=== PATIENT | female | born 1955 | race Caucasian/White ===

== ENCOUNTER → 2016-04-07 | Day surgery (SDC) | payer MEDICARE, BC ==
[2016-04-07 12:10] VITALS: BP 129/84; PULSE 66; RESP 18; TEMP 97.9
--- NOTE | 2016-04-07 12:37 | P.PN ---
Progress Note - Text PROCEDURE: Intrathecal pain pump analysis, programming and reprogramming, and intrathecal pain pump refill. PREOPERATIVE DIAGNOSES: 1. near empty intrathecal pain pump time for refill. 2. opioid tolerance 3. failed back surgery syndrome POSTOPERATIVE DIAGNOSES: 1. near empty intrathecal pain pump time for refill. 2. opioid tolerance 3. failed back surgery syndrome ANESTHESIA: None. CONDITION: Stable. INDICATION: This is a 60-year-old patient with a long history of chronic pain secondary to postlaminectomy syndrome. Patient previously had an intrathecal pump placed, which is now close to empty, and patient presents for refill today. Patient denies any side effects of the intrathecal medication, including new weakness, new numbness, excessive drowsiness or sleepiness, nausea/vomiting , weight gain, or night sweats. Patient also denies suicidal ideation, and reports that the current pain medication is helping control the chronic pain and improve the patient's activities of daily living. DESCRIPTION: The intrathecal pain pump was analyzed and showed that the patient currently has reservoir volume of [9.6] mL. The patient is receiving intrathecal hydromorphone PF at concentration [10] mg/ ml, and bupivacaine PF at concentration [7] mg/ml. Patient receiving daily dose of Morphine Sulfate [5] mg/day and bupivacaine [ 3.5] mg/day. The location of the pump (right buttock) was prepped with chlorhexidine x3. Then, the 22-gauge needle from the Twenty[employer] kit was advanced through the pump port. Total of [11] ml was removed from the pump, and it was refilled with the new medication total volume of [40] ml of a solution containing hydromorphone at concentration [10] mg /ml and bupivacaine at concentration [7] mg/ml. The patient will continue with the same daily dose hydromorphone [5] mg/day and bupivacaine [3.5] mg/day. The patient is using some oral medications as well, specifically morphine IR 30 mg every 8 hours prn pain orally for breakthrough pain. The patient was given two months' worth of these medications and patient will follow up with the pain clinic in 2 months for refill and further evaluation. UDS from last visit was normal. On physical exam, patient has L >> R SIJ tenderness and positive Sánchez's bilaterally. We will additionally schedule her for a left SIJ injection prior to next pump refill.
== END ==
LOC: PNWHC3 11:21
PROVIDERS: ATTEND Anesthesiology
DX: Z45.1 Encounter for adjustment and management of infusion pump (principal); G89.4 Chronic pain syndrome; M54.5 Low back pain; M96.1 Postlaminectomy syndrome, not elsewhere classified
CPT/HCPCS: 62370

== ENCOUNTER 2016-04-10 06:47 | Day surgery (SDC) | payer MEDICARE, BC ==
[2016-04-09 08:14] VITALS: BMI 35.9
[~2016-04-10 06:47] MED LIST: LACTATED RINGERS 1,000 ML IV SCH
[2016-04-10] MEDS ORDERED: LIDOCAINE 1% 20 ML VIAL (10MG/ML) FOR IV START INTRADERMA ONE (07:05)
[2016-04-10 07:23] LABS: Glucose,Whole Blood 152 mg/dL (75-99)
[2016-04-10 07:29] VITALS: RESP 16; TEMP 97.6
[2016-04-10 07:39] LABS: INR 1.2 (<1.1); Prothrombin Time 11.5 sec (9.0-12.0)
[2016-04-10] MEDS ORDERED: fentaNYL (PF) 50 MCG/ML 2 ML AMP ONE (08:10)
[2016-04-10] MEDS ORDERED: TRIAMCINOLONE ACETONIDE 40 MG/ML 1 ML VIAL ONE (08:10)
[2016-04-10] MEDS ORDERED: MIDAZOLAM 2 MG/2 ML VIAL ONE (08:10)
[2016-04-10] MEDS ORDERED: BUPIVACAINE (PF) 0.5% 30 ML VIAL ONE (08:10)
[2016-04-10] MEDS ORDERED: IV FLUID CONTINUATION 1,000 ML IV ONE (08:49)
[2016-04-10 09:00] VITALS: BP 119/83; PULSE 62
[2016-04-10 09:05] LABS: Glucose,Whole Blood 176 mg/dL (75-99)
--- NOTE | 2016-04-10 09:30 | FL ---
EXAMINATION TYPE: FL guided pain mgmt statistic DATE OF EXAM: 04/10/2016 8:46 AM CLINICAL HISTORY: Low back and sacroiliac joint pain. TECHNIQUE: Fluoroscopy. COMPARISON: None. FINDINGS: Fluoroscopic guidance was provided during pain relief procedure performed by Dr. Clarke . A total of 10 seconds of fluoroscopic time was utilized during the procedure and two spot images a re acquired. Images acquired shows needle localization at level of bilateral sacroiliac joints. IMPRESSION: As Above.
--- NOTE | 2016-04-10 12:09 | P.PCN ---
Date of Procedure: 04/10/16 Procedure(s) Performed: Preoperative diagnoses= 1-bilateral sacroiliitis. 2-Failed back surgery syndrome lumbar area Postoperative diagnoses= same as preoperative diagnosis. Procedure= bilateral sacroiliac joint steroid injection under fluoroscopic guidance. Anesthesia= conscious sedation with Versed 2 mg and fentanyl 200 micrograms and local infiltration with lidocaine 1% 4 ml Estimated blood loss=minimal. Procedure indication= the patient had a history of severe chronic low back pain , diagnosed with sacroiliitis , unresponsive to conservative treatment. Procedure description= the patient was seen and identified in the preoperative holding area, risks and benefits and alternative of the procedure and possible complications discussed with the patient, and he agreed with the preceding, patient signed the consent, an IV was started, and vital signs were monitored and were stable throughout the procedure, patient was placed in the prone position or table and the lumbosacral area was prepped and draped with a sterile fashion, vital signs were closely monitored during the procedure, the fluoroscopy camera was placed in the contralateral oblique view on the right sacroiliac joint and the lower part of the joint was identified, local infiltration of the skin and subcutaneous tissue with lidocaine 1% 2 mL then a 22-gauge Quincke-type spinal needle advanced slowly under fluoroscopy and placed in the posterior and inferior border of the right sacroiliac joint, placement confirmed with AP and lateral view, and after appropriate needle placement confirmed and after negative aspiration for heme and CSF and there was no paresthesia during the injection, 3 ml of Marcaine 0.5% and 40 mg of Kenalog injected after negative aspiration, the needle removed, and the entire same procedure was repeated for the left sacroiliac joint Patient tolerated the procedure well without any complication, The patient returned to supine position after the back was cleaned and a Band- Aid applied, the patient transported to recovery room in stable condition and he was monitored for 30 minutes before he was discharged home and then patient was reexamined before going home and patient was discharged in stable condition and patient will follow up with the pain clinic in a few weeks
== END 2016-04-10 09:39 | disposition home or self-care (01) ==
LOC: ORPAIN 06:47
PROVIDERS: ATTEND Specialist
DX: G89.29 Other chronic pain (principal); M96.1 Postlaminectomy syndrome, not elsewhere classified; M46.1 Sacroiliitis, not elsewhere classified; M54.5 Low back pain; Z88.0 Allergy status to penicillin; Z88.8 Allergy status to other drugs, medicaments and biological substances; Z91.09 Other allergy status, other than to drugs and biological substances
CPT/HCPCS: 85610; 99152; J2250; J3301; J3010; G0260

== ENCOUNTER 2016-05-13 09:46 | Day surgery (SDC) | payer MEDICARE, BC ==
[2016-05-08 10:50] VITALS: BMI 32.7
[2016-05-13 10:05] VITALS: RESP 16; TEMP 97.1
[2016-05-13] MEDS ORDERED: LIDOCAINE 1% 20 ML VIAL (10MG/ML) FOR IV START INTRADERMA ONE (10:13)
[2016-05-13 10:24] LABS: Glucose,Whole Blood 114 mg/dL (75-99)
[2016-05-13] MEDS ORDERED: TRIAMCINOLONE ACETONIDE 40 MG/ML 1 ML VIAL ONE (10:46)
[2016-05-13] MEDS ORDERED: BUPIVACAINE (PF) 0.75% 30 ML VIAL ONE (10:46)
[2016-05-13] MEDS ORDERED: MIDAZOLAM 2 MG/2 ML VIAL ONE (10:46)
[2016-05-13] MEDS ORDERED: fentaNYL (PF) 50 MCG/ML 2 ML AMP ONE (10:46)
--- NOTE | 2016-05-13 11:11 | P.PCN ---
Date of Procedure: 05/13/16 Procedure(s) Performed: Preoperative diagnoses= 1-bilateral sacroiliitis. 2-failed back surgery syndrome lumbar area Postoperative diagnoses= same as preoperative diagnosis. Procedure= bilateral sacroiliac joint steroid injection under fluoroscopic guidance. Anesthesia= conscious sedation with Versed 2 mg and fentanyl 300 micrograms and local infiltration with lidocaine 1% 4 ml Estimated blood loss=minimal. Procedure indication= the patient had a history of severe chronic low back pain , diagnosed with sacroiliitis and lumbar sacral facet arthropathy unresponsive to conservative treatment. Procedure description= the patient was seen and identified in the preoperative holding area, risks and benefits and alternative of the procedure and possible complications discussed with the patient, and he agreed with the preceding, patient signed the consent, an IV was started, and vital signs were monitored and were stable throughout the procedure, patient was placed in the prone position or table and the lumbosacral area was prepped and draped with a sterile fashion, vital signs were closely monitored during the procedure, the fluoroscopy camera was placed in the contralateral oblique view on the right sacroiliac joint and the lower part of the joint was identified, local infiltration of the skin and subcutaneous tissue with lidocaine 1% 2 mL then a 22-gauge Quincke-type spinal needle advanced slowly under fluoroscopy and placed in the posterior and inferior border of the right sacroiliac joint, placement confirmed with AP and lateral view, and after appropriate needle placement confirmed and after negative aspiration for heme and CSF and there was no paresthesia during the injection, 3 ml of Marcaine 0.5% and 40 mg of Kenalog injected after negative aspiration, the needle removed, and the entire same procedure was repeated for the left sacroiliac joint Patient tolerated the procedure well without any complication, The patient returned to supine position after the back was cleaned and a Band- Aid applied, the patient transported to recovery room in stable condition and he was monitored for 30 minutes before he was discharged home and then patient was reexamined before going home and patient was discharged in stable condition and patient will follow up with the pain clinic in a few weeks
[2016-05-13] MEDS ORDERED: IV FLUID CONTINUATION 600 ML IV ONE (11:36)
[2016-05-13 11:39] VITALS: BP 123/57; PULSE 62
--- NOTE | 2016-05-13 11:46 | FL ---
EXAMINATION TYPE: FL guided pain mgmt statistic DATE OF EXAM: 05/13/2016 11:19 AM CLINICAL HISTORY: Low back pain. TECHNIQUE: Fluoroscopy. COMPARISON: None. FINDINGS: Fluoroscopic guidance was provided during pain relief procedure performed by Dr. Clarke . A total of 14 seconds of fluoroscopic time was utilized during the procedure and two spot images a re acquired. Images acquired shows needle localization at level of sacroiliac joints. IMPRESSION: As Above.
== END 2016-05-13 12:12 | disposition home or self-care (01) ==
LOC: ORPAIN 09:46
PROVIDERS: ATTEND Specialist
DX: G89.29 Other chronic pain (principal); M46.1 Sacroiliitis, not elsewhere classified; M46.97 Unspecified inflammatory spondylopathy, lumbosacral region; M96.1 Postlaminectomy syndrome, not elsewhere classified; J44.9 Chronic obstructive pulmonary disease, unspecified; Z88.0 Allergy status to penicillin; Z91.048 Other nonmedicinal substance allergy status; Z88.8 Allergy status to other drugs, medicaments and biological substances
CPT/HCPCS: 99152; G0260; J2250; J3301; J3010

== ENCOUNTER → 2016-06-11 | Day surgery (SDC) | payer MEDICARE, BC ==
[2016-06-11 12:36] VITALS: BP 145/87; PULSE 70; RESP 16; TEMP 97.9
--- NOTE | 2016-06-11 13:52 | P.PCN ---
Date of Procedure: 06/11/16 Procedure(s) Performed: OPERATION: Intrathecal pain pump analysis, programming and reprogramming, and intrathecal pain pump refill. PREOPERATIVE DIAGNOSES: 1. near empty intrathecal pain pump time for refill. 2. 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 near empty intrathecal pain pump time for refill. 2. 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 CONDITION: Stable. Description of the procedure; Intrathecal pain pump analysed ,it showed patient currently had reservoir volume 7.6 mL. The patient is receiving medication Dilaudid 10 mg/ ml, and bupivacaine concentration 7 mg/ml. Patient receiving daily dose of Dilaudid 4.9 mg/day and bupivacaine 3.5 mg/day. Pain is well controlled , patient using medication for breakthrough pain MS IR 30 mg every 6 hours when necessary orally . The location of the pump ( Right Buttuck ) Prepped with chlorhexidine x3 , then using 22-gauge needle Bit Cauldron kit advanced through the pump port, Total of 10 ml removed from the pump, the pump refills with the new medication total volume [ 40 ] ml . The concentration of Dilaudid 10 mg /ml , and the bupivacaine concentration 7 mg/ml. The patient will continue to see the daily dose Dilaudid 4.9mg/day and bupivacaine 3.5 mg/day and patient will follow up with the pain clinic in 3 months. Patient given prescription refill today for MS IR 15 mg every 6 hours dispense 120 with 2 refills and Zanaflex 4 mg every 6 hours when necessary Not= discussed with the patient today the option of doing radiofrequency ablation of the sacroiliac joint patient had sacroiliac joint steroid injections in 2 different occasions and she gets excellent pain relief, and for this reason she will need good candidate for radiofrequency ablation of the dorsal ramus of L5-S1 and the radiofrequency ablation of the lateral branches of S1/S2/S3 , we will start with the left side first and witherite suddenly thrown procedure risk and benefits and alternatives discussed with patient and she agreed with proceeding.
== END ==
LOC: PNWHC3 12:01
PROVIDERS: ATTEND Specialist
DX: Z45.49 Encounter for adjustment and management of other implanted nervous system device (principal); M96.1 Postlaminectomy syndrome, not elsewhere classified; Z79.891 Long term (current) use of opiate analgesic
CPT/HCPCS: 62370; 71020; 81003; 85610; 85730

== ENCOUNTER → 2016-06-11 | Outpatient (CLI) | payer MEDICARE, BC ==
[2016-06-11 14:47] LABS: Appearance,Urine Clear (Clear); Bilirubin,Urine Negative (Negative); Glucose,Urine (UA) Negative (Negative); Ketones,Urine Negative (Negative); Leukocyte Esterase,Urine Negative (Negative); Nitrite,Urine Negative (Negative); Protein,Urine Negative (Negative); Specific Gravity,Urine 1.009 (1.001-1.035); UA Billing (MACRO vs. MICRO) CHEM; Urobilinogen,Urine <2.0 mg/dL (<2.0)
--- NOTE | 2016-06-11 15:21 | XR ---
EXAMINATION TYPE: XR chest 2V DATE OF EXAM: 06/11/2016 2:44 PM COMPARISON: 09/24/2014 HISTORY: 60-year-old female presurgical evaluation for spinal stimulator removal TECHNIQUE: Frontal and lateral views FINDINGS: The heart is normal size. Aorta and pulmonary vasculature within normal limits. Median sternotomy wir es are present with post-CABG clips in the mediastinum. No consolidation or pleural effusion. Spinal stimulator array centered along the mid thoracic spinal canal. There also appears to be some k ind of catheter ventrally along the spinal canal. IMPRESSION: No acute cardiopulmonary process.
[2016-06-11 15:25] LABS: INR 2.4 (<1.1); Partial Thromboplastin Time 29.4 sec (22.0-30.0); Prothrombin Time 22.7 sec (9.0-12.0)
== END | disposition home or self-care (01) ==
LOC: LABPAT 14:03
PROVIDERS: ATTEND Orthopaedic Surgery Orthopaedic Surgery of the Spine
DX: Z01.818 Encounter for other preprocedural examination (principal); Z01.812 Encounter for preprocedural laboratory examination
CPT/HCPCS: 71020; 81003; 85610; 85730

== ENCOUNTER 2016-06-18 10:24 | Inpatient (IN) | payer MEDICARE, BC ==
[2016-06-16 11:45] VITALS: BMI 33.8
[~2016-06-18 10:24] MED LIST changes: +BACITRACIN 50,000 UNIT, POLYMYXIN B 500,000 UNIT in SODIUM CHLORIDE 0.9% IRRIGATIO 1,00... IRRIGATION ONE; +DEXAMETHASONE SOD PHOSPHATE 10 MG/ML 1 ML VIAL IV ONE; -LACTATED RINGERS 1,000 ML IV SCH; +LIDOCAINE 1% 20 ML VIAL (10MG/ML) FOR IV START INTRADERMA PRN; +MIDAZOLAM 2 MG/2 ML VIAL IV PRN; +ONDANSETRON 4 MG/2 ML VIAL IVP ONE; +SCOPOLAMINE 1.5MG/72HR PATCH TRANSDERM ONE; +ceFAZolin 2 GM in SODIUM CHLORIDE 0.9% 100 ML IVPB ONE
[2016-06-18] MEDS: LACTATED RINGERS 1,000 ML IV SCH (11:02)
[2016-06-18 11:08] LABS: Glucose,Whole Blood 87 mg/dL (75-99)
[2016-06-18 11:23] LABS: Prothrombin Time 10.2 sec (9.0-12.0)
[2016-06-18] MEDS: fentaNYL (PF) 50 MCG/ML 2 ML AMP IV ONE ×2 (11:28→11:47)
[2016-06-18] MEDS ORDERED: LIDOCAINE 1% INJ 10MG/ML (20 ML MDV) ONE (12:53)
[2016-06-18] MEDS ORDERED: THROMBIN (BOVINE) 5,000 UNIT VIAL TOPICAL ONE (12:53)
[2016-06-18] MEDS ORDERED: SUCCINYLCHOLINE CHLORIDE 100 MG/5 ML SYR IV ONE (12:53)
[2016-06-18] MEDS ORDERED: GELATIN SPONGE,ABSORB (LARGE) 1 EACH SPONGE TOPICAL ONE (12:53)
[2016-06-18] MEDS ORDERED: BUPIVACAINE (PF) 0.25% 30 ML VIAL SQ ONE (12:53)
[2016-06-18] MEDS ORDERED: PROPOFOL 10 MG/ML 20 ML VIAL IV ONE ×2 (12:53)
[2016-06-18] MEDS ORDERED: HYDROmorphone (PF) 1 MG/ML ONE (12:53)
[2016-06-18] MEDS ORDERED: MIDAZOLAM 2 MG/2 ML VIAL ONE (12:53)
[2016-06-18] MEDS ORDERED: LIDOCAINE 0.5%-EPI 1:200,000 50 ML VIAL SQ ONE (12:53)
[2016-06-18] MEDS ORDERED: SODIUM CHLORIDE 0.9% 100 ML with CLINDAMYCIN 600 MG IV ONE ×2 (13:15)
[2016-06-18] MEDS ORDERED: LACTATED RINGERS 1,000 ML IV ONE (13:20)
[2016-06-18] MEDS ORDERED: IBUPROFEN 600 MG TAB PO PRN (14:30)
[2016-06-18] MEDS ORDERED: BENZOCAINE/MENTHOL LOZENG 1 EACH LOZENGE MUCOUS MEM PRN (14:30)
[2016-06-18] MEDS ORDERED: ONDANSETRON 4 MG/2 ML VIAL IVP PRN (14:30)
[2016-06-18] MEDS ORDERED: HYDROmorphone 1 MG/ML 1 ML SYRINGE IVP PRN ×2 (14:30)
[2016-06-18] MEDS ORDERED: DIAZEPAM 5 MG TAB PO PRN (14:30)
[2016-06-18] MEDS ORDERED: tiZANidine 4 MG TAB PO PRN ×2 (14:33→19:41)
[2016-06-18] MEDS ORDERED: ALBUTEROL NEBULIZED 2.5 MG/3 ML INHALATION PRN ×2 (14:33)
[2016-06-18] MEDS ORDERED: TEMAZEPAM 30 MG CAP PO PRN (14:33)
[2016-06-18] MEDS ORDERED: ALPRAZolam 0.5 MG TAB PO PRN (14:33)
--- NOTE | 2016-06-18 14:40 | XR ---
EXAMINATION TYPE: XR thoracic spine 1V, FL guidance operating room DATE OF EXAM: 06/18/2016 2:32 PM COMPARISON: NONE HISTORY: Thoracic laminectomy Fluoroscopy:Thoracic laminectomy NST placement. Dr. Ennis. 9 sec fluoro, 2 images scanned. Paper images: Four paper images are submitted which are quite limited.
[2016-06-18] MEDS: HYDROmorphone 1 MG/ML 1 ML SYRINGE IVP PRN ×4 (14:42→15:10)
--- NOTE | 2016-06-18 14:45 | P.OP ---
Date of Procedure: 06/18/16 Preoperative Diagnosis: Bothersome neurostimulator, chronic pain syndrome, failed low back surgery syndrome. History of neurostimulator placement Postoperative Diagnosis: Same Anesthesia: GETA Pathology: none sent Condition: stable Disposition: PACU Description of Procedure: BRIEF OPERATIVE NOTE Preoperative Diagnosis: Bothersome neurostimulator, history of neuro stimulator placement with laminectomy T10 11, history battery pack placement, chronic pain syndrome, failed back surgery syndrome, Postoperative Diagnosis: Same Procedure: Revision Laminectomy at T10 11 with removal of deep neuro estimated device at the epidural space Removal of battery pack through a separate incision at the left gluteal area, subcutaneous Use of C-arm guidance Surgeon: Dr. Ennis Embroidery Worker: Liam Garcia is present throughout the entire the case persistence during positioning, dissection, exposure, visualization, and all crucial elements of the case as well as closure. Anesthesia: General anesthesia Estimated blood loss:Approximately 50 mL Complications: None apparent Components implanted:No components were implanted, however we removed the neurostimulator paddle with leads as well as a battery pack Disposition: To recovery room in good stable condition. OPERATIVE INDICATIONS The patient has been having issues in their lower back and lower extremities Chronically over multiple years. the patient has been through extensive treatment in the past with her spine including spinal surgery spinal fusion, conservative management aggressive conservative care with placement of a pain pump as well as placement of a neurostimulator device in the past. Several years ago when she had her neurostimulator placed she initially had good improvement and results with it however those improvements faded and she was having continued problems and pain and no longer uses her nurse to better device. She feels it is bothersome for her at the level of her battery pack and the device itself. She wanted to get further workup including MRIs but she was limited due to the nurse to better placement. The patient has been through conservative treatment. we discussed removal of the neurostimulator device of the battery pack. We discussed various treatment options including surgery, and the patient wishes to proceed with surgery We discussed the risk, patient's alternatives and benefits of surgery including but not limited to, risk of bleeding risk of infection, risk of need for further surgery, risk of decreased , loss of motion, loss of function, nerve damage, paralysis, heart attack, blindness and . OPERATIVE SUMMARY After discussing risks, patient alternatives and benefits at length, the patient elected to proceed with surgical intervention, signed informed consent, and presented for their procedure. The patient was seen and examined in the preoperative holding area and the surgical site was marked. The patient was given antibiotics and brought to the operating room. The patient was sedated and intubated by anesthesia in standard fashion. The patient was positioned on to the operating room table in a prone position on the appropriate frame which was well-padded and well molded. We were careful to pad any bony prominences and pressure points. We were careful to maintain the patient's cervical spine and good neutral alignment and position throughout. The patient was prepped and draped in a normal standard fashion. An appropriate timeout and keystone protocol performed. We were able to proceed with the surgery. Fluoroscopy was utilized to establish the appropriate level. The local wound area was infiltrated with local anesthetic Both at her left gluteal area with a battery pack was placed as well as the midline lower thoracic. At the left gluteal area over the prior incision I was able to make an incision and dissect down to the battery pack at subcutaneous space. I removed the battery pack was examined examined and found to be in total. I cut the wires attaching it and it was removed. There was a large void in the capsule around the pouch site. I removed the cystic lining at that space appropriately and good hemostasis was maintained at the void. The wound was copiously irrigated and suctioned dry. He was closed with 2-0 Vicryl at the deep tissues, closing off any space and 2-0 Vicryl subcutaneous space and 4-0 Vicryl at the subcuticular tissue. I was able to turn my attention to the thoracic area. An incision was made at the midline longitudinally over the appropriate levels At T10 11 utilizing the prior incision site. Dissection was taken down subcutaneously to the level of the fascia which was split midline After exposing the coiled wires leading to the paddle lead. Dissection was taken over the lamina. Intraoperative fluoroscopy was taken which showed a marker at the appropriate level As able to expose the wires and their anchor sites at the interlaminar space. The anchors were cut appropriately in the wires were freed. With the appropriate level positively confirmed, we were able to proceed with laminectomy. there is significant scar tissue formation around the wires and leading to the paddle and I had to extend the laminectomy at T10 11 to get to the base of the paddle lead itself or the wires were joining the paddle lead. I removed the scar tissue from this area carefully. The wound was copiously irrigated and suctioned dry as had been done periodically throughout the case. I performed a laminectomy with a combination of curettes and a high-speed bur and Kerrison rongeurs. A small medial facetectomy was performed again further access. A partial foraminotomy was also performed. With the baseplate exposed I was able to and I was able to remove it from the epidural space. It was examined and found to be in total. There is no evidence of any retained fragments. There is no evidence of dural tear or leak. Good hemostasis maintained. The wound was copiously irrigated and suctioned dry. See him ring images were taken showing the removal of the paddle lead in total as well as the very pack and the wires. We were able to proceed with closure. The fascia was closed for a watertight closure. The subcuticular tissue was closed with absorbable suture. The wound was cleaned and dried and dressed with the appropriate dressing. The drapes were broken down. The patient was gently rolled back onto their hospital bed being careful to maintain their cervical spine and good neutral alignment and position. They were woken up by anesthesia, extubated, and brought to the recovery room in good stable condition. The patient will be admitted to the hospital for observation and for appropriate postoperative care, medical management and monitoring. We will continue to follow them closely about the postoperative course.
[2016-06-18] MEDS ORDERED: MEPERIDINE 50 MG/ML SYRINGE IVP ONE ×2 (15:15→15:30)
[2016-06-18 16:31] LABS: Glucose,Whole Blood 78 mg/dL (75-99)
[2016-06-18 17:11] LABS: Glucose,Whole Blood 66 mg/dL (75-99)
[2016-06-18 17:26] LABS: Glucose,Whole Blood 58 mg/dL (75-99)
[2016-06-18 17:41] LABS: Glucose,Whole Blood 70 mg/dL (75-99)
[2016-06-18] MEDS: SODIUM CHLORIDE 0.9% 1,000 ML IV SCH (18:16)
[2016-06-18] MEDS: CLINDAMYCIN 900 MG in DEXTROSE 5% IN WATER 50 ML IVPB SCH ×4 (18:17→23:07)
[2016-06-18] MEDS: GLIMEPIRIDE 2 MG TAB PO SCH (18:17)
[2016-06-18] MEDS: BUDESONIDE 0.5 MG/2 ML NEBU INHALATION SCH (19:08)
[2016-06-18] MEDS ORDERED: DILAUDID PAIN PUMP INTRATHECA SCH (19:45)
[2016-06-18 19:54] LABS: Glucose,Whole Blood 103 mg/dL (75-99)
[2016-06-18] MEDS ORDERED: BUDESONIDE 0.5 MG/2 ML NEBU INHALATION SCH (20:00)
[2016-06-18] MEDS ORDERED: FAMOTIDINE 20 MG TAB PO SCH (21:00)
[2016-06-18] MEDS ORDERED: METOPROLOL TARTRATE 25 MG TAB PO SCH (21:00)
[2016-06-18] MEDS: MORPHINE SULFATE IR 15 MG TABLET PO PRN (21:07)
[2016-06-18] MEDS: METOPROLOL TARTRATE 25 MG TAB PO SCH (21:08)
[2016-06-18 23:14] LABS: Glucose,Whole Blood 139 mg/dL (75-99)
[2016-06-19] MEDS: LACTATED RINGERS 1,000 ML IV SCH (01:22)
[2016-06-19] MEDS: MORPHINE SULFATE IR 15 MG TABLET PO PRN ×2 (02:23→11:25)
[2016-06-19] MEDS: SODIUM CHLORIDE 0.9% 1,000 ML IV SCH (05:01)
[2016-06-19 07:05] LABS: Glucose,Whole Blood 120 mg/dL (75-99)
[2016-06-19] MEDS: BUDESONIDE 0.5 MG/2 ML NEBU INHALATION SCH (07:15)
[2016-06-19] MEDS ORDERED: PANTOPRAZOLE 40 MG TABLET PO SCH (07:30)
[2016-06-19 08:10] VITALS: PULSE 67; RESP 17; TEMP 98.3
[2016-06-19] MEDS ORDERED: SODIUM CHLORIDE 0.9% 500 ML IV ONE ×2 (08:31)
[2016-06-19] MEDS: GLIMEPIRIDE 2 MG TAB PO SCH (08:35)
[2016-06-19] MEDS ORDERED: SERTRALINE 50 MG TAB PO SCH (09:00)
[2016-06-19] MEDS ORDERED: ENOXAPARIN 80 MG/0.8 ML SYRINGE SQ SCH (09:00)
[2016-06-19] MEDS ORDERED: ATORVASTATIN 10 MG TAB PO SCH (09:00)
[2016-06-19] MEDS ORDERED: VITAMIN B PO SCH (09:00)
[2016-06-19] MEDS ORDERED: ASPIRIN 81 MG CHEW PO SCH (09:00)
[2016-06-19] MEDS ORDERED: OXYBUTYNIN XL 5 MG TAB.ER.24 PO SCH (09:00)
[2016-06-19 11:25] VITALS: BP 134/75
[2016-06-19 11:25] LABS: Glucose,Whole Blood 114 mg/dL (75-99)
[2016-06-19] MEDS: METOPROLOL TARTRATE 25 MG TAB PO SCH (11:30)
[2016-06-19] MEDS ORDERED: CHOLECALCIFEROL 1,000 UNIT TAB PO SCH (12:00)
--- NOTE | 2016-06-19 12:26 | P.DS ---
Providers Date of admission: 06/18/16 10:24 Attending physician: René Ennis Consults: 06/18/16 17:45 Consult Physician Routine Consulting Provider: Cabrera Pinzon Reason/Comments: medical management Do you want consulting provider notified?: Yes Primary care physician: Cabrera Pinzon [facility] Course: The patient presented on the day of admission as per his operative note. Her pain is adequately controlled with oral medications. She has been able to get up and move around today. She is tolerating her diet. She denies any headaches or positional headaches. Physical Exam The incision site is clean dry and intact. There is no erythema no drainage. There is no purulence no evidence of infection. Abdomen soft and nontender. Chest has good excursion with deep inspiration and expiration. The patient has active and passive range of motion intact at the upper and lower extremities. There is no acute change in neurologic status. Hospital Course Postoperative day #1 status post revision laminectomy at T10 11 with removal of neurostimulator device and battery pack The patient has been making good progress postoperatively. She has significant history of chronic pain at her back with multiple procedures including history of placement of a neurostimulator device. The device was giving her no relief and was causing her some issues and she thus underwent removal of the neurostimulator device and battery pack yesterday. She is making progress appropriately. They have completed the prophylactic antibiotics without any signs or symptoms of infection. The patient has been able to advance their diet , and is tolerating diet adequately. The pain was initially controlled with IV medications and is now controlled appropriately with oral medications. The patient has been able to increase their mobilization. The patient has progressed appropriately. I think they are in good stable condition for discharge today. They will be sent home with appropriate prescriptions. I answered their questions to the best of my ability in a language that they can understand and they are agreeable with the plan. They will follow up as directed in approximately 2 weeks or sooner if she is having any problems. Patient Condition at Discharge: Good Plan - Discharge Summary New Discharge Prescriptions: Enoxaparin [Lovenox] 80 mg SQ Q12HR #6 syringe Discharge Medication List Famotidine [Pepcid] 20 mg PO HS 10/06/13 [History] Omeprazole [PriLOSEC] 20 mg PO DAILY 10/06/13 [History] Sertraline [Zoloft] 50 mg PO QAM 10/06/13 [History] Temazepam [Restoril] 30 mg PO HS PRN 07/13/14 [History] ALPRAZolam [Xanax] 0.5 mg PO TID PRN 09/25/14 [History] Warfarin [Coumadin] 3 mg PO SUTUWETHSA 07/11/15 [History] Albuterol Nebulized [Ventolin Nebulized] 2.5 mg INHALATION RT-QID PRN 02/06/16 [ History] Atorvastatin [Lipitor] 10 mg PO DAILY 02/06/16 [History] Albuterol Inhaler [Ventolin Hfa Inhaler] 1 - 2 puff INHALATION RT-Q6H PRN [History] Aspirin 81 mg PO DAILY 04/08/16 [History] Budesonide [Pulmicort] 0.5 mg INHALATION RT-BID 04/08/16 [History] Mirabegron [Myrbetriq] 25 tab PO DAILY 06/11/16 [History] Morphine Sulfate Ir [MSIR] 30 mg PO Q4H PRN #120 tablet 06/11/16 [Rx] Cholecalciferol [Vitamin D3] 1,000 unit PO DAILY 06/16/16 [History] Dilaudid Pain Pump 1 dose INTRATHECA CONTINUOUS 06/16/16 [History] Enoxaparin [Lovenox] 80 mg SQ Q12H 06/16/16 [History] Fluticasone Propionate [Flovent Hfa 110mcg] 2 puff INHALATION RT-BID 06/16/16 [ History] Glimepiride [Amaryl] 2 mg PO BID 06/16/16 [History] Vitamin B (Unknown Dose) 1 tab PO DAILY 06/16/16 [History] Warfarin [Coumadin] 4.5 mg PO MOFR 06/16/16 [History] Metoprolol Tartrate [Metoprolol Tartrate] 25 mg PO BID 06/18/16 [History] tiZANidine [Zanaflex] 4 mg PO Q6H PRN 06/18/16 [History] Enoxaparin [Lovenox] 80 mg SQ Q12HR #6 syringe 06/19/16 [Rx] Follow up Appointment(s)/Referral(s): Cabrera Pinzon MD [Primary Care Provider] - 1 Week [facility] Nurse, [NON-STAFF] - 1 Week René Ennis DO [Doctor of Osteopathic Medicine] - 2 Weeks (With Liam Dale at Dr. Ennis's office) Activity/Diet/Wound Care/Special Instructions: Keep site clean. May shower with waterproof Tegaderm intact. Do not soak in a tub. May ambulate to tolerance. Avoid heavy or rigorous activity. No lifting greater than 15 pounds. Continue pain management with pain management and medicine physicians.
--- NOTE | 2016-06-19 12:52 | P.CONS ---
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 Ulrich with recurrent back pain and her mobility decided to do a revision laminectomy of T10-11 along with removal of her nerve stimulator. Procedure was done today and patient was admitted to the hospital afterward. Patient has been on anticoagulation with Lovenox watch is off warfarin for the last 7 days has been doing 80 mg of Lovenox twice a day which was held yesterday patient will be continue on Lovenox and started on warfarin and prepare for home when she is ready. Also she is diabetic blood sugar has been well controlled we'll resume her meds. Patient had previous history of V. tach and arrhythmia has been better control with no complication lately. Review of Systems Constitutional: Reports anorexia, Reports chronic headaches, Reports chronic pain, Reports daytime sleepiness, Reports fatigue, Reports lethargy, Reports poor appetite, Reports weight gain, Denies as per HPI, Denies chills, Denies fever, Denies malaise, Denies night sweats, Denies sweats, Denies weakness, Denies weight loss Eyes: bilateral as per HPI Ears: bilateral: decreased hearing Ears, nose, mouth and throat: Reports ant. neck pain, Reports nasal congestion, Reports nasal discharge, Reports sinus pressure, Denies as per HPI, Denies bleeding gums, Denies dental pain, Denies dysphagia, Denies epistaxis, Denies headache, Denies hoarseness, Denies mouth pain, Denies neck fullness/pressure, Denies neck lump, Denies nose pain, Denies odynophagia, Denies post-nasal drip, Denies sinus pain, Denies swelling in mouth, Denies swelling in throat, Denies sore throat, Denies vertigo, Denies voice changes Cardiovascular: Reports chest pain, Reports decreased exercise tolerance, Reports dyspnea on exertion, Reports edema, Reports high blood pressure, Reports leg edema, Reports orthopnea, Reports palpitations, Reports paroxysmal nocturnal dyspnea Respiratory: Reports congestion, Reports dyspnea, Reports sleep apnea, Reports wheezing, Denies as per HPI, Denies cough, Denies cough with sputum, Denies excessive sputum, Denies hemoptysis, Denies home oxygen, Denies pain, Denies pain on inspiration, Denies pleurisy, Denies respiratory infections, Denies snoring Gastrointestinal: Reports abdominal pain, Reports bloating, Reports dyspepsia, Reports indigestion, Reports nausea, Denies as per HPI, Denies belching, Denies BRBPR, Denies change in bowel habits, Denies coffee ground emesis, Denies constipation, Denies diarrhea, Denies early satiety, Denies excessive gas, Denies heartburn, Denies hematemesis, Denies hematochezia, Denies jaundice, Denies lactose intolerance, Denies loss of appetite, Denies melena, Denies vomiting Genitourinary: Reports urge incontinence, Reports urgency, Reports urinary frequency, Denies as per HPI, Denies abnormal vaginal bleeding, Denies decreased libido, Denies difficulty conceiving, Denies difficulty voiding, Denies dysmenorrhea, Denies dyspareunia, Denies dysuria, Denies flank pain, Denies genital sores, Denies hematuria, Denies hot flashes, Denies incomplete emptying, Denies kidney stones, Denies menorrhagia, Denies mixed incontinence, Denies nocturia, Denies pelvic pain, Denies post void dribbling, Denies , Denies prolapse symptoms, Denies stress incontinence, Denies vaginal discharge , Denies vaginal dryness, Denies vaginal itching, Denies vaginal odor Musculoskeletal: Reports arm numbness/tingling, Reports frequent falls, Reports gait dysfunction, Reports leg numbness/tingling, Reports limitation of motion, Reports loss of height, Reports low back pain, Reports morning stiffness, Reports muscle cramps, Reports muscle weakness, Reports myalgias, Reports neck pain, Reports neck stiffness, Denies as per HPI, Denies atrophy, Denies fractures, Denies hot joints, Denies prior amputations, Denies redness of joints , Denies shooting arm pain, Denies shooting leg pain Integumentary: Reports pruritus, Reports rash, Reports sores, Reports striae, Denies as per HPI, Denies acne, Denies boils, Denies brittle nails, Denies change in hair/nails, Denies color changes, Denies darkening of skin, Denies depigmentation, Denies dryness, Denies foot/leg ulcers, Denies growths, Denies hirsutism, Denies lesions, Denies onychomycosis, Denies unusual bruising, Denies wounds Neurological: Reports ataxia, Reports gait dysfunction, Reports lack of coordination, Reports motor disturbance, Reports numbness, Reports paresthesias , Reports spasticity, Reports tingling, Reports weakness, Denies as per HPI, Denies aphasia, Denies balance difficulties, Denies burning pain, Denies change in mentation, Denies change in smell/taste, Denies change in speech, Denies confusion, Denies convulsions, Denies double vision, Denies head injury, Denies headaches, Denies hearing difficulties, Denies loss of vision, Denies memory loss, Denies migraines, Denies paralysis, Denies seizures, Denies sensory deficit, Denies syncope, Denies tic, Denies transient paralysis, Denies tremors , Denies vertigo, Denies visual changes Psychiatric: Reports anhedonia, Reports anxiety, Reports anxiety attacks, Reports depression, Reports hypersomnia, Reports irritability, Reports memory loss, Reports mood swings, Reports sadness/tearfulness, Denies as per HPI, Denies change in appetite, Denies change in libido, Denies change in sleep habits, Denies confusion, Denies difficulty concentrating, Denies disorientation , Denies hallucinations, Denies hopelessness, Denies insomnia, Denies paranoia, Denies sleep disturbances, Denies suicidal ideation Endocrine: Reports cold intolerance, Reports excessive thirst, Reports fatigue, Denies as per HPI, Denies deepening of the voice, Denies excessive sweating, Denies flushing, Denies heat intolerance, Denies high blood sugars, Denies increase in ring/shoe/hat size, Denies low blood sugars, Denies nocturia, Denies palpitations, Denies polydipsia, Denies polyphagia, Denies polyuria, Denies proptosis, Denies recent glucocorticoid use, Denies thyroid mass, Denies weight change Hematologic/Lymphatic: Reports easy bruising, Denies as per HPI, Denies easy bleeding, Denies lymphadenopathy, Denies lymphedema, Denies thrombophilia Allergic/Immunologic: Denies as per HPI, Denies allergic rhinitis, Denies anaphylaxis, Denies angioedema, Denies gluten intolerance, Denies persistent infections, Denies seasonal allergies, Denies urticaria, Denies wheezing Past Medical History Past Medical History: Atrial Fibrillation, Asthma, COPD, Diabetes Mellitus, Deep Vein Thrombosis (DVT), GERD/Reflux, Pulmonary Embolus (PE) Additional Past Medical History / Comment(s): HIATAL HERNIA. ULCERATIVE COLITIS. RAYNAUDS, STATES HX OF A-FIB DURING CARDIAC PROCEDURE., CHRONIC BACK PAIN, STRESS INCONTINENCE., O2 2-3 L PRN, hx mult blood clots-(HEART, DVT and nica PE), numbness left leg-uses cane or walker. pt has clotting disorder-not sure of name. History of Any Multi-Drug Resistant Organisms: None Reported Past Surgical History: Adenoidectomy, Bowel Resection, Breast Surgery, Cholecystectomy, Heart Catheterization, Hysterectomy, Orthopedic Surgery, Tonsillectomy Additional Past Surgical History / Comment(s): 01/24/10 OPEN HEART PROCEDURE-- RT. VENTRICULOTOMY TO REMOVE BLOOD CLOT. HX. BACK SURGERY- FUSION X 3. INTRATHECAL PAIN PUMP - replaced on August 02, 2014. TESHA FILTER. surgery left forearm(for fx) . bilateral carpal tunnel, nica breast reduction Past Anesthesia/Blood Transfusion Reactions: No Reported Reaction Additional Past Anesthesia/Blood Transfusion Reaction / Comm: HX OF BLOOD TRANSFUSION AND FRESH FROZEN PLASMA. Past Psychological History: Anxiety, Depression Smoking Status: Former smoker Past Alcohol Use History: None Reported Additional Past Alcohol Use History / Comment(s): quit smoking 1992, STARTED SMOKING AT AGE 17 SMOKED 1/2-1PPD Past Drug Use History: None Reported - Past Family History Daughter(s) Family Medical History: Pulmonary Embolus Father Family Medical History: Myocardial Infarction ([place]) Additional Family Medical History / Comment(s): at age 70 Mother Family Medical History: No Reported History Additional Family Medical History / Comment(s): blodd clot in heart Medications and Allergies Home Medications Medication Instructions Recorded Confirmed Type Famotidine [Pepcid] 20 mg PO HS 10/06/13 06/18/16 History Omeprazole [PriLOSEC] 20 mg PO DAILY 10/06/13 06/18/16 History Sertraline [Zoloft] 50 mg PO QAM 10/06/13 06/18/16 History Temazepam [Restoril] 30 mg PO HS PRN 07/13/14 06/18/16 History ALPRAZolam [Xanax] 0.5 mg PO TID PRN 09/25/14 06/18/16 History Warfarin [Coumadin] 3 mg PO SUTUWETHSA 07/11/15 06/18/16 History Albuterol Nebulized [Ventolin 2.5 mg INHALATION RT-QID PRN 02/06/16 06/18/16 History Nebulized] Atorvastatin [Lipitor] 10 mg PO DAILY 02/06/16 06/18/16 History Albuterol Inhaler [Ventolin Hfa 1 - 2 puff INHALATION RT-Q6H PRN 04/08/16 History Inhaler] Aspirin 81 mg PO DAILY 04/08/16 06/18/16 History Budesonide [Pulmicort] 0.5 mg INHALATION RT-BID 04/08/16 06/18/16 History Mirabegron [Myrbetriq] 25 tab PO DAILY 06/11/16 06/18/16 History Cholecalciferol [Vitamin D3] 1,000 unit PO DAILY 06/16/16 06/18/16 History Enoxaparin [Lovenox] 80 mg SQ Q12H 06/16/16 06/18/16 History Fluticasone Propionate [Flovent 2 puff INHALATION RT-BID 06/16/16 06/18/16 History Hfa 110mcg] Glimepiride [Amaryl] 2 mg PO BID 06/16/16 06/18/16 History Vitamin B (Unknown Dose) 1 tab PO DAILY 06/16/16 06/18/16 History Warfarin [Coumadin] 4.5 mg PO MOFR 06/16/16 06/18/16 History Metoprolol Tartrate 25 mg PO BID 06/18/16 06/18/16 History tiZANidine [Zanaflex] 4 mg PO Q6H PRN 06/18/16 06/18/16 History Allergies Allergy/AdvReac Type Severity Reaction Status Date / Time adhesive Allergy BANDAIDES Verified 06/16/16 11:06 INCLUDED.SKIN BLISTERS. PAPER TAPE IS OK. metformin Allergy Diarrhea,VO Verified 06/16/16 11:06 MITING Penicillins Allergy HIVES Verified 06/16/16 11:06 ziprasidone HCl [From Geodon] Allergy ARRYTHMIA,H Verified 06/16/16 11:06 YPOTENSION ziprasidone mesylate Allergy ARRYTHMIA,H Verified 06/16/16 11:06 [From Geodon] YPOTENSION derma-shelton Allergy Rash/Hives Uncoded 06/16/16 11:06 Physical Exam Vitals: Vital Signs Temp Pulse Pulse Pulse Resp BP Pulse Ox 06/18/16 19:31 76 06/18/16 19:12 76 100 06/18/16 16:20 77 16 140/62 97 06/18/16 16:05 74 16 143/57 96 06/18/16 15:50 88 16 143/57 99 06/18/16 15:35 81 16 141/67 100 06/18/16 15:20 71 16 146/58 100 06/18/16 15:05 67 16 145/66 100 06/18/16 14:50 68 16 144/56 100 06/18/16 14:35 75 16 156/69 98 06/18/16 10:54 97.2 F L 61 16 146/80 98 Intake and Output 06/18/16 06/18/16 06/18/16 06:59 14:59 22:59 Intake Total 1205 500 Output Total 300 175 Balance 905 325 Intake: IV 1205 500 Output: Urine 250 175 Estimated Blood Loss 50 Other: Weight 83.915 kg Patient Weight 06/19/16 06:59 Weight 83.915 kg - Constitutional General appearance: no average body habitus, cooperative, no disheveled, no mild distress, no morbidly obese, no acute distress, no obese, no severe distress, no thin - EENT Eyes: no abnormal pupil, no anicteric sclerae, no disc margins sharp, no edentulous, no EOMI, no PERRLA, fundus normal, no photophobia, no dentition normal, no poor dentition, no ptosis, no scleral icterus, normal appearance ENT: no hard of hearing, no hearing grossly normal, no NA/AT, normal oropharynx , no other, no pharyngeal erythema, no thrush, no tonsillar exudates, no tonsillar swelling Ears: bilateral: normal - Neck Neck: no lymphadenopathy, normal ROM, no other, no rigidity, no stridor, no thyromegaly Carotids: bilateral: upstroke normal Thyroid: bilateral: normal size - Respiratory Respiratory: bilateral: diminished, dullness, rales, rhonchi, wheezing - Cardiovascular Rhythm: regular Heart sounds: normal: S1, S2 Abnormal Heart Sounds: systolic murmur, S3 Gallop - Gastrointestinal General gastrointestinal: no absent bowel sounds, decreased bowel sounds, distended, hepatomegaly, no hyperactive bowel sounds, normal bowel sounds, organomegaly, no rigid, no scaphoid, soft, no splenomegaly, no tenderness, no umbilical hernia, no ventral hernia - Integumentary back surgery site looks fine incision is small still have mild irritation and discomfort in the area, the area with the stimulator was removed from With no induration or hematoma. Integumentary: no calor, no cellulitis, no cyanotic, no decreased turgor, no flushed, no jaundiced, no normal, no normal turgor, pale, rash, no ulcer - Neurologic Neurologic: CNII-XII intact - Musculoskeletal Musculoskeletal: no gait normal, generalized weakness, strength equal bilaterally, no right sided weakness, no left sided weakness - Psychiatric Psychiatric: A&O x's 3, appropriate affect, no intact judgment & insight Results Labs: Abnormal Lab Results - Last 24 Hours (Table) 06/18/16 06/18/16 06/18/16 Range/Units 17:08 17:24 17:39 POC Glucose (mg/dL) 66 L 58 L 70 L (75-99) mg/dL Assessment and Plan Plan: 1 post repair in the next time he of the T 10-11 and removal of neuro stimulator : Patient is doing well postsurgery continue postsurgical care continue to watch patient hemodynamic status resume home meds and use protocol post surgery. 2 recurrent DVT and PE: Patient is on long-term anticoagulation for warfarin tonight. Patient will be back on Lovenox 80 mg subcutaneous twice a day as a bridge still the INR is therapeutic. 3 diabetes: Patient has been on oral hypoglycemic agent continue Accu-Chek with sliding scales coverage. 4 chronic pain management: Patient has been on morphine pump along with lower term morphine sulfate orally. Along with Zanaflex 6 mg 3 times a day. 5 chronic depression: Has been on Zoloft 50 mg daily. 6 hyperlipidemia: Has been on Lipitor 10 mg a day. 7 asthma: Patient has been doing well on albuterol inhaler continue medication. 8 arrhythmia: Patient is doing well on metoprolol 25 g daily. 9 GERD/GI prophylaxis: Patient has been on omeprazole and Pepcid resume both medication. 10 overactive bladder: Remain on might better 25 mg a day. 11 DVT prophylaxis: Patient will be on Lovenox. CODE STATUS: Full code. Dr. Ennis thank you very much for the consult if I can be any further help to please let me know.
[2016-06-19] MEDS ORDERED: WARFARIN 3 MG TAB PO SCH ×2 (18:00)
[2016-06-20] MEDS ORDERED: WARFARIN 1.5 MG TAB PO SCH (18:00)
== END 2016-06-19 15:23 | disposition home health service (06) | DRG 29 ==
LOC: 2ORMAIN 10:24 → MERGE 12:45 → 3SUR 14:35
PROVIDERS: ADMIT Orthopaedic Surgery Orthopaedic Surgery of the Spine; ATTEND Orthopaedic Surgery Orthopaedic Surgery of the Spine
PROC: 01N80ZZ Release Thoracic Nerve, Open Approach (ICD-10-PCS; 2016-06-18)
PROC: 0JPT0MZ Removal of Stimulator Generator from Trunk Subcutaneous Tissue and Fascia, Open Approach (ICD-10-PCS; 2016-06-18)
PROC: 00PU0MZ Removal of Neurostimulator Lead from Spinal Canal, Open Approach (ICD-10-PCS; principal; 2016-06-18 12:45)
DX: T85.193A Other mechanical complication of implanted electronic neurostimulator, generator, initial encounter (principal); I47.2 Ventricular tachycardia; D68.9 Coagulation defect, unspecified; Z99.81 Dependence on supplemental oxygen; K51.90 Ulcerative colitis, unspecified, without complications; M96.1 Postlaminectomy syndrome, not elsewhere classified; I48.2 Chronic atrial fibrillation; J44.9 Chronic obstructive pulmonary disease, unspecified; L90.5 Scar conditions and fibrosis of skin; M54.10 Radiculopathy, site unspecified; E11.9 Type 2 diabetes mellitus without complications; I25.10 Atherosclerotic heart disease of native coronary artery without angina pectoris; J45.909 Unspecified asthma, uncomplicated; N39.3 Stress incontinence (female) (male); G89.4 Chronic pain syndrome; N32.81 Overactive bladder; R51 Headache; I73.00 Raynaud's syndrome without gangrene; M54.5 Low back pain; M54.6 Pain in thoracic spine; F32.9 Major depressive disorder, single episode, unspecified; K44.9 Diaphragmatic hernia without obstruction or gangrene; M19.90 Unspecified osteoarthritis, unspecified site; F41.1 Generalized anxiety disorder; I10 Essential (primary) hypertension; G47.30 Sleep apnea, unspecified; E78.00 Pure hypercholesterolemia, unspecified; M81.0 Age-related osteoporosis without current pathological fracture; E78.5 Hyperlipidemia, unspecified; K21.9 Gastro-esophageal reflux disease without esophagitis; Z86.711 Personal history of pulmonary embolism; Z86.718 Personal history of other venous thrombosis and embolism; Z79.899 Other long term (current) drug therapy; Z82.49 Family history of ischemic heart disease and other diseases of the circulatory system; Z87.891 Personal history of nicotine dependence; Z79.01 Long term (current) use of anticoagulants; Z79.84 Long term (current) use of oral hypoglycemic drugs; Z79.82 Long term (current) use of aspirin; Z98.1 Arthrodesis status; Z90.49 Acquired absence of other specified parts of digestive tract; Z90.710 Acquired absence of both cervix and uterus; Z87.81 Personal history of (healed) traumatic fracture; Z88.0 Allergy status to penicillin; Z88.8 Allergy status to other drugs, medicaments and biological substances; Z91.048 Other nonmedicinal substance allergy status; Z79.891 Long term (current) use of opiate analgesic; Z79.51 Long term (current) use of inhaled steroids; Z79.52 Long term (current) use of systemic steroids; Z95.828 Presence of other vascular implants and grafts; Z78.0 Asymptomatic menopausal state; Z86.79 Personal history of other diseases of the circulatory system; Z87.19 Personal history of other diseases of the digestive system
CPT/HCPCS: 72020; 85610; 86850; 86900; 86901; 94640

== ENCOUNTER 2016-07-23 09:29 | Day surgery (SDC) | payer MEDICARE, BC ==
[2016-07-21 09:03] VITALS: BMI 35.9
[~2016-07-23 09:29] MED LIST changes: -BACITRACIN 50,000 UNIT, POLYMYXIN B 500,000 UNIT in SODIUM CHLORIDE 0.9% IRRIGATIO 1,00... IRRIGATION ONE; -DEXAMETHASONE SOD PHOSPHATE 10 MG/ML 1 ML VIAL IV ONE; +LACTATED RINGERS 1,000 ML IV SCH; -LIDOCAINE 1% 20 ML VIAL (10MG/ML) FOR IV START INTRADERMA PRN; -MIDAZOLAM 2 MG/2 ML VIAL IV PRN; -ONDANSETRON 4 MG/2 ML VIAL IVP ONE; -SCOPOLAMINE 1.5MG/72HR PATCH TRANSDERM ONE; -ceFAZolin 2 GM in SODIUM CHLORIDE 0.9% 100 ML IVPB ONE
[2016-07-23 09:44] VITALS: TEMP 98.5
[2016-07-23] MEDS ORDERED: LIDOCAINE 1% 20 ML VIAL (10MG/ML) FOR IV START INTRADERMA ONE (09:44)
[2016-07-23] MEDS ORDERED: fentaNYL (PF) 50 MCG/ML 2 ML AMP IV ONE (11:23)
[2016-07-23] MEDS ORDERED: MIDAZOLAM 2 MG/2 ML VIAL ONE (11:27)
[2016-07-23] MEDS ORDERED: BUPIVACAINE (PF) 0.5% 30 ML VIAL ONE (11:27)
[2016-07-23] MEDS ORDERED: fentaNYL (PF) 50 MCG/ML 2 ML AMP ONE (11:27)
[2016-07-23] MEDS ORDERED: IV FLUID CONTINUATION 1,000 ML IV ONE (12:18)
--- NOTE | 2016-07-23 12:19 | FL ---
EXAMINATION TYPE: FL guided pain mgmt statistic DATE OF EXAM: 07/23/2016 12:09 PM HISTORY: Flouroscopy time 14 seconds of fluoroscopy provided. IMPRESSION: 1. Fluoroscopy time.
[2016-07-23 12:39] VITALS: RESP 16
[2016-07-23 13:01] VITALS: BP 140/63; PULSE 68
--- NOTE | 2016-07-25 08:03 | P.PCN ---
Date of Procedure: 07/23/16 Preoperative Diagnosis: Postoperative Diagnosis: Procedure(s) Performed: PREOPERATIVE DIAGNOSIS: 1-Lumbosacral spondylosis with facet arthropathy without myelopathy. 2- Bilateral sacroiliit. post operative Diagnosis: . 1-Lumbosacral spondylosis with facet arthropathy without myelopathy. 2-Bilateral sacroiliit. PROCEDURES: 1- Left radiofrequency thermocoagulation/ablation of the L5 dorsal ramus. 2- Left multi-site radiofrequency thermocoagulation/ablation of the S1, S2, lateral branchs. The procedure was performed using fluoroscopic guidance during needle placement to assure proper position and maximize safety . ANESTHESIA: LOCAL ANESTHESIA and IV sedation with versed 6 mg and Fentanyle 200 mcg EBL: NONE INDICATION/MEDICAL NECESSITY: History of low back pain secondary to left right bilateral sacroiliitis and lumbosacral arthropathy unresponsive to more conservative treatments. The patient reported more than 50% relief of pain symptoms following 2 previous diagnostic blocks with Bupivacaine. PROCEDURE DESCRIPTION: The patient was seen and identified in the preoperative area. Risks, benefits, complications, and alternatives were discussed with the patient. The patient agreed to proceed with the procedure and signed the consent. Vital signs were checked before and after the procedure and they remained stable. Patient ambulated to the procedure room and time out was completed. The patient was placed in the prone position on the procedure table and a pillow was placed under the abdomen to reduce lumbar lordosis. The lumbosacral area was prepped and draped in the usual sterile fashion. Critical pause was taken. L5 Dorsal Ramus RF: Using right oblique fluoroscopy, the junction of the transverse process and the superior articular process of the left S1 vertebra, which correspond to the fluoroscopic image of the "eye of the Justyn dog" was identified. Subsequently, a 10-cm 20 -gauge radiofrequency cannula with a 10-mm active tip was advanced under fluoroscopic guidance until contact was made with periosteum. At this level, the Sensory testing of the L5 dorsal ramus was performed at 50 Hz and 0 to 1 volt with production of concordant pain starting at 0.5 volt. Motor stimulation was done at 2.5 Hz with stimulation of mulitifidus muscle contration . No radicular symptoms or paresthesias were produced during the testing. Subsequently, the L5 dorsal ramus was subjected to a radiofrequency ablation at 80 degree celsius for 90 seconds . after 0.5% Bupivacaine 1 ml injected at each level after negative aspirations . The needle was withdrawn intact . S1, S3, Lateral Branch RF: The lateral margins of the left S1, S2, foramina were identified using AP fluoroscopy. Under fluoroscopic guidance, three 10-cm 20 -gauge radiofrequency cannula with a 10-mm active tip were inserted at 8-10 mm peripheral to the posterior S1 foramen, at various locations using clock-face coordinates. The center of the clock was registered at the lateral margin of the foramen. The 9: 30, 8:00, and 6:30 oclock positions were used. At this level, the sensory testing of the S1 lateral branch was performed at 50 Hz and 0 to 1 volt at the three levels with production of concordant pain starting at 0.5 volt. Motor stimulation was done at 2.5 Hz. No radicular symptoms or paresthesias were produced during the testing. Subsequently, the S1 lateral branch was subjected to a radiofrequency ablation at a mode of 90 seconds at 80 degrees Celsius at the 3 levels after negative motor and sensory testing and after injecting 0.5 ml of preservative free Bupivacaine 0.5 %. The same procedure was performed at the level of the S2 foramen. the plan was to do the RFA for lateral branches for S3 also ,but I could not identefy the S3 foramen, for this reason ,I did not do the RFA Lateral branches for S3 . The needle was withdrawn intact after each injection. COMPLICATIONS: The patient tolerated the procedure well without any acute complications. DISPOSTION/PLAN: The patient ambulated to the recovery area after the procedure in a stable condition for observation. Patient was reexamined prior to discharge. Patient was observed for 30 minutes in the recovery area and was discharged home, accompanied by an adult, after meeting discharged criteria. Discharge instructions were give to the patient by the staff. Patient was specifically instructed not to drive today and to rest for the rest of the day. The patient will schedule a follow up visit in the clinic in weeks or earlier if needed. Implants: Indications for Procedure: Operative Findings: Description of Procedure:
[2016-08-04 08:31] LABS: Glucose,Whole Blood 108 mg/dL (75-99)
== END 2016-07-23 13:25 | disposition home or self-care (01) ==
LOC: ORPAIN 09:29
PROVIDERS: ATTEND Specialist
DX: M47.817 Spondylosis without myelopathy or radiculopathy, lumbosacral region (principal); M46.97 Unspecified inflammatory spondylopathy, lumbosacral region; M46.1 Sacroiliitis, not elsewhere classified; Z88.0 Allergy status to penicillin; Z88.8 Allergy status to other drugs, medicaments and biological substances; Z91.09 Other allergy status, other than to drugs and biological substances
CPT/HCPCS: 64640 ×2; 64635; 99152; 99153; J2250; J3010

== ENCOUNTER → 2016-08-13 | Day surgery (SDC) | payer MEDICARE, BC ==
[2016-08-13 12:31] VITALS: BP 117/73; PULSE 63; RESP 16; TEMP 98.3
--- NOTE | 2016-08-14 22:33 | P.PCN ---
Date of Procedure: 08/13/16 Preoperative Diagnosis: Postoperative Diagnosis: Procedure(s) Performed: OPERATION: Intrathecal pain pump analysis, programming and reprogramming, and intrathecal pain pump refill. PREOPERATIVE DIAGNOSES: 1. near empty intrathecal pain pump time for refill. 2. 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 near empty intrathecal pain pump time for refill. 2. 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 CONDITION: Stable. Description of the procedure; Intrathecal pain pump analysed ,it showed patient currently had reservoir volume[8,6 ] mL. The patient is receiving medication Dilaudid 10 mg/ ml, and bupivacaine concentration [7 ] mg/ml. Patient receiving daily dose of Dilaudid 4.99 mg/day and bupivacaine [ 3.5] mg/ day. Pain is well controlled , patient using medication for breakthrough pain MS IR 50 mg every 4 hours , when necessary and Zanaflex 4 mg every 6 hours orally . The location of the pump ( Right Buttuck ) Prepped with chlorhexidine x3 , then using 22-gauge needle [employer] kit advanced through the pump port, Total of [ 11 ] ml removed from the pump, the pump refills with the new medication total volume [40 ] ml . The concentration Dilaudid 10 mg /ml , and the bupivacaine concentration [ 7 ] mg/ml. The patient will continue to see the daily dose of Dilaudid 4.99 mg/day and bupivacaine [ 3.5] mg/day and patient will follow up with the pain clinic in 3 months. Prescription refill for Zanaflex 4 mg every 6 hours dispense 120 with 2 refills and MSIR 30 mg every 4 hours dispense 120 with 2 refiles Implants: Indications for Procedure: Operative Findings: Description of Procedure:
== END | disposition home or self-care (01) ==
LOC: PNWHC3 12:09
PROVIDERS: ATTEND Specialist
DX: Z45.1 Encounter for adjustment and management of infusion pump (principal); G89.4 Chronic pain syndrome; M96.1 Postlaminectomy syndrome, not elsewhere classified
CPT/HCPCS: 62370

== ENCOUNTER → 2016-09-03 | Outpatient (CLI) | payer MEDICARE, BC ==
--- NOTE | 2016-09-03 13:15 | CT ---
EXAMINATION TYPE: CT chest wo con DATE OF EXAM: 09/03/2016 COMPARISON: 02/20/2010 HISTORY: SOB CT DLP: 371.[address] of the chest was performed with lung and mediastinal window settings submitted. The la ck of contrast limits evaluation of the vascular, mediastinal and parenchymal structures including th e upper abdomen. LUNGS: The lungs are clear and free of infiltrate. No atelectasis. No pulmonary nodule or mass is de tected. No pleural effusion. No CT evidence of interstitial lung disease. MEDIASTINUM/PAYTON: Thoracic aorta is of normal caliber with limited evaluation given lack of contrast . The heart is not enlarged. No evidence for mediastinal mass. No lymph nodes greater than 1cm. UPPER ABDOMEN: No significant abnormality is seen. OTHER: No significant other abnormality. IMPRESSION: 1. No significant abnormality at this time.
== END ==
LOC: RADCTMAIN 12:13
PROVIDERS: ATTEND Internal Medicine Pulmonary Disease
DX: R05 Cough (principal); R06.02 Shortness of breath
CPT/HCPCS: 71250

== ENCOUNTER 2016-10-02 08:13 | Day surgery (SDC) | payer MEDICARE, BC ==
[2016-09-26 12:36] VITALS: BMI 33.6
[2016-10-02] MEDS ORDERED: LACTATED RINGERS 1,000 ML IV SCH (08:30)
[2016-10-02] MEDS ORDERED: LIDOCAINE 1% 20 ML VIAL (10MG/ML) FOR IV START INTRADERMA ONE (08:57)
[2016-10-02 09:04] VITALS: TEMP 95.3
[2016-10-02 09:36] LABS: Glucose,Whole Blood 91 mg/dL (75-99)
[2016-10-02] MEDS ORDERED: IV FLUID CONTINUATION 550 ML IV ONE (10:00)
[2016-10-02 10:23] VITALS: RESP 18
[2016-10-02 10:32] VITALS: BP 129/72; PULSE 60
--- NOTE | 2016-10-02 10:34 | FL ---
Fluoroscopy HISTORY: Pain 9 seconds fluoroscopy time supplied to the referring clinician. 3 intraoperative C-arm images docume nt the procedure. See dictated report from anesthesia.
--- NOTE | 2016-10-02 13:02 | P.PCN ---
Date of Procedure: 10/02/16 Preoperative Diagnosis: Postoperative Diagnosis: Procedure(s) Performed: Implants: Surgeon: Dalton Duenas Pathology: none sent Condition: stable Disposition: PACU Indications for Procedure: Operative Findings: Description of Procedure: PREOPERATIVE DIAGNOSIS: Sacroiliitis; lumbar spondylosis without myelopathy POSTOPERATIVE DIAGNOSIS: Sacroiliitis; lumbar spondylosis without myelopathy PROCEDURE: Radiofrequency thermocoagulation/ablation of the Medial branch of L5 and S1 and S3 only (no S2) lateral branch levels under fluoroscopic guidance, right ANESTHESIA: Local with 1% lidocaine; IV sedation with Versed/fentanyl EBL: Minimal PROCEDURE INDICATION: The patient with low back pain secondary to sacroilitis with marked decrease in pain with prior sacroiliac joint injections. No use of blood thinners. Patient has an intrathecal pump in her right buttock. PROCEDURE DESCRIPTION: The patient was seen and identified in the preoperative area. Risks, benefits, complications, and alternatives were discussed with the patient, with risks including but not limited to bleeding, infection, nerve damage, incomplete pain relief, and allergic reactions to medications. The patient agreed to proceed with the procedure and signed the informed consent after all questions were answered. IV was started. Vital signs were stable throughout the procedure. Patient was taken to the OR and time out was completed to verify proper patient , laterality of procedure, and allergies. The patient was placed in the prone position on procedure table and a pillow was placed under the abdomen to reduce lumbar lordosis. The lumbosacral area was prepped and draped in the usual sterile fashion. Critical pause was taken. Vital signs were closely monitored during the procedure. L5 Medial Branch: Using right oblique fluoroscopy, the junction of the transverse process and the superior articular process of the top of the sacrum on the right side, which correspond to the fluoroscopic image of the "eye of the Justyn dog" was identified. Skin and deeper tissues were localized with 1% lidocaine at the identified level. Then using fluoroscopy, a 10-cm 20-gauge radiofrequency cannula with a 10-mm active tip was was advanced under fluoroscopic guidance until contact was made with periosteum. At this level, the Sensory testing of L5 Medial branch was performed at 50 Hz and 0 to 1 volt with production of concordant pain. Motor stimulation was done at 2 Hz with stimulation of multifidus muscle contraction at (0.1-2.5) volts. No radicular symptoms or paresthesias were produced during the testing. Subsequently, the L5 medial branch was subjected to a radiofrequency ablation at a mode of 90 seconds at 80 degrees Celsius after negative motor and sensory testing as indicated and after injecting 0.5 ml of preservative free Lidocaine 1%. Then after the radiofrequency procedure was done, 1 mL of a solution containing 4 mL of 0.5% preservative-free lidocaine mixed with 40 mg of Kenalog. S1, S3 Medial branches: Using the oblique position, the right sacroiliac joint was identified. The intrathecal catheter was identified very close to the S2 neural foramen, so the S2 level was avoided. Skin and deeper tissues corresponding to the site were anesthetized with 1% lidocaine. Under fluoroscopic guidance, a total of two 10-cm 18-gauge radiofrequency cannula with 10-mm active tips were advanced to the lateral aspects of the S1 and S3 vertebral foramina. Subsequently, sensory and motor testings were performed at a total of two segments at 50 Hz and 2 Hz respectively which produced concordant pain without radiculopathy or paresthesia. Then each segment was subjected to radiofrequency ablation at a mode of 90 seconds at 80 degrees Celsius for a total of two lesions with the bipolar technique. Then after the radiofrequency procedure was done, each site was injected with 1 mL of the aforementioned solution containing 2 mL of 0.5% preservative-free lidocaine mixed with Kenalog (same as above mixture used for L5 level). The needles were withdrawn. Area was cleaned. Band-Aid was applied. COMPLICATIONS: None. COMMENTS: DISPOSITION / PLANS: The patient was placed in a supine position and transferred to the recovery area in a stable condition for observation and was discharged from the recovery room after meeting discharge criteria. Home discharge instructions given to the patient by the staff. The patient was reexamined prior to discharge. The patient will schedule a follow up in clinic in 4-6 weeks as both SI RFAs completed.
== END 2016-10-02 10:32 | disposition home or self-care (01) ==
LOC: ORPAIN 08:13
PROVIDERS: ATTEND Anesthesiology
DX: M46.1 Sacroiliitis, not elsewhere classified (principal); M47.816 Spondylosis without myelopathy or radiculopathy, lumbar region; Z88.0 Allergy status to penicillin; Z88.8 Allergy status to other drugs, medicaments and biological substances; Z79.01 Long term (current) use of anticoagulants
CPT/HCPCS: 99152; 64640 ×3; J2250; J3301; J3010; 64635

== ENCOUNTER → 2016-10-22 | Day surgery (SDC) | payer MEDICARE, BC ==
[2016-10-22 14:17] VITALS: TEMP 98.2
[2016-10-22 14:30] VITALS: BP 153/76; PULSE 69; RESP 16
--- NOTE | 2016-10-23 08:46 | P.PCN ---
Date of Procedure: 10/22/16 Preoperative Diagnosis: Postoperative Diagnosis: Procedure(s) Performed: OPERATION: Intrathecal pain pump analysis, programming and reprogramming, and intrathecal pain pump refill. PREOPERATIVE DIAGNOSES: 1. near empty intrathecal pain pump time for refill. 2. 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 near empty intrathecal pain pump time for refill. 2. 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 CONDITION: Stable. Description of the procedure; Intrathecal pain pump analysed ,it showed patient currently had reservoir volume[ 5,1 ] mL. The patient is receiving medication dilaudid 10 mg/ ml, and bupivacaine concentration [ 7 ] mg/ml. Patient receiving daily dose of dilaudid 4.99 mg/day and bupivacaine 3.5 mg/ day. Pain is well controlled , patient using medication for breakthrough pain orally . The location of the pump ( Right Buttuck ) Prepped with chlorhexidine x3 , then using 22-gauge needle [employer] kit advanced through the pump port, Total of [8 ] ml removed from the pump, the pump refills with the new medication total volume [40 ] ml . The concentration dilaudid 10 mg /ml , and the bupivacaine concentration [ 7 ] mg/ml. The patient will continue to see the daily dose dilaudid 4.5 mg/day and bupivacaine [ 3.5 ] mg/day and patient will follow up with the pain clinic in 3 months. Implants: Indications for Procedure: Operative Findings: Description of Procedure:
== END ==
LOC: PNWHC3 13:50
PROVIDERS: ATTEND Specialist
DX: Z45.1 Encounter for adjustment and management of infusion pump (principal); Z79.891 Long term (current) use of opiate analgesic; M96.1 Postlaminectomy syndrome, not elsewhere classified
CPT/HCPCS: 62370

== ENCOUNTER → 2017-03-04 | Day surgery (SDC) | payer MEDICARE, BC ==
[2017-02-27 14:19] VITALS: BMI 32.5
--- NOTE | 2017-03-04 12:46 | P.PN ---
Progress Note - Text Progress Note Date: 03/04/17 PROCEDURE: Intrathecal pain pump analysis, programming and reprogramming, and intrathecal pain pump refill. PREOPERATIVE DIAGNOSES: 1. near empty intrathecal pain pump time for refill. 2. opioid tolerance 3. failed back surgery syndrome POSTOPERATIVE DIAGNOSES: 1. near empty intrathecal pain pump time for refill. 2. opioid tolerance 3. failed back surgery syndrome ANESTHESIA: None. CONDITION: Stable. INDICATION: This is a 61-year-old patient with a long history of chronic pain secondary to postlaminectomy syndrome. Patient previously had an intrathecal pump placed, which is now close to empty, and patient presents for refill today. Patient denies any side effects of the intrathecal medication, including new weakness, new numbness, excessive drowsiness or sleepiness, nausea/vomiting , weight gain, or night sweats. Patient also denies suicidal ideation, and reports that the current pain medication is helping control the chronic pain and improve the patient's activities of daily living. DESCRIPTION: The intrathecal pain pump was analyzed and showed that the patient currently has reservoir volume of [5.1] mL. The patient is receiving intrathecal hydromorphone PF at concentration [10] mg/ ml, and bupivacaine PF at concentration [7] mg/ml. Patient receiving daily dose of hydromorphone [5] mg/day and bupivacaine [3.5 ] mg/day. The location of the pump (right buttock) was prepped with chlorhexidine x3. Then, the 22-gauge needle from the [employer] ([employer]) kit was advanced through the pump port. Total of [9] ml was removed from the pump, and it was refilled with the new medication total volume of [40] ml of a solution containing hydromorphone at concentration [10] mg /ml and bupivacaine at concentration [7] mg/ml. The patient will continue with the same daily dose hydromorphone [5] mg/day and bupivacaine [3.5] mg/day. The patient is using some oral medications as well, specifically morphine IR 30 mg every 8 hours prn pain orally for breakthrough pain, #90 pills with one refill. The patient was given two months' worth of these medications, we will obtain urine drug screen today, and patient will follow up with the pain clinic in 2 months for refill and further evaluation.
[2017-03-04 23:26] VITALS: BP 117/68; PULSE 71; RESP 16
== END ==
LOC: PNWHC3 11:38
PROVIDERS: ATTEND Anesthesiology
DX: G89.29 Other chronic pain (principal); M96.1 Postlaminectomy syndrome, not elsewhere classified; Z79.891 Long term (current) use of opiate analgesic
CPT/HCPCS: 62370; G0480; 80307; 80326; 80346; 80356; 80364

== ENCOUNTER → 2017-05-06 | Day surgery (SDC) | payer MEDICARE, BC ==
[2017-05-06 13:06] VITALS: BP 101/57; PULSE 72; RESP 18; TEMP 97.6
--- NOTE | 2017-05-06 15:01 | P.PCN ---
Date of Procedure: 05/06/17 Procedure(s) Performed: OPERATION: Intrathecal pain pump analysis, programming and reprogramming, and intrathecal pain pump refill. PREOPERATIVE DIAGNOSES: 1. near empty intrathecal pain pump time for refill. 2. 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 near empty intrathecal pain pump time for refill. 2. 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 CONDITION: Stable. Description of the procedure; Intrathecal pain pump analysed ,it showed patient currently had reservoir volume[ 8.6] mL. The patient is receiving medication Dilaudid 10 mg/ ml, and bupivacaine concentration [ 7] mg/ml. Patient receiving daily dose of Dilaudid 4.99 mg/day and bupivacaine [ 3.49] mg/day. Pain is well controlled , patient using medication for breakthrough pain [ MSIR 30 mg every 8 hours] orally . The location of the pump ( Right Buttuck ) Prepped with chlorhexidine x3 , then using 22-gauge needle [employer] kit advanced through the pump port, Total of [ 11] ml removed from the pump, the pump refills with the new medication total volume [ 40] ml . The concentration of dilaudid 10 mg /ml , and the bupivacaine concentration [7 ] mg/ml. The patient will continue to see the daily dose of Dilaudid 4.9 mg/day and bupivacaine [3.49 ] mg/day and patient will follow up with the pain clinic in 3 months. Prescription for MSIR 30 mg every 8 hours dispense 90 with 2 refills given
== END ==
LOC: PNWHC3 11:40
PROVIDERS: ATTEND Specialist
DX: Z45.49 Encounter for adjustment and management of other implanted nervous system device (principal); M96.1 Postlaminectomy syndrome, not elsewhere classified; Z79.891 Long term (current) use of opiate analgesic; M51.26 Other intervertebral disc displacement, lumbar region; M54.15 Radiculopathy, thoracolumbar region
CPT/HCPCS: 62370

== ENCOUNTER → 2017-07-15 | Day surgery (SDC) | payer MEDICARE, BC ==
[2017-07-15 12:18] VITALS: BP 149/81; PULSE 65; RESP 16; TEMP 98
--- NOTE | 2017-07-15 12:46 | P.PN ---
Progress Note - Text Progress Note Date: 07/15/17 PROCEDURE: Intrathecal pain pump analysis, programming and reprogramming, and intrathecal pain pump refill. PREOPERATIVE DIAGNOSES: 1. near empty intrathecal pain pump time for refill. 2. opioid tolerance 3. failed back surgery syndrome POSTOPERATIVE DIAGNOSES: 1. near empty intrathecal pain pump time for refill. 2. opioid tolerance 3. failed back surgery syndrome ANESTHESIA: None. CONDITION: Stable. INDICATION: This is a 61-year-old patient with a long history of chronic pain secondary to postlaminectomy syndrome. Patient previously had an intrathecal pump placed, which is now close to empty, and patient presents for refill today. Patient denies any side effects of the intrathecal medication, including new weakness, new numbness, excessive drowsiness or sleepiness, nausea/vomiting , weight gain, or night sweats. Patient also denies suicidal ideation, and reports that the current pain medication is helping control the chronic pain and improve the patient's activities of daily living. DESCRIPTION: The intrathecal pain pump was analyzed and showed that the patient currently has reservoir volume of [5.1] mL. The patient is receiving intrathecal hydromorphone PF at concentration [10] mg/ ml, and bupivacaine PF at concentration [7] mg/ml. Patient receiving daily dose of hydromorphone [5] mg/day and bupivacaine [3.5 ] mg/day. The location of the pump (right buttock) was prepped with chlorhexidine x3. Then, the 22-gauge needle from the [employer] kit was advanced through the pump port. Total of [7] ml was removed from the pump, and it was refilled with the new medication total volume of [40] ml of a solution containing hydromorphone at concentration [10] mg /ml and bupivacaine at concentration [7] mg/ml. The patient will continue with the same daily dose hydromorphone [5] mg/day and bupivacaine [3.5] mg/day. The patient is using some oral medications as well, specifically morphine IR 30 mg every 8 hours prn pain orally for breakthrough pain, #90 pills with one refill. The patient was given two months' worth of these medications, we will obtain urine drug screen today, and patient will follow up with the pain clinic in 2 months for refill and further evaluation. The patient is getting both benzos and methylphenidate from Dr. Pinzon. We will send him an opioid/benzo letter as it is likely that the patient is becoming oversedated from the combination of intrathecal opioids, oral opioids, and benzodiazepines, and it is likely best to discontinue or significantly taper the benzos if possible to prevent oversedation, tolerance, addiction, or from this combination of medications.
== END ==
LOC: PNWHC3 11:59
PROVIDERS: ATTEND Anesthesiology
DX: G89.29 Other chronic pain (principal); M96.1 Postlaminectomy syndrome, not elsewhere classified; Z45.1 Encounter for adjustment and management of infusion pump; Z79.891 Long term (current) use of opiate analgesic
CPT/HCPCS: 62370

== ENCOUNTER → 2017-09-23 | Day surgery (SDC) | payer MEDICARE, BC ==
[2017-09-23 12:14] VITALS: BP 127/65; PULSE 71; RESP 16
--- NOTE | 2017-09-23 13:59 | P.PCN ---
Date of Procedure: 09/23/17 Description of Procedure: Date of Procedure: 09/23/2017 Procedure(s) Performed: OPERATION: Intrathecal pain pump analysis, programming and reprogramming, and intrathecal pain pump refill. PREOPERATIVE DIAGNOSES: 1. near empty intrathecal pain pump time for refill. 2. 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 near empty intrathecal pain pump time for refill. 2. 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 CONDITION: Stable. Description of the procedure: Intrathecal pain pump analysed ,it showed patient currently had reservoir volume[ 8.1] mL. The patient is receiving medication Dilaudid 10 mg/ ml, and bupivacaine concentration [ 7] mg/ml. Patient receiving daily dose of Dilaudid 4.99 mg/day and bupivacaine [ 3.49] mg/day. Pain is well controlled , patient using medication for breakthrough pain [ MSIR 30 mg every 8 hours] orally . The location of the pump ( Right Buttuck ) Prepped with chlorhexidine x3 , then using 22-gauge needle [employer] kit advanced through the pump port, Total of [ 8] ml removed from the pump, the pump refills with the new medication total volume [ 40] ml . The concentration of dilaudid 10 mg /ml , and the bupivacaine concentration [7 ] mg/ml. The patient will continue to see the daily dose of Dilaudid 4.9 mg/day and bupivacaine [3.49 ] mg/day and patient will follow up with the pain clinic in 3 months. Prescription for MSIR 30 mg every 8 hours dispense 90 with 2 refills given
== END | disposition home or self-care (01) ==
LOC: PNWHC3 11:28
PROVIDERS: ATTEND Anesthesiology
DX: Z45.1 Encounter for adjustment and management of infusion pump (principal); M96.1 Postlaminectomy syndrome, not elsewhere classified
CPT/HCPCS: 62370

== ENCOUNTER → 2017-12-02 | Day surgery (SDC) | payer MEDICARE, BC ==
[2017-12-02 14:09] VITALS: BP 114/72; PULSE 78; RESP 16
--- NOTE | 2017-12-02 18:40 | P.PCN ---
Description of Procedure: Procedure: Intrathecal pump refill with analysis and reprogramming Preoperative diagnosis: Post laminectomy syndrome Postoperative diagnosis: Same Surgeon: Sung Barroso M.D. Anesthesia: none Indication for procedure: this is a pleasant 62-year-old woman with a history of intractable pain and in intrathecal pump who presents they for intrathecal pump refill. Procedure in detail: After potential risks and benefits reviewed the patient, the patient signed informed consent. The area over the intrathecal pump was then prepped and draped in the usual sterile fashion. The pump was accessed using the [employer] refill kit. [employer] refill protocol was followed. Contents of the pump were aspirated. The new solution was then verified in then injected through a bacteriostatic filter into the pump with aspiration occurring every 3-5 mL to confirm intrathecal placement. The needle was then withdrawn once the entire volume was injected and a Band-Aid was applied. Amount of fluid removed:4.5 cc. Current medications solution:dilaudid 10 mg/mL, bupivicaine 7 mg/mL Current medication dosage:dilaudid 5 mg/day, bupivicaine 3.5 mg/day Refill solution injected:40 cc
== END | disposition home or self-care (01) ==
LOC: PNWHC3 12:14
PROVIDERS: ATTEND Pain Medicine Pain Medicine
DX: Z45.1 Encounter for adjustment and management of infusion pump (principal); M96.1 Postlaminectomy syndrome, not elsewhere classified
CPT/HCPCS: 62370; 99211

== ENCOUNTER → 2017-12-02 | Outpatient (CLI) | payer MEDICARE, BC ==
[2017-12-02 12:05] LABS: Basophils % (A) 1 %; Eosinophils # (A) 0.6 k/uL (0-0.7); Eosinophils % (A) 7 %; HGB 12.8 gm/dL (11.4-16.0); Hypochromasia Slight; Lymphocytes # (A) 2.8 k/uL (1.0-4.8); Lymphocytes % (A) 37 %; MCH 25.7 pg (25.0-35.0); MCHC 31.2 g/dL (31.0-37.0); MCV 82.3 fL (80.0-100.0); Mean Platelet Volume 7.3; Monocytes # (A) 0.3 k/uL (0-1.0); Monocytes % (A) 4 %; Neutrophils # (A) 3.8 k/uL (1.3-7.7); Neutrophils % (A) 50 %; Platelet Count 255 k/uL (150-450); RBC 4.98 m/uL (3.80-5.40); RDW 15.6 % (11.5-15.5); WBC 7.6 k/uL (3.8-10.6)
[2017-12-02 12:24] LABS: ALT 24 U/L (9-52); AST 27 U/L (14-36); Alkaline Phosphatase 92 U/L (38-126); Anion Gap 7 mmol/L; Blood Urea Nitrogen 16 mg/dL (7-17); Calcium 9.8 mg/dL (8.4-10.2); Carbon Dioxide 31 mmol/L (22-30); Chloride 102 mmol/L (98-107); Cholesterol 221 mg/dL (<200); Glucose 120 mg/dL (74-99); HDL Cholesterol 40 mg/dL (40-60); Potassium 4.4 mmol/L (3.5-5.1); Sodium 140 mmol/L (137-145); Total Bilirubin 0.7 mg/dL (0.2-1.3); Total Protein 7.1 g/dL (6.3-8.2); Triglycerides 503 mg/dL (<150)
[2017-12-02 12:39] LABS: T4, Free (Free Thyroxine) 1.11 ng/dL (0.78-2.19)
[2017-12-02 19:11] LABS: Hemoglobin A1C 7.2 % (4.0-6.0)
== END | disposition home or self-care (01) ==
LOC: LABWHC1 10:13
PROVIDERS: ATTEND Internal Medicine Geriatric Medicine
DX: E13.65 Other specified diabetes mellitus with hyperglycemia (principal); I48.0 Paroxysmal atrial fibrillation
CPT/HCPCS: 36415; 80053; 80061; 83036; 84439; 84443; 85025

== ENCOUNTER → 2018-02-03 | Outpatient (CLI) | payer MEDICARE, BC ==
[2018-02-03 11:54] VITALS: BP 152/86; PULSE 60; RESP 18; TEMP 98.3
--- NOTE | 2018-02-03 13:13 | P.PCN ---
Date of Procedure: 02/03/18 Surgeon: Sung Barroso Description of Procedure: Procedure: Intrathecal pump refill with analysis and reprogramming Preoperative diagnosis: Postoperative diagnosis: Same Surgeon: Sung Barroso M.D. Anesthesia: Skin local Indication for procedure:this is a pleasant 62-year-old woman with a history of intrathecal pump implantation who is nearing end of reservoir volume and presents today for refill of this device. Procedure in detail: After potential risks and benefits reviewed the patient, the patient signed informed consent. The area over the intrathecal pump was then prepped and draped in the usual sterile fashion. The pump was accessed using the [employer] refill kit. Their refill protocol was followed. Contents of the pump were aspirated. The new solution was then verified in then injected through a bacteriostatic filter into the pump with aspiration occurring every 3-5 mL to confirm intrathecal placement. The needle was then withdrawn once the entire volume was injected and a Band-Aid was applied. Amount of fluid removed:11 mL Current medications solution:Dilaudid 10 mg per mL and bupivacaine 7 mg per mL Current medication dosage:Dilaudid 5 mg per day and bupivacaine 3.5 mg per day Refill solution injected:40 mL of Dilaudid 10 mg per mL and bupivacaine 7 mg per mL Elective replacement interval:38 months Low reservoir refill date:02/14/2018
== END | disposition home or self-care (01) ==
LOC: PNWHC3 11:25
PROVIDERS: ATTEND Pain Medicine Pain Medicine
DX: M54.16 Radiculopathy, lumbar region (principal); M54.14 Radiculopathy, thoracic region; G89.4 Chronic pain syndrome
CPT/HCPCS: 62370

== ENCOUNTER → 2018-04-05 | Outpatient (CLI) | payer MEDICARE, BC ==
[2018-04-05 14:14] LABS: HGB 13.1 gm/dL (11.4-16.0); MCH 26.7 pg (25.0-35.0); MCV 83.4 fL (80.0-100.0); Platelet Count 264 k/uL (150-450); RBC 4.92 m/uL (3.80-5.40); RDW 14.3 % (11.5-15.5); WBC 9.5 k/uL (3.8-10.6)
[2018-04-05 14:25] LABS: INR 3.6 (<1.2); Partial Thromboplastin Time 37.1 sec (22.0-30.0); Prothrombin Time 34.3 sec (9.0-12.0)
[2018-04-05 14:28] LABS: Anion Gap 9 mmol/L; Appearance,Urine Clear (Clear); Bilirubin,Urine Negative (Negative); Blood Urea Nitrogen 19 mg/dL (7-17); Blood,Urine Negative (Negative); Carbon Dioxide 28 mmol/L (22-30); Chloride 103 mmol/L (98-107); Color,Urine Yellow; Glucose,Urine (UA) Negative (Negative); Ketones,Urine Negative (Negative); Leukocyte Esterase,Urine Negative (Negative); Nitrite,Urine Negative (Negative); Potassium 4.7 mmol/L (3.5-5.1); Protein,Urine Negative (Negative); Sodium 140 mmol/L (137-145); Specific Gravity,Urine 1.011 (1.001-1.035); Urobilinogen,Urine <2.0 mg/dL (<2.0)
== END ==
LOC: LABPAT 11:53
PROVIDERS: ATTEND Orthopaedic Surgery
DX: Z01.812 Encounter for preprocedural laboratory examination (principal)
CPT/HCPCS: 36415; 80051; 81003; 82565; 84520; 85027; 85610; 85730; 87070

== ENCOUNTER → 2018-04-08 | Day surgery (SDC) | payer MEDICARE, BC ==
[2018-04-08 12:59] VITALS: BP 138/81; PULSE 62; RESP 16; TEMP 98.2
--- NOTE | 2018-04-09 18:24 | P.PCN ---
Date of Procedure: 04/08/18 Procedure(s) Performed: OPERATION: Intrathecal pain pump analysis, programming and reprogramming, and intrathecal pain pump refill. PREOPERATIVE DIAGNOSES: 1. near empty intrathecal pain pump time for refill. 2. 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 near empty intrathecal pain pump time for refill. 2. 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 CONDITION: Stable. Description of the procedure; Intrathecal pain pump analysed ,it showed patient currently had reservoir volume[ 8.1] mL. The patient is receiving medication Dilaudid 10 mg/ ml, and bupivacaine concentration [ 7] mg/ml. Patient receiving daily dose of Dilaudid 4.99 mg/day and bupivacaine [ 3.49] mg/day. Pain is controlled , patient using medication for breakthrough pain [ MSIR 30 mg every 8 hours] orally . The location of the pump ( Right Buttuck ) Prepped with chlorhexidine x3 , then using 22-gauge needle [employer] kit advanced through the pump port, Total of [ 11] ml removed from the pump, the pump refills with the new medication total volume [ 40] ml . The concentration of dilaudid 10 mg /ml , and the bupivacaine concentration [7 ] mg/ml. The patient will continue to see the daily dose of Dilaudid 4.9 mg/day and bupivacaine [3.49 ] mg/day and patient will follow up with the pain clinic in 3 months. Prescription for MSIR 30 mg every 8 hours dispense 90 with 2 refills given, patient will continue to use the Neurontin and Zanaflex and refill of her medication was given MAPS unit and it was appropriate - PQRS measures = - Patient's medications are documented in the chart. -Tobacco use is negative and counseling.Given. -Patient's has received pneumococcal vaccine. -Advanced care planning discussed, patient not eligible. -Opiate contract signed. -Pain positive and follow-up visit/procedure is scheduled. -Patient's blood pressure measured [ 138/81 ] , and documented in the record ,and patient will follow up with the primary care. -Patient's weight was measured and body mass index [30.4 ] above the normal limits. and patient instructed to follow-up with the primary care physician. -Patient was not identified as an unhealthy alcohol user
== END ==
LOC: PNWHC3 12:32
PROVIDERS: ATTEND Specialist
DX: Z45.49 Encounter for adjustment and management of other implanted nervous system device (principal); Z79.891 Long term (current) use of opiate analgesic; M96.1 Postlaminectomy syndrome, not elsewhere classified
CPT/HCPCS: 62370

== ENCOUNTER 2018-04-12 08:55 | Inpatient (IN) | payer MEDICARE, BC ==
[~2018-04-12 08:55] MED LIST changes: +ACETAMINOPHEN TAB 500 MG TAB PO ONE; -LACTATED RINGERS 1,000 ML IV SCH; +LIDOCAINE 1% 20 ML VIAL (10MG/ML) FOR IV START INTRADERMA PRN; +ONDANSETRON 4 MG/2 ML VIAL IVP ONE; +TRANEXAMIC ACID 1,000 MG in SODIUM CHLORIDE 0.9% 100 ML IVPB ONE; +ceFAZolin IN SWFI 2 GM/20 ML SYRINGE IVP ONE
[2018-04-12 09:55] LABS: Glucose,Whole Blood 121 mg/dL (75-99)
[2018-04-12] MEDS ORDERED: MIDAZOLAM 2 MG/2 ML VIAL IVP ONE (09:59)
[2018-04-12] MEDS ORDERED: fentaNYL (PF) 50 MCG/ML 2 ML AMP IVP ONE ×3 (10:00→10:15)
[2018-04-12] MEDS ORDERED: ROPIVACAINE 246.25 MG, EPINEPHrine 0.5 MG, KETOROLAC 30 MG, cloNIDine HCL/PF 80 MCG, WA... MISCELLANE ONE ×5 (10:17)
[2018-04-12] MEDS: LACTATED RINGERS 1,000 ML IV SCH ×3 (10:22→23:33)
[2018-04-12] MEDS ORDERED: ROPIVACAINE 1,100 MG, SODIUM CHLORIDE 0.9% 500 ML 330 ML MISCELLANE PRN ×2 (10:28)
--- NOTE | 2018-04-12 10:28 | P.ONQ ---
Anesthesiology Proc Note - PNB - Peripheral Nerve Block Performed Left Adductor Canal Infusion Time Out Performed: Yes Procedure Start Time: 09:58 Procedure Stop Time: 10:13 Indication: Requested by physician Specifically requested for management of pain by DrJoe: Cristian Blankenship Sedation Type: Sedate with meaningful contact maintained Preparation: Sterile Dressing Catheter: Indwelling Needle Types: Other (see comment) Needle Size: 100mm (4") Needle Gauge: 20 Technique: Ultrasound Injectate: 0.5% Ropivacaine (see comment for volume) (pujunk) Blood Aspirated: No Pain Paresthesia on Injection Noted: No Resistance on Injection: Normal Events: Uneventful and Well Tolerated
[2018-04-12 10:30] LABS: Partial Thromboplastin Time 25.1 sec (22.0-30.0); Prothrombin Time 10.6 sec (9.0-12.0)
[2018-04-12] MEDS ORDERED: NEOSTIGMINE 1 MG/ML 10 ML VIAL ONE (10:41)
[2018-04-12] MEDS ORDERED: SUCCINYLCHOLINE CHLORIDE 100 MG/5 ML SYR IV ONE (10:41)
[2018-04-12] MEDS ORDERED: ePHEDrine SULFATE/0.9% NACL/PF 50 MG/5 ML SYRINGE IV ONE (10:41)
[2018-04-12] MEDS ORDERED: PROPOFOL 10 MG/ML 20 ML VIAL IV ONE (10:41)
[2018-04-12] MEDS ORDERED: ROCURONIUM BROMIDE 10 MG/ML 10 ML VIAL IV ONE (10:41)
[2018-04-12] MEDS ORDERED: GLYCOPYRROLATE 0.2 MG/ML 2 ML VIAL ONE (10:41)
[2018-04-12] MEDS ORDERED: TRANEXAMIC ACID 1,000 MG/10 ML VIAL ONE (10:41)
[2018-04-12] MEDS ORDERED: SODIUM CHLORIDE 0.9% 100 ML BAG ONE (10:41)
[2018-04-12] MEDS ORDERED: ceFAZolin 3,000 MG in SODIUM CHLORIDE 0.9% IRRIGATIO 3,000 ML IRRIGATION ONE (11:13)
[2018-04-12] MEDS ORDERED: LACTATED RINGERS 1,000 ML IV ONE (12:12)
[2018-04-12] MEDS ORDERED: NA PHOS,M-B/NA PHOS,DI-BA 133 ML ENEMA RECTAL PRN (12:55)
[2018-04-12] MEDS ORDERED: hydrOXYzine PAMOATE 25 MG CAP PO PRN (12:55)
[2018-04-12] MEDS ORDERED: BISACODYL 10 MG SUPP RECTAL PRN (12:55)
[2018-04-12] MEDS ORDERED: HYDROcodone/APAP 5-325MG 1 EACH TAB PO PRN (12:55)
[2018-04-12] MEDS ORDERED: NALOXONE 0.4 MG/ML 1 ML VIAL IV PRN (12:55)
[2018-04-12] MEDS ORDERED: HYDROmorphone 0.5 MG/0.5 ML SYRINGE IVP PRN (12:55)
[2018-04-12] MEDS ORDERED: ONDANSETRON 4 MG/2 ML VIAL IVP PRN (12:55)
[2018-04-12] MEDS ORDERED: HYDROmorphone 1 MG/ML 1 ML SYRINGE IVP PRN (12:55)
[2018-04-12] MEDS ORDERED: MAGNESIUM HYDROXIDE 2,400 MG/10 ML CUP PO PRN (12:55)
[2018-04-12] MEDS: HYDROmorphone 0.5 MG/0.5 ML SYRINGE IVP PRN ×2 (13:25→13:30)
[2018-04-12] MEDS: fentaNYL (PF) 50 MCG/ML 2 ML AMP IVP ONE ×2 (13:38→14:03)
--- NOTE | 2018-04-12 13:54 | XR ---
EXAMINATION TYPE: XR knee limited LT DATE OF EXAM: 04/12/2018 COMPARISON: None HISTORY: Postop evaluation for alignment TECHNIQUE: Three-view left knee FINDINGS: Tibial and femoral components of in place. Soft tissue postsurgical changes are evident. No acute fractures are evident. IMPRESSION: 1. No acute fractures post knee replacement
[2018-04-12 14:21] LABS: Glucose,Whole Blood 143 mg/dL (75-99)
[2018-04-12 14:46] VITALS: BMI 31.4
[2018-04-12] MEDS: ALPRAZolam 0.5 MG TAB PO SCH (15:31)
[2018-04-12] MEDS: ceFAZolin IN SWFI 2 GM/20 ML SYRINGE IVP SCH (16:43)
[2018-04-12] MEDS ORDERED: WARFARIN 5 MG TAB PO ONE (18:00)
[2018-04-12 20:14] LABS: ALT 54 U/L (9-52); AST 68 U/L (14-36); Albumin 3.1 g/dL (3.5-5.0); Alkaline Phosphatase 68 U/L (38-126); Anion Gap 5 mmol/L; Blood Urea Nitrogen 16 mg/dL (7-17); Calcium 8.5 mg/dL (8.4-10.2); Carbon Dioxide 30 mmol/L (22-30); Chloride 104 mmol/L (98-107); Glucose 163 mg/dL (74-99); Potassium 4.4 mmol/L (3.5-5.1); Sodium 139 mmol/L (137-145); Total Bilirubin 0.9 mg/dL (0.2-1.3); Total Protein 5.5 g/dL (6.3-8.2)
[2018-04-12 20:35] LABS: Glucose,Whole Blood 155 mg/dL (75-99)
[2018-04-12] MEDS: GABAPENTIN 300 MG CAP PO SCH (20:53)
[2018-04-12] MEDS: SENNOSIDES-DOCUSATE SODIUM 1 EACH TAB PO SCH (20:54)
[2018-04-12] MEDS: ENOXAPARIN 40 MG/0.4 ML SYRINGE SQ SCH (20:54)
[2018-04-12] MEDS: INSULIN ASPART (NovoLOG) 100 UNIT/ML VIAL SQ SCH (20:54)
[2018-04-12] MEDS: metFORMIN 500 MG TAB PO SCH (20:54)
[2018-04-12] MEDS: METOPROLOL TARTRATE 25 MG TAB PO SCH (20:56)
[2018-04-12] MEDS ORDERED: TEMAZEPAM 15 MG CAP PO PRN (22:00)
[2018-04-13] MEDS: ceFAZolin IN SWFI 2 GM/20 ML SYRINGE IVP SCH (00:16)
[2018-04-13] MEDS: HYDROcodone/APAP 5-325MG 1 EACH TAB PO PRN ×3 (00:22→20:37)
[2018-04-13] MEDS: TEMAZEPAM 15 MG CAP PO PRN (00:25)
[2018-04-13] MEDS: ALPRAZolam 0.5 MG TAB PO SCH ×3 (00:33→17:00)
[2018-04-13] MEDS: LACTATED RINGERS 1,000 ML IV SCH ×3 (02:15→18:47)
[2018-04-13 07:10] LABS: Glucose,Whole Blood 167 mg/dL (75-99)
[2018-04-13] MEDS: ALBUTEROL NEBULIZED 2.5 MG/3 ML INHALATION PRN (07:53)
[2018-04-13] MEDS: BUDESONIDE 0.5 MG/2 ML NEBU INHALATION PRN (07:54)
[2018-04-13 08:02] LABS: Basophils % (A) 0 %; Eosinophils # (A) 0.3 k/uL (0-0.7); Eosinophils % (A) 4 %; HCT 33.2 % (34.0-46.0); HGB 10.8 gm/dL (11.4-16.0); Lymphocytes % (A) 15 %; MCH 27.5 pg (25.0-35.0); MCHC 32.4 g/dL (31.0-37.0); MCV 84.9 fL (80.0-100.0); Monocytes # (A) 0.3 k/uL (0-1.0); Monocytes % (A) 5 %; Neutrophils % (A) 76 %; Platelet Count 170 k/uL (150-450); RBC 3.91 m/uL (3.80-5.40); RDW 14.8 % (11.5-15.5); WBC 6.5 k/uL (3.8-10.6)
[2018-04-13 08:07] LABS: INR 1.3 (<1.2); Prothrombin Time 13.5 sec (9.0-12.0)
[2018-04-13] MEDS: INSULIN ASPART (NovoLOG) 100 UNIT/ML VIAL SQ SCH ×4 (08:27→20:48)
[2018-04-13] MEDS ORDERED: ATORVASTATIN 10 MG TAB PO SCH (09:00)
[2018-04-13] MEDS ORDERED: RIVAROXABAN 10 MG TAB PO SCH (09:00)
[2018-04-13] MEDS: METOPROLOL TARTRATE 25 MG TAB PO SCH ×2 (09:30→20:37)
--- NOTE | 2018-04-13 09:47 | P.PN ---
Progress Note - Text Progress Note Date: 04/13/18 62-year-old female status post left total knee arthroplasty with abductor canal catheter postop day #1. Patient doing well at rest with mild tenderness in the lateral aspect of her knee. VAS ranges from 2-410 in severity. She does have complaints of back pain 6 out of 10 in severity. Doing well, ambulating to the bathroom with slight increase in pain in the knee area.
[2018-04-13] MEDS: ATORVASTATIN 40 MG TAB PO SCH (10:03)
[2018-04-13] MEDS: MELOXICAM 7.5 MG TAB PO SCH (10:03)
[2018-04-13] MEDS: SERTRALINE 25 MG TAB PO SCH (10:03)
[2018-04-13] MEDS: metFORMIN 500 MG TAB PO SCH ×2 (10:03→20:37)
[2018-04-13] MEDS: PANTOPRAZOLE 40 MG TABLET PO SCH (10:03)
[2018-04-13] MEDS: ENOXAPARIN 40 MG/0.4 ML SYRINGE SQ SCH (10:03)
[2018-04-13] MEDS ORDERED: SODIUM CHLORIDE 0.9% 500 ML 500 ML IV ONE (10:12)
--- NOTE | 2018-04-13 10:49 | P.PN ---
Subjective Progress Note Date: 04/13/18 Principal diagnosis: Primary osteoarthritis left knee. Status post total left knee arthroplasty. This is a pleasant 62 her vital signs and labs are stable.-year-old female who is status post total left knee arthroplasty. Her pain is fairly well controlled at this time. She is concerned about going home today since she will have difficulty getting into her house with the bad weather. Objective - Vital Signs Vital signs: Vital Signs Temp 98.6 F 04/13/18 08:15 Pulse 89 04/13/18 08:15 Resp 15 04/13/18 08:15 BP 91/56 04/13/18 08:15 Pulse Ox 92 L 04/13/18 08:15 Intake & Output 04/12/18 04/13/18 04/13/18 18:59 06:59 18:59 Intake Total 1501 2230 266 Output Total 100 Balance 1401 2230 266 Intake: IV 1501 Intake, IV Titration 1000 Amount Lactated Ringers 1,000 ml 1000 @ 100 mls/hr IV .Q10H LOLA Rx#:[id number] Oral 1230 266 Output: Estimated Blood Loss 100 Other: # Voids 1 - Exam This is a pleasant 62-year-old female in no acute distress. She is alert and oriented 3. Exam of the left lower extremity reveals that her dressing is clean, dry and intact. No erythema to the skin surrounding the silver dressing. She has full foot and ankle motion without difficulty or pain. Neurovascular status to the lower extremity is intact. - Labs CBC & Chem 7: 04/13/18 07:30 04/12/18 19:00 Labs: Abnormal Lab Results - Last 24 Hours (Table) 04/12/18 04/12/18 04/12/18 Range/Units 14:06 19:00 20:33 Hgb (11.4-16.0) gm/dL Hct (34.0-46.0) % PT (9.0-12.0) sec INR (<1.2) Glucose 163 H (74-99) mg/dL POC Glucose (mg/dL) 143 H 155 H (75-99) mg/dL AST 68 H (14-36) U/L ALT 54 H (9-52) U/L Total Protein 5.5 L (6.3-8.2) g/dL Albumin 3.1 L (3.5-5.0) g/dL 04/13/18 04/13/18 04/13/18 Range/Units 07:09 07:30 07:30 Hgb 10.8 L (11.4-16.0) gm/dL Hct 33.2 L (34.0-46.0) % PT 13.5 H (9.0-12.0) sec INR 1.3 H (<1.2) Glucose (74-99) mg/dL POC Glucose (mg/dL) 167 H (75-99) mg/dL AST (14-36) U/L ALT (9-52) U/L Total Protein (6.3-8.2) g/dL Albumin (3.5-5.0) g/dL Assessment and Plan (1) Osteoarthritis of left knee Current Visit: Yes Status: Acute Code(s): M17.12 - UNILATERAL PRIMARY OSTEOARTHRITIS, LEFT KNEE SNOMED Code(s): 695620219543816 (2) Status post total left knee replacement Current Visit: Yes Status: Acute Code(s): Z96.652 - PRESENCE OF LEFT ARTIFICIAL KNEE JOINT SNOMED Code(s): 6327369854100 (3) Diabetes Current Visit: No Status: Acute Code(s): E11.9 - TYPE 2 DIABETES MELLITUS WITHOUT COMPLICATIONS SNOMED Code(s): 74733329 Plan: The clinical findings are discussed the patient. We'll plan discharged to home tomorrow. Continue physical therapy and routine orthopedic care.
[2018-04-13 12:07] LABS: Glucose,Whole Blood 178 mg/dL (75-99)
--- NOTE | 2018-04-13 13:07 | P.CONS ---
History of Present Illness - Reason for Consult Consult date: 04/12/18 Medical management Requesting physician: Cristian Blankenship - Chief Complaint Left total knee arthroplasty - History of Present Illness This is a pleasant 62-year-old lady patient of Dr. Pinzon, and Dr. funes. She has underlying history of chronic pain syndrome, hyperlipidemia, overactive bladder, CAD, without any angina, atrial fibrillation, prior history of DVT and PE in the past currently breached with Lovenox for the planned procedure. Patient is on long-term Coumadin prior to this. Last DVT was in June 2013 lower extremity patient also has anxiety and depression, prior tobacco use, patient underwent elective left total knee arthroplasty secondary to advancing DJD, and is currently without symptoms of nausea or vomiting, no chest pain or palpitations. Reports for preop clearance were reviewed including office notes. Review of Systems Constitutional: Reports as per HPI, Denies anorexia, Denies chills, Denies chronic headaches, Denies chronic pain, Denies daytime sleepiness, Denies fatigue, Denies fever, Denies lethargy, Denies malaise, Denies night sweats, Denies poor appetite, Denies sweats, Denies weakness, Denies weight gain, Denies weight loss Ears, nose, mouth and throat: Reports as per HPI, Denies ant. neck pain, Denies bleeding gums, Denies dental pain, Denies dysphagia, Denies epistaxis, Denies headache, Denies hoarseness, Denies mouth pain, Denies nasal congestion, Denies nasal discharge, Denies neck fullness/pressure, Denies neck lump, Denies nose pain, Denies odynophagia, Denies post-nasal drip, Denies sinus pain, Denies sinus pressure, Denies swelling in mouth, Denies swelling in throat, Denies sore throat, Denies vertigo, Denies voice changes Cardiovascular: Reports as per HPI, Denies chest pain, Denies claudication, Denies decreased exercise tolerance, Denies dyspnea on exertion, Denies edema, Denies high blood pressure, Denies irregular heart beat, Denies leg edema, Denies lightheadedness, Denies orthopnea, Denies palpitations, Denies paroxysmal nocturnal dyspnea, Denies phlebitis, Denies rapid heart beat, Denies shortness of breath, Denies syncope Respiratory: Reports as per HPI, Denies congestion, Denies cough, Denies cough with sputum, Denies dyspnea, Denies excessive sputum, Denies hemoptysis, Denies home oxygen, Denies pain, Denies pain on inspiration, Denies pleurisy, Denies respiratory infections, Denies sleep apnea, Denies snoring, Denies wheezing Gastrointestinal: Reports as per HPI Genitourinary: Reports as per HPI Menstruation: Reports as per HPI, Reports post hysterectomy, Reports postmenopausal Musculoskeletal: Reports as per HPI, Reports gait dysfunction, Reports low back pain, Denies arm numbness/tingling, Denies atrophy, Denies fractures, Denies frequent falls, Denies hot joints, Denies leg numbness/tingling, Denies limitation of motion, Denies loss of height, Denies morning stiffness, Denies muscle cramps, Denies muscle weakness, Denies myalgias, Denies neck pain, Denies neck stiffness, Denies prior amputations, Denies redness of joints, Denies shooting arm pain, Denies shooting leg pain Integumentary: Reports as per HPI, Denies acne, Denies boils, Denies brittle nails, Denies change in hair/nails, Denies color changes, Denies darkening of skin, Denies depigmentation, Denies dryness, Denies foot/leg ulcers, Denies growths, Denies hirsutism, Denies lesions, Denies onychomycosis, Denies pruritus , Denies rash, Denies sores, Denies striae, Denies unusual bruising, Denies wounds Neurological: Reports as per HPI, Denies aphasia, Denies ataxia, Denies balance difficulties, Denies burning pain, Denies change in mentation, Denies change in smell/taste, Denies change in speech, Denies confusion, Denies convulsions, Denies double vision, Denies gait dysfunction, Denies head injury, Denies headaches, Denies hearing difficulties, Denies lack of coordination, Denies loss of vision, Denies memory loss, Denies migraines, Denies motor disturbance, Denies numbness, Denies paralysis, Denies paresthesias, Denies seizures, Denies sensory deficit, Denies spasticity, Denies syncope, Denies tic, Denies tingling , Denies transient paralysis, Denies tremors, Denies vertigo, Denies weakness, Denies visual changes Psychiatric: Reports as per HPI, Denies anhedonia, Denies anxiety, Denies anxiety attacks, Denies change in appetite, Denies change in libido, Denies change in sleep habits, Denies confusion, Denies depression, Denies difficulty concentrating, Denies disorientation, Denies hallucinations, Denies hopelessness , Denies hypersomnia, Denies insomnia, Denies irritability, Denies memory loss, Denies mood swings, Denies paranoia, Denies sadness/tearfulness, Denies sleep disturbances, Denies suicidal ideation Endocrine: Reports as per HPI, Denies cold intolerance, Denies deepening of the voice, Denies excessive sweating, Denies excessive thirst, Denies fatigue, Denies flushing, Denies heat intolerance, Denies high blood sugars, Denies increase in ring/shoe/hat size, Denies low blood sugars, Denies nocturia, Denies palpitations, Denies polydipsia, Denies polyphagia, Denies polyuria, Denies proptosis, Denies recent glucocorticoid use, Denies thyroid mass, Denies weight change Hematologic/Lymphatic: Reports as per HPI, Denies easy bleeding, Denies easy bruising, Denies lymphadenopathy, Denies lymphedema, Denies thrombophilia Allergic/Immunologic: Reports as per HPI, Denies allergic rhinitis, Denies anaphylaxis, Denies angioedema, Denies gluten intolerance, Denies persistent infections, Denies seasonal allergies, Denies urticaria, Denies wheezing Past Medical History Past Medical History: Atrial Fibrillation, Asthma, Blood Disorder, COPD, Diabetes Mellitus, Deep Vein Thrombosis (DVT), GERD/Reflux, Pulmonary Embolus ( PE) Additional Past Medical History / Comment(s): 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 , HIATAL HERNIA. ULCERATIVE COLITIS. CHRONIC BACK PAIN, O2 AT 2 L PRN, NUMBNESS LEFT LEG , USES CANE , WALKER & WHEELCHAIR, HX OF FALLS. History of Any Multi-Drug Resistant Organisms: None Reported Past Surgical History: Adenoidectomy, Bowel Resection, Breast Surgery, Cholecystectomy, Heart Catheterization, Hysterectomy, Orthopedic Surgery, Tonsillectomy Additional Past Surgical History / Comment(s): 01/24/14 OPEN HEART PROCEDURE-- RT. VENTRICULOTOMY TO REMOVE BLOOD CLOT. HX. BACK SURGERY- FUSION X 3. INTRATHECAL PAIN PUMP - replaced on August 02, 2014. TESHA FILTER. HEART CATH X2., surgery left forearm(for fx) . bilateral carpal tunnel, clarita breast reduction, SPINAL CORD STIMULATOR INSERTED & REMOVED 05/2016., Past Anesthesia/Blood Transfusion Reactions: No Reported Reaction Additional Past Anesthesia/Blood Transfusion Reaction / Comm: HX OF BLOOD TRANSFUSION AND FRESH FROZEN PLASMA. Past Psychological History: Depression Smoking Status: Former smoker Past Alcohol Use History: None Reported Additional Past Alcohol Use History / Comment(s): quit smoking 1992, SMOKED ON AND OFF- STARTED SMOKING AT AGE 17 < 1ppd Past Drug Use History: None Reported - Past Family History Daughter(s) Family Medical History: Pulmonary Embolus Father Family Medical History: Myocardial Infarction (SD) Additional Family Medical History / Comment(s): at age 70 Mother Family Medical History: No Reported History Additional Family Medical History / Comment(s): blood clot in heart Medications and Allergies Home Medications Medication Instructions Recorded Confirmed Type Omeprazole [PriLOSEC] 20 mg PO DAILY 10/06/13 04/09/18 History Sertraline [Zoloft] 75 mg PO QAM 10/06/13 04/09/18 History Temazepam [Restoril] 30 mg PO HS PRN 07/13/14 04/09/18 History Warfarin [Coumadin] 3 mg PO DAILY 07/11/15 04/12/18 History Albuterol Nebulized [Ventolin 2.5 mg INHALATION RT-QID PRN 02/06/16 04/09/18 History Nebulized] Atorvastatin [Lipitor] 10 mg PO DAILY 02/06/16 04/09/18 History Albuterol Inhaler [Ventolin Hfa 1 - 2 puff INHALATION RT-Q6H PRN 04/08/16 History Inhaler] Budesonide [Pulmicort] 0.5 mg INHALATION RT-BID PRN 04/08/16 04/09/18 History Fluticasone Propionate [Flovent 2 puff INHALATION RT-BID PRN 06/16/16 04/09/18 History Hfa 110mcg] Metoprolol Tartrate [Lopressor] 25 mg PO BID 02/27/17 04/09/18 History metFORMIN HCL [metFORMIN HCL ER] 500 mg PO BID 09/23/17 04/09/18 History Gabapentin [Neurontin] 600 mg PO HS 02/03/18 04/12/18 History Dilaudid (Pain Pump) 1 dose INTRATHECA CONTINUOUS 04/02/18 04/09/18 History Morphine Sulfate Ir [MSIR] 30 mg PO Q4HR PRN 04/02/18 04/09/18 History tiZANidine [Zanaflex] 4 - 6 mg PO Q6H PRN 04/02/18 04/09/18 History Rosuvastatin [Crestor] 20 mg PO DAILY 04/08/18 04/09/18 History ALPRAZolam [Xanax] 0.5 mg PO TID 04/12/18 04/12/18 History Enoxaparin [Lovenox] 80 mg SQ DAILY 04/12/18 04/12/18 History HYDROcodone/APAP 5-325MG [[place] 1 - 2 each PO Q4-6H PRN #50 tab 04/12/18 Rx 5-325] Sennosides-Docusate Sodium 1 tab PO BID #60 tablet 04/12/18 Rx [Senokot-S] Allergies Allergy/AdvReac Type Severity Reaction Status Date / Time adhesive Allergy BANDAIDES Verified 04/12/18 13:18 INCLUDED.SKIN BLISTERS. PAPER TAPE IS OK. Penicillins Allergy HIVES Verified 04/12/18 13:18 ziprasidone HCl [From Geodon] Allergy ARRYTHMIA,H Verified 04/12/18 13:18 YPOTENSION ziprasidone mesylate Allergy ARRYTHMIA,H Verified 04/12/18 13:18 [From Geodon] YPOTENSION enoxaparin [From Lovenox] AdvReac thrombocyto Verified 04/12/18 13:18 penia heparin AdvReac thrombocyto Verified 04/12/18 13:18 penia derma-shelton Allergy Rash/Hives Uncoded 04/12/18 09:26 Physical Exam Vitals: Vital Signs Temp Pulse Pulse Resp BP Pulse Ox 04/12/18 13:56 64 16 128/60 100 04/12/18 13:41 59 L 16 125/58 100 04/12/18 13:27 69 16 123/60 100 04/12/18 13:12 72 16 115/56 93 L 04/12/18 12:57 97.3 F L 90 16 129/59 94 L 04/12/18 10:24 58 L 17 97/55 98 04/12/18 09:29 98.1 F 61 17 125/67 94 L Intake and Output 04/12/18 04/12/18 04/12/18 06:59 14:59 22:59 Intake Total 1501 Output Total 100 Balance 1401 Intake: IV 1501 Output: Estimated Blood Loss 100 - Constitutional General appearance: cooperative, no acute distress - EENT Eyes: anicteric sclerae, EOMI, PERRLA, dentition normal ENT: NA/AT, normal oropharynx - Neck Neck: normal ROM - Respiratory Respiratory: bilateral: CTA, negative: diminished, dullness, rales - Cardiovascular Rhythm: regular Heart sounds: normal: S1, S2 Abnormal Heart Sounds: systolic murmur, no diastolic murmur, no rub, no S3 Gallop, no S4 Gallop, no click, no other - Gastrointestinal General gastrointestinal: no absent bowel sounds, no decreased bowel sounds, no distended, no hepatomegaly, no hyperactive bowel sounds, normal bowel sounds, no organomegaly, no rigid, no scaphoid, soft, no splenomegaly, no tenderness, no umbilical hernia, no ventral hernia - Integumentary Integumentary: normal, normal turgor - Neurologic Neurologic: CNII-XII intact - Musculoskeletal Musculoskeletal: strength equal bilaterally - Psychiatric Psychiatric: A&O x's 3, appropriate affect, intact judgment & insight Results CBC & Chem 7: 04/13/18 07:30 04/12/18 19:00 Labs: Abnormal Lab Results - Last 24 Hours (Table) 04/12/18 04/12/18 Range/Units 09:47 14:06 POC Glucose (mg/dL) 121 H 143 H (75-99) mg/dL Laboratory Results PT 10.6 sec (9.0-12.0) 04/12/18 09:52 INR 1.0 (<1.2) 04/12/18 09:52 APTT 25.1 sec (22.0-30.0) 04/12/18 09:52 POC Glucose (mg/dL) 143 mg/dL (75-99) H 04/12/18 14:06 POC Glu Graduate Nurse ANDRÉS SantanaFrancesca 04/12/18 14:06 Assessment and Plan Plan: 1. left Total knee arthroplasty secondary to advancing DJD, postop day #0 replacement placed 04/12/2018, patient has high risk issues regarding DVT, with prior multiple DVTs in the past, she is bridged with Lovenox prior to admission , and is on Coumadin maintenance at home. We'll going to give Lovenox bridging appropriately continue till inr 1.8-2.0 then lovenox bridge will stop, Coumadin 7.5 mg to be given tonight and then thereafter initial home dose of 3 mg daily. Patient's receiving incentive spirometry, postoperative pain control with narcotics, and bowel stool softener program 2. History of atrial fibrillation, follows with Dr. Santana currently asymptomatic, patient is to continue on Coumadin, metoprolol 25 mg twice a day, 3. Diabetes mellitus type 2 on metformin 500 mg twice a day, Accu-Cheks before meals and at bedtime, 3. Long-term anticoagulation with Coumadin patient's currently bridged with Lovenox known history of multiple DVT in the past, currently has an IVC filter 4. ADD or ADHD, patient is on maintenance Ritalin 10 mg twice a day 5. Neuropathy on gabapentin 300 mg twice a day with chronic pain management 6CAD, currently asymptomatic, on metoprolol and aspirin no changes made 7COPD on Pulmicort nebulized solution at home along with when necessary albuterol 8. Lumbar disc disease, with multiple back surgeries including a failed nerve stimulator removal June 2016 9. Chronic depression on Zoloft 50 DVT prophylaxis, Lovenox to bridge and visual Coumadin dose, target INR 2-[address] Blankenship in allowing us to participate in the care of your patient. We are going to follow him with you during this current Stay,
--- NOTE | 2018-04-13 15:07 | P.PN ---
Subjective Progress Note Date: 04/13/18 This is a pleasant 62-year-old lady patient of Dr. Pinzon, and Dr. funes. She has underlying history of chronic pain syndrome, hyperlipidemia, overactive bladder, CAD, without any angina, atrial fibrillation, prior history of DVT and PE in the past currently breached with Lovenox for the planned procedure. Patient is on long-term Coumadin prior to this. Last DVT was in June 2013 lower extremity patient also has anxiety and depression, prior tobacco use, patient underwent elective left total knee arthroplasty secondary to advancing DJD, and is currently without symptoms of nausea or vomiting, no chest pain or palpitations. Reports for preop clearance were reviewed including office notes. 04/13: Patient's blood pressure was low this morning at 91/56 and an IV fluid bolus of 500 ML's ordered. Lopressor will be held. She is using her incentive spirometry at 1000 1500 ML's. She states she slept on and off during the night and her back is bothering her. Patient will be resumed on her home dose of Lovenox along with Coumadin. INR is 1.3, hemoglobin 10.8, blood sugars running between 155 and 178. Review Of Systems: Constitutional: No fever, no chills, no night sweats. No weight change. No weakness, fatigue or lethargy. No daytime sleepiness. EENT: No headache. No blurred vision or double vision, no loss of vision. No loss of Hearing, no ringing in the ears, no dizziness. No nasal drainage or congestion. No epistaxis. No sore throat. Lungs: No shortness of breath, cough, no sputum production. No wheezing. Cardiovascular: No chest pain, no lower extremity edema. No palpitations. No paroxysmal nocturnal dyspnea. No orthopnea. No lightheadedness or dizziness. No syncopal episodes. Abdominal: No abdominal pain. No nausea, vomiting. No diarrhea. No constipation. No bloody or tarry stools.. No loss of appetite. Genitourinary: No dysuria, increased frequency, urgency. No urinary retention. Musculoskeletal: No myalgias. No muscle weakness, no gait dysfunction, no frequent falls. No back pain. No neck pain. Integumentary: Reports wounds, no lesions. No rash or pruritus. No unusual bruising. No change in hair or nails. Neurologic: No aphasia. No facial droop. No change in mentation. No head injury. No headache. No paralysis. No paresthesia. Psychiatric: No depression. No anxiety. No mood swings. Endocrine: No abnormal blood sugars. No weight change. No excessive sweating or thirst. No cold intolerance. No weight change. Objective - Vital Signs Vital signs: Vital Signs Temp 98.6 F 04/13/18 08:15 Pulse 89 04/13/18 08:15 Resp 15 04/13/18 08:15 BP 91/56 04/13/18 08:15 Pulse Ox 92 L 04/13/18 08:15 Intake & Output 04/12/18 04/13/18 04/13/18 18:59 06:59 18:59 Intake Total 1501 2230 266 Output Total 100 Balance 1401 2230 266 Intake: IV 1501 Intake, IV Titration 1000 Amount Lactated Ringers 1,000 ml 1000 @ 100 mls/hr IV .Q10H LOLA Rx#:[id number] Oral 1230 266 Output: Estimated Blood Loss 100 Other: # Voids 1 - Exam General appearance: cooperative, no acute distress while resting in bed - EENT Eyes: anicteric sclerae, EOMI, PERRLA, dentition normal ENT: NA/AT, normal oropharynx - Neck Neck: normal ROM - Respiratory Respiratory: bilateral: CTA, negative: diminished, dullness, rales - Cardiovascular Rhythm: regular Heart sounds: normal: S1, S2 Abnormal Heart Sounds: systolic murmur, no diastolic murmur, no rub, no S3 Gallop, no S4 Gallop, no click, no other - Gastrointestinal General gastrointestinal: no absent bowel sounds, no decreased bowel sounds, no distended, no hepatomegaly, no hyperactive bowel sounds, normal bowel sounds, no organomegaly, no rigid, no scaphoid, soft, no splenomegaly, no tenderness, no umbilical hernia, no ventral hernia - Integumentary Integumentary: normal, normal turgor - Neurologic Neurologic: CNII-XII intact - Musculoskeletal Musculoskeletal: strength equal bilaterally - Psychiatric Psychiatric: A&O x's 3, appropriate affect, intact judgment & insight - Labs CBC & Chem 7: 04/13/18 07:30 04/12/18 19:00 Labs: Abnormal Lab Results - Last 24 Hours (Table) 04/12/18 04/12/1819 Range/Units 14:06 19:00 20:33 Hgb (11.4-16.0) gm/dL Hct (34.0-46.0) % PT (9.0-12.0) sec INR (<1.2) Glucose 163 H (74-99) mg/dL POC Glucose (mg/dL) 143 H 155 H (75-99) mg/dL AST 68 H (14-36) U/L ALT 54 H (9-52) U/L Total Protein 5.5 L (6.3-8.2) g/dL Albumin 3.1 L (3.5-5.0) g/dL 04/13/18 04/13/18 04/13/18 Range/Units 07:09 07:30 07:30 Hgb 10.8 L (11.4-16.0) gm/dL Hct 33.2 L (34.0-46.0) % PT 13.5 H (9.0-12.0) sec INR 1.3 H (<1.2) Glucose (74-99) mg/dL POC Glucose (mg/dL) 167 H (75-99) mg/dL AST (14-36) U/L ALT (9-52) U/L Total Protein (6.3-8.2) g/dL Albumin (3.5-5.0) g/dL Assessment and Plan Plan: 1. Left Total knee arthroplasty secondary to advancing DJD, postop day #1 replacement placed 04/12/2018, patient has high risk issues regarding DVT, with prior multiple DVTs in the past, she is bridged with Lovenox prior to admission , and is on Coumadin maintenance at home. We'll going to give Lovenox bridging appropriately continue till inr 1.8-2.0 then lovenox bridge will stop, Coumadin 7.5 mg to be given tonight and then thereafter initial home dose of 3 mg daily. Patient's receiving incentive spirometry, postoperative pain control with narcotics, and bowel stool softener program 2. History of atrial fibrillation, follows with Dr. Santana currently asymptomatic, patient is to continue on Coumadin, metoprolol 25 mg twice a day, 3. Diabetes mellitus type 2 on metformin 500 mg twice a day, Accu-Cheks before meals and at bedtime, 4. Long-term anticoagulation with Coumadin patient's currently bridged with Lovenox known history of multiple DVT in the past, currently has an IVC filter 5. ADD or ADHD, patient is on maintenance Ritalin 10 mg twice a day 6. Neuropathy on gabapentin 300 mg twice a day with chronic pain management 7. CAD, currently asymptomatic, on metoprolol and aspirin no changes made 8. COPD on Pulmicort nebulized solution at home along with when necessary albuterol 9. Lumbar disc disease, with multiple back surgeries including a failed nerve stimulator removal June 2016 10. Chronic depression on Zoloft 50 11. Postop hypotension. IV fluid bolus 500 mL, hold metoprolol. DVT prophylaxis, Lovenox to bridge and visual Coumadin dose, target INR 2-3 GI prophylaxis Discharge plan: Home tomorrow Impression and plan of care have been directed as dictated by the signing physician. Deidre Starr nurse practitioner acting as scribe for signing physician.
[2018-04-13 15:27] LABS: Hemoglobin A1C 7.9 % (4.0-6.0)
[2018-04-13 17:06] LABS: Glucose,Whole Blood 145 mg/dL (75-99)
[2018-04-13] MEDS ORDERED: WARFARIN 5 MG TAB PO ONE (18:00)
[2018-04-13] MEDS: SENNOSIDES-DOCUSATE SODIUM 1 EACH TAB PO SCH (20:37)
[2018-04-13] MEDS: GABAPENTIN 300 MG CAP PO SCH (20:37)
[2018-04-13 20:40] LABS: Glucose,Whole Blood 222 mg/dL (75-99)
[2018-04-14] MEDS: ALPRAZolam 0.5 MG TAB PO SCH ×4 (00:24→21:21)
[2018-04-14] MEDS: HYDROcodone/APAP 5-325MG 1 EACH TAB PO PRN ×2 (02:31→07:49)
[2018-04-14] MEDS: LACTATED RINGERS 1,000 ML IV SCH ×3 (05:48→16:40)
[2018-04-14 06:55] LABS: INR 1.5 (<1.2)
[2018-04-14] MEDS: FLUTICASONE 110 MCG INHALER INHALATION PRN ×2 (07:00→20:03)
[2018-04-14 07:08] LABS: Glucose,Whole Blood 178 mg/dL (75-99)
[2018-04-14] MEDS: ENOXAPARIN 80 MG/0.8 ML SYRINGE SQ SCH (07:37)
[2018-04-14] MEDS: INSULIN ASPART (NovoLOG) 100 UNIT/ML VIAL SQ SCH ×4 (07:37→22:14)
[2018-04-14] MEDS: MELOXICAM 7.5 MG TAB PO SCH (07:38)
[2018-04-14] MEDS: metFORMIN 500 MG TAB PO SCH ×2 (07:38→21:22)
[2018-04-14] MEDS: METOPROLOL TARTRATE 25 MG TAB PO SCH ×2 (07:38→21:21)
[2018-04-14] MEDS: PANTOPRAZOLE 40 MG TABLET PO SCH (07:39)
[2018-04-14] MEDS: ATORVASTATIN 40 MG TAB PO SCH (07:39)
[2018-04-14] MEDS: SERTRALINE 25 MG TAB PO SCH (07:40)
--- NOTE | 2018-04-14 11:05 | P.PN ---
Subjective Progress Note Date: 04/14/18 Principal diagnosis: Primary osteoarthritis left knee. Status post total left knee arthroplasty. This is a pleasant 62 her vital signs and labs are stable.-year-old female who is status post total left knee arthroplasty. She is having increased pain today. Her morphine was not reordered by medicine. She is concerned about going home today since she will have difficulty getting into her house with the bad weather. Therapy states that she is not doing well from their standpoint. She is unable to get in and out of bed on her own. She is ambulating with assistance and is unable to do stairs. They're recommending inpatient rehab. Objective - Vital Signs Vital signs: Vital Signs Temp 97.9 F 04/14/18 08:08 Pulse 68 04/14/18 08:08 Resp 16 04/14/18 08:08 BP 102/64 04/14/18 08:08 Pulse Ox 91 L 04/14/18 08:08 Intake & Output 04/13/18 04/14/18 04/14/18 18:59 06:59 18:59 Intake Total 502 462 Balance 502 462 Intake: Oral 502 462 Other: Voiding Method Toilet # Voids 2 1 - Exam This is a pleasant 62-year-old female in no acute distress. She is alert and oriented 3. Exam of the left lower extremity reveals that her dressing is clean, dry and intact. No erythema to the skin surrounding the silver dressing. She has full foot and ankle motion without difficulty or pain. Neurovascular status to the lower extremity is intact. - Labs CBC & Chem 7: 04/13/18 07:30 04/12/18 19:00 Labs: Abnormal Lab Results - Last 24 Hours (Table) 04/13/18 04/13/18 04/13/18 Range/Units 07:30 12:05 17:05 PT (9.0-12.0) sec INR (<1.2) POC Glucose (mg/dL) 178 H 145 H (75-99) mg/dL Hemoglobin A1c 7.9 H (4.0-6.0) % 04/13/18 04/14/18 04/14/18 Range/Units 20:29 06:18 07:06 PT 15.0 H (9.0-12.0) sec INR 1.5 H (<1.2) POC Glucose (mg/dL) 222 H 178 H (75-99) mg/dL Hemoglobin A1c (4.0-6.0) % Assessment and Plan (1) Osteoarthritis of left knee Current Visit: Yes Status: Acute Code(s): M17.12 - UNILATERAL PRIMARY OSTEOARTHRITIS, LEFT KNEE SNOMED Code(s): 881695450792123 (2) Status post total left knee replacement Current Visit: Yes Status: Acute Code(s): Z96.652 - PRESENCE OF LEFT ARTIFICIAL KNEE JOINT SNOMED Code(s): 7281192566101 (3) Diabetes Current Visit: No Status: Acute Code(s): E11.9 - TYPE 2 DIABETES MELLITUS WITHOUT COMPLICATIONS SNOMED Code(s): 54684375 Plan: The clinical findings are discussed the patient. We discussed the fact that she is unsafe to go home at this time. We'll plan discharged to inpatient rehab tomorrow.
[2018-04-14 11:34] LABS: Glucose,Whole Blood 97 mg/dL (75-99)
[2018-04-14] MEDS: HYDROmorphone 0.5 MG/0.5 ML SYRINGE IVP PRN ×3 (12:36→23:25)
--- NOTE | 2018-04-14 13:39 | P.PN ---
Subjective Progress Note Date: 04/14/18 This is a pleasant 62-year-old lady patient of Dr. Pinzon, and Dr. Santana. She has underlying history of chronic pain syndrome, hyperlipidemia, overactive bladder, CAD, without any angina, atrial fibrillation, prior history of DVT and PE in the past currently breached with Lovenox for the planned procedure. Patient is on long-term Coumadin prior to this. Last DVT was in June 2013 lower extremity patient also has anxiety and depression, prior tobacco use, patient underwent elective left total knee arthroplasty secondary to advancing DJD, and is currently without symptoms of nausea or vomiting, no chest pain or palpitations. Reports for preop clearance were reviewed including office notes. 04/13: Patient's blood pressure was low this morning at 91/56 and an IV fluid bolus of 500 ML's ordered. Lopressor will be held. She is using her incentive spirometry at 1000 1500 ML's. She states she slept on and off during the night and her back is bothering her. Patient will be resumed on her home dose of Lovenox along with Coumadin. INR is 1.3, hemoglobin 10.8, blood sugars running between 155 and 178. 04/14: Patient is complaining of mostly back pain from the bed and recliner. Knee pain apparently is controlled at this time. She denies any shortness of breath, lightheadedness or dizziness. She has been afebrile, blood pressure 102 /64, pulse ox 91-94% on room air, heart rate in the 60s and 70s. Repeat INR is 1.5. Patient has been instructed to continue Lovenox and Coumadin until INR is 1.9 and then she can continue only Coumadin. Patient is anticipating discharge home today. Review Of Systems: Constitutional: No fever, no chills, no night sweats. No weight change. No weakness, fatigue or lethargy. No daytime sleepiness. EENT: No headache. No blurred vision or double vision, no loss of vision. No loss of Hearing, no ringing in the ears, no dizziness. No nasal drainage or congestion. No epistaxis. No sore throat. Lungs: No shortness of breath, cough, no sputum production. No wheezing. Cardiovascular: No chest pain, no lower extremity edema. No palpitations. No paroxysmal nocturnal dyspnea. No orthopnea. No lightheadedness or dizziness. No syncopal episodes. Abdominal: No abdominal pain. No nausea, vomiting. No diarrhea. No constipation. No bloody or tarry stools.. No loss of appetite. Genitourinary: No dysuria, increased frequency, urgency. No urinary retention. Musculoskeletal: No myalgias. No muscle weakness, no gait dysfunction, no frequent falls. No back pain. No neck pain. Reports chronic back pain Integumentary: Reports wounds, no lesions. No rash or pruritus. No unusual bruising. No change in hair or nails. Neurologic: No aphasia. No facial droop. No change in mentation. No head injury. No headache. No paralysis. No paresthesia. Psychiatric: No depression. No anxiety. No mood swings. Endocrine: No abnormal blood sugars. No weight change. No excessive sweating or thirst. No cold intolerance. No weight change. Objective - Vital Signs Vital signs: Vital Signs Temp 97.9 F 04/14/18 08:08 Pulse 68 04/14/18 08:08 Resp 16 04/14/18 08:08 BP 102/64 04/14/18 08:08 Pulse Ox 91 L 04/14/18 08:08 Intake & Output 04/13/18 04/14/18 04/14/18 18:59 06:59 18:59 Intake Total 502 462 Balance 502 462 Intake: Oral 502 462 Other: Voiding Method Toilet # Voids 2 1 - Exam General appearance: cooperative, no acute distress while resting in recliner - EENT Eyes: anicteric sclerae, EOMI, PERRLA, dentition normal ENT: NA/AT, normal oropharynx - Neck Neck: normal ROM - Respiratory Respiratory: bilateral: CTA, negative: diminished, dullness, rales - Cardiovascular Rhythm: regular Heart sounds: normal: S1, S2 Abnormal Heart Sounds: systolic murmur, no diastolic murmur, no rub, no S3 Gallop, no S4 Gallop, no click, no other - Gastrointestinal General gastrointestinal: no absent bowel sounds, no decreased bowel sounds, no distended, no hepatomegaly, no hyperactive bowel sounds, normal bowel sounds, no organomegaly, no rigid, no scaphoid, soft, no splenomegaly, no tenderness, no umbilical hernia, no ventral hernia - Integumentary Integumentary: normal, normal turgor - Neurologic Neurologic: CNII-XII intact - Musculoskeletal Musculoskeletal: strength equal bilaterally Small dressing in place to the left knee with no breakthrough bleeding or drainage. - Psychiatric Psychiatric: A&O x's 3, appropriate affect, intact judgment & insight - Labs CBC & Chem 7: 04/13/18 07:30 04/12/18 19:00 Labs: Abnormal Lab Results - Last 24 Hours (Table) 04/13/18 04/13/18 04/13/18 Range/Units 07:30 12:05 17:05 PT (9.0-12.0) sec INR (<1.2) POC Glucose (mg/dL) 178 H 145 H (75-99) mg/dL Hemoglobin A1c 7.9 H (4.0-6.0) % 04/13/18 04/14/18 04/14/18 Range/Units 20:29 06:18 07:06 PT 15.0 H (9.0-12.0) sec INR 1.5 H (<1.2) POC Glucose (mg/dL) 222 H 178 H (75-99) mg/dL Hemoglobin A1c (4.0-6.0) % Assessment and Plan Plan: 1. Left Total knee arthroplasty secondary to advancing DJD, postop day #2 replacement placed 04/12/2018, patient has high risk issues regarding DVT, with prior multiple DVTs in the past, she is bridged with Lovenox prior to admission , and is on Coumadin maintenance at home. Patient is to continue Coumadin and Lovenox until INR is 1.9. Patient does check her own INRs at home. 2. History of atrial fibrillation, follows with Dr. Santana currently asymptomatic, patient is to continue on Coumadin, metoprolol 25 mg twice a day, 3. Diabetes mellitus type 2 on metformin 500 mg twice a day, Accu-Cheks before meals and at bedtime, 4. Long-term anticoagulation with Coumadin patient's currently bridged with Lovenox known history of multiple DVT in the past, currently has an IVC filter 5. ADD or ADHD, patient is on maintenance Ritalin 10 mg twice a day 6. Neuropathy on gabapentin 300 mg twice a day with chronic pain management 7. CAD, currently asymptomatic, on metoprolol and aspirin no changes made 8. COPD on Pulmicort nebulized solution at home along with when necessary albuterol 9. Lumbar disc disease, with multiple back surgeries including a failed nerve stimulator removal June 2016 10. Chronic depression on Zoloft 50 11. Postop hypotension. IV fluid bolus 500 mL, hold metoprolol. DVT prophylaxis, Lovenox to bridge and visual Coumadin dose, target INR 2-3 GI prophylaxis Discharge plan: Home with [facility] Impression and plan of care have been directed as dictated by the signing physician. Deidre Starr nurse practitioner acting as scribe for signing physician.
--- NOTE | 2018-04-14 15:46 | P.PAINCN ---
History of Present Illness - Reason for Consult Consult date: 04/14/18 - History of Present Illness This is 62 years old female with a chronic history of severe low back pain, diagnosed with failed back surgery syndrome and lumbar area, and sacroiliitis, osteoarthritis of the left knee, opioid tolerance , she is very well known to our pain clinic, and she is being managed with an intrathecal pain medication, she is currently on intrathecal opioid Dilaudid infusion, a few days ago she had total left knee replacement, and currently she is complaining of severe low back pain and left knee pain, and is preventing her from doing any physical therapy, and rehab, the pain interfering with her ability to laying still or doing any activity, and pain management consultation was requested, I interrogated the intrathecal pain pump and make sure patient currently getting Dilaudid concentration 10 mg per mL and bupivacaine 7 mg per mL and she is getting continuous. 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 , HIATAL HERNIA. ULCERATIVE COLITIS. CHRONIC BACK PAIN, O2 AT 2 L PRN, NUMBNESS LEFT LEG , USES CANE , WALKER & WHEELCHAIR, HX OF FALLS. History of Any Multi-Drug Resistant Organisms: None Reported Past Surgical History: Adenoidectomy, Bowel Resection, Breast Surgery, Cholecystectomy, Heart Catheterization, Hysterectomy, Orthopedic Surgery, Tonsillectomy Additional Past Surgical History / Comment(s): 01/24/14 OPEN HEART PROCEDURE-- RT. VENTRICULOTOMY TO REMOVE BLOOD CLOT. HX. BACK SURGERY- FUSION X 3. INTRATHECAL PAIN PUMP - replaced on August 02, 2014. TESHA FILTER. HEART CATH X2., surgery left forearm(for fx) . bilateral carpal tunnel, clarita breast reduction, SPINAL CORD STIMULATOR INSERTED & REMOVED 05/2016., Past Anesthesia/Blood Transfusion Reactions: No Reported Reaction Additional Past Anesthesia/Blood Transfusion Reaction / Comm: HX OF BLOOD TRANSFUSION AND FRESH FROZEN PLASMA. Past Psychological History: Depression Smoking Status: Former smoker Past Alcohol Use History: None Reported Additional Past Alcohol Use History / Comment(s): quit smoking 1992, SMOKED ON AND OFF- STARTED SMOKING AT AGE 17 < 1ppd Past Drug Use History: None Reported - Past Family History Daughter(s) Family Medical History: Pulmonary Embolus Father Family Medical History: Myocardial Infarction ([place]) Additional Family Medical History / Comment(s): at age 70 Mother Family Medical History: No Reported History Additional Family Medical History / Comment(s): blood clot in heart Medications and Allergies Home Medications Medication Instructions Recorded Confirmed Type Omeprazole [PriLOSEC] 20 mg PO DAILY 10/06/13 04/09/18 History Sertraline [Zoloft] 75 mg PO QAM 10/06/13 04/09/18 History Temazepam [Restoril] 30 mg PO HS PRN 07/13/14 04/09/18 History Warfarin [Coumadin] 3 mg PO DAILY 07/11/15 04/12/18 History Albuterol Nebulized [Ventolin 2.5 mg INHALATION RT-QID PRN 02/06/16 04/09/18 History Nebulized] Atorvastatin [Lipitor] 10 mg PO DAILY 02/06/16 04/09/18 History Albuterol Inhaler [Ventolin Hfa 1 - 2 puff INHALATION RT-Q6H PRN 04/08/16 History Inhaler] Budesonide [Pulmicort] 0.5 mg INHALATION RT-BID PRN 04/08/16 04/09/18 History Fluticasone Propionate [Flovent 2 puff INHALATION RT-BID PRN 06/16/16 04/09/18 History Hfa 110mcg] Metoprolol Tartrate [Lopressor] 25 mg PO BID 02/27/17 04/09/18 History metFORMIN HCL [metFORMIN HCL ER] 500 mg PO BID 09/23/17 04/09/18 History Gabapentin [Neurontin] 600 mg PO HS 02/03/18 04/12/18 History Dilaudid (Pain Pump) 1 dose INTRATHECA CONTINUOUS 04/02/18 04/09/18 History Morphine Sulfate Ir [MSIR] 30 mg PO Q4HR PRN 04/02/18 04/09/18 History tiZANidine [Zanaflex] 4 - 6 mg PO Q6H PRN 04/02/18 04/09/18 History Rosuvastatin [Crestor] 20 mg PO DAILY 04/08/18 04/09/18 History ALPRAZolam [Xanax] 0.5 mg PO TID 04/12/18 04/12/18 History Enoxaparin [Lovenox] 80 mg SQ DAILY 04/12/18 04/12/18 History HYDROcodone/APAP 5-325MG [[place] 1 - 2 each PO Q4-6H PRN #50 tab 04/12/18 Rx 5-325] Sennosides-Docusate Sodium 1 tab PO BID #60 tablet 04/12/18 Rx [Senokot-S] Allergies Allergy/AdvReac Type Severity Reaction Status Date / Time adhesive Allergy BANDAIDES Verified 04/12/18 13:18 INCLUDED.SKIN BLISTERS. PAPER TAPE IS OK. Penicillins Allergy HIVES Verified 04/12/18 13:18 ziprasidone HCl [From Geodon] Allergy ARRYTHMIA,H Verified 04/12/18 13:18 YPOTENSION ziprasidone mesylate Allergy ARRYTHMIA,H Verified 04/12/18 13:18 [From Geodon] YPOTENSION enoxaparin [From Lovenox] AdvReac thrombocyto Verified 04/12/18 13:18 penia heparin AdvReac thrombocyto Verified 04/12/18 13:18 penia derma-shelton Allergy Rash/Hives Uncoded 04/12/18 09:26 Physical Exam Vitals: Vital Signs Temp Pulse Resp BP Pulse Ox 04/14/18 08:08 97.9 F 68 16 102/64 91 L 04/14/18 07:00 94 L 04/14/18 02:26 100/58 04/14/18 00:15 71 93/60 04/13/18 23:30 98.2 F 79 16 85/50 97 04/13/18 19:30 98.9 F 85 16 92/56 96 04/13/18 16:20 99.4 F 88 16 124/72 99 Intake and Output 04/14/18 04/14/18 04/14/18 06:59 14:59 22:59 Other: # Voids 1 Physical Examinations : -Constitutiona : Cooperative , not in acute distress . -HEENT : nech ; supple , no Lymphadenopathy , normal thyroid size . eyes : no ptosis , no icterus, no photophobia . - neurologic : Cranial nerve II to XII intact , no focal neurological deffecit . -psychatric : alert , oriented X 3 , appropriate affect , intact judgment and insight . -Lymphatic : no Lymphadenopathy . - musculoskeltal : Lumber spine moter stegnth lower extremities ,thigh and legs 5/5 Right side , 5/5 Left side Complaining of severe left knee pain Severe tenderness over the sacroiliac joint bilaterally Results CBC & Chem 7: 04/13/18 07:30 04/12/18 19:00 Labs: Abnormal Lab Results - Last 24 Hours (Table) 04/13/18 04/13/18 04/14/18 Range/Units 17:05 20:29 06:18 PT 15.0 H (9.0-12.0) sec INR 1.5 H (<1.2) POC Glucose (mg/dL) 145 H 222 H (75-99) mg/dL 04/14/18 Range/Units 07:06 PT (9.0-12.0) sec INR (<1.2) POC Glucose (mg/dL) 178 H (75-99) mg/dL Assessment and Plan Plan: Assessment and plan= acute on chronic pain, patient had chronic pain syndrome secondary to failed back surgery syndrome and lumbar area and sacroiliitis Osteoarthritis, currently having acute pain secondary to surgical interventions left total knee replacement I will increase the intrathecal pain pump infusion to Dilaudid 5.5 mg per day, and bupivacaine 3.84 mg per day And I gave the patient a bolus of the medication Dilaudid 0.5 mg and bupivacaine 0.35 mg and a bolus was given over 10 minutes And patient should continue to get her breakthrough medication MSIR 30 mg every 8 hours Patient will follow up with the pain clinic in 2 months Time with Patient: Less than 30 PQRS Measure Charge Sheet PQRS Narrative: Smoking Status Former smoker Do You Want the Pneumonia Vaccine Up to Date Vaccine AT THIS TIME? Narcotic Agreement Date Signed 09/23/17 Blood Pressure [Right Arm] 102/64 Pain Intensity [Left Knee] 8 Pain Intensity [Lower Back] 7 Pain Intensity 7 Pain Scale Used [Lower Back] Numeric (1 - 10) Pain Scale Used Numeric (1 - 10) Scale Used Numeric (1 - 10) Hx Alcohol Use (MH) No Home Medications: Ambulatory Orders Omeprazole [PriLOSEC] 20 mg PO DAILY 10/06/13 Sertraline [Zoloft] 75 mg PO QAM 10/06/13 Temazepam [Restoril] 30 mg PO HS PRN 07/13/14 Warfarin [Coumadin] 3 mg PO DAILY 07/11/15 Albuterol Nebulized [Ventolin Nebulized] 2.5 mg INHALATION RT-QID PRN 02/06/16 Atorvastatin [Lipitor] 10 mg PO DAILY 02/06/16 Albuterol Inhaler [Ventolin Hfa Inhaler] 1 - 2 puff INHALATION RT-Q6H PRN Budesonide [Pulmicort] 0.5 mg INHALATION RT-BID PRN 04/08/16 Fluticasone Propionate [Flovent Hfa 110mcg] 2 puff INHALATION RT-BID PRN Metoprolol Tartrate [Lopressor] 25 mg PO BID 02/27/17 metFORMIN HCL [metFORMIN HCL ER] 500 mg PO BID 09/23/17 Gabapentin [Neurontin] 600 mg PO HS 02/03/18 Dilaudid (Pain Pump) 1 dose INTRATHECA CONTINUOUS 04/02/18 Morphine Sulfate Ir [MSIR] 30 mg PO Q4HR PRN 04/02/18 tiZANidine [Zanaflex] 4 - 6 mg PO Q6H PRN 04/02/18 Rosuvastatin [Crestor] 20 mg PO DAILY 04/08/18 ALPRAZolam [Xanax] 0.5 mg PO TID 04/12/18 Enoxaparin [Lovenox] 80 mg SQ DAILY 04/12/18 HYDROcodone/APAP 5-325MG [[place] 5-325] 1 - 2 each PO Q4-6H PRN #50 tab 04/12/18 Sennosides-Docusate Sodium [Senokot-S] 1 tab PO BID #60 tablet 04/12/18
[2018-04-14] MEDS ORDERED: WARFARIN 5 MG TAB PO ONE (18:00)
[2018-04-14] MEDS: MORPHINE SULFATE IR 15 MG TABLET PO PRN (19:33)
[2018-04-14 20:18] LABS: Glucose,Whole Blood 146 mg/dL (75-99)
[2018-04-14] MEDS: GABAPENTIN 300 MG CAP PO SCH (21:22)
[2018-04-14] MEDS: SENNOSIDES-DOCUSATE SODIUM 1 EACH TAB PO SCH (21:22)
[2018-04-14] MEDS: TEMAZEPAM 15 MG CAP PO PRN (23:16)
[2018-04-15] MEDS: LACTATED RINGERS 1,000 ML IV SCH ×3 (01:11→08:32)
[2018-04-15] MEDS: MORPHINE SULFATE IR 15 MG TABLET PO PRN (06:15)
[2018-04-15 07:27] LABS: Glucose,Whole Blood 178 mg/dL (75-99)
[2018-04-15] MEDS: BUDESONIDE 0.5 MG/2 ML NEBU INHALATION PRN (07:33)
[2018-04-15] MEDS: ALBUTEROL NEBULIZED 2.5 MG/3 ML INHALATION PRN (07:33)
[2018-04-15] MEDS: FLUTICASONE 110 MCG INHALER INHALATION PRN (07:33)
[2018-04-15 07:48] LABS: Basophils % (A) 0 %; Eosinophils # (A) 0.5 k/uL (0-0.7); Eosinophils % (A) 6 %; HGB 9.8 gm/dL (11.4-16.0); Lymphocytes # (A) 1.7 k/uL (1.0-4.8); Lymphocytes % (A) 24 %; MCH 27.8 pg (25.0-35.0); MCHC 32.5 g/dL (31.0-37.0); MCV 85.6 fL (80.0-100.0); Mean Platelet Volume 6.8; Monocytes # (A) 0.4 k/uL (0-1.0); Monocytes % (A) 5 %; Neutrophils # (A) 4.5 k/uL (1.3-7.7); Neutrophils % (A) 63 %; Platelet Count 173 k/uL (150-450); RBC 3.51 m/uL (3.80-5.40); RDW 14.8 % (11.5-15.5); WBC 7.2 k/uL (3.8-10.6)
[2018-04-15 07:52] LABS: INR 2.2 (<1.2); Prothrombin Time 21.4 sec (9.0-12.0)
[2018-04-15] MEDS: INSULIN ASPART (NovoLOG) 100 UNIT/ML VIAL SQ SCH ×2 (07:52→12:38)
[2018-04-15 08:11] VITALS: BP 110/63; PULSE 71; RESP 15; TEMP 98.8
[2018-04-15] MEDS: MELOXICAM 7.5 MG TAB PO SCH (08:27)
[2018-04-15] MEDS: ATORVASTATIN 40 MG TAB PO SCH (08:28)
[2018-04-15] MEDS: ENOXAPARIN 80 MG/0.8 ML SYRINGE SQ SCH (08:28)
[2018-04-15] MEDS: ALPRAZolam 0.5 MG TAB PO SCH (08:28)
[2018-04-15] MEDS: METOPROLOL TARTRATE 25 MG TAB PO SCH (08:28)
[2018-04-15] MEDS: PANTOPRAZOLE 40 MG TABLET PO SCH (08:28)
[2018-04-15] MEDS: metFORMIN 500 MG TAB PO SCH (08:28)
[2018-04-15] MEDS: SERTRALINE 25 MG TAB PO SCH (08:28)
--- NOTE | 2018-04-15 08:49 | P.DS ---
Providers Date of admission: 04/12/18 08:55 Expected date of discharge: 04/15/18 Attending physician: Cristian Blankenship Consults: 04/12/18 12:55 Consult Physician Routine Consulting Provider: Cabrera Pinzon Consult Reason/Comments: Medical management Do you want consulting provider notified?: Yes 04/14/18 10:58 Consult Physician Urgent Consulting Provider: Vianney Clarke Consult Reason/Comments: Pain management (pt known to Dr Clarke) Do you want consulting provider notified?: Yes Primary care physician: Cabrera Pinzon - Discharge Diagnosis(es) (1) Osteoarthritis of left knee Current Visit: Yes Status: Acute (2) Status post total left knee replacement Current Visit: Yes Status: Acute (3) Back pain Current Visit: No Status: Acute (4) Diabetes Current Visit: No Status: Acute Hospital Course: This is a 62-year-old female last seen in our office with complaints of left knee pain. Patient has known history of degenerative arthritis of the left knee and presented to discuss options. After discussion and consideration, the patient elected to proceed with a left total knee arthroplasty. Patient was seen preoperatively, and medically cleared for surgery by primary care physician. Patient was admitted to [facility] underwent left total knee arthroplasty on 04/12/[address] Blankenship. The procedure was performed without complications or sequelae. The patient is seen and evaluated at bedside today. Pain is controlled today. Patient has no new complaints today and denies any fevers, chills, nausea, vomiting, or shortness of breath. Vital signs are stable. Dressing is clean dry and intact. Incision looks fine with no erythema or active drainage. Calf is soft and nontender. Patient has full foot and ankle motion without difficulty. Patient's left lower extremity is neurovascularly intact. The patient is orthopedically stable for discharge to skilled rehab today. See medication reconciliation for accurate list of discharge medications. Pertinent Studies: Laboratory Tests 04/15/18 04/15/18 06:39 06:39 WBC 7.2 RBC 3.51 L Hgb 9.8 L Hct 30.0 L PT 21.4 H INR 2.2 H Patient Condition at Discharge: Stable Plan - Discharge Summary Discharge Rx Participant: No New Discharge Prescriptions: New Sennosides-Docusate Sodium [Senokot-S] 1 tab PO BID #60 tablet HYDROcodone/APAP 5-325MG [[place] 5] 1 - 2 each PO Q4-6H PRN #50 tab PRN Reason: Pain No Action Sertraline [Zoloft] 75 mg PO QAM Omeprazole [PriLOSEC] 20 mg PO DAILY Temazepam [Restoril] 30 mg PO HS PRN PRN Reason: SLEEP Warfarin [Coumadin] 3 mg PO DAILY Atorvastatin [Lipitor] 10 mg PO DAILY Albuterol Nebulized [Ventolin Nebulized] 2.5 mg INHALATION RT-QID PRN PRN Reason: Shortness Of Breath Albuterol Inhaler [Ventolin Hfa Inhaler] 1 - 2 puff INHALATION RT-Q6H PRN PRN Reason: Shortness Of Breath Budesonide [Pulmicort] 0.5 mg INHALATION RT-BID PRN PRN Reason: Dyspnea Fluticasone Propionate [Flovent Hfa 110mcg] 2 puff INHALATION RT-BID PRN PRN Reason: Dyspnea Metoprolol Tartrate [Lopressor] 25 mg PO BID metFORMIN HCL [metFORMIN HCL ER] 500 mg PO BID Gabapentin [Neurontin] 600 mg PO HS tiZANidine [Zanaflex] 4 - 6 mg PO Q6H PRN PRN Reason: Pain Morphine Sulfate Ir [MSIR] 30 mg PO Q4HR PRN PRN Reason: Pain Dilaudid (Pain Pump) 1 dose INTRATHECA CONTINUOUS Rosuvastatin [Crestor] 20 mg PO DAILY Enoxaparin [Lovenox] 80 mg SQ DAILY ALPRAZolam [Xanax] 0.5 mg PO TID Discharge Medication List Omeprazole [PriLOSEC] 20 mg PO DAILY 10/06/13 [History] Sertraline [Zoloft] 75 mg PO QAM 10/06/13 [History] Temazepam [Restoril] 30 mg PO HS PRN 07/13/14 [History] Warfarin [Coumadin] 3 mg PO DAILY 07/11/15 [History] Albuterol Nebulized [Ventolin Nebulized] 2.5 mg INHALATION RT-QID PRN 02/06/16 [ History] Atorvastatin [Lipitor] 10 mg PO DAILY 02/06/16 [History] Albuterol Inhaler [Ventolin Hfa Inhaler] 1 - 2 puff INHALATION RT-Q6H PRN [History] Budesonide [Pulmicort] 0.5 mg INHALATION RT-BID PRN 04/08/16 [History] Fluticasone Propionate [Flovent Hfa 110mcg] 2 puff INHALATION RT-BID PRN [History] Metoprolol Tartrate [Lopressor] 25 mg PO BID 02/27/17 [History] metFORMIN HCL [metFORMIN HCL ER] 500 mg PO BID 09/23/17 [History] Gabapentin [Neurontin] 600 mg PO HS 02/03/18 [History] Dilaudid (Pain Pump) 1 dose INTRATHECA CONTINUOUS 04/02/18 [History] Morphine Sulfate Ir [MSIR] 30 mg PO Q4HR PRN 04/02/18 [History] tiZANidine [Zanaflex] 4 - 6 mg PO Q6H PRN 04/02/18 [History] Rosuvastatin [Crestor] 20 mg PO DAILY 04/08/18 [History] ALPRAZolam [Xanax] 0.5 mg PO TID 04/12/18 [History] Enoxaparin [Lovenox] 80 mg SQ DAILY 04/12/18 [History] Sennosides-Docusate Sodium [Senokot-S] 1 tab PO BID #60 tablet 04/12/18 [Rx] HYDROcodone/APAP 5-325MG [[place] 5] 1 - 2 each PO Q4-6H PRN #50 tab 04/15/18 [Rx] Follow up Appointment(s)/Referral(s): Esther Mensah PAC [PHYSICIAN BAR BACK] - 04/28/18 1:45 pm Cabrera Pinzon MD [Primary Care Provider] - 04/20/18 10:30 am [facility], [NON-STAFF] - Activity/Diet/Wound Care/Special Instructions: Continue Coumadin. May shower if no drainage from incision. May bear weight as tolerated w walker. Remove Silver dressing 1 week post op. Discharge Disposition: TRANSFER TO SNF/F
--- NOTE | 2018-04-15 08:49 | P.PN ---
Progress Note - Text Progress Note Date: 04/15/18 62-year-old female status post left total knee arthroplasty. She has a abductor canal catheter. She was seen by the chronic pain team she has intrathecal pain pump in place consisting of bupivacaine and Dilaudid. With regards to her knee VAS is a 2-4 out of 10 in severity. She is doing much better today, she is being discharged to subacute rehab today. She has no compressive motor sensory deficits.
[2018-04-15] MEDS ORDERED: methylPREDNISolone 4 MG TAB PO SCH (10:00)
[2018-04-15] MEDS ORDERED: POLYETHYLENE GLYCOL 3350 17 GM POWD.PACK PO SCH (10:00)
[2018-04-15 11:46] LABS: Glucose,Whole Blood 199 mg/dL (75-99)
[2018-04-15] MEDS ORDERED: WARFARIN 3 MG TAB PO SCH (18:00)
--- NOTE | 2018-04-26 15:44 | P.OP ---
Date of Procedure: 04/12/18 Procedure(s) Performed: PREOPERATIVE DIAGNOSIS: Left knee severe osteoarthritis with genu varum POSTOPERATIVE DIAGNOSIS: Left knee severe osteoarthritis with genu varum OPERATION: Left knee cemented total replacement arthroplasty. ANESTHESIA: Spinal ESTIMATED BLOOD LOSS: 100 ml. FEEDER SWITCHBOARD OPERATOR: Esther Mensah PA-C (assistance with: patient positioning, retraction, exposure, hemostasis, leg positioning, implantation, irrigation, closure, dressing) COMPLICATIONS: None apparent. COMPONENTS IMPLANTED: Persona system from [employer] INDICATIONS: Gretta is a 62 year old female with a history of left knee osteoarthritis. Conservative treatment has been tried and has been unsuccessful in controlling symptoms adequately. The operation of knee replacement has been discussed at length in the office, as well as potential risks and complications. These are inclusive of, but not limited to: bleeding, infection, scarring, discomfort, blood vessel and nerve damage, need for further surgery, failure to relieve symptoms, persistence, recurrence, or worsening of problems, loosening, dislocation, wear, blood clot, pulmonary embolism, , gait dysfunction, stiffness, and other risks as discussed in the office. The patient elects to proceed and the consent form has been signed. PROCEDURE: The patient was taken to the operating room and positioned on the operating room table in the supine position. Anesthesia was initiated. Care was taken to make sure that all pressure points were adequately padded. The operative lower extremity was prepped and draped in the usual aseptic fashion using ChloraPrep. Ioban drape was used for the case and the patient received intravenous antibiotics within one hour of the incision. A pneumotourniquet and leg delgado were used for the case. The limb was exsanguinated with an Esmarch bandage and the tourniquet was inflated to 350 mmHg. Time-out was called confirming the patient's identity, side, procedure and administration of antibiotics and tranexamic acid, 1 g IV. The incision was then created midline directly over the knee, carried down through skin and into the subcutaneous tissues and down to fascia. Full thickness subcutaneous medial flap was developed. Medial parapatellar arthrotomy was performed and the interior of the knee was inspected. There was end-stage osteoarthritis of the knee with a mild to moderate genu varum type deformity. The fat pad was excised and proximal medial release on the tibia was completed using meticulous dissection and a curved osteotome. The anterior cruciate ligament was taken down. Note was made of significant attrition of the anterior and significant degenerative appearance of the posterior cruciate ligaments. The exposure was excellent. The knee was flexed 90 degrees and the patella was everted. A spot was chosen on the femur approximately 1 cm anterior to the posterior cruciate ligament insertion and an intramedullary hole was created within the femur. The intramedullary guide was then set to 5 degrees of valgus. The distal cutting block was attached and pinned into position. An appropriate amount of distal femoral resection was set. The oscillating saw was then used to make the distal femoral cut. This cut was confirmed to be flat with the flat end of an osteotome. The retractors were placed around the tibia and the tibial surface was addressed. The angle and depth of resection was adjusted using an extramedullary cutting guide. The guide had a built-in 3 degree posterior slope cut. Once the cutting guide was adjusted appropriately and in line with the axis of the tibia and confirmed to be in good position in relation to the second metatarsal and transmalleolar axis, the tibial cut was then created with protection of the posterior neurovascular structures and the collateral ligaments. The tibial cut surface was removed and sized. Femoral sizing was then accomplished using anterior referencing. Care was taken to analyze the posterior condyles for signs of deficiency or severe wear, and adjustments to the guide were made, as appropriate. 3 degree external rotation pins were placed. The cutting jig for the femur was applied to these pins. The planned cuts were further analyzed prior to performing them with the oscillating saw. No femoral notching was produced. Bone fragments were removed and the cut surfaces were finished, as necessary, with a reciprocating saw. Spacer block technique was then used to confirm that the flexion and extension gaps were equal. Soft tissue releases and adjustment of the tibial and/or femoral cuts were made, as necessary, until the gaps were equal. This included release of the posterior cruciate ligament, which was tight in this patient. The femur was then further finished for a posterior cruciate ligament substituting component. Patellar resurfacing was performed using a reamer. The size of the required patellar component was estimated and the patellar surface was then reamed down to a residual thickness which would recreate the knik thickness with the component. The exact placement of the patellar component was adjusted for position based on preoperative x-rays and intraoperative findings. Prior to placing trial components, anesthetic solution consisting of ropivicaine with epinephrine, ketorolac, and clonidine was injected carefully and methodically in a grid pattern using aspiration technique into the soft tissue around the knee circumferentially, starting with the deeper tissues first and progressing to fascia, and then finally the skin/subcutaneous tissue. Particular care was taken when injecting the posterior capsule. The trial components were inserted. The tibial tray was allowed to self center and the patella was noted to track very well. The position of the tibial component was marked and the tibia was then finished for a stemmed tibial component. Cement was mixed on the back table and applied to the final components. Trial components were removed and the cut surfaces of the bone were pulse lavaged thoroughly and dried. Cement was then applied to the tibial surface and pressurized into the surface using finger pressurization technique. The tibial component was then applied and excess cement was removed after it was impacted securely and noted to be flush with the cut surface. In similar fashion, the cement was applied to the cut femoral surface, pressurized in using finger pressurization and the component was impacted into place. Excess cement was removed. The polyethylene spacer was then implanted and locked into position. The patellar component was then applied in similar technique and a patellar clamp was used to hold the patella in place as the cement hardened. Once the cement had fully hardened, the knee was reinspected. Any other cement extrusion was removed and final kinematic testing showed range of motion from 0 to 130 degrees with excellent stability, both medially and laterally and appropriate alignment of the leg. Patellar tracking was excellent. The knee was then thoroughly pulse lavaged with normal saline. The tourniquet was deflated and hemostasis was obtained with electrocautery and IV tranexamic acid, 1 g given prior to inflation of the tourniquet and another gram given at the time of closure. Closure was with #2 Ethibond in the fascia and supplemented with #2 Quill, 2-0 Vicryl suture was used for the subcutaneous tissues and 3-0 Quill for the skin. Dermabond/Steri-Strips were then applied. A lightly compressive dressing was applied using Webril and an Vaughn wrap. The patient was then transferred to stretcher and taken to the recovery room in stable condition. Sponge and needle counts were correct.
== END 2018-04-15 13:20 | DRG 470 ==
LOC: 2ORMAIN 08:55 → 4SSUR 12:44
PROVIDERS: ADMIT Orthopaedic Surgery; ATTEND Orthopaedic Surgery
PROC: 0SRD0J9 Replacement of Left Knee Joint with Synthetic Substitute, Cemented, Open Approach (ICD-10-PCS; principal; 2018-04-12 10:25)
DX: M17.12 Unilateral primary osteoarthritis, left knee (principal); K51.90 Ulcerative colitis, unspecified, without complications; M19.072 Primary osteoarthritis, left ankle and foot; E78.5 Hyperlipidemia, unspecified; I25.10 Atherosclerotic heart disease of native coronary artery without angina pectoris; J44.9 Chronic obstructive pulmonary disease, unspecified; I48.91 Unspecified atrial fibrillation; K21.9 Gastro-esophageal reflux disease without esophagitis; N32.81 Overactive bladder; F32.9 Major depressive disorder, single episode, unspecified; E11.40 Type 2 diabetes mellitus with diabetic neuropathy, unspecified; M21.162 Varus deformity, not elsewhere classified, left knee; F90.9 Attention-deficit hyperactivity disorder, unspecified type; M51.9 Unspecified thoracic, thoracolumbar and lumbosacral intervertebral disc disorder; K44.9 Diaphragmatic hernia without obstruction or gangrene; F41.9 Anxiety disorder, unspecified; G89.4 Chronic pain syndrome; Z79.01 Long term (current) use of anticoagulants; Z79.84 Long term (current) use of oral hypoglycemic drugs; Z79.891 Long term (current) use of opiate analgesic; Z79.899 Other long term (current) drug therapy; Z88.0 Allergy status to penicillin; Z88.8 Allergy status to other drugs, medicaments and biological substances; Z91.048 Other nonmedicinal substance allergy status; Z86.711 Personal history of pulmonary embolism; Z91.81 History of falling; Z90.710 Acquired absence of both cervix and uterus; Z87.891 Personal history of nicotine dependence; Z82.49 Family history of ischemic heart disease and other diseases of the circulatory system; Z79.51 Long term (current) use of inhaled steroids; Z98.1 Arthrodesis status; Z90.49 Acquired absence of other specified parts of digestive tract
CPT/HCPCS: 80053; 83036; 85025; 85610; 85730; 88300; 94640; 94760

== ENCOUNTER → 2018-06-09 | Day surgery (SDC) | payer MEDICARE, BC ==
[2018-06-09 12:37] VITALS: BP 121/70; PULSE 75; RESP 18
--- NOTE | 2018-06-09 13:13 | P.PCN ---
Date of Procedure: 06/09/18 Surgeon: Lionel Garcia Description of Procedure: Procedure(s) Performed: OPERATION: Intrathecal pain pump analysis, programming and reprogramming, and intrathecal pain pump refill. PREOPERATIVE DIAGNOSES: 1. near empty intrathecal pain pump time for refill. 2. 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 near empty intrathecal pain pump time for refill. 2. 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 CONDITION: Stable. Description of the procedure; Intrathecal pain pump analysed ,it showed patient currently had reservoir volume[ 8.1] mL. The patient is receiving medication Dilaudid 10 mg/ ml, and bupivacaine concentration [ 7] mg/ml. Patient receiving daily dose of Dilaudid 4.99 mg/day and bupivacaine [ 3.49] mg/day. Pain is controlled , patient using medication for breakthrough pain [ MSIR 30 mg every 8 hours] orally . The location of the pump ( Right Buttuck ) Prepped with chlorhexidine x3 , then using 22-gauge needle [employer] kit advanced through the pump port, Total of [ 7] ml removed from the pump, the pump was refilled with the new medication total volume [ 40] ml . The concentration of dilaudid 10 mg /ml , and the bupivacaine concentration [7 ] mg/ml. I will decrease her daily dose of Dilaudid from 5.5 mg to 5 mg a day intrathecally. The patient has significant tenderness around the sacroiliac joints bilaterally and she might benefit from getting sacroiliac joint steroid injection bilaterally under fluoroscopic guidance however she is on Coumadin and because of her high risk for coagulation the procedure can be done without holding Coumadin however we have to use 25-gauge needle for this procedure and we have to hold pressure over the injection site for at least 3 minutes after the procedure. The patient understands that she might have hematoma in the area because of that continuation of her Coumadin. Prescription for MSIR 30 mg every 8 hours dispense 90 with 2 refills given, patient will continue to use the Neurontin and Zanaflex and refill of her medication was given MAPS unit and it was appropriate - PQRS measures = - Patient's medications are documented in the chart. -Tobacco use is negative and counseling.Given. -Patient's has received pneumococcal vaccine. -Advanced care planning discussed, patient not eligible. -Opiate contract signed. -Pain positive and follow-up visit/procedure is scheduled. -Patient's blood pressure measured ,documented in the record ,and patient will follow up with the primary care. -Patient's weight was measured and body mass index above the normal limits. and patient instructed to follow-up with the primary care physician. -Patient was not identified as an unhealthy alcohol user
== END | disposition home or self-care (01) ==
LOC: PNWHC3 12:03
PROVIDERS: ATTEND Anesthesiology
DX: Z45.1 Encounter for adjustment and management of infusion pump (principal); M96.1 Postlaminectomy syndrome, not elsewhere classified; Z79.01 Long term (current) use of anticoagulants
CPT/HCPCS: 62370

== ENCOUNTER → 2018-07-27 | Outpatient (CLI) | payer MEDICARE, BC ==
[2018-07-27 13:58] VITALS: BP 148/66; PULSE 70; RESP 18
--- NOTE | 2018-07-27 14:25 | P.PN ---
Subjective Progress Note Date: 07/27/18 This is a 62-year-old lady with history of lumbar post RFA pain syndrome and chronic lower back pain. The patient fell about 3 weeks ago at home and damage to her right knee. Since then the pain in her back has been getting worse with radiation to the left inner thigh. The patient denies any new paresthesia in the left lower extremity however she has been getting weaker and this leg. She states that her left inner thigh pain has been getting worse lately until she fell and then became very severe. The patient is on high-dose of intrathecal Dilaudid through the pump. The patient is asking us to increase her pump rate because of her recent fall and increasing the pain. Today, pt denies new-onset weakness, bowel/bladder incontinence, or any other signs or symptoms of cauda equina syndrome. There are no signs of acute intoxication, and no indications of medication diversion or overuse. In addition to above, 13-point review of systems is also negative for chest pain, shortness of breath, changes in vision, changes in hearing, new onset weakness, abdominal pain, diarrhea, extreme fatigue, malaise, fever, skin changes, homicidal or suicidal ideation, or bowel or bladder incontinence. Vital Signs: Reviewed in EMR Gen: AAOx3, NAD HEENT: PERRLA,hearing grossly normal Pulm: resp unlabored,CTA Heart:S1,S2, No Mur Neck: supple, trachea midline Neuro exam of the lower extremities: Decreased left thigh flexion to 4 out of 5 and decreased knee flexion and extension and forward flexion and extension to 4 out of 5 on the left side. Tenderness in the paravertebral musculature: Positive significant tenderness in the lumbar paravertebral musculature and also around the sacroiliac joints bilaterally. Tenderness around the right knee joints. Internal and external rotation of the left hip joint did not elicit any hip pain. Neuro: CN II-XII grossly intact, Imaging: Reviewed in EMR/chart Assessment: Postlaminectomy pain syndrome Intrathecal high-dose of Dilaudid opioid pump at 5 mg a day. Increasing weakness in the left lower extremity and pain in the left thigh on the medial aspect Plan: 1. Explanation: Opioid and psychological risk scores were reviewed. Diagnoses, prognoses, and multiple treatment options including but not limited to physical therapy, interventional therapies, adjuvant medical therapies, narcotic medication therapies, and surgery were discussed with the patient and all questions were answered to the patient's satisfaction. 2. Opioid agreement: Signed with the patient and the patient is warned not to use opioids while driving or before driving and not to combine opioids with benzodiazepines or alcohol. 3. Counseling: The patient was counseled extensively on SMOKING CESSATION, BODY MASS INDEX, EXERCISE. Specifically, the patient was instructed regarding the importance of smoking cessation, obesity, and exercise in the context of both chronic pain and overall health. 4. Procedures: We will reprogram the intrathecal Dilaudid pump to increase her Dilaudid daily dose to 5.3 mg and will give her a bolus of 0.2 mg over 30 minutes. The patient may benefit from getting bilateral sacroiliac joint steroid injection in the future using 25-gauge needle without the need to hold Coumadin. 5. Consultations: None 6. Investigations: MRI of the thoracic and lumbar spines with and without contrast to rule out catheter tip granuloma 7. Medications: None 8. Disposition: Center clinic in 4 weeks for reevaluation 9. Maps were reviewed and were appropriate. PQRS measures: 1-Patient's medications are documented in the chart. 2-Tobacco use is negative, counseling given 3-Patient has had a pneumococcal vaccine. 4-Advanced care planning discussed, patient unable to give 5-Opioid contract signed with the patient. 6-Pain positive, follow-up visit or procedure scheduled 7-Patient's blood pressure measured and documented above normal limits. The patient will follow up with his primary care physician. 8-Patient's weight was measured, and body mass index ABOVE the normal limits, and counseling was done. Patient instructed to follow up with PCP. 9-Patient WAS NOT identified as an unhealthy alcohol user. Controlled Substance Measures Is patient prescribed a controlled substance at discharge?: Yes When asked, does pt state using other controlled substances?: No If prescribed controlled substance>3 days was MAPS reviewed?: Yes If Rx opioid, was Start Talking consent form obtained?: Yes If opioid is for acute pain is fill amount 7 days or less?: No Was information provided regarding opioid addiction?: Yes Objective - Vital Signs Vital signs: Vital Signs Temp Pulse 70 07/27/18 13:53 Resp 18 07/27/18 13:53 BP 148/66 07/27/18 13:53 Pulse Ox 98 07/27/18 13:53 Intake & Output 07/26/18 07/27/18 07/27/18 18:59 06:59 18:59 Weight 72.575 kg
== END | disposition home or self-care (01) ==
LOC: PNWHC3 13:44
PROVIDERS: ATTEND Anesthesiology
DX: G89.29 Other chronic pain (principal); M96.1 Postlaminectomy syndrome, not elsewhere classified; M79.652 Pain in left thigh; R53.1 Weakness; Z96.89 Presence of other specified functional implants
CPT/HCPCS: 99211

== ENCOUNTER → 2018-08-18 | Day surgery (SDC) | payer MEDICARE, BC ==
--- NOTE | 2018-08-18 12:26 | P.PCN ---
Date of Procedure: 08/18/18 Description of Procedure: PERATION: Intrathecal pain pump analysis, programming and reprogramming, and intrathecal pain pump refill. PREOPERATIVE DIAGNOSES: 1. near empty intrathecal pain pump time for refill. 2. 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 near empty intrathecal pain pump time for refill. 2. 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 CONDITION: Stable. Description of the procedure; Intrathecal pain pump analysed ,it showed patient currently had reservoir volume[ 8.1] mL. The patient is receiving medication Dilaudid 10 mg/ ml, and bupivacaine concentration [ 7] mg/ml. Patient receiving daily dose of Dilaudid 5.3 mg/day and bupivacaine [ 3.49] mg/day. Pain is controlled , patient using medication for breakthrough pain [ MSIR 30 mg every 8 hours] orally . The location of the pump ( Right Buttuck ) Prepped with chlorhexidine x3 , then using 22-gauge needle Webs kit advanced through the pump port, Total of [ 7.5] ml removed from the pump, the pump was refilled with the new medication total volume [ 40] ml . The concentration of dilaudid 10 mg /ml , and the bupivacaine concentration [7 ] mg/ml. I will decrease her daily dose of Dilaudid from 5.4 mg to 5 mg a day intrathecally. I will also give her a bolus of 0.1 mg of Dilaudid over 5 minutes. The patient has significant tenderness around the sacroiliac joints bilaterally and she might benefit from getting sacroiliac joint steroid i njection bilaterally under fluoroscopic guidance however she is on Coumadin and because of her high risk for coagulation the procedure can be done without holding Coumadin however we have to use 25-gauge needle for this procedure and we have to hold pressure over the injection site for at least 3 minutes after the procedure. The patient understands that she might have hematoma in the area because of that continuation of her Coumadin. The patient still has increasing pain in the left lower back and groin area and on the medial side of her left thigh with increasing weakness in the left leg. By physical exam there is decreased muscle strength in the lower extremity to 3 out of 5 for knee flexion and extension are 4 out of 5 for ankle flexion and extension of the left side. Absent left knee reflex and normal right knee reflex and absent ankle reflexes bilaterally. Prescription for MSIR 30 mg every 8 hours dispense 90 with 2 refills given, patient will continue to use the Neurontin and Zanaflex . The patient was not able to get an MRI on the lumbar and thoracic spine due to a remnant of her previous spinal cord stimulor, I will send her to have a computed tomography scan of the thoracic and lumbar spines with and without contrast to rule out any granuloma at the intrathecal tip of the catheter. MAPS unit and it was appropriate - PQRS measures = - Patient's medications are documented in the chart. -Tobacco use is negative and counseling.Given. -Patient's has received pneumococcal vaccine. -Advanced care planning discussed, patient not eligible. -Opiate contract signed. -Pain positive and follow-up visit/procedure is scheduled. -Patient's blood pressure measured ,documented in the record ,and kevin schofield will follow up with the primary care. -Patient's weight was measured and body mass index above the normal limits. and patient instructed to follow-up with the primary care physician. -Patient was not identified as an unhealthy alcohol user
[2018-08-18 12:35] VITALS: BP 125/72; PULSE 74; RESP 18
== END ==
LOC: PNWHC3 11:53
PROVIDERS: ATTEND Anesthesiology
DX: Z45.1 Encounter for adjustment and management of infusion pump (principal); M96.1 Postlaminectomy syndrome, not elsewhere classified; Z79.891 Long term (current) use of opiate analgesic; Z79.899 Other long term (current) drug therapy; Z79.01 Long term (current) use of anticoagulants
CPT/HCPCS: 62370; 80307; G0482

== ENCOUNTER → 2018-09-01 | Outpatient (CLI) | payer MEDICARE, BC ==
[2018-09-01 13:08] LABS: African American GFR (CKD) >90 (>60 ml/min/1.73 sqM); Blood Urea Nitrogen 21 mg/dL (7-17)
--- NOTE | 2018-09-01 14:16 | CT ---
EXAMINATION TYPE: CT thor lumbar spine wo/w con DATE OF EXAM: 09/01/2018 COMPARISON: None HISTORY: Back pain CT DLP: 923.1 mGycm CONTRAST: Unenhanced CT of the thoracic and lumbar spine is performed without and with IV Contrast, patient inj ected with 100 mL of Isovue 300. Bone and soft tissue window settings are submitted as well as coronal and sagittal reconstructions. Lasix spine: There is exaggerated kyphosis noted. There is a mild to moderate degenerative disc space narrowing seen throughout. No evidence for disc herniation or protrusion. No central stenosis identi fied. No bony lesion or paraspinal mass identified. Intrathecal catheter demonstrates its tip at the superior aspect of the T8 level. Fracture or subluxation seen. Lumbar spine: Postoperative changes of lumbar laminectomy and fusion extending from L3 through L5 S1. Intervertebral body spacer noted at L4-5. Pedicular screws noted at L3-L5. Alignment is anatomic. St reak artifact limits evaluation. No evidence for recurrent or residual disease. Mild degenerative dis c space narrowing and disc bulging at L2-3 with effacement of the ventral thecal sac and bilateral la teral recess stenosis. There is left foraminal encroachment. No fracture or subluxation. No evidence for pathologic enhancement. IMPRESSION: 1. Appropriate postoperative alignment lumbar spine. No evidence for recurrent or residual disease. 2. Disc bulging and bilateral lateral recess stenosis at L2-3. 3. Multilevel degenerative disc space narrowing mild to moderate in degree thoracic spine. No herniat ion or central stenosis. Exaggerated thoracic kyphosis.
== END | disposition home or self-care (01) ==
LOC: RADCTMAIN 12:03
PROVIDERS: ATTEND Anesthesiology
DX: Z01.818 Encounter for other preprocedural examination (principal); M99.72 Connective tissue and disc stenosis of intervertebral foramina of thoracic region; M48.061 Spinal stenosis, lumbar region without neurogenic claudication; M40.294 Other kyphosis, thoracic region; Z01.812 Encounter for preprocedural laboratory examination; Z98.1 Arthrodesis status; Z98.890 Other specified postprocedural states
CPT/HCPCS: 82565; 84520; 72130; 72133; 36415; Q9967

== ENCOUNTER → 2018-09-13 | Outpatient (CLI) | payer MEDICARE, BC ==
[2018-09-13 14:31] VITALS: RESP 16
[2018-09-13 14:41] VITALS: BP 151/67; PULSE 60; TEMP 98
--- NOTE | 2018-09-13 16:13 | P.PAINPG ---
Subjective Progress Note Date: 09/13/18 This is a 63-year-old lady with history of chronic lower back pain. She was last seen in clinic on 08/11/2018 where her intrathecal pump rate was changed from 5.4 to 5 [this had been increased due to acute pain from a fall]. She also underwent a lumbar computed tomography scan which showed a disc bulge and bilateral lateral recess narrowing at L2-3. Today, she complains of pain in her left buttock radiating to posterior thigh, not past the knee. She also complains of pain in her left anterior and medial thigh. She states that the pain in her left buttocks is the worst pain. He is asking if it's possible to increase her gabapentin today. Today, pt denies new-onset weakness, bowel/bladder incontinence, or any other signs or symptoms of cauda equina syndrome. There are no signs of acute intoxication, and no indications of medication diversion or overuse. In addition to above, 13-point review of systems is also negative for chest pain, shortness of breath, changes in vision, changes in hearing, new onset weakness, abdominal pain, diarrhea, extreme fatigue, malaise, fever, skin changes, homicidal or suicidal ideation, or bowel or bladder incontinence. Vital Signs: Reviewed in EMR GENERAL: Well appearing, in no acute distress PSYCH: Mood and affect is appropriate. Awake, alert, and oriented SKIN: Skin color, texture, turgor normal, no rashes or lesions HEENT: Normocephalic, atraumatic. EOM intact CV: No pedal edema RESP: Respirations are unlabored, no audible wheezing GI: Abdomen non-distended MUSCULOSKELETAL: Bilateral upper and lower extremity strength is normal and symmetric. No atrophy or tone abnormalities are noted. Lumbar spine: Straight leg raising in the sitting position is positive bilaterally for radicular pain. Pain to palpation over the lumbar spine and paraspinous muscles bilaterally. Positive for pain with facet loading and back extension/rotation. Extremely limited lumbar extension to less than 10 Buttocks: Pain to palpation over the left PSIS, bilateral Ac test positive. Extremities: Peripheral joint ROM is full and pain free without obvious instability or laxity in all four extremities. No edema or skin discolorations noted. Decreased left thigh flexion to 4 out of 5 and decreased left knee flexion and extension and ankle flexion and extension to 4 out of 5 on the left side. Gait: Gait is slow, ambulates with a cane NEUR: Bilateral lower extremity coordination and muscle stretch reflexes are physiologic and symmetric. Negative clonus. No loss of sensation is noted. Imaging: CT lumbar spine done on 09/01/2018 in [facility]: Disc bulging and bilateral lateral recess narrowing stenosis at L2-3. Multilevel degenerative disc space narrowing mild to moderate in the thoracic spine. Assessment: Postlaminectomy pain syndrome Intrathecal high-dose of Dilaudid opioid pump at 5 mg a day. Sacroiliitis Lumbar spondylosis Lumbar radiculopathy Plan: 1. Explanation: Opioid and psychological risk scores were reviewed. Diagnoses, prognoses, and multiple treatment options including but not limited to physical therapy, interventional therapies, adjuvant medical therapies, narcotic medication therapies, and surgery were discussed with the patient and all questions were answered to the patient's satisfaction. 2. Opioid agreement: Signed with the patient and the patient is warned not to use opioids while driving or before driving and not to combine opioids with benzodiazepines or alcohol. 3. Counseling: Importance of exercise as it pertains to chronic lumbar pain. 4. Procedures: Will schedule left sacroiliac joint steroid injection without the need to hold Coumadin. In the future, she may require a lumbar transforaminal epidural injection at L2-3 on the left. 5. Consultations: To physical therapy written today to focus on home exercise program, lumbar stretching and strengthening, core strengthening exercises. 6. Investigations: None 7. Medications: Prescription for gabapentin 300 mg twice a day written with 1 refill. Goal is to increase gabapentin from 600 mg daily to 300/300/600 over 2 weeks. 8. Disposition: For above-mentioned procedure 9. Maps were reviewed and were appropriate. Objective - Vital Signs Vital signs: Vital Signs Temp 98 F 09/13/18 14:32 Pulse 60 09/13/18 14:32 Resp 16 09/13/18 14:32 BP 151/67 09/13/18 14:32 Pulse Ox 97 09/13/18 14:32 Intake & Output 09/12/18 09/13/18 09/13/18 18:59 06:59 18:59 Weight 73.936 kg PQRS Measure Charge Sheet Measure #130: Documentation of Current Meds in Medical Chart: Patient's medications documented in chart Measure #226: Tobacco Use: Screen & Cessation Intervention: Pt not a tobacco user Measure #111: Pneumonia Vaccination: Pneumococcal vaccine administered or previously received Measure #47: Advance Care Plan: Advance care planning discussed & documented, pt chose/unable to give Measure #412: Opioid Treatment Agreement: Documented signed opioid trtmnt agreemnt min once during opioid trtmnt Measure #408: Opioid Therapy Follow-up Evaluation: Patient had f/u eval minimum every 3 months during opioid therapy Measure #317: Preventitive Care & Scrn High Bld Press & F/U: Pre-hypertensive or hypertensive BP documented, pt will f/u with PCP Measure #128: Body Mass Index (BMI) Screening & Follow-up: BMI documented ABOVE normal parameters - f/u documented Measure #131: Pain Assessment & Follow-up: Pain positive & plan documented, Follow-up scheduled Measure #431: Unhealthy Alcohol Use Preventative Care & Scrn: Patient not identified as an unhealthy alcohol user PQRS Narrative: Smoking Status Former smoker Narcotic Agreement Date Signed 09/23/17 Blood Pressure 151/67 Pain Intensity [Left Lower 6 Back] Scale Used Numeric (1 - 10) Hx Alcohol Use (MH) No Home Medications: Ambulatory Orders Omeprazole [PriLOSEC] 20 mg PO DAILY 10/06/13 Sertraline [Zoloft] 75 mg PO QAM 10/06/13 Warfarin [Coumadin] 3 mg PO DAILY 07/11/15 Albuterol Inhaler [Ventolin Hfa Inhaler] 1 - 2 puff INHALATION RT-Q6H PRN 04/08/16 Fluticasone Propionate [Flovent Hfa 110mcg] 2 puff INHALATION RT-BID PRN 06/16/16 Metoprolol Tartrate [Lopressor] 25 mg PO BID 02/27/17 metFORMIN HCL [metFORMIN HCL ER] 500 mg PO BID 09/23/17 Dilaudid (Pain Pump) 1 dose INTRATHECA CONTINUOUS 04/02/18 tiZANidine [Zanaflex] 4 - 6 mg PO Q6H PRN 04/02/18 Rosuvastatin [Crestor] 20 mg PO DAILY 04/08/18 Gabapentin [Neurontin] 600 mg PO HS #3 tablet 04/15/18 Temazepam [Restoril] 30 mg PO HS PRN #3 cap 04/15/18 Methylphenidate HCl [Ritalin] 10 mg PO BID 06/09/18 ALPRAZolam [Xanax] 0.5 mg PO TID PRN 07/06/18 Fluticasone Propionate [Flovent Hfa 44 mcg] 1 puff INHALATION BID 07/06/18 Morphine Sulfate Ir [MSIR] 30 mg PO Q8HR PRN 08/18/18 Gabapentin [Neurontin] 300 mg PO BID #60 cap 09/13/18 Controlled Substance Measures - Controlled Substance Measures Is patient prescribed a controlled substance at discharge?: Yes When asked, does pt state using other controlled substances?: No If prescribed controlled substance>3 days was MAPS reviewed?: Yes If Rx opioid, was Start Talking consent form obtained?: Yes If opioid is for acute pain is fill amount 7 days or less?: No Was information provided regarding opioid addiction?: Yes
== END ==
LOC: PNWHC3 13:46
PROVIDERS: ATTEND Anesthesiology
DX: M96.1 Postlaminectomy syndrome, not elsewhere classified (principal); M46.1 Sacroiliitis, not elsewhere classified; M47.26 Other spondylosis with radiculopathy, lumbar region; Z87.891 Personal history of nicotine dependence; Z79.891 Long term (current) use of opiate analgesic; Z79.899 Other long term (current) drug therapy; Z79.84 Long term (current) use of oral hypoglycemic drugs; Z79.01 Long term (current) use of anticoagulants
CPT/HCPCS: 99211

== ENCOUNTER 2018-10-13 06:59 | Day surgery (SDC) | payer MEDICARE, BC ==
[2018-10-13 07:26] VITALS: RESP 16; TEMP 97.4
[2018-10-13] MEDS ORDERED: LACTATED RINGERS 1,000 ML IV SCH (07:34)
[2018-10-13 07:35] LABS: Glucose,Whole Blood 161 mg/dL (75-99)
[2018-10-13] MEDS ORDERED: LIDOCAINE 1% 20 ML VIAL (10MG/ML) FOR IV START INTRADERMA ONE (07:35)
[2018-10-13] MEDS ORDERED: LACTATED RINGERS 1,000 ML IV ONE (08:36)
--- NOTE | 2018-10-13 08:36 | P.PCN ---
Date of Procedure: 10/13/18 Procedure(s) Performed: Procedure= left sacroiliac joint steroid injection under fluoroscopy guidance Preoperative diagnosis= SI joint dysfunction Postoperative diagnosis=same Physician: Fallon Hilton MD Complication = none Condition= stable Anesthesia= moderate sedation with Versed and fentanyl and local infiltration with lidocaine 1% 5 mL Indication for the procedure= patient complaining of low back pain , examination was positive for severe tenderness over the sacroiliac joints on the left and patient diagnosed with sacroiliitis, for this reason she was good candidate for sacroiliac joint steroid injection. Description of the procedure= procedure risk and benefits discussed with the patient, including but not limited, risk of infection and bleeding, and ALLERGIC reaction to the medication and not complete pain relief and patient agreed with the preceding patient taken to the operating room, placed in prone position or standard monitors applied to the patient then after induction of anesthesia back prepped with chlorhexidine Then under strict sterile technique, the left sacroiliac joint the which was identified under fluoroscopy guidance been local infiltration of the skin and subcu interstitial with lidocaine 1% then 22-gauge Quincke Needle advanced slow ly under fluoroscopy and placed in the right sacroiliac joint needle placement confirmed with AP and oblique and lateral view and after appropriate needle placement confirmed and after negative aspiration, or heme the Ropivicaine 0.5% 1 mL and 40 mg of Kenalog mixed together and injected in the right sacroiliac joint after negative aspiration patient tolerated the procedure well without any complication. The patient tolerated the procedure well that any complications and she will follow up in clinic
--- NOTE | 2018-10-13 09:01 | FL ---
EXAMINATION TYPE: FL guided pain mgmt statistic DATE OF EXAM: 10/13/2018 CLINICAL HISTORY: Low back pain/sacroiliac joint pain. TECHNIQUE: Fluoroscopy. COMPARISON: None. FINDINGS: Fluoroscopic guidance was provided during pain relief procedure performed by Dr. Odell. A t otal of 8 seconds of fluoroscopic time was utilized during the procedure and 3 spot images are acquir ed. Images acquired shows needle localization over a sacroiliac joint. IMPRESSION: As Above.
[2018-10-13 09:14] VITALS: BP 103/58; PULSE 61
== END 2018-10-13 09:29 | disposition home or self-care (01) ==
LOC: ORPAIN 06:59
PROVIDERS: ATTEND Student in an Organized Health Care Education/Training Program
DX: G89.29 Other chronic pain (principal); M46.1 Sacroiliitis, not elsewhere classified; M51.26 Other intervertebral disc displacement, lumbar region; M48.061 Spinal stenosis, lumbar region without neurogenic claudication; M96.1 Postlaminectomy syndrome, not elsewhere classified; M47.26 Other spondylosis with radiculopathy, lumbar region; Z79.891 Long term (current) use of opiate analgesic; Z87.891 Personal history of nicotine dependence; Z79.01 Long term (current) use of anticoagulants; Z79.51 Long term (current) use of inhaled steroids; Z79.899 Other long term (current) drug therapy
CPT/HCPCS: J2250; J3301; J3010; Q9966; G0260; 27096; 99152

== ENCOUNTER → 2018-10-20 | Day surgery (SDC) | payer MEDICARE, BC ==
[2018-10-20 12:06] VITALS: BP 167/77; PULSE 76; RESP 18
--- NOTE | 2018-10-22 13:28 | P.PCN ---
Date of Procedure: 10/20/18 Procedure(s) Performed: OPERATION: Intrathecal pain pump analysis, programming and reprogramming, and intrathecal pain pump refill. PREOPERATIVE DIAGNOSES: 1. near empty intrathecal pain pump time for refill. 2. 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 near empty intrathecal pain pump time for refill. 2. 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 CONDITION: Stable. Description of the procedure; Intrathecal pain pump analysed ,it showed patient currently had reservoir volume of [ 5.1] mL. The patient is receiving medication Dilaudid 10 mg/ ml, and bupivacaine concentration [ 7] mg/ml. Patient receiving daily dose of Dilaudid 5 mg/day and bupivacaine Pain is controlled , patient using medication for breakthrough pain [ MSIR 30 mg every 8 hours] orally . The location of the pump ( Right Buttock ) Prepped with chlorhexidine x2 , then using 22-gauge needle Qik kit advanced through the pump port, Total of [ 8] ml removed from the pump, the pump was refilled with the new medication total volume [ 40] ml . The concentration of dilaudid 10 mg /ml , and the bupivacaine concentration [7 ] mg/ml. The patient reports about 30% benefit from left SI joint injection, allowing her to function better. We will plan on scheduling a repeat SI joint injection in 2-3 months. Prescription for MSIR 30 mg every 8 hours dispense 90 with 2 refills given, patient will continue to use the Neurontin and Zanaflex . MAPS reviewed and it was appropriate - PQRS measures = - Patient's medications are documented in the chart. -Tobacco use is negative and counseling not Given. -Patient's has received pneumococcal vaccine. -Advanced care planning discussed, patient chose/not able to give. -Opiate contract signed. -Pain positive and follow-up visit/procedure is scheduled. -Patient's blood pressure measured ,documented in the record ,and patient will follow up with the primary care. -Patient's weight was measured and body mass index above the normal limits. and patient instructed to follow-up with the primary care physician. -Patient was not identified as an unhealthy alcohol user
== END ==
LOC: PNWHC3 11:53
PROVIDERS: ATTEND Anesthesiology
DX: Z45.1 Encounter for adjustment and management of infusion pump (principal); M96.1 Postlaminectomy syndrome, not elsewhere classified; Z79.891 Long term (current) use of opiate analgesic
CPT/HCPCS: 62370

== ENCOUNTER → 2018-12-15 | Outpatient (CLI) | payer MEDICARE, BC ==
--- NOTE | 2018-12-15 10:55 | XR ---
EXAMINATION TYPE: XR chest 2V DATE OF EXAM: 12/15/2018 COMPARISON: 06/11/2016 INDICATION: R06.02 TECHNIQUE: Frontal and lateral views of the chest are obtained. FINDINGS: The heart size is normal. The pulmonary vasculature is normal. The lungs are clear. Sternotomy wires are in the midline. Stimulator leads been removed. A catheter appears to remain present within the anterior spinal canal. IMPRESSION: 1. No acute pulmonary process.
== END | disposition home or self-care (01) ==
LOC: RADXRMAIN 10:34
PROVIDERS: ATTEND Internal Medicine Geriatric Medicine
DX: R06.02 Shortness of breath (principal)
CPT/HCPCS: 71046

== ENCOUNTER → 2018-12-21 | Day surgery (SDC) | payer MEDICARE, BC ==
[2018-12-21 11:16] VITALS: BP 157/76; PULSE 69; RESP 18; TEMP 98.8
--- NOTE | 2018-12-21 11:58 | P.PCN ---
Date of Procedure: 12/21/18 Procedure(s) Performed: OPERATION: Intrathecal pain pump analysis, programming and reprogramming, and intrathecal pain pump refill. PREOPERATIVE DIAGNOSES: 1. near empty intrathecal pain pump time for refill. 2. 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 near empty intrathecal pain pump time for refill. 2. 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 CONDITION: Stable. Description of the procedure; Intrathecal pain pump analysed ,it showed patient currently had reservoir volume of [ 6.6] mL. The patient is receiving medication Dilaudid 10 mg/ ml, and bupivacaine concentration [ 7] mg/ml. Patient receiving daily dose of Dilaudid 5.4 mg/day and bupivacaine 3.7 mg per day Pain is controlled , patient using medication for breakthrough pain [ MSIR 30 mg every 8 hours] orally . The location of the pump ( Right Buttock ) Prepped with chlorhexidine x2 , then using 22-gauge needle [employer] kit advanced through the pump port, Total of [ 8] ml removed from the pump,( expected volume 6.6 mL ) the pump was refilled with the new medication total volume [ 40] ml . The concentration of dilaudid 10 mg /ml , and the bupivacaine concentration [7 ] mg/ml. Patient would continue to get the same dose no change in her daily does. The patient reports about 30% benefit from left SI joint injection, allowing her to function better. We will plan on scheduling a repeat SI joint injection in few weeks . Prescription for MSIR 30 mg every 8 hours dispense 90 with 2 refills given, patient will continue to use the Neurontin 300 mg every a.m. and 300 mg every afternoon and 600 mg daily at bedtime. MAPS reviewed and it was appropriate - PQRS measures = - Patient's medications are documented in the chart. -Tobacco use is negative and counseling not Given. -Patient's has received pneumococcal vaccine. -Advanced care planning discussed, patient chose/not able to give. -Opiate contract signed. -Pain positive and follow-up visit/procedure is scheduled. -Patient's blood pressure measured 157/76 (elevated )documented in the record ,and patient will follow up with the primary care. -Patient's weight was measured and body mass index above the normal limits. PMI 30 and patient instructed to follow-up with the primary care physician. -Patient was not identified as an unhealthy alcohol user
== END ==
LOC: PNWHC3 11:02
PROVIDERS: ATTEND Specialist
DX: Z45.1 Encounter for adjustment and management of infusion pump (principal); M96.1 Postlaminectomy syndrome, not elsewhere classified; Z79.891 Long term (current) use of opiate analgesic; Z68.30 Body mass index [BMI] 30.0-30.9, adult
CPT/HCPCS: 62370

== ENCOUNTER → 2019-01-07 | Outpatient (CLI) | payer MEDICARE, BC ==
[2019-01-07 13:58] LABS: Basophils # (A) 0.1 k/uL (0-0.2); Basophils % (A) 1 %; Eosinophils # (A) 0.6 k/uL (0-0.7); Eosinophils % (A) 7 %; HCT 40.2 % (34.0-46.0); HGB 13.1 gm/dL (11.4-16.0); Hypochromasia Slight; Lymphocytes # (A) 3.1 k/uL (1.0-4.8); Lymphocytes % (A) 35 %; MCH 26.6 pg (25.0-35.0); MCHC 32.5 g/dL (31.0-37.0); MCV 81.7 fL (80.0-100.0); Mean Platelet Volume 5.9; Monocytes # (A) 0.4 k/uL (0-1.0); Monocytes % (A) 4 %; Neutrophils # (A) 4.7 k/uL (1.3-7.7); Neutrophils % (A) 51 %; Platelet Count 284 k/uL (150-450); RBC 4.92 m/uL (3.80-5.40); RDW 14.7 % (11.5-15.5); WBC 9.1 k/uL (3.8-10.6)
== END | disposition home or self-care (01) ==
LOC: LABWHC1 12:47
PROVIDERS: ATTEND Internal Medicine Geriatric Medicine
DX: D75.1 Secondary polycythemia (principal)
CPT/HCPCS: 36415; 85025

== ENCOUNTER → 2019-02-17 | Day surgery (SDC) | payer MEDICARE, BC ==
[2019-02-17 13:38] VITALS: BP 143/70; PULSE 71; RESP 16
--- NOTE | 2019-02-22 11:57 | P.PCN ---
Date of Procedure: 02/17/19 Procedure(s) Performed: OPERATION: Intrathecal pain pump analysis, programming and reprogramming, and intrathecal pain pump refill. PREOPERATIVE DIAGNOSES: 1. near empty intrathecal pain pump time for refill. 2. 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 near empty intrathecal pain pump time for refill. 2. 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 CONDITION: Stable. Description of the procedure; Intrathecal pain pump analysed ,it showed patient currently had reservoir volume of [ 8.6] mL. The patient is receiving medication Dilaudid 10 mg/ ml, and bupivacaine concentration [ 7] mg/ml. Patient receiving daily dose of Dilaudid 5.4 mg/day and bupivacaine 3.7 mg per day Pain is controlled , patient using medication for breakthrough pain [ MSIR 30 mg every 8 hours] orally . The location of the pump ( Right Buttock ) Prepped with chlorhexidine x2 , then using 22-gauge needle [employer] kit advanced through the pump port, Total of [ 10] ml removed from the pump,( expected volume 8.6 mL ) the pump was refilled with the new medication total volume [ 40] ml . The concentration of dilaudid 10 mg /ml , and the bupivacaine concentration [7 ] mg/ml. Patient would continue to get the same dose no change in her daily does. Prescription for MSIR 30 mg every 8 hours dispense 90 with 2 refills given, patient will continue to use the Neurontin 300 mg every a.m. and 300 mg every afternoon and 600 mg daily at bedtime. MAPS reviewed and it was appropriate - PQRS measures = - Patient's medications are documented in the chart. -Tobacco use is negative and counseling not Given. -Patient's has received pneumococcal vaccine. -Advanced care planning discussed, patient chose/not able to give. -Opiate contract signed. -Pain positive and follow-up visit/procedure is scheduled. -Patient's blood pressure measured is elevated documented in the record ,and patient will follow up with the primary care. -Patient's weight was measured and body mass index above the normal limits. BMI 30 and patient instructed to follow-up with the primary care physician. -Patient was not identified as an unhealthy alcohol user
== END ==
LOC: PNWHC3 12:54
PROVIDERS: ATTEND Anesthesiology
DX: Z45.1 Encounter for adjustment and management of infusion pump (principal); M96.1 Postlaminectomy syndrome, not elsewhere classified
CPT/HCPCS: 62370

== ENCOUNTER → 2019-03-14 | Day surgery (SDC) | payer MEDICARE, BC ==
[2019-03-10 11:45] VITALS: BMI 29.9
[~2019-03-14] MED LIST changes: -ACETAMINOPHEN TAB 500 MG TAB PO ONE; +BUPIVACAINE (PF) 0.5% 30 ML VIAL ONE; +LACTATED RINGERS 1,000 ML IV SCH; +LIDOCAINE 1% 20 ML VIAL (10MG/ML) FOR IV START INTRADERMA ONE; -LIDOCAINE 1% 20 ML VIAL (10MG/ML) FOR IV START INTRADERMA PRN; +MIDAZOLAM 2 MG/2 ML VIAL ONE; -TRANEXAMIC ACID 1,000 MG in SODIUM CHLORIDE 0.9% 100 ML IVPB ONE; -ceFAZolin IN SWFI 2 GM/20 ML SYRINGE IVP ONE; +fentaNYL (PF) 50 MCG/ML 2 ML AMP ONE; +methylPREDNISolone ACETATE 40 MG/ML 1 ML VIAL ONE
[2019-03-14 08:04] VITALS: TEMP 97.9
[2019-03-14 08:17] LABS: Glucose,Whole Blood 149 mg/dL (75-99)
--- NOTE | 2019-03-14 08:31 | P.PCN ---
Date of Procedure: 03/14/19 Procedure(s) Performed: Procedure= Left sacroiliac joints steroid injection under fluoroscopy guidance (fluoroscopy image stored on file in the radiology Department ) Preoperative diagnosis= 1-sacroiliitis 2-lumbar degenerative disc disease 3- lumbar facet arthropathy Postoperative diagnosis=1-sacroiliitis 2-lumbar degenerative disc disease 3- lumbar facet arthropathy Complication = none Condition= stable Anesthesia= moderate sedation with intravenous Versed 2 mg , and fentanyl 200 micrograms and local infiltration with lidocaine 1% 5 mL Indication for the procedure= patient complaining of low back pain , examination was positive for severe tenderness over the sacroiliac joints bilaterally and patient diagnosed with sacroiliitis, for this reason he/ she was good candidate for sacroiliac joint steroid injection. Description of the procedure= procedure risk and benefits discussed with the patient, including but not limited, risk of infection and bleeding, and ALLERGIC reaction to the medication and not complete pain relief and patient agreed with the preceding patient taken to the operating room, placed in prone position or standard monitors applied to the patient then after induction of anesthesia back prepped with chlorhexidine 3 times , Then under strict sterile technique, the Left sacroiliac joint the which was identified under fluoroscopy guidance been local infiltration of the skin and subcu interstitial with lidocaine 1% then 25-gauge Quincke Needle advanced slowly under fluoroscopy and placed in the left sacroiliac joint needle placement confirmed with AP and oblique and lateral view and after appropriate needle placement confirmed and after negative aspiration, or heme , then Ropivacaine 0.5% 3 mL, and 40 mg of Depo-Medrol mixed together and injected in the right sacroiliac joint after negative aspiration patient tolerated the procedure well without any complication.
[2019-03-14 08:40] VITALS: RESP 17
[2019-03-14 08:46] VITALS: BP 107/71; PULSE 69
--- NOTE | 2019-03-14 08:46 | FL ---
EXAMINATION TYPE: FL guided pain mgmt statistic DATE OF EXAM: 03/14/2019 CLINICAL HISTORY: Left sacroiliac joint pain. TECHNIQUE: Fluoroscopy. COMPARISON: None. FINDINGS: Fluoroscopic guidance was provided during pain relief procedure performed by Dr. Clarke . A total of 3 seconds of fluoroscopic time was utilized during the procedure and 1 spot image are a cquired. Images acquired shows needle localization of the left sacroiliac joint. IMPRESSION: As Above.
== END ==
LOC: ORPAIN 07:37
PROVIDERS: ATTEND Specialist
DX: M46.1 Sacroiliitis, not elsewhere classified (principal); M51.36 Other intervertebral disc degeneration, lumbar region; M47.816 Spondylosis without myelopathy or radiculopathy, lumbar region; M96.1 Postlaminectomy syndrome, not elsewhere classified; E11.9 Type 2 diabetes mellitus without complications; Z86.718 Personal history of other venous thrombosis and embolism; Z86.711 Personal history of pulmonary embolism; Z79.01 Long term (current) use of anticoagulants; Z96.89 Presence of other specified functional implants; Z88.0 Allergy status to penicillin; Z88.8 Allergy status to other drugs, medicaments and biological substances; Z91.09 Other allergy status, other than to drugs and biological substances
CPT/HCPCS: J2250; J1030; J2405; J3010; G0260; 27096

== ENCOUNTER → 2019-04-20 | Day surgery (SDC) | payer MEDICARE, BC ==
[2019-04-20 12:12] VITALS: BP 149/82; PULSE 75; RESP 16
--- NOTE | 2019-04-20 13:07 | P.PCN ---
Date of Procedure: 04/20/19 Description of Procedure: PROCEDURE: Intrathecal pain pump analysis, programming and reprogramming, and intrathecal pain pump refill. PREOPERATIVE DIAGNOSES: 1. near empty intrathecal pain pump 2. opioid tolerance POSTOPERATIVE DIAGNOSES: 1. near empty intrathecal pain pump 2. 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 CONDITION: Stable. DESCRIPTION OF PROCEDURE: Intrathecal pain pump analysed, it showed patient currently had reservoir volume 6.6 mL. The patient is receiving medication [hydromorphone 10 mg ] mg/ ml, and bupivacaine concentration [ 7] mg/ml. Patient receiving daily dose of 5 mg/day and bupivacaine [ 5] mg/day. Pain is well controlled , patient using medication for breakthrough pain morphine 30 mg 3 times a day orally . The location of the pump (left buttock) Prepped with chlorhexidine x3 , then using 22-gauge needle [employer] kit advanced through the pump port, Total of 8 ml removed from the pump, the pump refills with the new medication total volume 40 ml . The concentration or the dose were unchanged The patient will follow up in 2 months time. Prescriptions are written today after checking her maps.
== END ==
LOC: PNWHC3 11:51
PROVIDERS: ATTEND Hospitalist
DX: Z45.1 Encounter for adjustment and management of infusion pump (principal); M96.1 Postlaminectomy syndrome, not elsewhere classified; Z79.891 Long term (current) use of opiate analgesic

== ENCOUNTER → 2019-05-31 | Day surgery (SDC) | payer MEDICARE, BC ==
[2019-05-31 07:53] VITALS: BP 110/69; PULSE 78; RESP 16
--- NOTE | 2019-05-31 08:37 | P.PCN ---
Date of Procedure: 05/31/19 Procedure(s) Performed: OPERATION: Intrathecal pain pump analysis, programming and reprogramming, and intrathecal pain pump refill. PREOPERATIVE DIAGNOSES: 1. near empty intrathecal pain pump time for refill. 2. 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 near empty intrathecal pain pump time for refill. 2. 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 CONDITION: Stable. Description of the procedure; Intrathecal pain pump analysed ,it showed patient currently had reservoir volume of [ 8.6] mL. The patient is receiving medication Dilaudid 10 mg/ ml, and bupivacaine concentration [ 7] mg/ml. Patient receiving daily dose of Dilaudid 5.4 mg/day and bupivacaine 3.7 mg per day Pain is controlled , patient using medication for breakthrough pain [ MSIR 30 mg every 8 hours] orally . The location of the pump ( Right Buttock ) Prepped with chlorhexidine x2 , then using 22-gauge needle [employer] kit advanced through the pump port, Total of [ 19 ] ml removed from the pump,( expected volume 18 mL ) the pump was refilled with the new medication total volume [ 40] ml . The concentration of dilaudid 10 mg /ml , and the bupivacaine concentration [7 ] mg/ml. Patient would continue to get the same dose no change in her daily does. Prescription for MSIR 30 mg every 8 hours dispense 90 with 2 refills given, MAPS reviewed and it was appropriate - PQRS measures = - Patient's medications are documented in the chart. -Tobacco use is negative and counseling not Given. -Patient's has received pneumococcal vaccine. -Advanced care planning discussed, patient chose/not able to give. -Opiate contract signed. -Pain positive and follow-up visit/procedure is scheduled. -Patient's blood pressure measured is elevated documented in the record ,and patient will follow up with the primary care. -Patient's weight was measured and body mass index above the normal limits. BMI 30 and patient instructed to follow-up with the primary care physician. -Patient was not identified as an unhealthy alcohol user
== END ==
LOC: PNWHC3 07:20
PROVIDERS: ATTEND Specialist
DX: Z45.1 Encounter for adjustment and management of infusion pump (principal); M96.1 Postlaminectomy syndrome, not elsewhere classified; Z79.891 Long term (current) use of opiate analgesic

== ENCOUNTER → 2019-07-28 | Day surgery (SDC) | payer MEDICARE, BC ==
--- NOTE | 2019-07-28 08:34 | P.PCN ---
Date of Procedure: 07/28/19 Procedure(s) Performed: OPERATION: Intrathecal pain pump analysis, programming and reprogramming, and intrathecal pain pump refill. PREOPERATIVE DIAGNOSES: 1. near empty intrathecal pain pump time for refill. 2. 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 near empty intrathecal pain pump time for refill. 2. 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 CONDITION: Stable. Description of the procedure; Intrathecal pain pump analysed ,it showed patient currently had reservoir volume of [ 8.7] mL. The patient is receiving medication Dilaudid 10 mg/ ml, and bupivacaine concentration [ 7] mg/ml. Patient receiving daily dose of Dilaudid 5.4 mg/day and bupivacaine 3.7 mg per day Pain is controlled , patient using medication for breakthrough pain [ MSIR 30 mg every 8 hours] orally . The location of the pump ( Right Buttock ) Prepped with chlorhexidine x2 , then using 22-gauge needle Identify kit advanced through the pump port, Total of [ 10.4 ] ml removed from the pump,( expected volume 18 mL ) the pump was refilled with the new medication total volume [ 40] ml . The concentration of dilaudid 10 mg /ml , and the bupivacaine concentration [7 ] mg/ml. Patient would continue to get the same dose no change in her daily does. Prescription for MSIR 30 mg every 8 hours dispense 90 MAPS reviewed and it was appropriate - PQRS measures = - Patient's medications are documented in the chart. -Tobacco use is negative and counseling not Given. -Patient's has received pneumococcal vaccine. -Advanced care planning discussed, patient chose/not able to give. -Opiate contract signed. -Pain positive and follow-up visit/procedure is scheduled. -Patient's blood pressure measured is within normal limits -Patient's weight was measured and body mass index above the normal limits and patient instructed to follow-up with the primary care physician. -Patient was not identified as an unhealthy alcohol user
[2019-07-28 08:37] VITALS: BP 118/82; PULSE 85; RESP 16
== END ==
LOC: PNWHC3 07:11
PROVIDERS: ATTEND Anesthesiology
DX: Z45.1 Encounter for adjustment and management of infusion pump (principal); M96.1 Postlaminectomy syndrome, not elsewhere classified; Z79.891 Long term (current) use of opiate analgesic
CPT/HCPCS: 62370

== ENCOUNTER → 2019-09-29 | Day surgery (SDC) | payer MEDICARE, BC ==
--- NOTE | 2019-09-29 14:05 | P.PCN ---
Date of Procedure: 09/29/19 Procedure(s) Performed: OPERATION: Intrathecal pain pump analysis, programming and reprogramming, and intrathecal pain pump refill. PREOPERATIVE DIAGNOSES: 1. near empty intrathecal pain pump time for refill. 2. 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 near empty intrathecal pain pump time for refill. 2. 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 CONDITION: Stable. Description of the procedure; Intrathecal pain pump analysed ,it showed patient currently had reservoir volume of [ 5.9] mL. The patient is receiving medication Dilaudid 10 mg/ ml, and bupivacaine concentration [ 8] mg/ml. Patient receiving daily dose of Dilaudid 5.4 mg/day and bupivacaine 3.7 mg per day Pain is controlled , patient using medication for breakthrough pain [ MSIR 30 mg every 8 hours] orally . The location of the pump ( Right Buttock ) Prepped with chlorhexidine x2 , then using 22-gauge needle Zova kit advanced through the pump port, Total of [ 10.4 ] ml removed from the pump,( expected volume 18 mL ) the pump was refilled with the new medication total volume [ 40] ml . The concentration of dilaudid 10 mg /ml , and the bupivacaine concentration [7 ] mg/ml. Patient would continue to get the same dose no change in her daily does. Prescription for MSIR 30 mg every 8 hours dispense 90 MAPS reviewed and it was appropriate - PQRS measures = - Patient's medications are documented in the chart. -Tobacco use is negative and counseling not Given. -Patient's has received pneumococcal vaccine. -Advanced care planning discussed, patient chose/not able to give. -Opiate contract signed. -Pain positive and follow-up visit/procedure is scheduled. -Patient's blood pressure measured is within normal limits -Patient's weight was measured and body mass index above the normal limits and patient instructed to follow-up with the primary care physician. -Patient was not identified as an unhealthy alcohol user
[2019-09-29 15:53] VITALS: BP 150/82; PULSE 72; RESP 18; TEMP 97.8
== END ==
LOC: PNWHC3 12:47
PROVIDERS: ATTEND Anesthesiology
DX: Z45.1 Encounter for adjustment and management of infusion pump (principal); M96.1 Postlaminectomy syndrome, not elsewhere classified; Z79.891 Long term (current) use of opiate analgesic
CPT/HCPCS: 62370

== ENCOUNTER → 2019-11-30 | Day surgery (SDC) | payer MEDICARE, BC ==
[2019-11-30 13:24] VITALS: BP 128/65; PULSE 65; RESP 18; TEMP 98.2
--- NOTE | 2019-12-01 12:07 | P.PCN ---
Date of Procedure: 11/30/19 Procedure(s) Performed: OPERATION: Intrathecal pain pump analysis, programming and reprogramming, and intrathecal pain pump refill. PREOPERATIVE DIAGNOSES: 1. near empty intrathecal pain pump time for refill. 2. 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 near empty intrathecal pain pump time for refill. 2. 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 CONDITION: Stable. Description of the procedure; Intrathecal pain pump analysed ,it showed patient currently had reservoir volume of [ 8.6] mL. The patient is receiving medication Dilaudid 10 mg/ ml, and bupivacaine concentration [ 7] mg/ml. Patient receiving daily dose of Dilaudid 5.4 mg/day and bupivacaine 3.78 mg per day Pain is controlled , patient using medication for breakthrough pain [ MSIR 30 mg every 8 hours] orally . The location of the pump ( Right Buttock ) Prepped with chlorhexidine x2 , then using 22-gauge needle Qingguo kit advanced through the pump port, Total of [ 8 ] ml removed from the pump,( expected volume 8 mL ) the pump was refilled with the new medication total volume [ 40] ml . The concentration of dilaudid 10 mg /ml , and the bupivacaine concentration [7 ] mg/ml. Patient would continue to get the same dose no change in her daily does. Patient was complaining of severe low back pain mostly in the buttock area which is not controlled with the current pain medication for this reason I increased her intrathecal pain pump to Dilaudid 5.56 milligrams per day and bupivacaine 3.89 milligrams per day which is equal to 3% increase Also patient given a bolus of 0.3 mg over 10 minutes Prescription for MSIR 30 mg every 8 hours dispense 90 with 2 refills given, MAPS reviewed and it was appropriate - PQRS measures = - Patient's medications are documented in the chart. -Tobacco use is negative and counseling not Given. -Patient's has received pneumococcal vaccine. -Advanced care planning discussed, patient chose/not able to give. -Opiate contract signed. -Pain positive and follow-up visit/procedure is scheduled. -Patient's blood pressure measured is elevated documented in the record ,and patient will follow up with the primary care. -Patient's weight was measured and body mass index above the normal limits. BMI 30 and patient instructed to follow-up with the primary care physician. -Patient was not identified as an unhealthy alcohol user
--- NOTE | 2019-12-01 12:38 | P.PN ---
Progress Note - Text Progress Note Date: 11/30/19 This is a 64-year-old female with a chronic history of severe low back pain she is diagnosed with failed back surgery syndrome lumbar area lumbar spondylosis with lumbar facet arthropathy and bilateral sacroiliitis, Rashidak came for the intrathecal pain pump refill and during the interview on examination Physical Examinations : -Constitutiona : Cooperative , not in acute distress . -HEENT : nech : supple , no Lymphadenopathy , normal thyroid size . : eyes : no ptosis , no icterus, no photophobia . - neurologic : Cranial nerve II to XII intact , no focal neurological deffecit . -psychatric : alert , oriented X 3 , appropriate affect , intact judgment and insight . -Lymphatic : no Lymphadenopathy . - musculoskeltal : Lumber spine moter stegnth lower extremities ,thigh and legs 5/5 Right side , 5/5 Left side deep tendon reflexes : normal Knee Jerk , normal ankle Jerk lumber facet Loading Test =positive Right , positive Left Range of motion of the lumbar spine Flexion 30 degrees, extension 10 degrees strait leg raising test = positive at degree Fabere test= positive Right , and positive LT . Sever tenderness over the Sacroiliac joint on the Right , and Left sides Gaenslen test= positive right ,and positive left . Seated flexion test= positive right ,and positive Left . Assessment and plan= failed back surgery syndrome lumbar area Lumbar spondylosis with lumbar facet arthropathy without myelopathy. Bilateral sacroiliitis. Patient complaining of increased low back pain, is having pain mostly in the buttock area she is not able to do any activity of daily living secondary to increased intensity of the pain The intrathecal pain pump increased to 8% on patient getting the bolus of Dilaudid 0.3 mg, and patient could benefit from bilateral sacroiliac joint steroid injections
== END ==
LOC: PNWHC3 12:53
PROVIDERS: ATTEND Specialist
DX: Z45.1 Encounter for adjustment and management of infusion pump (principal); G89.29 Other chronic pain; M47.816 Spondylosis without myelopathy or radiculopathy, lumbar region; M46.1 Sacroiliitis, not elsewhere classified; M54.5 Low back pain; Z79.891 Long term (current) use of opiate analgesic; M96.1 Postlaminectomy syndrome, not elsewhere classified
CPT/HCPCS: 80307; 62370; G0482

== ENCOUNTER 2019-12-20 11:12 | Day surgery (SDC) | payer MEDICARE, BC ==
[2019-12-19 09:14] VITALS: BMI 32.1
[~2019-12-20 11:12] MED LIST changes: -BUPIVACAINE (PF) 0.5% 30 ML VIAL ONE; -LIDOCAINE 1% 20 ML VIAL (10MG/ML) FOR IV START INTRADERMA ONE; -MIDAZOLAM 2 MG/2 ML VIAL ONE; -ONDANSETRON 4 MG/2 ML VIAL IVP ONE; -fentaNYL (PF) 50 MCG/ML 2 ML AMP ONE; -methylPREDNISolone ACETATE 40 MG/ML 1 ML VIAL ONE
[2019-12-20 11:45] VITALS: TEMP 98
[2019-12-20] MEDS ORDERED: LACTATED RINGERS 1,000 ML IV ONE (11:45)
[2019-12-20 11:52] LABS: Glucose,Whole Blood 92 mg/dL (75-99)
[2019-12-20] MEDS ORDERED: LIDOCAINE 1% (10MG/ML) FOR IV START INTRADERMA ONE (11:52)
[2019-12-20] MEDS ORDERED: methylPREDNISolone ACETATE 40 MG/ML 1 ML VIAL ONE (12:02)
[2019-12-20] MEDS ORDERED: fentaNYL (PF) 50 MCG/ML 2 ML AMP ONE (12:02)
[2019-12-20] MEDS ORDERED: ONDANSETRON 4 MG/2 ML VIAL ONE (12:02)
[2019-12-20] MEDS ORDERED: MIDAZOLAM 2 MG/2 ML VIAL ONE (12:02)
[2019-12-20] MEDS ORDERED: ROPIVACAINE 5MG/ML 20ML VIAL ONE (12:02)
--- NOTE | 2019-12-20 12:26 | P.PCN ---
Date of Procedure: 12/20/19 Procedure(s) Performed: Procedure= bilateral sacroiliac joints steroid injection under fluoroscopy guidance (fluoroscopy image stored on file in the radiology Department ) Preoperative diagnosis= 1-sacroiliitis 2-failed back surgery syndrome lumbar area 3-lumbar spondylosis with facet arthropathy Postoperative diagnosis=Same as preop Diagnosis . Complication = none Condition= stable Anesthesia= moderate sedation with intravenous Versed 3 mg , and fentanyl 200 micrograms . Indication for the procedure= patient complaining of low back pain , examination was positive for severe tenderness over the sacroiliac joints bilaterally and patient diagnosed with sacroiliitis, for this reason he/ she was good candidate for sacroiliac joint steroid injection. Description of the procedure= procedure risk and benefits discussed with the patient, including but not limited, risk of infection and bleeding, and ALLERGIC reaction to the medication and not complete pain relief and patient agreed with the preceding patient taken to the operating room, placed in prone position or standard monitors applied to the patient then after induction of anesthesia back prepped with chlorhexidine 3 times , Then under strict sterile technique, first I did the right sacroiliac joint the which was identified under fluoroscopy guidance been local infiltration of the skin and subcu interstitial with lidocaine 1% then 22-gauge Quincke Needle advanced slowly under fluoroscopy and placed in the right sacroiliac joint needle placement confirmed with AP and oblique and lateral view and after appropriate needle placement confirmed and after negative aspiration, or heme , then Ropivacaine 0.5% 3 mL, and 40 mg of Depo-Medrol mixed together and injected in the right sacroiliac joint after negative aspiration patient tolerated the procedure well without any complication. Then the left sacroiliac joint steroid injection done under strict sterile technique local infiltration of the skin and subcu interstitial at the location of the left sacroiliac joint then a 22-gauge Quincke Needle advanced slowly unde r fluoroscopy time placed in the left sacroiliac joint, needle placement confirmed with AP and oblique and lateral view then after appropriate needle placement confirmed and after negative aspiration 0.5% Marcaine 3 mL and 40 mg of Depo-Medrol injected in the left sacroiliac joint after negative aspiration patient tolerated the procedure well that any complications and she will follow up in clinic 3 weeks
[2019-12-20] MEDS ORDERED: IV FLUID CONTINUATION 1,000 ML IV ONE (12:30)
[2019-12-20 12:33] VITALS: RESP 16
[2019-12-20 12:46] VITALS: BP 121/78; PULSE 57
[2019-12-20 12:49] LABS: Glucose,Whole Blood 117 mg/dL (75-99)
--- NOTE | 2019-12-20 14:39 | FL ---
EXAMINATION TYPE: FL guided pain mgmt statistic DATE OF EXAM: 12/20/2019 FLUOROSCOPY Fluoroscopy time of 9 seconds was used during bilateral SI joint injection. 2 image/s document/s the procedure.
== END 2019-12-20 13:15 | disposition home or self-care (01) ==
LOC: ORPAIN 11:12
PROVIDERS: ATTEND Specialist
DX: M96.1 Postlaminectomy syndrome, not elsewhere classified (principal); M46.1 Sacroiliitis, not elsewhere classified; M47.816 Spondylosis without myelopathy or radiculopathy, lumbar region; Z86.718 Personal history of other venous thrombosis and embolism; Z88.0 Allergy status to penicillin; Z88.8 Allergy status to other drugs, medicaments and biological substances; Z91.09 Other allergy status, other than to drugs and biological substances; Z90.710 Acquired absence of both cervix and uterus; Z79.01 Long term (current) use of anticoagulants
CPT/HCPCS: J2250; J1030; J2405; J3010; J2795; G0260; 99152

== ENCOUNTER 2020-01-17 09:50 | Day surgery (SDC) | payer MEDICARE, BC ==
[2020-01-13 15:40] VITALS: BMI 32.1
[2020-01-17 10:12] VITALS: TEMP 98.3
[2020-01-17 10:18] LABS: Glucose,Whole Blood 89 mg/dL (75-99)
[2020-01-17] MEDS ORDERED: ROPIVACAINE 5MG/ML 20ML VIAL ONE (10:21)
[2020-01-17] MEDS ORDERED: TRIAMCINOLONE ACETONIDE 40 MG/ML 1 ML VIAL ONE (10:21)
[2020-01-17] MEDS ORDERED: fentaNYL (PF) 50 MCG/ML 2 ML AMP ONE (10:21)
[2020-01-17] MEDS ORDERED: MIDAZOLAM 2 MG/2 ML VIAL ONE (10:21)
[2020-01-17] MEDS ORDERED: IOPAMIDOL M200 10 ML VIAL ONE (10:21)
--- NOTE | 2020-01-17 10:40 | P.PCN ---
Date of Procedure: 01/17/20 Description of Procedure: Preoperative diagnoses: bilateral sacroilitis Postoperative diagnoses: bilateral sacroilitis. Procedure: bilateral sacroiliac joint steroid injection under fluoroscopic guidance. Surgeon: Ming Sharp MD Anesthesia: 2 mL of 1% lidocaine Fluoroscopy was used for the procedure and fluoroscopic images were saved to the radiology portion of the patient's chart. EBL: None Procedure indication: The patient had a history of severe chronic low back pain, diagnosed with sacroiliitis unresponsive to conservative treatment. Procedure description: The patient was seen and identified in the preoperative holding area, risks and benefits and alternative of the procedure and possible complications discussed with the patient, and patient agreed with the preceding, patient signed the consent, an IV was started, and vital signs were monitored and were stable throughout the procedure, patient was placed in the prone position on table and the lumbosacral area was prepped and draped with a sterile fashion, vital signs were closely monitored during the procedure, the fl uoroscopy camera was placed in the contralateral oblique view on the bilateral sacroiliac joint and the lower part of the joint was identified . Then the skin and subcutaneous tissue was anesthetized using 2 mL of 1% lidocaine then a 22- gauge Quincke-type spinal needle advanced slowly under fluoroscopy and placed in the posterior and inferior border of the right sacroiliac joint, placement confirmed with AP and lateral view, and after appropriate needle placement confirmed and after negative aspiration for heme, 1 mL of Isovue 200 was injected revealing intra-articular spread. Then a solution consisting of 2 ml of ropivacaine 0.5% and 40 mg of Kenalog injected after negative aspiration, no paresthesia during the injection, no resistance to injection, and the needle was removed. The procedure was then repeated on the left side. Total of 80 mg of Kenalog was used for the procedure. Patient tolerated the procedure well without any complication. The patient was returned to supine position after the back was cleaned and a Band-Aid applied, the patient was transported to recovery room in stable condition and monitored for 30 minutes before being discharged home. The patient will follow up with the pain clinic in a few weeks
[2020-01-17 10:48] VITALS: RESP 16
[2020-01-17 11:03] VITALS: BP 130/78; PULSE 67
[2020-01-17] MEDS ORDERED: IV FLUID CONTINUATION 1,000 ML IV ONE (11:04)
--- NOTE | 2020-01-17 12:06 | FL ---
Fluoroscopy INDICATION: Pain FINDINGS: Fluoroscopy time: 10 seconds. Images obtained: 2. IMPRESSIONS: 1. Documentation of fluoroscopy.
== END 2020-01-17 11:19 | disposition home or self-care (01) ==
LOC: ORPAIN 09:50
PROVIDERS: ATTEND Anesthesiology
DX: G89.29 Other chronic pain (principal); M46.1 Sacroiliitis, not elsewhere classified; E11.9 Type 2 diabetes mellitus without complications; Z79.01 Long term (current) use of anticoagulants; Z90.710 Acquired absence of both cervix and uterus
CPT/HCPCS: J2250; J3301; J3010; Q9966; J2795; G0260

== ENCOUNTER → 2020-02-02 | Day surgery (SDC) | payer MEDICARE, BC ==
[2020-02-02 14:34] VITALS: RESP 18
[2020-02-02 14:40] VITALS: BP 162/95; PULSE 101; TEMP 98
--- NOTE | 2020-02-02 14:59 | P.PCN ---
Date of Procedure: 02/02/20 Description of Procedure: OPERATION: Intrathecal pain pump analysis, programming and reprogramming, and intrathecal pain pump refill. PREOPERATIVE DIAGNOSES: 1. near empty intrathecal pain pump time for refill. 2. opioid t olerance 3. failed back surgery syndrome lumbar area POSTOPERATIVE DIAGNOSES: 1. near empty intrathecal pain pump time for refill. 2. 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 CONDITION: Stable. Description of the procedure; Intrathecal pain pump analysed ,it showed patient currently had reservoir volume of [ 8.6] mL. The patient is receiving medication Dilaudid 10 mg/ ml, and bupivacaine concentration [ 7] mg/ml. Patient receiving daily dose of Dilaudid 5.56 mg/day and bupivacaine 3.89 mg per day Pain is controlled , patient using medication for breakthrough pain [ MSIR 30 mg every 8 hours] orally . The location of the pump ( Right Buttock ) Prepped with chlorhexidine x2 , then using 22-gauge needle [employer] Sounds kit advanced through the pump port, Total of [ 9 ] ml removed from the pump,( expected volume 8 mL ) the pump was refilled with the new medication total volume [ 40] ml . The concentration of dilaudid 10 mg /ml , and the bupivacaine concentration [7 ] mg/ml. I did use ultrasound to access the pump. Patient also is requesting an increase in her dose, I did note that we increase her dose last time we would revisit increasing the dose on the next pump refill. Prescription for MSIR 30 mg every 8 hours dispense 90 with 2 refills given, MAPS reviewed and it was appropriate - PQRS measures = - Patient's medications are documented in the chart. -Tobacco use is negative and counseling not Given. -Patient's has received pneumococcal vaccine. -Advanced care planning discussed, patient chose/not able to give. -Opiate contract signed. -Pain positive and follow-up visit/procedure is scheduled. -Patient's blood pressure measured is elevated documented in the record ,and patient will follow up with the primary care. -Patient's weight was measured and body mass index above the normal limits. BMI 30 and patient instructed to follow-up with the primary care physician. -Patient was not identified as an unhealthy alcohol user
== END ==
LOC: PNWHC3 14:29
PROVIDERS: ATTEND Anesthesiology
DX: Z45.1 Encounter for adjustment and management of infusion pump (principal); M96.1 Postlaminectomy syndrome, not elsewhere classified; Z79.891 Long term (current) use of opiate analgesic
CPT/HCPCS: 62370

== ENCOUNTER → 2020-04-04 | Day surgery (SDC) | payer MEDICARE, BC ==
[~2020-04-04] MED LIST changes: +BUPIVACAINE UP TO 8 MG/ML, 31-60 ML SYRINGE MC ONE; +HYDROMORPHONE FOR ANAZAO - PER 4 MG MISCELLANE ONE; -LACTATED RINGERS 1,000 ML IV SCH
[2020-04-04 14:01] VITALS: BP 155/79; PULSE 71; RESP 18; TEMP 98.3
--- NOTE | 2020-04-04 14:36 | P.PCN ---
Date of Procedure: 04/04/20 Procedure(s) Performed: OPERATION: Intrathecal pain pump analysis, programming and reprogramming, and intrathecal pain pump refill. PREOPERATIVE DIAGNOSES: 1. near empty intrathecal pain pump time for refill. 2. 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 near empty intrathecal pain pump time for refill. 2. 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 CONDITION: Stable. Description of the procedure; Intrathecal pain pump analysed ,it showed patient currently had reservoir volume of [ 5.6] mL. The patient is receiving medication Dilaudid 10 mg/ ml, and bupivacaine concentration [ 7] mg/ml. Patient receiving daily dose of Dilaudid 5.56 mg/day and bupivacaine 3.89 mg per day Pain is controlled , patient using medication for breakthrough pain [ MSIR 30 mg every 8 hours] orally . The location of the pump ( Right Buttock ) Prepped with chlorhexidine x2 , then using 22-gauge needle eRALOS3 kit advanced through the pump port, Total of [ 7 ] ml removed from the pump,( expected volume 5.6 mL ) the pump was refilled with the new medication total volume [ 40] ml . The concentration of dilaudid 10 mg /ml , and the bupivacaine concentration [7 ] mg/ml. Patient complaining of increased intensity of the pain over the last few weeks she is caring for her sick he has advanced Parkinson, and this make her pain increased significantly, the pain is not improved with the breakthrough medication, I may increase her daily dose of Dilaudid to 5.84 mg per day, and bupivacaine increased to 4.09 mg per day And this is equal to 5% increase in the total daily dose, also patient given a bolus of Dilaudid 0.3 mg to be given over 2 minutes Prescription for MSIR 30 mg every 8 hours dispense 90 with 2 refills given, MAPS reviewed and it was appropriate - PQRS measures = - Patient's medications are documented in the chart. -Tobacco use is negative and counseling not Given. -Patient's has received pneumococcal vaccine. -Advanced care planning discussed, patient chose/not able to give. -Opiate contract signed. -Pain positive and follow-up visit/procedure is scheduled. -Patient's blood pressure measured is elevated documented in the record ,and patient will follow up with the primary care. -Patient's weight was measured and body mass index above the normal limits. BMI 30 and patient instructed to follow-up with the primary care physician. -Patient was not identified as an unhealthy alcohol user
== END ==
LOC: PNWHC3 13:50
PROVIDERS: ATTEND Specialist
DX: Z45.1 Encounter for adjustment and management of infusion pump (principal); M96.1 Postlaminectomy syndrome, not elsewhere classified; Z79.891 Long term (current) use of opiate analgesic
CPT/HCPCS: 62370; J1170

== ENCOUNTER 2020-04-24 13:47 | Inpatient (IN) | payer MEDICARE, BC ==
[2020-04-24] MEDS ORDERED: SODIUM CHLORIDE 0.9% 1,000 ML IV STA (14:30)
[2020-04-24] MEDS ORDERED: ONDANSETRON 4 MG/2 ML VIAL IVP STA (14:30)
[2020-04-24] MEDS ORDERED: HYDROmorphone 1 MG/ML 1 ML SYRINGE IVP STA ×2 (14:30→16:34)
[2020-04-24] MEDS ORDERED: PHYTONADIONE ORAL 5 MG/5 ML ORAL.SYRG PO STA (14:31)
--- NOTE | 2020-04-24 14:39 | ED ---
Nausea/Vomiting/Diarrhea HPI - General Chief complaint: Nausea/Vomiting/Diarrhea Stated complaint: ABD pain, blood in urine Time Seen by Provider: 04/24/20 14:23 Source: patient, RN notes reviewed Mode of arrival: wheelchair Limitations: no limitations - History of Present Illness Initial comments: Patient is a 64-year-old female comes emergency Department complaining of nausea and vomiting for the past 2 weeks. She also noted that she was having right- sided flank pain with some mild hematuria last night and then even less this morning. She does have a history of UTIs but no kidney stone. She also noted that her INR level this morning was 7 and she held off on her warfarin dose today. She stated that she feels dehydrated. She continued hacker, number time she vomited over the last 2 weeks. She denied any abdominal pain or radiating pain from her back. She denied any issues with urinating, bowel movements, chest pain, shortness of breath, headache, fever, fatigue, chills. - Related Data Home Medications Medication Instructions Recorded Confirmed Omeprazole [PriLOSEC] 20 mg PO DAILY 10/06/13 04/04/20 Sertraline [Zoloft] 75 mg PO QAM 10/06/13 04/04/20 Warfarin [Coumadin] 3 mg PO SUTUWEFRSA 07/11/15 04/04/20 Albuterol Inhaler (Mhu) [Ventolin 1 - 2 puff INHALATION Q6HR PRN 04/08/16 04/04/20 Hfa Inhaler (Mhu)] Fluticasone Propionate [Flovent 2 puff INHALATION BID PRN 06/16/16 04/04/20 Hfa 110 mcg] Metoprolol Tartrate [Lopressor] 25 mg PO BID 02/27/17 04/04/20 metFORMIN HCL [metFORMIN HCL ER] 1,000 mg PO BID 09/23/17 04/04/20 Dilaudid (Pain Pump) 1 dose INTRATHECA CONTINUOUS 04/02/18 04/04/20 tiZANidine [Zanaflex] 4 - 6 mg PO QID PRN 04/02/18 04/04/20 Rosuvastatin [Crestor] 20 mg PO DAILY 04/08/18 04/04/20 Methylphenidate HCl [Ritalin] 10 mg PO BID 06/09/18 04/04/20 ALPRAZolam [Xanax] 0.5 mg PO TID PRN 07/06/18 04/04/20 Repaglinide [Prandin] 2 mg PO BID 04/15/19 04/04/20 Warfarin [Coumadin] 1.5 mg PO MOTH 04/15/19 04/04/20 Insulin Glargine [Lantus] 30 unit SQ QAM 09/26/19 04/04/20 predniSONE 10 mg PO DAILY 09/26/19 04/04/20 Previous Rx's Medication Instructions Recorded Gabapentin [Neurontin] 600 mg PO HS #3 tablet 04/15/18 Gabapentin [Neurontin] 300 mg PO BID #60 cap 09/13/18 Morphine Sulfate Ir [MSIR] 30 mg PO Q8HR PRN 30 Days #90 tab 04/04/20 Morphine Sulfate Ir [MSIR] 30 mg PO Q8HR PRN 30 Days #90 tab 04/04/20 Allergies Allergy/AdvReac Type Severity Reaction Status Date / Time adhesive Allergy BANDAIDES Verified 04/24/20 14:09 INCLUDED.SKIN BLISTERS. PAPER TAPE IS OK. Penicillins Allergy HIVES Verified 04/24/20 14:09 ziprasidone HCl [From Geodon] Allergy ARRHYTHMIA Verified 04/24/20 14:09 ,HYPOTENSION ziprasidone mesylate Allergy ARRYTHMIA,H Verified 04/24/20 14:09 [From Geodon] YPOTENSION enoxaparin [From Lovenox] AdvReac thrombocyto Verified 04/24/20 14:09 penia heparin AdvReac thrombocyto Verified 04/24/20 14:09 penia silver AdvReac Itching Verified 04/24/20 14:09 [From Tegaderm AG Mesh] derma-shelton Allergy Rash/Hives Uncoded 04/24/20 14:09 Review of Systems ROS Statement: Those systems with pertinent positive or pertinent negative responses have been documented in the HPI. ROS Other: All systems not noted in ROS Statement are negative. 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 COLITIS. CHRONIC BACK PAIN, Numbness/tingling LEFT LEG, USES CANE, (has WALKER & WHEELCHAIR), HX OF FALLS. History of Any Multi-Drug Resistant Organisms: None Reported Past Surgical History: Adenoidectomy, Bowel Resection, Breast Surgery, Cholecystectomy, Heart Catheterization, Hysterectomy, Joint Replacement, Orthopedic Surgery, Tonsillectomy Additional Past Surgical History / Comment(s): 01/24/14 OPEN HEART PROCEDURE--RT. VENTRICULOTOMY TO REMOVE BLOOD CLOT. HX BACK SURGERY- FUSION X 3. INTRATHECAL PAIN PUMP - replaced on August 02, 2014. TESHA FILTER. HEART CATH X2. ORIF left forearm(for fx), bilateral Carpal tunnel, clarita breast reduction, SPINAL CORD STIMULATOR INSERTED & REMOVED 05/2016., lt knee replacement, PAIN CLINIC PROCEDURES Past Anesthesia/Blood Transfusion Reactions: No Reported Reaction Additional Past Anesthesia/Blood Transfusion Reaction / Comment(s): , Past Psychological History: No Psychological Hx Reported Smoking Status: Former smoker Past Alcohol Use History: None Reported Past Drug Use History: None Reported - Past Family History Daughter(s) Family Medical History: Pulmonary Embolus Father Family Medical History: Myocardial Infarction ([place]) Additional Family Medical History / Comment(s): at age 70 Mother Family Medical History: No Reported History Additional Family Medical History / Comment(s): blood clot in heart General Exam Limitations: no limitations General appearance: alert, in no apparent distress Head exam: Present: atraumatic, normocephalic, normal inspection Eye exam: Present: normal appearance, PERRL, EOMI. Absent: scleral icterus, conjunctival injection, periorbital swelling ENT exam: Present: normal exam, mucous membranes moist Neck exam: Present: normal inspection. Absent: tenderness, meningismus, lymphadenopathy Respiratory exam: Present: normal lung sounds bilaterally. Absent: respiratory distress, wheezes, rales, rhonchi, stridor Cardiovascular Exam: Present: regular rate, normal rhythm, normal heart sounds. Absent: systolic murmur, diastolic murmur, rubs, gallop, clicks GI/Abdominal exam: Present: soft, normal bowel sounds. Absent: distended, tenderness, guarding, rebound, rigid Extremities exam: Present: normal inspection, full ROM, normal capillary refill. Absent: tenderness, pedal edema, joint swelling, calf tenderness Back exam: Present: normal inspection, CVA tenderness (L) Neurological exam: Present: alert, oriented X3, CN II-XII intact Psychiatric exam: Present: normal affect, normal mood Skin exam: Present: warm, dry, intact, normal color. Absent: rash Course Vital Signs 04/24/20 04/24/20 14:09 15:21 Temperature 98.3 F Pulse Rate 89 78 Respiratory 18 18 Rate Blood Pressure 139/82 144/65 O2 Sat by Pulse 97 98 Oximetry Medical Decision Making - Medical Decision Making 64-year-old female complaining of nausea and vomiting for 2 weeks. Labs, 1 L of normal saline, 1 mg Dilaudid, 4 mg Zofran, CT of the abdomen and p pako ordered. 2.5 mg of vitamin K given orally due to high INR. Labs unremarkable. Urinalysis shows turbid urine with positive ketones large amounts of blood and moderate bacteria. Is discussed with Dr. Myrick, it was decided she will call admitting provider to see about possible admittance to inpatient hospital. - Lab Data Result diagrams: 04/24/20 15:00 04/24/20 15:00 Lab Results 04/24/20 04/24/20 04/24/20 Range/Units 15:00 15:00 15:04 WBC 8.8 (3.8-10.6) k/uL RBC 5.23 (3.80-5.40) m/uL Hgb 13.5 (11.4-16.0) gm/dL Hct 42.2 (34.0-46.0) % MCV 80.8 (80.0-100.0) fL MCH 25.8 (25.0-35.0) pg MCHC 32.0 (31.0-37.0) g/dL RDW 16.0 H (11.5-15.5) % Plt Count 294 (150-450) k/uL MPV 7.2 Neutrophils % 65 % Lymphocytes % 23 % Monocytes % 4 % Eosinophils % 5 % Basophils % 1 % Neutrophils # 5.7 (1.3-7.7) k/uL Lymphocytes # 2.1 (1.0-4.8) k/uL Monocytes # 0.3 (0-1.0) k/uL Eosinophils # 0.5 (0-0.7) k/uL Basophils # 0.1 (0-0.2) k/uL Poikilocytosis Slight Anisocytosis Slight PT (9.0-12.0) sec INR (<1.2) APTT (22.0-30.0) sec Sodium 138 (137-145) mmol/L Potassium 3.6 (3.5-5.1) mmol/L Chloride 97 L (98-107) mmol/L Carbon Dioxide 27 (22-30) mmol/L Anion Gap 14 mmol/L BUN 6 L (7-17) mg/dL Creatinine 0.62 (0.52-1.04) mg/dL Est GFR (CKD-EPI)AfAm >90 (>60 ml/min/1.73 sqM) Est GFR (CKD-EPI)NonAf >90 (>60 ml/min/1.73 sqM) Glucose 91 (74-99) mg/dL Calcium 9.1 (8.4-10.2) mg/dL Total Bilirubin 1.1 (0.2-1.3) mg/dL AST 31 (14-36) U/L ALT 18 (4-34) U/L Alkaline Phosphatase 84 (38-126) U/L Total Protein 6.5 (6.3-8.2) g/dL Albumin 3.8 (3.5-5.0) g/dL Amylase <30 L (30-110) U/L Lipase 33 (23-300) U/L Urine Color Dark Brown Urine Appearance Turbid H (Clear) Urine pH 5.5 (5.0-8.0) Ur Specific Weare 1.019 (1.001-1.035) Urine Protein 2+ H (Negative) Urine Glucose (UA) Negative (Negative) Urine Ketones 3+ H (Negative) Urine Blood Large H (Negative) Urine Nitrite Negative (Negative) Urine Bilirubin 1+ H (Negative) Urine Urobilinogen 3.0 (<2.0) mg/dL Ur Leukocyte Esterase Small H (Negative) Urine RBC >182 H (0-5) /hpf Urine WBC 69 H (0-5) /hpf Ur Squamous Epith Cells 13 H (0-4) /hpf Amorphous Sediment Occasional H (None) /hpf Urine Bacteria Moderate H (None) /hpf Urine Mucus Many H (None) /hpf 04/24/20 Range/Units 16:00 WBC (3.8-10.6) k/uL RBC (3.80-5.40) m/uL Hgb (11.4-16.0) gm/dL Hct (34.0-46.0) % MCV (80.0-100.0) fL MCH (25.0-35.0) pg MCHC (31.0-37.0) g/dL RDW (11.5-15.5) % Plt Count (150-450) k/uL MPV Neutrophils % % Lymphocytes % % Monocytes % % Eosinophils % % Basophils % % Neutrophils # (1.3-7.7) k/uL Lymphocytes # (1.0-4.8) k/uL Monocytes # (0-1.0) k/uL Eosinophils # (0-0.7) k/uL Basophils # (0-0.2) k/uL Poikilocytosis Anisocytosis PT >130.0 H (9.0-12.0) sec INR >10.0 H* (<1.2) APTT 89.1 H (22.0-30.0) sec Sodium (137-145) mmol/L Potassium (3.5-5.1) mmol/L Chloride (98-107) mmol/L Carbon Dioxide (22-30) mmol/L Anion Gap mmol/L BUN (7-17) mg/dL Creatinine (0.52-1.04) mg/dL Est GFR (CKD-EPI)AfAm (>60 ml/min/1.73 sqM) Est GFR (CKD-EPI)NonAf (>60 ml/min/1.73 sqM) Glucose (74-99) mg/dL Calcium (8.4-10.2) mg/dL Total Bilirubin (0.2-1.3) mg/dL AST (14-36) U/L ALT (4-34) U/L Alkaline Phosphatase (38-126) U/L Total Protein (6.3-8.2) g/dL Albumin (3.5-5.0) g/dL Amylase (30-110) U/L Lipase (23-300) U/L Urine Color Urine Appearance (Clear) Urine pH (5.0-8.0) Ur Specific Weare (1.001-1.035) Urine Protein (Negative) Urine Glucose (UA) (Negative) Urine Ketones (Negative) Urine Blood (Negative) Urine Nitrite (Negative) Urine Bilirubin (Negative) Urine Urobilinogen (<2.0) mg/dL Ur Leukocyte Esterase (Negative) Urine RBC (0-5) /hpf Urine WBC (0-5) /hpf Ur Squamous Epith Cells (0-4) /hpf Amorphous Sediment (None) /hpf Urine Bacteria (None) /hpf Urine Mucus (None) /hpf - Radiology Data Radiology results: report reviewed, image reviewed Multiple left renal calculi measuring up to 12 mm. Resultant mild dilation of the left renal collecting system. No right hydronephrosis or nephrolithiasis. Small 0.7 cm simple appearing left renal cyst. Disposition Clinical Impression: Nephrolithiasis, Urinary tract infection, Elevated INR Disposition: ADMITTED IP TO THIS HOSP Condition: Stable Is patient prescribed a controlled substance at d/c from ED?: No Referrals: Cabrera Pinzon MD [Primary Care Provider] - 1-2 days Time of Disposition: 17:27
[2020-04-24 15:10] LABS: Anisocytosis Slight; Basophils # (A) 0.1 k/uL (0-0.2); Basophils % (A) 1 %; Eosinophils # (A) 0.5 k/uL (0-0.7); Eosinophils % (A) 5 %; HCT 42.2 % (34.0-46.0); HGB 13.5 gm/dL (11.4-16.0); Lymphocytes # (A) 2.1 k/uL (1.0-4.8); Lymphocytes % (A) 23 %; MCH 25.8 pg (25.0-35.0); MCV 80.8 fL (80.0-100.0); Mean Platelet Volume 7.2; Monocytes # (A) 0.3 k/uL (0-1.0); Monocytes % (A) 4 %; Neutrophils # (A) 5.7 k/uL (1.3-7.7); Neutrophils % (A) 65 %; Platelet Count 294 k/uL (150-450); Poikilocytosis Slight; RBC 5.23 m/uL (3.80-5.40); WBC 8.8 k/uL (3.8-10.6)
[2020-04-24 15:19] LABS: Amorphous Sediment,Urine Occasional /hpf; Appearance,Urine Turbid (Clear); Bacteria,Urine Moderate /hpf; Bilirubin,Urine 1+ (Negative); Blood,Urine Large (Negative); Color,Urine Dark Brown; Glucose,Urine (UA) Negative (Negative); Ketones,Urine 3+ (Negative); Leukocyte Esterase,Urine Small (Negative); Mucus,Urine Many /hpf; Nitrite,Urine Negative (Negative); PH, Urine 5.5 (5.0-8.0); Protein,Urine 2+ (Negative); RBC,Urine >182 /hpf (0-5); Specific Gravity,Urine 1.019 (1.001-1.035); Squamous Epithelial Cell,Urine 13 /hpf (0-4); WBC,Urine 69 /hpf (0-5)
[2020-04-24 15:38] LABS: ALT 18 U/L (4-34); AST 31 U/L (14-36); African American GFR (CKD) >90 (>60 ml/min/1.73 sqM); Albumin 3.8 g/dL (3.5-5.0); Alkaline Phosphatase 84 U/L (38-126); Amylase <30 U/L (30-110); Anion Gap 14 mmol/L; Blood Urea Nitrogen 6 mg/dL (7-17); Calcium 9.1 mg/dL (8.4-10.2); Carbon Dioxide 27 mmol/L (22-30); Chloride 97 mmol/L (98-107); Glucose 91 mg/dL (74-99); Lipase 33 U/L (23-300); Non-African American GFR(CKD) >90 (>60 ml/min/1.73 sqM); Potassium 3.6 mmol/L (3.5-5.1); Sodium 138 mmol/L (137-145); Total Bilirubin 1.1 mg/dL (0.2-1.3); Total Protein 6.5 g/dL (6.3-8.2)
--- NOTE | 2020-04-24 16:55 | CT ---
EXAMINATION TYPE: CT abdomen pelvis w con DATE OF EXAM: 04/24/2020 COMPARISON: 09/24/2014. HISTORY: Abdominal pain. CT DLP: 1176.1 mGycm Automated exposure control for dose reduction was used. TECHNIQUE: Helical acquisition of images was performed from the lung bases through the pelvis. CONTRAST: Performed without Oral Contrast and with IV Contrast, patient injected with 100 mL of Isovue M300. FINDINGS: LUNG BASES: No significant abnormality is appreciated. LIVER/GB: No acute abnormality is appreciated. Cholecystectomy with mild biliary ductal dilatation, l ikely postsurgical change. PANCREAS: Atrophic pancreas without acute abnormality. SPLEEN: No significant abnormality is seen. Small splenule noted. ADRENALS: No significant abnormality is seen. KIDNEYS: Multiple left renal calculi measuring up to 12 mm. Resultant mild dilatation of the left tia al collecting system. No right hydronephrosis or nephrolithiasis. Small 0.7 cm simple appearing left renal cysts. FREE AIR: No free air is visualized. RETROPERITONEAL ADENOPATHY: None visualized REPRODUCTIVE ORGANS: No significant abnormality is seen URINARY BLADDER: No significant abnormality is seen. PELVIC ADENOPATHY: None visualized. OSSEOUS STRUCTURES: No acute abnormality is seen. L3-L5 fusion. BOWEL: No significant abnormality is seen. Post surgical changes involving the sigmoid colon seen. OTHER: IVC filter and neurostimulator device seen. IMPRESSION: NO ACUTE ABNORMALITY. Large left renal calculi with chronic mild dilatation of the collecting system. Chronic findings as above.
[2020-04-24 17:03] LABS: Prothrombin Time >130.0 sec (9.0-12.0)
[2020-04-24 17:05] LABS: INR >10.0 (<1.2); Partial Thromboplastin Time 89.1 sec (22.0-30.0)
[2020-04-24] MEDS ORDERED: ONDANSETRON 4 MG/2 ML VIAL IVP PRN (17:20)
[2020-04-24] MEDS ORDERED: NALOXONE 0.4 MG/ML 1 ML VIAL IV PRN (17:20)
[2020-04-24] MEDS ORDERED: ALBUTEROL NEBULIZED 2.5 MG/3 ML INHALATION PRN (20:56)
[2020-04-24] MEDS ORDERED: ALPRAZolam 0.5 MG TAB PO PRN (20:56)
[2020-04-24] MEDS: GABAPENTIN 300 MG CAP PO SCH (23:07)
[2020-04-24] MEDS: METOPROLOL TARTRATE 25 MG TAB PO SCH (23:08)
[2020-04-24] MEDS: metFORMIN 500 MG TAB PO SCH (23:08)
[2020-04-24] MEDS: MORPHINE SULFATE IR 15 MG TABLET PO PRN (23:37)
[2020-04-24] MEDS: tiZANidine 4 MG TAB PO PRN (23:38)
[2020-04-25] MEDS: DILAUDID MISCELLANE SCH ×2 (00:46→21:48)
[2020-04-25] MEDS ORDERED: INSULIN DETEMIR (LEVEMIR) 100 UNIT/ML SYR SQ SCH (07:00)
[2020-04-25 07:01] LABS: Glucose,Whole Blood 82 mg/dL (75-99)
[2020-04-25] MEDS: REPAGLINIDE 1 MG TAB PO SCH ×2 (07:08→17:38)
[2020-04-25] MEDS: PANTOPRAZOLE 40 MG TABLET PO SCH (07:08)
[2020-04-25] MEDS: MORPHINE SULFATE IR 15 MG TABLET PO PRN ×2 (07:26→17:04)
[2020-04-25] MEDS ORDERED: PANTOPRAZOLE 40 MG TABLET PO SCH (07:30)
[2020-04-25] MEDS: tiZANidine 4 MG TAB PO PRN ×2 (07:43→17:38)
[2020-04-25] MEDS: SODIUM CHLORIDE 0.9% 1,000 ML IV SCH ×2 (08:35→21:25)
[2020-04-25 09:06] LABS: INR 2.29 (0.90-1.11); Prothrombin Time 23.6 sec (9.9-11.9)
[2020-04-25 09:19] LABS: HCT 39.8 % (37.2-46.3); HGB 12.2 g/dL (12.0-15.0); MCH 26.4 pg (27.0-32.0); MCHC 30.7 g/dL (32.0-37.0); MCV 86.1 fL (80.0-97.0); Mean Platelet Volume 10.4 fL (9.5-12.2); Platelet Count 283 X 10*3/uL (140-440); RBC 4.62 X 10*6/uL (4.10-5.20); WBC 7.08 X 10*3/uL (4.50-10.00)
[2020-04-25] MEDS: ATORVASTATIN 20 MG TAB PO SCH (09:29)
[2020-04-25] MEDS: SERTRALINE 50 MG TAB PO SCH (09:29)
[2020-04-25] MEDS: metFORMIN 500 MG TAB PO SCH ×2 (09:29→21:02)
[2020-04-25] MEDS: GABAPENTIN 300 MG CAP PO SCH ×3 (09:30→21:01)
[2020-04-25] MEDS: METOPROLOL TARTRATE 25 MG TAB PO SCH ×2 (09:30→21:01)
[2020-04-25 10:36] LABS: African American GFR (CKD) 90.3 (60.0-200.0); Albumin 3.9 g/dL (3.80-4.90); Albumin/Globulin Ratio 2.29 (1.60-3.17); Anion Gap 11.1 mmol/L (4.00-12.00); BUN/Creat Ratio 6.25 Ratio (12.00-20.00); Calcium 8.5 mg/dL (8.7-10.3); Carbon Dioxide 29.9 mmol/L (21.6-31.8); Globulin 1.7 g/dL (1.6-3.3); Non-African American GFR(CKD) 77.9 (60.0-200.0); Potassium 3.5 mmol/L (3.5-5.5); Total Bilirubin 0.9 mg/dL (0.2-1.2); Total Protein 5.6 g/dL (6.2-8.2)
[2020-04-25 11:34] LABS: Glucose,Whole Blood 60 mg/dL (75-99)
[2020-04-25 11:49] LABS: Glucose,Whole Blood 61 mg/dL (75-99)
[2020-04-25 12:09] LABS: Glucose,Whole Blood 63 mg/dL (75-99)
--- NOTE | 2020-04-25 12:13 | P.HPIM ---
History of Present Illness H&P Date: 04/25/20 Chief Complaint: Nausea and vomiting HISTORY OF PRESENT ILLNESS This is a 64-year-old female patient of Dr. Pinzon with past medical history of chronic pain syndrome status post multiple back and pain management procedures, hyperlipidemia, overactive bladder, coronary artery disease, paroxysmal atrial fibrillation on anticoagulation, history of DVT and PE, generalized anxiety disorder and recurrent depression. Remote history of tobacco use and dependence. Patient complains of not feeling well for a couple weeks. She had low-grade fever for several days. Positive nausea and "a little" vomiting with right-sided flank pain and mild hematuria that started last night. She states that her INR level yesterday was at 7 and she held her Coumadin dose. Patient presented to [facility] emergency center for evaluation. She was afebrile, heart rate 89, blood pressure 139/82, pulse ox 97% on room air. Patient was given 1 L of IV fluids, Dilaudid Zofran. CT of the abdomen and pelvis revealed no acute abnormality. Large left renal calculi (12mm) with chronic mild dilatation of the collecting system. Chronic findings. INR greater than 10 and patient was given vitamin K 2.5 mg. 1113.5, WBC 8.8 and platelet count 294. Electrolytes essentially normal. BUN 6 and creatinine 0.62, blood sugar 91. Urinalysis dark brown, turbid, blood large, nitrate negative, leukoesterase small, RBCs greater than 182, wbc's 69 and squamous cells 13. Coronavirus not detected. Patient received dose of ceftriaxone, admitted to the [facility] floor and consult with urology placed. Repeat blood work this morning reveals INR of 2.29. CBC unremarkable. Blood sugars running from 60-94. REVIEW OF SYSTEMS Constitutional: No fever, no chills, no night sweats. No weight change. Reports weakness, Reports fatigue. No daytime sleepiness. EENT: No headache. No blurred vision or double vision, no loss of vision. No loss of Hearing, no ringing in the ears, no dizziness. No nasal drainage or congestion. No epistaxis. No sore throat. Lungs: No shortness of breath, cough, no sputum production. No wheezing. Cardiovascular: No chest pain, no lower extremity edema. No palpitations. No paroxysmal nocturnal dyspnea. No orthopnea. No lightheadedness or dizziness. No syncopal episodes. Abdominal: No abdominal pain. Reports nausea, Reports vomiting. No diarrhea. No constipation. No bloody or tarry stools.. No loss of appetite. Genitourinary: No dysuria, increased frequency, urgency. No urinary retention. Reports hematuria. Warts right flank pain Musculoskeletal: No myalgias. No muscle weakness, no gait dysfunction, no frequent falls. No back pain. No neck pain. Integumentary: No wounds, no lesions. No rash or pruritus. No unusual bruising. Neurologic: No aphasia. No facial droop. No change in mentation. No head injury. No headache. No paralysis. No paresthesia. Psychiatric: No depression. No anxiety. Endocrine: No abnormal blood sugars. No weight change. SOCIAL HISTORY Patient was a smoker of one pack per day on and off starting at age 17 and quit in 1992. No illicit drug use, no alcohol use. Patient lives at home with her and grandson. FAMILY HISTORY Mother at age 79 from COPD. Father at age 69 from myocardial infarction. Patient has one sister alive with history of lung cancer with m etastatic disease to the brain and spine with history of smoking. Patient does not have any brothers. Patient's 3 children with no major medical problems. PHYSICAL EXAMINATION Gen: This is a 64-year-old female patient resting in bed and appears to be in no acute distress. HEENT: Head is atraumatic, normocephalic. Pupils equal, round. Sclerae is anicteric. NECK: Supple. No JVD. No lymphadenopathy. No thyromegaly. LUNGS: Clear to auscultation. No wheezes or rhonchi. No intercostal retractions. HEART: Regular rate and rhythm. Systolic murmur. ABDOMEN: Soft. Bowel sounds are present. No masses. No tenderness. EXTREMITIES: No pedal edema. No calf tenderness. NEUROLOGICAL: Patient is awake, alert and oriented x3. Cranial nerves 2 through 12 are grossly intact. ASSESSMENT AND PLAN 1. Hypercoagulopathy secondary to illness and Coumadin, status post vitamin K. Coumadin is currently on hold. 2. Hematuria most likely secondary to kidney stone and hypercoagulopathy from Coumadin. Consult with urology. Continue IV fluids at 100 mL per hour. 3. Chronic pain syndrome status post multiple back procedures and pain management procedures. Continue Zanaflex 4-6 mg 4 times daily as needed, morphine sulfate IR 30 mg 4 times daily as needed, gabapentin 300 mg twice daily and at bedtime, Dilaudid pain pump 4. Paroxysmal atrial fibrillation on long-term anticoagulation. 5. History of DVT and PE. 6. Diabetes mellitus type 2. Continue Lantus 30 units daily, metformin 1000 mg twice daily, Prandin 2 mg twice daily and NovoLog scale before meals and at bedtime 7. Remote history of tobacco use and dependence. 8. Hyperlipidemia. Continue Crestor 10 mg daily. 9. Generalized anxiety disorder and recurrent depression.. 10. GI prophylaxis. Protonix 40 mg daily. 11. DVT prophylaxis. SCDs and DEBBY hose. Coumadin currently on hold. Patient will be admitted to the hospital for a minimum of 2 night stay. DISCHARGE PLAN To be determined. Impression and plan of care have been directed as dictated by the signing physician. Deidre Starr nurse practitioner acting as scribe for signing phys ician. 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 COLITIS. CHRONIC BACK PAIN, Numbness/tingling LEFT LEG, USES CANE, (has WALKER & WHEELCHAIR), HX OF FALLS. History of Any Multi-Drug Resistant Organisms: None Reported Past Surgical History: Adenoidectomy, Bowel Resection, Breast Surgery, Cholecystectomy, Heart Catheterization, Hysterectomy, Joint Replacement, Orthopedic Surgery, Tonsillectomy Additional Past Surgical History / Comment(s): 01/24/14 OPEN HEART PROCEDURE--RT. VENTRICULOTOMY TO REMOVE BLOOD CLOT. HX BACK SURGERY- FUSION X 3. INTRATHECAL PAIN PUMP - replaced on August 02, 2014. TESHA FILTER. HEART CATH X2. ORIF left forearm(for fx), bilateral Carpal tunnel, clarita breast reduction, SPINAL CORD STIMULATOR INSERTED & REMOVED 05/2016., lt knee replacement, PAIN CLINIC PROCEDURES Past Anesthesia/Blood Transfusion Reactions: No Reported Reaction Additional Past Anesthesia/Blood Transfusion Reaction / Comment(s): , Past Psychological History: No Psychological Hx Reported Smoking Status: Never smoker Past Alcohol Use History: None Reported Additional Past Alcohol Use History / Comment(s): Quit smoking 1992, SMOKED ON/OFF- STARTED SMOKING AT AGE 17 < 1ppd Past Drug Use History: None Reported - Past Family History Daughter(s) Family Medical History: Pulmonary Embolus Father Family Medical History: Myocardial Infarction ([place]) Additional Family Medical History / Comment(s): at age 70 Mother Family Medical History: No Reported History Additional Family Medical History / Comment(s): blood clot in heart Medications and Allergies Home Medications Medication Instructions Recorded Confirmed Type Omeprazole [PriLOSEC] 20 mg PO DAILY 10/06/13 04/24/20 History Sertraline [Zoloft] 50 mg PO QAM 10/06/13 04/24/20 History Warfarin [Coumadin] 3 mg PO SUTUWEFRSA@209907/11/15 04/24/20 History Metoprolol Tartrate [Lopressor] 25 mg PO BID 02/27/17 04/24/20 History Dilaudid (Pain Pump) 1 dose INTRATHECA CONTINUOUS 04/02/18 04/24/20 History tiZANidine [Zanaflex] 4 - 6 mg PO QID PRN 04/02/18 04/24/20 History ALPRAZolam [Xanax] 0.5 mg PO TID PRN 07/06/18 04/24/20 History Gabapentin [Neurontin] 300 mg PO BID #60 cap 09/13/18 04/24/20 Rx Repaglinide [Prandin] 2 mg PO BID 04/15/19 04/24/20 History Warfarin [Coumadin] 1.5 mg PO MOTH@209904/15/19 04/24/20 History Albuterol Sulfate [Ventolin HFA] 2 puff INHALATION RT-Q6H PRN 04/24/20 04/24/20 History Gabapentin 300 mg PO HS 04/24/20 04/24/20 History Insulin Glargine,Hum.rec.anlog 30 unit SQ DAILY 04/24/20 04/24/20 History [Lantus Solostar] Morphine Sulfate Ir [MSIR] 30 mg PO QID PRN 04/24/20 04/24/20 History Rosuvastatin [Crestor] 10 mg PO DAILY 04/24/20 04/24/20 History metFORMIN HCL [Glucophage] 1,000 mg PO BID 04/24/20 04/24/20 History Allergies Allergy/AdvReac Type Severity Reaction Status Date / Time adhesive Allergy BANDAIDES Verified 04/24/20 17:56 INCLUDED.SKIN BLISTERS. PAPER TAPE IS OK. Penicillins Allergy HIVES Verified 04/24/20 17:56 ziprasidone HCl [From Geodon] Allergy ARRHYTHMIA Verified 04/24/20 17:56 ,HYPOTENSION ziprasidone mesylate Allergy ARRYTHMIA,H Verified 04/24/20 17:56 [From Geodon] YPOTENSION enoxaparin [From Lovenox] AdvReac thrombocyto Verified 04/24/20 17:56 penia heparin AdvReac thrombocyto Verified 04/24/20 17:56 penia silver AdvReac Itching Verified 04/24/20 17:56 [From Tegaderm AG Mesh] derma-shelton Allergy Rash/Hives Uncoded 04/24/20 14:09 Physical Exam Vitals: Vital Signs Temp Pulse Pulse Resp BP BP Pulse Ox 04/25/20 06:59 97.9 F 91 16 126/70 93 L 04/25/20 02:00 98.4 F 82 111/70 94 L 04/24/20 20:00 98 18 04/24/20 18:40 98.4 F 98 18 151/81 96 04/24/20 18:21 98.5 F 94 18 116/63 94 L 04/24/20 15:21 78 18 144/65 98 04/24/20 14:09 98.3 F 89 18 139/82 97 Intake and Output 04/24/20 04/25/20 04/25/20 22:59 06:59 14:59 Intake Total 650 350 Balance 650 350 Intake: Oral 650 350 Other: Voiding Method Toilet Toilet # Voids 2 3 Weight 83.461 kg Results CBC & Chem 7: 04/25/20 05:21 04/25/20 05:21 Labs: Abnormal Lab Results - Last 24 Hours (Table) 04/24/20 04/24/20 04/24/20 Range/Units 15:00 15:00 15:04 RDW 16.0 H (11.5-15.5) % PT (9.0-12.0) sec INR (<1.2) APTT (22.0-30.0) sec Chloride 97 L (98-107) mmol/L BUN 6 L (7-17) mg/dL Amylase <30 L (30-110) U/L Urine Appearance Turbid H (Clear) Urine Protein 2+ H (Negative) Urine Ketones 3+ H (Negative) Urine Blood Large H (Negative) Urine Bilirubin 1+ H (Negative) Ur Leukocyte Esterase Small H (Negative) Urine RBC >182 H (0-5) /hpf Urine WBC 69 H (0-5) /hpf Ur Squamous Epith Cells 13 H (0-4) /hpf Amorphous Sediment Occasional H (None) /hpf Urine Bacteria Moderate H (None) /hpf Urine Mucus Many H (None) /hpf 04/24/20 Range/Units 16:00 RDW (11.5-15.5) % PT >130.0 H (9.0-12.0) sec INR >10.0 H* (<1.2) APTT 89.1 H (22.0-30.0) sec Chloride (98-107) mmol/L BUN (7-17) mg/dL Amylase (30-110) U/L Urine Appearance (Clear) Urine Protein (Negative) Urine Ketones (Negative) Urine Blood (Negative) Urine Bilirubin (Negative) Ur Leukocyte Esterase (Negative) Urine RBC (0-5) /hpf Urine WBC (0-5) /hpf Ur Squamous Epith Cells (0-4) /hpf Amorphous Sediment (None) /hpf Urine Bacteria (None) /hpf Urine Mucus (None) /hpf Microbiology - Last 24 Hours (Table) 04/24/20 15:04 Urine Culture - Preliminary Urine,Voided Thrombosis Risk Factor Assmnt - Choose All That Apply Any of the Below Risk Factors Present?: Yes Each Factor Represents 1 point: Abnormal pulmonary function (COPD), Age 41-60 years, Obesity (BMI >25) Other Risk Factors: Yes Each Risk Factor Represents 2 Points: Age 61-74 years Each Risk Factor Represents 3 Points: Family history of DVT/PE Other congenital or acquired thrombophilia - If yes, enter type in comment: No Thrombosis Risk Factor Assessment Total Risk Factor Score: 8 Thrombosis Risk Factor Assessment Level: High Risk
[2020-04-25 12:22] LABS: Glucose,Whole Blood 69 mg/dL (75-99)
[2020-04-25 12:33] LABS: Glucose,Whole Blood 91 mg/dL (75-99)
[2020-04-25] MEDS: INSULIN ASPART (NovoLOG) 100 UNIT/ML VIAL SQ SCH ×3 (13:39→21:02)
--- NOTE | 2020-04-25 13:42 | P.GSCN ---
History of Present Illness Consult date: 04/25/20 Reason for Consult: left renal stone History of present illness: Ms Vizcarra is a 64-year-old female Presents with Nausea/vomiting and INR of >10. She also noticed evidence of gross hematuria. CT of the abdomen and pelvis showed multiple large left-sided renal stone, mild dilation of the collecting system. Of note she has right flank pain, no abnormality was seen along the right kidney. This a.m. her INR is 2.29 and her ureteral stricture has resolved. Denies any previous history of stones or any previous surgeries. 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 COLITIS. CHRONIC BACK PAIN, Numbness/tingling LEFT LEG, USES CANE, (has WALKER & WHEELCHAIR), HX OF FALLS. History of Any Multi-Drug Resistant Organisms: None Reported Past Surgical History: Adenoidectomy, Bowel Resection, Breast Surgery, Cholecystectomy, Heart Catheterization, Hysterectomy, Joint Replacement, Orthopedic Surgery, Tonsillectomy Additional Past Surgical History / Comment(s): 01/24/14 OPEN HEART PROCEDURE--RT. VENTRICULOTOMY TO REMOVE BLOOD CLOT. HX BACK SURGERY- FUSION X 3. INTRATHECAL PAIN PUMP - replaced on August 02, 2014. TESHA FILTER. HEART CATH X2. ORIF left forearm(for fx), bilateral Carpal tunnel, clarita breast reduction, SPINAL CORD STIMULATOR INSERTED & REMOVED 05/2016., lt knee replacement, PAIN CLINIC PROCEDURES Past Anesthesia/Blood Transfusion Reactions: No Reported Reaction Additional Past Anesthesia/Blood Transfusion Reaction / Comm: , Past Psychological History: No Psychological Hx Reported Smoking Status: Never smoker Past Alcohol Use History: None Reported Additional Past Alcohol Use History / Comment(s): Quit smoking 1992, SMOKED ON/OFF- STARTED SMOKING AT AGE 17 < 1ppd Past Drug Use History: None Reported - Past Family History Daughter(s) Family Medical History: Pulmonary Embolus Father Family Medical History: Myocardial Infarction ([place]) Additional Family Medical History / Comment(s): at age 70 Mother Family Medical History: No Reported History Additional Family Medical History / Comment(s): blood clot in heart Medications and Allergies Home Medications Medication Instructions Recorded Confirmed Type Omeprazole [PriLOSEC] 20 mg PO DAILY 10/06/13 04/24/20 History Sertraline [Zoloft] 50 mg PO QAM 10/06/13 04/24/20 History Warfarin [Coumadin] 3 mg PO SUTUWEFRSA@2100 07/11/15 04/24/20 History Metoprolol Tartrate [Lopressor] 25 mg PO BID 02/27/17 04/24/20 History Dilaudid (Pain Pump) 1 dose INTRATHECA CONTINUOUS 04/02/18 04/24/20 History tiZANidine [Zanaflex] 4 - 6 mg PO QID PRN 04/02/18 04/24/20 History ALPRAZolam [Xanax] 0.5 mg PO TID PRN 07/06/18 04/24/20 History Gabapentin [Neurontin] 300 mg PO BID #60 cap 09/13/18 04/24/20 Rx Repaglinide [Prandin] 2 mg PO BID 04/15/19 04/24/20 History Warfarin [Coumadin] 1.5 mg PO MOTH@2100 04/15/19 04/24/20 History Albuterol Sulfate [Ventolin HFA] 2 puff INHALATION RT-Q6H PRN 04/24/20 04/24/20 History Gabapentin 300 mg PO HS 04/24/20 04/24/20 History Insulin Glargine,Hum.rec.anlog 30 unit SQ DAILY 04/24/20 04/24/20 History [Lantus Solostar] Morphine Sulfate Ir [MSIR] 30 mg PO QID PRN 04/24/20 04/24/20 History Rosuvastatin [Crestor] 10 mg PO DAILY 04/24/20 04/24/20 History metFORMIN HCL [Glucophage] 1,000 mg PO BID 04/24/20 04/24/20 History Allergies Allergy/AdvReac Type Severity Reaction Status Date / Time adhesive Allergy BANDAIDES Verified 04/24/20 17:56 INCLUDED.SKIN BLISTERS. PAPER TAPE IS OK. Penicillins Allergy HIVES Verified 04/24/20 17:56 ziprasidone HCl [From Geodon] Allergy ARRHYTHMIA Verified 04/24/20 17:56 ,HYPOTENSION ziprasidone mesylate Allergy ARRYTHMIA,H Verified 04/24/20 17:56 [From Geodon] YPOTENSION enoxaparin [From Lovenox] AdvReac thrombocyto Verified 04/24/20 17:56 penia heparin AdvReac thrombocyto Verified 04/24/20 17:56 penia silver AdvReac Itching Verified 04/24/20 17:56 [From Tegaderm AG Mesh] derma-shelton Allergy Rash/Hives Uncoded 04/24/20 14:09 Surgical - Exam Vital Signs Temp Pulse Resp BP Pulse Ox 98.3 F 89 18 139/82 97 04/24/20 14:09 04/24/20 14:09 04/24/20 14:09 04/24/20 14:09 04/24/20 14:09 - General well developed, well nourished, no distress, no pain - Eyes PERRL, normal ocular movement - ENT normal nares, normal mucosa - Respiratory normal expansion, normal respiratory effort - Abdomen Abdomen: soft, non tender - Psychiatric oriented to time, oriented to person, oriented to place, speech is normal Results - Labs 04/25/20 05:21 04/25/20 05:21 Abnormal Lab Results - Last 24 Hours (Table) 04/24/20 04/24/20 04/24/20 Range/Units 15:00 15:00 15:04 MCH (27.0-32.0) pg MCHC (32.0-37.0) g/dL RDW 16.0 H (11.5-15.5) % PT (9.0-12.0) sec INR (<1.2) APTT (22.0-30.0) sec Chloride 97 L (98-107) mmol/L BUN 6 L (7-17) mg/dL BUN/Creatinine Ratio (12.00-20.00) Ratio POC Glucose (mg/dL) (75-99) mg/dL Calcium (8.7-10.3) mg/dL Total Protein (6.2-8.2) g/dL Amylase <30 L (30-110) U/L Urine Appearance Turbid H (Clear) Urine Protein 2+ H (Negative) Urine Ketones 3+ H (Negative) Urine Blood Large H (Negative) Urine Bilirubin 1+ H (Negative) Ur Leukocyte Esterase Small H (Negative) Urine RBC >182 H (0-5) /hpf Urine WBC 69 H (0-5) /hpf Ur Squamous Epith Cells 13 H (0-4) /hpf Amorphous Sediment Occasional H (None) /hpf Urine Bacteria Moderate H (None) /hpf Urine Mucus Many H (None) /hpf 04/24/20 04/25/20 04/25/20 Range/Units 16:00 05:21 05:21 MCH 26.4 L (27.0-32.0) pg MCHC 30.7 L (32.0-37.0) g/dL RDW 16.0 H (11.5-15.5) % PT >130.0 H 23.6 H (9.0-12.0) sec INR >10.0 H* 2.29 H (<1.2) APTT 89.1 H (22.0-30.0) sec Chloride (98-107) mmol/L BUN (7-17) mg/dL BUN/Creatinine Ratio (12.00-20.00) Ratio POC Glucose (mg/dL) (75-99) mg/dL Calcium (8.7-10.3) mg/dL Total Protein (6.2-8.2) g/dL Amylase (30-110) U/L Urine Appearance (Clear) Urine Protein (Negative) Urine Ketones (Negative) Urine Blood (Negative) Urine Bilirubin (Negative) Ur Leukocyte Esterase (Negative) Urine RBC (0-5) /hpf Urine WBC (0-5) /hpf Ur Squamous Epith Cells (0-4) /hpf Amorphous Sediment (None) /hpf Urine Bacteria (None) /hpf Urine Mucus (None) /hpf 04/25/20 04/25/20 04/25/20 Range/Units 05:21 11:31 11:48 MCH (27.0-32.0) pg MCHC (32.0-37.0) g/dL RDW (11.5-15.5) % PT (9.0-12.0) sec INR (<1.2) APTT (22.0-30.0) sec Chloride (98-107) mmol/L BUN 5.0 L (7-17) mg/dL BUN/Creatinine Ratio 6.25 L (12.00-20.00) Ratio POC Glucose (mg/dL) 60 L 61 L (75-99) mg/dL Calcium 8.5 L (8.7-10.3) mg/dL Total Protein 5.6 L (6.2-8.2) g/dL Amylase (30-110) U/L Urine Appearance (Clear) Urine Protein (Negative) Urine Ketones (Negative) Urine Blood (Negative) Urine Bilirubin (Negative) Ur Leukocyte Esterase (Negative) Urine RBC (0-5) /hpf Urine WBC (0-5) /hpf Ur Squamous Epith Cells (0-4) /hpf Amorphous Sediment (None) /hpf Urine Bacteria (None) /hpf Urine Mucus (None) /hpf 04/25/20 04/25/20 Range/Units 12:05 12:21 MCH (27.0-32.0) pg MCHC (32.0-37.0) g/dL RDW (11.5-15.5) % PT (9.0-12.0) sec INR (<1.2) APTT (22.0-30.0) sec Chloride (98-107) mmol/L BUN (7-17) mg/dL BUN/Creatinine Ratio (12.00-20.00) Ratio POC Glucose (mg/dL) 63 L 69 L (75-99) mg/dL Calcium (8.7-10.3) mg/dL Total Protein (6.2-8.2) g/dL Amylase (30-110) U/L Urine Appearance (Clear) Urine Protein (Negative) Urine Ketones (Negative) Urine Blood (Negative) Urine Bilirubin (Negative) Ur Leukocyte Esterase (Negative) Urine RBC (0-5) /hpf Urine WBC (0-5) /hpf Ur Squamous Epith Cells (0-4) /hpf Amorphous Sediment (None) /hpf Urine Bacteria (None) /hpf Urine Mucus (None) /hpf Microbiology - Last 24 Hours (Table) 04/24/20 15:04 Urine Culture - Preliminary Urine,Voided Diabetes panel 04/24/20 04/25/20 Range/Units 15:00 05:21 Sodium 138 143 (137-145) mmol/L Potassium 3.6 3.5 (3.5-5.1) mmol/L Chloride 97 L 102 (98-107) mmol/L Carbon Dioxide 27 29.9 (22-30) mmol/L BUN 6 L 5.0 L (7-17) mg/dL Creatinine 0.62 0.8 (0.52-1.04) mg/dL Glucose 91 94 (74-99) mg/dL Calcium 9.1 8.5 L (8.4-10.2) mg/dL AST 31 25 (14-36) U/L ALT 18 14 (4-34) U/L Alkaline Phosphatase 84 79 (38-126) U/L Total Protein 6.5 5.6 L (6.3-8.2) g/dL Albumin 3.8 3.90 (3.5-5.0) g/dL Calcium panel 04/24/20 04/25/20 Range/Units 15:00 05:21 Calcium 9.1 8.5 L (8.4-10.2) mg/dL Albumin 3.8 3.90 (3.5-5.0) g/dL Pituitary panel 04/24/20 04/25/20 Range/Units 15:00 05:21 Sodium 138 143 (137-145) mmol/L Potassium 3.6 3.5 (3.5-5.1) mmol/L Chloride 97 L 102 (98-107) mmol/L Carbon Dioxide 27 29.9 (22-30) mmol/L BUN 6 L 5.0 L (7-17) mg/dL Creatinine 0.62 0.8 (0.52-1.04) mg/dL Glucose 91 94 (74-99) mg/dL Calcium 9.1 8.5 L (8.4-10.2) mg/dL Adrenal panel 04/24/20 04/25/20 Range/Units 15:00 05:21 Sodium 138 143 (137-145) mmol/L Potassium 3.6 3.5 (3.5-5.1) mmol/L Chloride 97 L 102 (98-107) mmol/L Carbon Dioxide 27 29.9 (22-30) mmol/L BUN 6 L 5.0 L (7-17) mg/dL Creatinine 0.62 0.8 (0.52-1.04) mg/dL Glucose 91 94 (74-99) mg/dL Calcium 9.1 8.5 L (8.4-10.2) mg/dL Total Bilirubin 1.1 0.9 (0.2-1.3) mg/dL AST 31 25 (14-36) U/L ALT 18 14 (4-34) U/L Alkaline Phosphatase 84 79 (38-126) U/L Total Protein 6.5 5.6 L (6.3-8.2) g/dL Albumin 3.8 3.90 (3.5-5.0) g/dL Assessment and Plan Assessment: 64-year-old female admitted with a super therapeutic INR, gross hematuria. Had a CT showed evidence of multiple left-sided renal stone. Her r stones are fairly sizable, discussed with her the best option to address the stones is a PCNL, but given her multiple comorbidities she is at high risk of that. The alternative is staged ureteroscopy or observation given her lack of symptoms. At this point she can follow-up as an outpatient and we will set that up for her. Her INR on presentation was greater than 10 and this can explain her hematuria Will repeat UA as an outpatient to assess resolution of hematuria, if had persistent hematuria as an outpatient will need outpatient cystoscopy to rule out any bladder pathology as the cause of her hematuria -Ok for discharge from urology standpoint - F/U as an outpatient in two weeks
[2020-04-25] MEDS: ACETAMINOPHEN TAB 325 MG TAB PO PRN (15:17)
[2020-04-25 16:38] LABS: Glucose,Whole Blood 129 mg/dL (75-99)
[2020-04-25 20:59] LABS: Glucose,Whole Blood 136 mg/dL (75-99)
[2020-04-26] MEDS: MORPHINE SULFATE IR 15 MG TABLET PO PRN (02:24)
[2020-04-26] MEDS: tiZANidine 4 MG TAB PO PRN (02:31)
[2020-04-26] MEDS: SODIUM CHLORIDE 0.9% 1,000 ML IV SCH (05:33)
[2020-04-26] MEDS ORDERED: INSULIN DETEMIR (LEVEMIR) 100 UNIT/ML SYR SQ SCH ×2 (07:00→08:45)
[2020-04-26 07:23] LABS: Glucose,Whole Blood 133 mg/dL (75-99)
[2020-04-26 07:25] VITALS: BP 138/76; PULSE 85; RESP 20; TEMP 98.4
[2020-04-26] MEDS: INSULIN ASPART (NovoLOG) 100 UNIT/ML VIAL SQ SCH (08:42)
[2020-04-26] MEDS: METOPROLOL TARTRATE 25 MG TAB PO SCH (08:42)
[2020-04-26] MEDS: PANTOPRAZOLE 40 MG TABLET PO SCH ×2 (08:42→08:43)
[2020-04-26] MEDS: REPAGLINIDE 1 MG TAB PO SCH (08:42)
[2020-04-26] MEDS: GABAPENTIN 300 MG CAP PO SCH (08:42)
--- NOTE | 2020-04-26 08:42 | P.DS ---
Providers Date of admission: 04/25/20 09:42 Expected date of discharge: 04/26/20 Attending physician: Cabrera Pinzon Consults: 04/24/20 20:58 Consult Physician Routine Consulting Provider: Momo Irving Consult Reason/Comments: large Kidney stone. Do you want consulting provider notified?: Yes [facility] [place] [facility] Course: HISTORY OF PRESENT ILLNESS This is a 64-year-old female patient of Dr. Pinzon with past medical history of chronic pain syndrome status post multiple back and pain management procedures, hyperlipidemia, overactive bladder, coronary artery disease, paroxysmal atrial fibrillation on anticoagulation, history of DVT and PE, generalized anxiety disorder and recurrent depression. Remote history of tobac co use and dependence. Patient complains of not feeling well for a couple weeks. She had low-grade fever for several days. Positive nausea and "a little" vomiting with right-sided flank pain and mild hematuria that started last night. She states that her INR level yesterday was at 7 and she held her Coumadin dose. Patient presented to [facility] emergency center for evaluation. She was afebrile, heart rate 89, blood pressure 139/82, pulse ox 97% on room air. Patient was given 1 L of IV fluids, Dilaudid Zofran. CT of the abdomen and pelvis revealed no acute abnormality. Large left renal calculi (12mm) with chronic mild dilatation of the collecting system. Chronic findings. INR greater than 10 and patient was given vitamin K 2.5 mg. 1113.5, WBC 8.8 and platelet count 294. Electrolytes essentially normal. BUN 6 and creatinine 0.62, blood sugar 91. Urinalysis dark brown, turbid, blood large, nitrate negative, leukoesterase small, RBCs greater than 182, wbc's 69 and squamous cells 13. Coronavirus not detected. Patient received dose of ceftriaxone, admitted to the [facility] floor and consult with urology placed. Repeat blood work this morning reveals INR of 2.29. CBC unremarkable. Blood sugars running from 60-94. 04/26: Patient has been seen by Dr. Ceballos with recommendations for outpatient follow-up, outpatient cystoscopy to rule out any bladder pathology and was cleared for discharge. Plan is for follow-up in 2 weeks. Patient has been afebrile, heart rate 85, blood pressure 138/76, pulse ox 95% on room air. Urine culture finalized with no growth at 18 hours. Blood sugars are running between 129 -136. Repeat INR 1.1. Patient will be resumed on Coumadin at a lower dose and she's been instructed to monitor her INR 2 times per week. Patient also given prescriptions for Zofran and Ceftin, Flomax. Patient states she continues to have right flank pain. Patient will be discharged home today in stable condition. ASSESSMENT AND PLAN 1. Hypercoagulopathy secondary to illness and Coumadin, status post vitamin K. 2. Hematuria most likely secondary to kidney stone and hypercoagulopathy from Coumadin. 3. Chronic pain syndrome status post multiple back procedures and pain management procedures. 4. Paroxysmal atrial fibrillation on long-term anticoagulation. 5. History of DVT and PE. 6. Diabetes mellitus type 2. 7. Remote history of tobacco use and dependence. 8. Hyperlipidemia. 9. Generalized anxiety disorder and recurrent depression.. DISCHARGE PLAN Home. Impression and plan of care have been directed as dictated by the signing physician. Deidre Starr nurse practitioner acting as scribe for signing physician. Patient Condition at Discharge: Good Plan - Discharge Summary Discharge Rx Participant: Yes New Discharge Prescriptions: New Cefuroxime Axetil [Ceftin] 500 mg PO BID 5 Days #10 tab Tamsulosin HCl [Flomax] 0.4 mg PO DAILY #30 capsule Ondansetron [Zofran] 4 mg PO Q8HR PRN #20 tab PRN Reason: Nausea Continue Sertraline [Zoloft] 50 mg PO QAM Omeprazole [PriLOSEC] 20 mg PO DAILY Metoprolol Tartrate [Lopressor] 25 mg PO BID tiZANidine [Zanaflex] 4 - 6 mg PO QID PRN PRN Reason: Pain Dilaudid (Pain Pump) 1 dose INTRATHECA CONTINUOUS ALPRAZolam [Xanax] 0.5 mg PO TID PRN PRN Reason: Anxiety Gabapentin [Neurontin] 300 mg PO BID #60 cap Repaglinide [Prandin] 2 mg PO BID Albuterol Sulfate [Ventolin HFA] 2 puff INHALATION RT-Q6H PRN PRN Reason: Shortness Of Breath Gabapentin 300 mg PO HS metFORMIN HCL [Glucophage] 1,000 mg PO BID Morphine Sulfate Ir [MSIR] 30 mg PO QID PRN PRN Reason: Pain Rosuvastatin [Crestor] 10 mg PO DAILY Changed Insulin Glargine,Hum.rec.anlog [Lantus Solostar] 15 unit SQ DAILY #0 Warfarin [Coumadin] 1.5 mg PO DAILY@2100 #0 Discontinued Warfarin [Coumadin] 3 mg PO SUTUWEFRSA@2100 Discharge Medication List Omeprazole [PriLOSEC] 20 mg PO DAILY 10/06/13 [History] Sertraline [Zoloft] 50 mg PO QAM 10/06/13 [History] Metoprolol Tartrate [Lopressor] 25 mg PO BID 02/27/17 [History] Dilaudid (Pain Pump) 1 dose INTRATHECA CONTINUOUS 04/02/18 [History] tiZANidine [Zanaflex] 4 - 6 mg PO QID PRN 04/02/18 [History] ALPRAZolam [Xanax] 0.5 mg PO TID PRN 07/06/18 [History] Gabapentin [Neurontin] 300 mg PO BID #60 cap 09/13/18 [Rx] Repaglinide [Prandin] 2 mg PO BID 04/15/19 [History] Albuterol Sulfate [Ventolin HFA] 2 puff INHALATION RT-Q6H PRN 04/24/20 [History] Gabapentin 300 mg PO HS 04/24/20 [History] Morphine Sulfate Ir [MSIR] 30 mg PO QID PRN 04/24/20 [History] Rosuvastatin [Crestor] 10 mg PO DAILY 04/24/20 [History] metFORMIN HCL [Glucophage] 1,000 mg PO BID 04/24/20 [History] Cefuroxime Axetil [Ceftin] 500 mg PO BID 5 Days #10 tab 04/26/20 [Rx] Insulin Glargine,Hum.rec.anlog [Lantus Solostar] 15 unit SQ DAILY #0 04/26/20 [Rx] Ondansetron [Zofran] 4 mg PO Q8HR PRN #20 tab 04/26/20 [Rx] Tamsulosin HCl [Flomax] 0.4 mg PO DAILY #30 capsule 04/26/20 [Rx] Warfarin [Coumadin] 1.5 mg PO DAILY@2100 #0 04/26/20 [Rx] Follow up Appointment(s)/Referral(s): [facility], [NON-STAFF] - 1-2 Days Matt Gamble MD [STAFF PHYSICIAN] - 05/07/20 2:20 pm Cabrera Pinzon MD [Primary Care Provider] - 1 Week Patient Instructions/Handouts: Kidney Stones (DC), Urinary Tract Infection in Women (DC) Discharge Disposition: HOME WITH HOME HEALTH SERVICES
[2020-04-26] MEDS: metFORMIN 500 MG TAB PO SCH (08:43)
[2020-04-26] MEDS: ATORVASTATIN 20 MG TAB PO SCH (08:43)
[2020-04-26] MEDS: SERTRALINE 50 MG TAB PO SCH (08:43)
[2020-04-26 08:54] LABS: INR 1.1 (<1.2); Prothrombin Time 11.6 sec (9.0-12.0)
[2020-04-26] MEDS: ACETAMINOPHEN TAB 325 MG TAB PO PRN (08:59)
== END 2020-04-26 11:00 | disposition home health service (06) | DRG 694 ==
LOC: EC 13:47 → 6NMEDSUR 17:20 → OBSVTOIN 04-25 09:42
PROVIDERS: ADMIT Internal Medicine Geriatric Medicine; ATTEND Internal Medicine Geriatric Medicine
DX: N20.0 Calculus of kidney (principal); D68.32 Hemorrhagic disorder due to extrinsic circulating anticoagulants; N39.0 Urinary tract infection, site not specified; F33.9 Major depressive disorder, recurrent, unspecified; Z87.442 Personal history of urinary calculi; R31.0 Gross hematuria; T45.515A Adverse effect of anticoagulants, initial encounter; E11.9 Type 2 diabetes mellitus without complications; E78.5 Hyperlipidemia, unspecified; F41.1 Generalized anxiety disorder; G89.4 Chronic pain syndrome; I25.10 Atherosclerotic heart disease of native coronary artery without angina pectoris; I48.0 Paroxysmal atrial fibrillation; J44.9 Chronic obstructive pulmonary disease, unspecified; N32.81 Overactive bladder; Z79.01 Long term (current) use of anticoagulants; Z79.4 Long term (current) use of insulin; Z79.899 Other long term (current) drug therapy; Z82.49 Family history of ischemic heart disease and other diseases of the circulatory system; Z82.5 Family history of asthma and other chronic lower respiratory diseases; Z86.711 Personal history of pulmonary embolism; Z20.822 Contact with and (suspected) exposure to COVID-19; M54.9 Dorsalgia, unspecified; E66.9 Obesity, unspecified; Z86.718 Personal history of other venous thrombosis and embolism; Z87.440 Personal history of urinary (tract) infections; Z87.891 Personal history of nicotine dependence; Z90.710 Acquired absence of both cervix and uterus; Z91.81 History of falling; Z96.652 Presence of left artificial knee joint; Z99.81 Dependence on supplemental oxygen; Z98.1 Arthrodesis status; Z68.34 Body mass index [BMI] 34.0-34.9, adult; Z88.0 Allergy status to penicillin; Z88.8 Allergy status to other drugs, medicaments and biological substances
CPT/HCPCS: 36415; 74177; 80053; 81001; 82150; 83690; 85025; 85027; 85610; 85730; 87086; 87635; 96361; 96374; 96375; 96376; 99285

== ENCOUNTER → 2020-05-25 | Outpatient (CLI) | payer MEDICARE, BC ==
[2020-05-25 11:46] LABS: INR 1.3 (<1.2); Prothrombin Time 13.1 sec (9.0-12.0)
[2020-05-25 11:52] LABS: ALT 15 U/L (4-34); AST 20 U/L (14-36); African American GFR (CKD) >90 (>60 ml/min/1.73 sqM); Alkaline Phosphatase 110 U/L (38-126); Blood Urea Nitrogen 19 mg/dL (7-17); Calcium 9.1 mg/dL (8.4-10.2); Carbon Dioxide 31 mmol/L (22-30); Glucose 103 mg/dL (74-99); Non-African American GFR(CKD) 90 (>60 ml/min/1.73 sqM); Potassium 3.8 mmol/L (3.5-5.1); Sodium 138 mmol/L (137-145); Total Bilirubin 0.9 mg/dL (0.2-1.3); Total Protein 6.7 g/dL (6.3-8.2)
[2020-05-25 12:06] LABS: Anion Gap 7 mmol/L; Chloride 100 mmol/L (98-107)
[2020-05-25 12:26] LABS: Basophils # (A) 0.1 k/uL (0-0.2); Basophils % (A) 1 %; Eosinophils # (A) 0.4 k/uL (0-0.7); Eosinophils % (A) 4 %; HCT 38.2 % (34.0-46.0); HGB 11.9 gm/dL (11.4-16.0); Hypochromasia Marked; Lymphocytes # (A) 2.9 k/uL (1.0-4.8); Lymphocytes % (A) 31 %; MCHC 31.2 g/dL (31.0-37.0); MCV 83.2 fL (80.0-100.0); Mean Platelet Volume 7.6; Monocytes # (A) 0.4 k/uL (0-1.0); Monocytes % (A) 4 %; Neutrophils # (A) 5.6 k/uL (1.3-7.7); Neutrophils % (A) 59 %; Platelet Count 282 k/uL (150-450); RBC 4.59 m/uL (3.80-5.40); RDW 15.2 % (11.5-15.5); WBC 9.4 k/uL (3.8-10.6)
[2020-05-25 12:52] LABS: Appearance,Urine Clear (Clear); Bilirubin,Urine Negative (Negative); Blood,Urine Negative (Negative); Color,Urine Light Yellow; Glucose,Urine (UA) Negative (Negative); Ketones,Urine Negative (Negative); Leukocyte Esterase,Urine Negative (Negative); Nitrite,Urine Negative (Negative); Protein,Urine Negative (Negative); Specific Gravity,Urine 1.008 (1.001-1.035); Urobilinogen,Urine <2.0 mg/dL (<2.0)
== END | disposition home or self-care (01) ==
LOC: LABPAT 11:09
PROVIDERS: ATTEND Urology
DX: Z01.818 Encounter for other preprocedural examination (principal); N20.0 Calculus of kidney; Z79.01 Long term (current) use of anticoagulants; R31.0 Gross hematuria; E11.9 Type 2 diabetes mellitus without complications
CPT/HCPCS: 80053; 81003; 85025; 85610; 87086

== ENCOUNTER 2020-05-31 11:32 | Day surgery (SDC) | payer MEDICARE, BC ==
[2020-05-28 09:43] VITALS: BMI 34.9
--- NOTE | 2020-05-31 11:15 | P.HPIHPCON ---
History of Present Illness H&P Date: 05/31/20 Chief Complaint: Left renal calculi This is 64-year-old female with history of multiple left-sided renal stone, the largest measuring 1.2 cm. There was evidence of mild dilation of the collecting system secondary to her stone. Discussed with her the option of doing a urete roscopy, ESWL, PCNL. Discussed the risk and benefit of each approach in details. She agreed to proceed with left-sided ureteroscopy with holmium laser lithotripsy, stone basketing and stent placement. Discussed the risk which includes but not limited to bleeding, infection, injury to the ureter. Discussed with her given the size of the stone there is a potential's this need to be a staged procedure, and there is a possibility that we will need to do a second ureteroscopy to completely clear her stone burden. Consent for Procedure: I have explained the operation/procedure to the patient, including the risks, benefits, side effects, alternative therapies (including not receiving the proposed treatment or service), the likelihood of the patient achieving his/her goals, and potential recuperation problems for the procedure/sedation/analgesia, as well as any blood products, if indicated. I also explained to the patient the risks, benefits and side effects of the alternatives, as well as the risks related to not receiving the proposed procedure, care, treatment, or services. 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 COLITIS. CHRONIC BACK PAIN, Numbness/tingling LEFT LEG, USES CANE, (has WALKER & WHEELCHAIR), HX OF FALLS. Current kidney stones. History of Any Multi-Drug Resistant Organisms: None Reported Past Surgical History: Adenoidectomy, Bowel Resection, Breast Surgery, Cholecystectomy, Heart Catheterization, Hysterectomy, Joint Replacement, Orthopedic Surgery, Tonsillectomy Additional Past Surgical History / Comment(s): 01/24/14 OPEN HEART PROCEDURE-RT. VENTRICULOTOMY TO REMOVE BLOOD CLOT. HX BACK SURGERY- FUSION X3. INTRATHECAL PAIN PUMP - replaced on August 02, 2014. TESHA FILTER. HEART CATH X2. ORIF left forearm(for fx), bilateral Carpal tunnel, clarita breast reduction, SPINAL CORD STIMULATOR INSERTED & REMOVED, lt knee replacement, PAIN CLINIC PROCEDURES. Past Anesthesia/Blood Transfusion Reactions: No Reported Reaction Additional Past Anesthesia/Blood Transfusion Reaction / Comment(s): , Past Psychological History: No Psychological Hx Reported Smoking Status: Former smoker Past Alcohol Use History: None Reported Additional Past Alcohol Use History / Comment(s): Quit smoking in 1992, SMOKED ON/OFF- STARTED SMOKING AT AGE 17 < 1ppd. Past Drug Use History: None Reported - Past Family History Daughter(s) Family Medical History: Pulmonary Embolus Father Family Medical History: Myocardial Infarction ([place]) Additional Family Medical History / Comment(s): at age 70. Mother Family Medical History: No Reported History Additional Family Medical History / Comment(s): Blood clot in heart. Medications and Allergies Home Medications Medication Instructions Recorded Confirmed Type Omeprazole [PriLOSEC] 20 mg PO QAM 10/06/13 05/28/20 History Sertraline [Zoloft] 50 mg PO QAM 10/06/13 05/28/20 History Metoprolol Tartrate [Lopressor] 25 mg PO BID 02/27/17 05/28/20 History Dilaudid (Pain Pump) 1 dose INTRATHECA CONTINUOUS 04/02/18 05/28/20 History tiZANidine [Zanaflex] 4 - 6 mg PO QID PRN 04/02/18 05/28/20 History ALPRAZolam [Xanax] 0.5 mg PO TID PRN 07/06/18 05/28/20 History Gabapentin [Neurontin] 300 mg PO BID #60 cap 09/13/18 05/28/20 Rx Repaglinide [Prandin] 2 mg PO BID 04/15/19 05/28/20 History Albuterol Sulfate [Ventolin HFA] 2 puff INHALATION RT-Q6H PRN 04/24/20 05/28/20 History Gabapentin 300 mg PO HS 04/24/20 05/28/20 History Morphine Sulfate Ir [MSIR] 30 mg PO QID PRN 04/24/20 05/28/20 History Rosuvastatin [Crestor] 10 mg PO DAILY 04/24/20 05/28/20 History metFORMIN HCL [Glucophage] 1,000 mg PO BID 04/24/20 05/28/20 History Ondansetron [Zofran] 4 mg PO Q8HR PRN #20 tab 04/26/20 05/28/20 Rx Tamsulosin HCl [Flomax] 0.4 mg PO DAILY #30 capsule 04/26/20 05/28/20 Rx Warfarin [Coumadin] 1.5 mg PO DAILY@2100 #0 04/26/20 05/28/20 Rx Insulin Glargine,Hum.rec.anlog 15 unit SQ QAM 05/28/20 05/28/20 History [Lantus Solostar] Lovenox (Unknown Dose) 1 dose SQ BID 05/28/20 05/28/20 History Allergies Allergy/AdvReac Type Severity Reaction Status Date / Time adhesive Allergy BANDAIDES Verified 05/28/20 09:44 INCLUDED.SKIN BLISTERS. PAPER TAPE IS OK. Penicillins Allergy HIVES Verified 05/28/20 09:44 ziprasidone HCl [From Geodon] Allergy ARRHYTHMIA Verified 05/28/20 09:44 ,HYPOTENSION ziprasidone mesylate Allergy ARRYTHMIA,H Verified 05/28/20 09:44 [From Geodon] YPOTENSION enoxaparin [From Lovenox] AdvReac thrombocyto Verified 05/28/20 09:44 penia heparin AdvReac thrombocyto Verified 05/28/20 09:44 penia silver AdvReac Itching Verified 05/28/20 09:44 [From Tegaderm AG Mesh] derma-shelton Allergy Rash/Hives Uncoded 05/28/20 09:44 Surgical - Exam - General well developed, well nourished, no distress, no pain - Eyes PERRL, normal ocular movement - ENT normal nares, normal mucosa - Respiratory normal expansion, normal respiratory effort Assessment and Plan Assessment: 64-year-old female with history of left-sided renal stone -Or for left-sided ureteroscopy, holmium laser lithotripsy, stone basketing, and stent placement
[~2020-05-31 11:32] MED LIST changes: -BUPIVACAINE UP TO 8 MG/ML, 31-60 ML SYRINGE MC ONE; +CIPROFLOXACIN/DEXTROSE PMX 400 MG in DEXTROSE/WATER 1 200ML.BAG IVPB PRN; -HYDROMORPHONE FOR ANAZAO - PER 4 MG MISCELLANE ONE; +LACTATED RINGERS 1,000 ML IV SCH
[2020-05-31 12:17] LABS: Glucose,Whole Blood 166 mg/dL (75-99)
[2020-05-31] MEDS ORDERED: LACTATED RINGERS 1,000 ML IV ONE ×2 (12:17→17:27)
[2020-05-31] MEDS: ONDANSETRON 4 MG/2 ML VIAL ONE ×2 (12:18→19:12)
--- NOTE | 2020-05-31 12:20 | XR ---
EXAMINATION TYPE: XR KUB DATE OF EXAM: 05/31/2020 COMPARISON: 09/24/2014 INDICATION: Preop left renal calculus TECHNIQUE: Single view abdomen frontal projection FINDINGS: There is a normal bowel gas pattern. Psoas margins are normal. No organomegaly is present. Cholecystectomy clips are present. Pedicle screws are present. Inferior vena cava filter is present L 2-3. Electronic device over the right pelvis is present. Sacroiliac joint degenerative changes are pr esent. IMPRESSION: 1. Postsurgical changes through the abdomen and pelvis appear stable
[2020-05-31] MEDS ORDERED: fentaNYL (PF) 50 MCG/ML 2 ML AMP IVP ONE (12:28)
[2020-05-31 12:55] LABS: INR 1.1 (<1.2); Prothrombin Time 11.3 sec (9.0-12.0)
[2020-05-31] MEDS ORDERED: fentaNYL (PF) 50 MCG/ML 2 ML AMP IV ONE (14:53)
[2020-05-31] MEDS ORDERED: LIDOCAINE 1% INJ 10MG/ML (20 ML MDV) ONE (16:31)
[2020-05-31] MEDS ORDERED: SUCCINYLCHOLINE CHLORIDE 100 MG/5 ML SYR IV ONE (16:31)
[2020-05-31] MEDS ORDERED: PROPOFOL 10 MG/ML 20 ML VIAL IV ONE (16:31)
[2020-05-31] MEDS ORDERED: MIDAZOLAM 2 MG/2 ML VIAL ONE (16:31)
[2020-05-31] MEDS ORDERED: fentaNYL (PF) 50 MCG/ML 2 ML AMP ONE (16:31)
[2020-05-31] MEDS ORDERED: PHENYLEPHRINE-0.9% NACL SYG 1,000 MCG/10 ML SYRINGE ONE (16:31)
[2020-05-31] MEDS ORDERED: IOPAMIDOL-370 50ML BTL MISCELLANE ONE (17:01)
--- NOTE | 2020-05-31 17:44 | P.OP ---
Date of Procedure: 05/31/20 Preoperative Diagnosis: Left renal stone Postoperative Diagnosis: Same Procedure(s) Performed: cystoscopy, left retrograde pyelogram, ureteroscopy, holmium laser lithotripsy, stone basketing and stent placement Implants: 6-Burkinan by 24 cm stent on the left ureter Anesthesia: VELMA Surgeon: Matt Gamble Estimated Blood Loss (ml): 5 Pathology: other (left renal stone) Condition: stable Disposition: PACU Indications for Procedure: This is 64-year-old female with history of multiple left-sided renal stone, the largest measuring 1.2 cm. There was evidence of mild dilation of the collecting system secondary to her stone. Discussed with her the option of doing a ureteroscopy, ESWL, PCNL. Discussed the risk and benefit of each approach in details. She agreed to proceed with left-sided ureteroscopy with holmium laser lithotripsy, stone basketing and stent placement. Discussed the risk which includes but not limited to bleeding, infection, injury to the ureter. Discussed with her given the size of the stone there is a potential's this need to be a staged procedure, and there is a possibility that we will need to do a second ureteroscopy to completely clear her stone burden. Operative Findings: Multiple small stones within the upper pole, mid pole, and renal pelvis Description of Procedure: Patient was brought to the operating room, general anesthesia was induced. She was prepped and draped in sterile fashion and placed in a dorsal lithotomy position. A cystoscopy fitted with a 21-Burkinan sheath was inserted per urethra, cystoscopy was performed which showed no abnormality within the bladder. Attention was then carried to the left ureteral orifice which was intubated with an open-ended catheter. Retrograde pyelogram was performed which showed no filling defect along the course of the ureter. At this time a sensor wire was advanced through the catheter and the catheter was removed with the wire in place. Next an 1113 Bur[place]an access sheath was passed under fluoroscopy to the proximal ureter. Next the flexible ureteroscope was passed through the access sheath, of note the patient UPJ was narrowed, but I was able to advance the scope past the UPJ. Renoscopy was performed which showed multiple small stones within the upper pole, mid pole, and renal pelvis, all stones measured 1 mm in size or less, there appeared to be more consistent with stasis stones. Using t he holmium laser the stones were popcorned into smaller fragments. Some of the sizable fragments were removed using the stone basket. Repeat renoscopy showed no sizable stone, all remaining fragments were smaller than the diameter the wire. Pullback ureteroscopy showed no injury to the ureter. As the ureteroscope was withdrawn and a wire was advanced through. Next a ureteral stent was passed over the wire, the proximal curl was visualized on fluoroscopy and the distal curl was visualized using cystoscope. The bladder was emptied at the end of the case. The patient tolerated the procedure well was taken to PACU in stable condition
[2020-05-31 18:01] VITALS: RESP 16; TEMP 97
[2020-05-31 18:08] LABS: Glucose,Whole Blood 163 mg/dL (75-99)
[2020-05-31] MEDS ORDERED: HYDROmorphone 0.5 MG/0.5 ML SYRINGE IVP ONE (18:21)
[2020-05-31] MEDS ORDERED: ACETAMINOPHEN IV (For NPO) 1,000 MG/100 ML VIAL IVPB ONE (18:47)
[2020-05-31] MEDS ORDERED: ONDANSETRON 4 MG/2 ML VIAL ONE (19:07)
[2020-05-31 21:09] VITALS: BP 162/78; PULSE 80
--- NOTE | 2020-06-01 10:24 | FL ---
EXAMINATION TYPE: FL urography retrograde DATE OF EXAM: 05/31/2020 FLUOROSCOPY Fluoroscopy time of 35 seconds was used during left stent placement for left renal stone. 2 image/s document/s the procedure.
== END 2020-05-31 21:35 | disposition home or self-care (01) ==
LOC: OR 11:32
PROVIDERS: ATTEND Urology
DX: N20.0 Calculus of kidney (principal); I48.91 Unspecified atrial fibrillation; J44.9 Chronic obstructive pulmonary disease, unspecified; E11.9 Type 2 diabetes mellitus without complications; Z86.718 Personal history of other venous thrombosis and embolism; K21.9 Gastro-esophageal reflux disease without esophagitis; M19.90 Unspecified osteoarthritis, unspecified site; Z86.711 Personal history of pulmonary embolism; K44.9 Diaphragmatic hernia without obstruction or gangrene; G89.29 Other chronic pain; M54.5 Low back pain; R20.0 Anesthesia of skin; R20.2 Paresthesia of skin; Z91.81 History of falling; Z87.442 Personal history of urinary calculi; K52.9 Noninfective gastroenteritis and colitis, unspecified; Z90.89 Acquired absence of other organs; Z90.49 Acquired absence of other specified parts of digestive tract; Z90.710 Acquired absence of both cervix and uterus; Z96.652 Presence of left artificial knee joint; Z98.1 Arthrodesis status; Z96.89 Presence of other specified functional implants; Z95.828 Presence of other vascular implants and grafts; Z87.891 Personal history of nicotine dependence; Z87.81 Personal history of (healed) traumatic fracture; Z97.2 Presence of dental prosthetic device (complete) (partial); Z82.49 Family history of ischemic heart disease and other diseases of the circulatory system; Z79.891 Long term (current) use of opiate analgesic; Z79.01 Long term (current) use of anticoagulants; Z79.4 Long term (current) use of insulin; Z88.0 Allergy status to penicillin; Z88.8 Allergy status to other drugs, medicaments and biological substances; Z91.09 Other allergy status, other than to drugs and biological substances
CPT/HCPCS: 85610; 74420; 74018; 52356; C2625; C1894; C1758; C1769; J2250; J2405; J2001; J3010; J0744; J0131; J2370; J0330; J2704; J1170; Q9967

== ENCOUNTER → 2020-06-13 | Day surgery (SDC) | payer MEDICARE, BC ==
[~2020-06-13] MED LIST changes: +BUPIVACAINE UP TO 8 MG/ML, 31-60 ML SYRINGE MC ONE; -CIPROFLOXACIN/DEXTROSE PMX 400 MG in DEXTROSE/WATER 1 200ML.BAG IVPB PRN; +HYDROMORPHONE FOR ANAZAO - PER 4 MG MISCELLANE ONE; -LACTATED RINGERS 1,000 ML IV SCH
[2020-06-13 11:54] VITALS: BP 99/68; PULSE 74; RESP 18; TEMP 97.7
--- NOTE | 2020-06-13 12:10 | P.PCN ---
Date of Procedure: 06/13/20 Procedure(s) Performed: OPERATION: Intrathecal pain pump analysis, programming and reprogramming, and intrathecal pain pump refill. PREOPERATIVE DIAGNOSES: 1. near empty intrathecal pain pump time for refill. 2. 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 near empty intrathecal pain pump time for refill. 2. 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 CONDITION: Stable. Description of the procedure; Intrathecal pain pump analysed ,it showed patient currently had reservoir volume of [ 0 ] mL. The patient is receiving medication Dilaudid 10 mg/ ml, and bupivacaine concentration [ 7] mg/ml. Patient receiving daily dose of Dilaudid 5.8 mg/day and bupivacaine 4 mg per day Pain is controlled , patient using medication for breakthrough pain [ MSIR 30 mg every 8 hours] orally . The location of the pump ( Right Buttock ) Prepped with chlorhexidine x2 , then using 22-gauge needle DepoMed kit advanced through the pump port, Total of [ 2 ] ml removed from the pump,( expected volume 0 mL ) the pump was refilled with the new medication total volume [ 40] ml . The concentration of dilaudid 10 mg /ml , and the bupivacaine concentration [7 ] mg/ml. significantly, the pain is not improved with the breakthrough medication, I may increase her daily dose of Dilaudid to 5.84 mg per day, and bupivacaine increased to 4.09 mg per day The patient didn't give a bolus of 0.3 mg of Dilaudid over 10 minutes Prescription for MSIR 30 mg every 8 hours dispense 90 with 2 refills given, MAPS reviewed and it was appropriate Patient complaining of increase of neck pain and mostly on the right side of her neck with radiation to the top of the right shoulder, she denies any motor or sensory deficit and she reported that the neck pain increases with any neck movement examination showed Physical Examinations : -Constitutiona : Cooperative , not in acute distress . -HEENT : nech : supple , no Lymphadenopathy , normal thyroid size . : eyes : no ptosis , no icterus, no photophobia . - neurologic : Cranial nerve II to XII intact , no focal neurological deffecit . -psychatric : alert , oriented X 3 , appropriate affect , intact judgment and insight . -Lymphatic : no Lymphadenopathy . - musculoskeltal : Cervical Spine motor stregnth in the deltoid and biceps, normal right side , normal Left side motor stregnth biceps and the wrist extensors normal right side ,normal left side . motor stregnth in the triceps muscle . normal Right side , normal Left side deep tendon reflexes normal at the biceps , normal at Brachioradialis , normal at triceps. cervical facet loading test: Positive Bilaterally Spurling test= positive Right . I will order CT scan of the cervical spine without contrast to evaluate , she will follow up in 2 weeks - PQRS measures = - Patient's medications are documented in the chart. -Tobacco use is negative and counseling not Given. -Patient's has received pneumococcal vaccine. -Advanced care planning discussed, patient chose/not able to give. -Opiate contract signed. -Pain positive and follow-up visit/procedure is scheduled. -Patient's blood pressure measured , documented in the record ,and patient will follow up with the primary care. -Patient's weight was measured and body mass index above the normal limits. BMI 30 and patient instructed to follow-up with the primary care physician. -Patient was not identified as an unhealthy alcohol user
== END ==
LOC: PNWHC3 11:17
PROVIDERS: ATTEND Specialist
DX: Z45.89 Encounter for adjustment and management of other implanted devices (principal); M96.1 Postlaminectomy syndrome, not elsewhere classified; Z79.891 Long term (current) use of opiate analgesic
CPT/HCPCS: 62370; J1170

== ENCOUNTER → 2020-06-22 | Outpatient (CLI) | payer MEDICARE, BC ==
--- NOTE | 2020-06-22 20:41 | CT ---
EXAMINATION TYPE: CT cervical spine wo con DATE OF EXAM: 06/22/2020 COMPARISON: CT cervical spine 03/30/2009 HISTORY: Right arm pain and numbness. CT DLP: 465 mGycm Automated exposure control for dose reduction was used. TECHNIQUE: CT scan of the cervical spine is obtained without contrast, axial images are obtained, sagittal and c oronal reformatted images are also reviewed. FINDINGS: Similar to prior exam. There is multilevel spondylosis. Loss of disc height is present at C4-5, C5-6. Cervical vertebral bodies show preserved height, near anatomic alignment. No evident fracture. Cervi thanh vertebral bodies are intact. There is likely a spinal curvature. There is no significant spinal s tenosis evident. There is multilevel foraminal encroachment, uncovertebral joint hypertrophy and facet arthropathy cau ses foraminal encroachment right greater than left at C4-5, C5-6 shows bilateral foraminal encroachme nt and there is right-sided encroachment at C6-7. No obvious disc herniation. Prevertebral soft tissu e appears within normal limits. The C1-C2 articulation is within normal limits on the coronal images . IMPRESSION: There is no acute fracture or dislocation evident in the cervical spine. Multilevel foraminal encroac hment as described. CT not optimal to assess for disc herniation.
== END | disposition home or self-care (01) ==
LOC: RADCTMAIN 17:19
PROVIDERS: ATTEND Specialist
DX: M47.812 Spondylosis without myelopathy or radiculopathy, cervical region (principal); M99.71 Connective tissue and disc stenosis of intervertebral foramina of cervical region
CPT/HCPCS: 72125

== ENCOUNTER → 2020-07-02 | Outpatient (CLI) | payer MEDICARE, BC ==
[2020-07-02 12:12] VITALS: BP 134/82; PULSE 85; RESP 16; TEMP 98.4
--- NOTE | 2020-07-03 08:38 | P.PN ---
Subjective Progress Note Date: 07/02/20 This is visit for this 64 years old female with a history of failed back surgery syndrome and lumbar area, and patient came in for follow-up visit because she has a new complaint which is severe neck pain with radiation to the upper extremity, her last visit we ordered a computed tomography scan of the cervical spine (he can't order MRI because she had stimulator ) patient reported that she complained of severe pain with bilateral radiation to the upper extremity bilaterally associated with numbness and tingling sensation, with occasional weakness in her right side, the pain is constant , is currently on intrathecal pain therapy and is not helping her neck pain, Objective - Vital Signs Vital signs: Vital Signs Temp 98.4 F 07/02/20 12:08 Pulse 85 07/02/20 12:08 Resp 16 07/02/20 12:08 BP 134/82 07/02/20 12:08 Pulse Ox 90 L 07/02/20 12:08 Intake & Output 07/01/20 07/02/20 07/02/20 18:59 06:59 18:59 Weight 83.461 kg - Exam Physical Examinations : -Constitutiona : Cooperative , not in acute distress . -HEENT : nech : supple , no Lymphadenopathy , normal thyroid size . : eyes : no ptosis , no icterus, no photophobia . - neurologic : Cranial nerve II to XII intact , no focal neurological deffecit . -psychatric : alert , oriented X 3 , appropriate affect , intact judgment and insight . -Lymphatic : no Lymphadenopathy . - musculoskeltal : Cervical Spine motor stregnth in the deltoid and biceps, decreased right side , normal Left side motor stregnth biceps and the wrist extensors decreased right side ,normal left side . motor stregnth in the triceps muscle . Decreased Right side , normal Left side cervical facet loading test: Positive Bilaterally Spurling test= positive Right , positive left. Neck distraction test= positive Right , positive left. Pedro Pablo sign= positive right, positive left . Computed tomography scan of the cervical spine= multilevel foraminal stenosis at C4 5 C5 6 C6 7, and multilevel cervical facet arthropathy Assessment and Plan Plan: Assessment and plan=1-failed back surgery syndrome and lumbar area 2-cervical spondylosis with cervical facet arthropathy. 3-cervical foraminal stenosis. Because patient currently on intrathecal therapy, and the neck pain is not controlled with the current medication, and patient had some weakness in her right upper extremity, I will refer patient for evaluation by spine surgeon for possible surgical intervention, and patient will follow up with the pain clinic, after she is seen by a spine surgeon. - PQRS measures = - Patient's medications are documented in the chart. -Tobacco use is ,negative and counseling.Given. -Patient's has not received pneumococcal vaccine. -Advanced care planning discussed, patient not eligible. -Opiate contract signed. -Pain positive and follow-up visit/procedure is scheduled. -Patient's blood pressure measured [ 134/82 ] , and documented in the record ,and patient will follow up with the primary care. -Patient's weight was measured and body mass index [ ] above the normal limits and counseling was done. and patient instructed to follow-up with the primary care physician. -Patient was not identified as an unhealthy alcohol user Time with Patient: Less than 30
== END ==
LOC: PNWHC3 11:04
PROVIDERS: ATTEND Specialist
DX: M96.1 Postlaminectomy syndrome, not elsewhere classified (principal); M47.812 Spondylosis without myelopathy or radiculopathy, cervical region; M48.02 Spinal stenosis, cervical region
CPT/HCPCS: 99211

== ENCOUNTER 2020-08-02 08:06 | Day surgery (SDC) | payer MEDICARE, BC ==
[~2020-08-02 08:06] MED LIST changes: -BUPIVACAINE UP TO 8 MG/ML, 31-60 ML SYRINGE MC ONE; -HYDROMORPHONE FOR ANAZAO - PER 4 MG MISCELLANE ONE; +PREMYELOGRAM MEDICATION REVIEW 1 EACH MISC PO ONE
[2020-08-02] MEDS ORDERED: diazePAM 5 MG TAB PO PRN (08:07)
[2020-08-02 09:13] LABS: Mean Platelet Volume 7.7; Platelet Count 243 k/uL (150-450)
[2020-08-02 09:15] VITALS: TEMP 98.2
[2020-08-02 09:29] LABS: African American GFR (CKD) >90 (>60 ml/min/1.73 sqM); Glucose 184 mg/dL (74-99); Non-African American GFR(CKD) >90 (>60 ml/min/1.73 sqM)
[2020-08-02 09:54] LABS: INR 0.9 (<1.2)
[2020-08-02 10:01] LABS: Partial Thromboplastin Time 21.7 sec (22.0-30.0)
[2020-08-02] MEDS ORDERED: HYDROmorphone 0.5 MG/0.5 ML SYRINGE IVP PRN (10:10)
[2020-08-02] MEDS ORDERED: MORPHINE SULFATE IR 15 MG TABLET PO PRN (11:08)
[2020-08-02 11:12] VITALS: RESP 16
[2020-08-02 16:10] VITALS: BP 134/73; PULSE 88
--- NOTE | 2020-08-02 17:47 | FL ---
Lumbar puncture and cervical and thoracic Myelogram. INDICATION: Pain FINDINGS: Fluoroscopy time: 55 seconds. Images obtained: 3. The procedure was explained to the patient. Risks complications and benefits were discussed. Alternat millie were discussed. All questions were answered. Informed consent was obtained. A timeout was performed. The L3-L4 level was chosen for access. Maximum barrier sterile technique was utilized. The skin was c leansed with Betadine and the patient sterilely prepped and draped in the usual manner. The skin and deeper tissue was anesthetized with 1% Lidocaine. Utilizing a 22-gauge spinal needle the spinal canal was accessed. Good CSF return was evident. Omni 300 was utilized, 12 milliliters was administered u nder fluoroscopic observation. The stylette was replaced and the needle withdrawn. Fluoroscopic spot images were obtained during the procedure. Real-time observation was performed duri ng contrast placement immobilization. The patient tolerated the procedure well. Discharge instructions were discussed with the patient. Th e patient was transferred to CT for additional evaluation. Findings: Findings are pending CT results. IMPRESSIONS: 1. Successful Lumbar Puncture for thoracic and cervical CT myelogram.
--- NOTE | 2020-08-03 07:59 | CT ---
EXAMINATION TYPE: CT thoracic spine w con DATE OF EXAM: 08/02/2020 COMPARISON: None HISTORY: Thoracic pain CT DLP: 1911 mGycm Automated exposure control for dose reduction was used. Contrast: myelogram injection 12 mL Isovue or canal impingement through the thoracic spine. 300M. Technique: Axial images through millimeters thick sections. Reconstructed images in sagittal plane. FINDINGS: Contrast surrounds the spinal cord. No spinal canal stenosis is evident. Neural foramen appear patent . No focal disc herniations or significant disc bulges are evident. No impingement on the spinal cord is identified. Other: Inferior vena cava filter is noted. Stimulator lead is evident within the field of view. Verte bral body alignment is normal. Vertebral body heights are preserved. IMPRESSION: 1. NO SUSPICIOUS STENOSIS
--- NOTE | 2020-08-03 08:06 | CT ---
EXAMINATION TYPE: CT cervical spine w con DATE OF EXAM: 08/02/2020 COMPARISON: HISTORY: Cervicalgia CT DLP: 1330 mGycm CONTRAST: Performed with IV Contrast, patient intrathecal injected with 12ml mL of Isovue M300. CT of the cervical spine is performed in the axial plane at 2 mm thick sections. Reconstructed image s in the coronal, and sagittal plane are reviewed on the computer. No acute fractures are evident. Vertebral body alignment is normal. Disc space narrowing is present C4-5 C5-C6 and posteriorly at C6-7. Minimal endplate changes at C4-5 has mild right paracentral anterior thecal sac compression. Vertebral body heights are preserved. No spinal canal stenosis is evident Multilevel foraminal narrowing is present due to uncovertebral joint hypertrophy. This appears severe on the C4-5 and moderate to severe bilaterally C5-C6 and mild on the right at C6-7. No cord compression or deformity is evident. IMPRESSIONS: 1. No spinal canal stenosis or cord compression. 2. Degenerative disc changes greatest C4-5 and C5-6. 3. Foraminal stenosis greatest on the right appears severe at C4-5 due to uncovertebral joint hypertr ophy. Additional notable foraminal narrowing is present C5-6 bilaterally with moderate to severe narr owing.
== END 2020-08-02 15:08 | disposition home or self-care (01) ==
LOC: RADPROMAIN 08:06
PROVIDERS: ATTEND Orthopaedic Surgery
DX: M48.02 Spinal stenosis, cervical region (principal); F41.9 Anxiety disorder, unspecified; F32.9 Major depressive disorder, single episode, unspecified; J45.909 Unspecified asthma, uncomplicated; J44.9 Chronic obstructive pulmonary disease, unspecified; E11.9 Type 2 diabetes mellitus without complications; Z82.5 Family history of asthma and other chronic lower respiratory diseases; Z90.710 Acquired absence of both cervix and uterus; Z90.49 Acquired absence of other specified parts of digestive tract; Z79.01 Long term (current) use of anticoagulants; Z79.899 Other long term (current) drug therapy
CPT/HCPCS: 82565; 82947; 85049; 85610; 85730; 36415; 62305; 72129; 72126; J1170; Q9967

== ENCOUNTER → 2020-08-08 | Day surgery (SDC) | payer MEDICARE, BC ==
[~2020-08-08] MED LIST changes: +BUPIVACAINE UP TO 8 MG/ML, 31-60 ML SYRINGE MC ONE; +MORPHINE FOR ANAZAO - PER 10 MG MISCELLANE ONE; -PREMYELOGRAM MEDICATION REVIEW 1 EACH MISC PO ONE
[2020-08-08 13:08] VITALS: BP 138/73; PULSE 91; RESP 16; TEMP 97.9
--- NOTE | 2020-08-08 15:14 | P.PCN ---
Date of Procedure: 08/08/20 Procedure(s) Performed: OPERATION: Intrathecal pain pump analysis, programming and reprogramming, and intrathecal pain pump refill. PREOPERATIVE DIAGNOSES: 1. near empty intrathecal pain pump time for refill. 2. 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 near empty intrathecal pain pump time for refill. 2. 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 CONDITION: Stable. Description of the procedure; Intrathecal pain pump analysed ,it showed patient currently had reservoir volume of [ 7.3 ] mL. The patient is receiving medication Dilaudid 10 mg/ ml, and bupivacaine concentration [ 7] mg/ml. Patient receiving daily dose of Dilaudid 5.8 mg/day and bupivacaine 4 mg per day Pain is controlled , patient using medication for breakthrough pain [ MSIR 30 mg every 6 hours] orally . The location of the pump ( Right Buttock ) Prepped with chlorhexidine x2 , then using 22-gauge needle [employer] kit advanced through the pump port, Total of [ 10 ] ml removed from the pump,( expected volume 7.3 mL ) the pump was refilled with the new medication total volume [ 40] ml . The concentration of morphine sulfate PF 15 mg /ml , and the bupivacaine concentration [ 5 ] mg/ml. Patient will be started on the new dose which is morphine sulfate daily dose of 5 mg per day and bupivacaine daily dose of 1.6 mg per day s Prescription for MSIR 30 mg every 6 hours dispense 120 with 2 refills given, MAPS reviewed and it was appropriate Physical Examinations : -Constitutiona : Cooperative , not in acute distress . -HEENT : nech : supple , no Lymphadenopathy , normal thyroid size . : eyes : no ptosis , no icterus, no photoph obia . - neurologic : Cranial nerve II to XII intact , no focal neurological deffecit . -psychatric : alert , oriented X 3 , appropriate affect , intact judgment and insight . -Lymphatic : no Lymphadenopathy . - musculoskeltal : Cervical Spine motor stregnth in the deltoid and biceps, normal right side , normal Left side motor stregnth biceps and the wrist extensors normal right side ,normal left side . motor stregnth in the triceps muscle . normal Right side , normal Left side deep tendon reflexes normal at the biceps , normal at Brachioradialis , normal at triceps. cervical facet loading test: Positive Bilaterally Spurling test= positive Right . - PQRS measures = - Patient's medications are documented in the chart. -Tobacco use is negative and counseling not Given. -Patient's has received pneumococcal vaccine. -Advanced care planning discussed, patient chose/not able to give. -Opiate contract signed. -Pain positive and follow-up visit/procedure is scheduled. -Patient's blood pressure measured , documented in the record ,and patient will follow up with the primary care. -Patient's weight was measured and body mass index above the normal limits. BMI 30 and patient instructed to follow-up with the primary care physician. -Patient was not identified as an unhealthy alcohol user
== END ==
LOC: PNWHC3 12:21
PROVIDERS: ATTEND Specialist
DX: Z45.1 Encounter for adjustment and management of infusion pump (principal); M96.1 Postlaminectomy syndrome, not elsewhere classified; Z79.899 Other long term (current) drug therapy
CPT/HCPCS: 62370; J2274

== ENCOUNTER → 2020-08-15 | Outpatient (CLI) | payer MEDICARE, BC ==
[2020-08-15 10:13] VITALS: BP 110/79; PULSE 81; RESP 16; TEMP 97.8
--- NOTE | 2020-08-15 12:17 | P.PCN ---
Date of Procedure: 08/15/20 Procedure(s) Performed: OPERATION: Intrathecal pain pump analysis, programming and reprogramming. PREOPERATIVE DIAGNOSES: 1. Chronic pain syndrome. 2. 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 ANESTHESIA: None. CONDITION: Stable. Description of the procedure; this is 64 years old female with a history of severe and chronic low back pain she has intrathecal pain pump, as visit we changed her intrathecal pain medication from Dilaudid to morphine sulfate preservative free, and patient was started on intrathecal infusion of morphine sulfate concentration of 50 mg per mL and bupivacaine concentration of 5 mg per mL, and receiving a daily dose of morphine sulfate 4.99 mg per day and bupivacaine 1.66 mg per day and because patient continued to have severe low back pain i.e. increased her intrathecal pain pump medication to morphine sulfate 5.49 mg per day and to bupivacaine increased to 1.83 mg per day she is equal to 10% increase over the daily dose And patient had residual volume of 39.6 mL and she will come back for medication refill within 12 weeks, patient continued to use oral pain medication for breakthrough pain and she denies any side effects of the medication patient denies any excessive drowsiness or sleepiness, Physical Examinations : -Constitutiona : Cooperative , not in acute distress . -HEENT : nech : supple , no Lymphadenopathy , normal thyroid size . : eyes : no ptosis , no icterus, no photophobia . - neurologic : Cranial nerve II to XII intact , no focal neurological deffecit . -psychatric : alert , oriented X 3 , appropriate affect , intact judgment and insight . -Lymphatic : no Lymphadenopathy . - musculoskeltal : Lumber spine moter stegnth lower extremities ,thigh and legs 5/5 Right side , 5/5 Left side
== END ==
LOC: PNWHC3 09:55
PROVIDERS: ATTEND Specialist
DX: G89.4 Chronic pain syndrome (principal); M54.5 Low back pain; M96.1 Postlaminectomy syndrome, not elsewhere classified; F11.90 Opioid use, unspecified, uncomplicated; Z91.048 Other nonmedicinal substance allergy status; Z88.0 Allergy status to penicillin; Z88.8 Allergy status to other drugs, medicaments and biological substances
CPT/HCPCS: 99211

== ENCOUNTER → 2020-08-21 | Outpatient (CLI) | payer MEDICARE, BC ==
--- NOTE | 2020-08-21 16:08 | US ---
EXAMINATION TYPE: US venous doppler duplex LE LT DATE OF EXAM: 08/21/2020 3:41 PM COMPARISON: NONE CLINICAL HISTORY: I82.402 DVT of left leg. pain and edema left leg. history of DVT. patient was off b lood thinners for a few days due to renal surgery, started coumadin 3 weeks ago SIDE PERFORMED: Left TECHNIQUE: The lower extremity deep venous system is examined utilizing real time linear array sonog luís with graded compression, doppler sonography and color-flow sonography. VESSELS IMAGED: Common Femoral Vein Deep Femoral Vein Greater Saphenous Vein * Femoral Vein Popliteal Vein Small Saphenous Vein * Proximal Calf Veins (* superficial vessels) Left Leg: *positive for DVT left femoral vein extending into popliteal vein IMPRESSION: Findings as noted above positive for DVT.
== END | disposition home or self-care (01) ==
LOC: RADUSWWP 15:18
PROVIDERS: ATTEND Internal Medicine Geriatric Medicine
DX: I82.432 Acute embolism and thrombosis of left popliteal vein (principal)

== ENCOUNTER → 2020-09-18 | Outpatient (CLI) | payer MEDICARE, BC, OTHER ==
--- NOTE | 2020-09-19 06:41 | CT ---
EXAMINATION TYPE: CT angio head neck DATE OF EXAM: 09/18/2020 COMPARISON: None HISTORY: right arm numbness, hx of TIA CT DLP: 369 mGycm CONTRAST: Performed with IV Contrast, patient injected with 65cc mL of Isovue 370. Combination Contrast CTA cervical carotids and [place] CTA cervical carotids with 3-D recons truction Contrast CTA of the cervical carotids was performed 3-D reconstruction imaging obtained at a separate workstation. Right carotid system: Mild plaque is seen of the right common carotid artery. There is mild plaque a lso noted at the carotid bulb and proximal ICA. No significant diameter reduction. ECA is patent. Right vertebral artery appears unremarkable. Left carotid system: Mild plaque is seen of the left common carotid artery. There is mild plaque als o noted at the carotid bulb and proximal ICA. No significant diameter reduction. ECA is patent. Lef t vertebral artery appears unremarkable. IMPRESSION: 1. No significant diameter reduction to account for the patient's symptoms. CTA [place] with 3-D reconstruction Contrast CTA of the [place] was performed 3-D reconstruction imaging obtained at a separate workstation. Vertebrobasilar system as well as intracranial portions of the internal carotid arteries and their ma zita tributaries are patent. I do not see evidence for sizable aneurysm or vascular malformation. Pl ease note MRI provides greater sensitivity and specificity. Visualized brain appears grossly unremar kable. IMPRESSION: 1. No significant abnormality.
== END | disposition home or self-care (01) ==
LOC: RADCTMAIN 15:47
PROVIDERS: ATTEND Orthopaedic Surgery
DX: I65.23 Occlusion and stenosis of bilateral carotid arteries (principal); Z86.73 Personal history of transient ischemic attack (TIA), and cerebral infarction without residual deficits
CPT/HCPCS: 82565; 84520; 70496; 70498; 36415; Q9967

== ENCOUNTER → 2020-10-03 | Outpatient (CLI) | payer MEDICARE, OTHER ==
[2020-10-03 10:09] VITALS: BP 124/79; PULSE 66; RESP 18; TEMP 98.3
--- NOTE | 2020-10-03 10:21 | P.PCN ---
Date of Procedure: 10/03/20 Description of Procedure: OPERATION: Intrathecal pain pump analysis, programming and reprogramming. PREOPERATIVE DIAGNOSES: 1. Chronic pain syndrome. 2. opioid tolerance 3. failed back surgery syndrome [place] ar area POSTOPERATIVE DIAGNOSES: Same as preoperative diagnosis. ANESTHESIA: None. CONDITION: Stable. Description of the procedure; this is 64 years old female with a history of se luis m and chronic low back pain she has intrathecal pain pump, as visit we changed her intrathecal pain medication from Dilaudid to morphine sulfate preservative free, and patient was started on intrathecal infusion of morphine sulfate concentration of 50 mg per mL and bupivacaine concentration of 5 mg per mL, and receiving a daily dose of morphine sulfate 5.49 mg per day and bupivacaine 1.83 mg per day and because patient continued to have severe low back pain. today we increased her intrathecal pain pump medication to morphine sulfate 6.048 mg per day and to bupivacaine increased to 2.0159 mg per day she is equal to 10% increase over the daily dose And patient had residual volume of 22.2 mL and she will come back for medication refill in a few weeks, patient continued to use oral pain medication for breakthrough pain and she denies any side effects of the medication patient denies any excessive drowsiness or sleepiness,
== END ==
LOC: PNWHC3 09:56
PROVIDERS: ATTEND Anesthesiology
DX: G89.4 Chronic pain syndrome (principal); M96.1 Postlaminectomy syndrome, not elsewhere classified; Z45.1 Encounter for adjustment and management of infusion pump; Z88.0 Allergy status to penicillin; Z91.048 Other nonmedicinal substance allergy status; Z88.8 Allergy status to other drugs, medicaments and biological substances; Z88.9 Allergy status to unspecified drugs, medicaments and biological substances; Z87.891 Personal history of nicotine dependence
CPT/HCPCS: 62368

== ENCOUNTER → 2020-10-24 | Day surgery (SDC) | payer MEDICARE, BC ==
[2020-10-24 12:49] VITALS: BP 144/85; PULSE 73; RESP 18; TEMP 98.2
--- NOTE | 2020-10-24 13:21 | P.PCN ---
Date of Procedure: 10/24/20 Description of Procedure: OPERATION: Intrathecal pain pump analysis, programming and reprogramming. PREOPERATIVE DIAGNOSES: 1. Chronic pain syndrome. 2. opioid tolerance 3. failed back surgery syndrome [facility] area POSTOPERATIVE DIAGNOSES: Same as preoperative diagnosis. ANESTHESIA: None. CONDITION: Stable. Description of the procedure; this is 65 years old female with a history of se luis m and chronic low back pain she has intrathecal pain pump, awe changed her intrathecal pain medication from Dilaudid to morphine sulfate preservative free, and patient was started on intrathecal infusion of morphine sulfate concentration of 50 mg per mL and bupivacaine concentration of 5 mg per mL, and receiving a daily dose of morphine sulfate 6.048 mg per day and bupivacaine 2.0159 mg per day and because patient continued to have severe low back pain i.e. increased her intrathecal pain pump medication to morphine sulfate 6.654 mg per day and to bupivacaine increased to 2.180 mg per day she is equal to 10% increase over the daily dose. This is her third increase in 3 visits, we have started very slow with her dose as reviewed recently changed from Dilaudid to morphine. Given that she has had some episodes of sleepiness is likely the last time we increase her pump for some time. I was able to remove 15 mL from the current pump and refilled the reservoir with 40 mL of medication. Physical Examinations : -Constitutiona : Cooperative , not in acute distress . -HEENT : nech : supple , no Lymphadenopathy , normal thy roid size . : eyes : no ptosis , no icterus, no photophobia . - neurologic : Cranial nerve II to XII intact , no focal neurological deffecit . -psychatric : alert , oriented X 3 , appropriate affect , intact judgment and insight . -Lymphatic : no Lymphadenopathy . - musculoskeltal : Lumber spine moter stegnth lower extremities ,thigh and legs 5/5 Right side , 5/5 Left side Return in 12 weeks for medication and pump refill. She is due to get neck surgery with Dr. Barrow shortly. I also wrote her prescription for Narcan spray as her son accompanied her and mentioned that at one point earlier in the month she had gotten dizzy but is most likely due to the muscle relaxer. Her son also mention that some point they might moved to [place] and was requesting that we be able to send records if requested. I have spent 28 minutes on patient care today. The time was used to review the medical records including relevant urine studies and prescription history, review of the available imaging, evaluation and examination of the patient, coordination of care with the medical staff and if applicable referring physicians, as well as creation of the medical record.
== END ==
LOC: PNWHC3 12:28
PROVIDERS: ATTEND Anesthesiology
DX: Z45.1 Encounter for adjustment and management of infusion pump (principal); G89.4 Chronic pain syndrome; M96.1 Postlaminectomy syndrome, not elsewhere classified; M54.5 Low back pain
CPT/HCPCS: 62370; J2274

== ENCOUNTER → 2020-11-26 | Outpatient (CLI) | payer MEDICARE, BC ==
[2020-11-26 15:28] LABS: Anisocytosis Slight; HCT 40.6 % (34.0-46.0); HGB 12.7 gm/dL (11.4-16.0); Hypochromasia Slight; MCH 25.3 pg (25.0-35.0); MCHC 31.2 g/dL (31.0-37.0); MCV 81.1 fL (80.0-100.0); Mean Platelet Volume 7.1; Platelet Count 256 k/uL (150-450); RBC 5.01 m/uL (3.80-5.40); RDW 16.1 % (11.5-15.5); WBC 9.5 k/uL (3.8-10.6)
[2020-11-26 15:44] LABS: African American GFR (CKD) >90 (>60 ml/min/1.73 sqM); Anion Gap 10 mmol/L; Blood Urea Nitrogen 19 mg/dL (7-17); Carbon Dioxide 27 mmol/L (22-30); Chloride 102 mmol/L (98-107); Non-African American GFR(CKD) 81 (>60 ml/min/1.73 sqM); Potassium 4.5 mmol/L (3.5-5.1); Sodium 139 mmol/L (137-145)
== END | disposition home or self-care (01) ==
LOC: LABWHC1 15:04
PROVIDERS: ATTEND Internal Medicine Interventional Cardiology
DX: Z01.812 Encounter for preprocedural laboratory examination (principal)
CPT/HCPCS: 36415; 80051; 82565; 84520; 85027

== ENCOUNTER 2020-11-27 06:07 | Day surgery (SDC) | payer MEDICARE, BC ==
[2020-11-20 09:48] VITALS: BMI 34.9
[~2020-11-27 06:07] MED LIST changes: +ALPRAZolam 0.25 MG TAB PO PRN; +ALPRAZolam 0.5 MG TAB PO PRN; -BUPIVACAINE UP TO 8 MG/ML, 31-60 ML SYRINGE MC ONE; -MORPHINE FOR ANAZAO - PER 10 MG MISCELLANE ONE; +NITROGLYCERIN SL TABS 0.4 MG TAB SUBLINGUAL PRN; +SODIUM CHLORIDE 0.9% 1,000 ML in EMPTY BAG 1 BAG IV ONE
[2020-11-27 06:40] LABS: Glucose,Whole Blood 77 mg/dL (75-99)
[2020-11-27] MEDS ORDERED: SODIUM CHLORIDE 0.9% 1,000 ML IV ONE (06:42)
[2020-11-27 06:43] VITALS: RESP 16; TEMP 97.9
[2020-11-27] MEDS ORDERED: GABAPENTIN 300 MG CAP PO STA (06:48)
[2020-11-27] MEDS ORDERED: MORPHINE SULFATE IR 15 MG TABLET PO PRN (06:48)
[2020-11-27] MEDS ORDERED: ATORVASTATIN 80 MG TAB PO ONE (07:00)
[2020-11-27] MEDS ORDERED: ASPIRIN 325 MG TAB PO ONE (07:00)
[2020-11-27 07:12] LABS: INR 1.4 (<1.2); Prothrombin Time 14.3 sec (9.0-12.0)
[2020-11-27] MEDS: fentaNYL (PF) 50 MCG/ML 2 ML AMP IV ONE ×2 (07:25→08:02)
[2020-11-27] MEDS ORDERED: IV FLUID CONTINUATION 1,000 ML IV ONE (07:25)
[2020-11-27] MEDS ORDERED: LIDOCAINE 1% INJ 10MG/ML (20 ML MDV) SQ ONE (08:03)
[2020-11-27] MEDS: MIDAZOLAM 2 MG/2 ML VIAL IV ONE ×2 (08:05→08:12)
[2020-11-27] MEDS ORDERED: VERAPAMIL SYRINGE (5 MG/10 ML) INTRAARTER ONE (08:11)
[2020-11-27] MEDS ORDERED: IOPAMIDOL-370 125ML BTL INJ ONE (08:21)
[2020-11-27] MEDS ORDERED: RX INFO: IV CONTRAST WAS GIVEN 1 EACH MISC MISCELLANE PRN (08:33)
[2020-11-27] MEDS ORDERED: MORPHINE SULFATE IR 30 MG PO PRN (08:34)
[2020-11-27] MEDS ORDERED: ALPRAZolam 0.5 MG TAB PO PRN (08:34)
[2020-11-27 08:41] LABS: Glucose,Whole Blood 76 mg/dL (75-99)
[2020-11-27] MEDS ORDERED: WARFARIN 3 MG TAB PO SCH (08:45)
[2020-11-27] MEDS ORDERED: MORPHINE PUMP INTRATHECA SCH (08:45)
[2020-11-27] MEDS ORDERED: SODIUM CHLORIDE 0.9% 1,000 ML IV SCH (08:45)
[2020-11-27] MEDS ORDERED: WARFARIN 5 MG TAB PO SCH (08:45)
[2020-11-27] MEDS ORDERED: SERTRALINE 50 MG TAB PO SCH (09:00)
[2020-11-27] MEDS ORDERED: NON FORMULARY DRUG (Rosuvastatin 10 MG Tablet) PO SCH (09:00)
[2020-11-27] MEDS ORDERED: METOPROLOL TARTRATE 25 MG TAB PO SCH (09:00)
[2020-11-27] MEDS ORDERED: NON FORMULARY DRUG (Insulin Glargine,Hum.Rec.Anlog [Lantus Solostar Pen] 100 UNIT/ML Insul SQ SCH (09:00)
[2020-11-27] MEDS ORDERED: NON FORMULARY DRUG (Omeprazole [Prilosec] 20 MG Capsule.Dr) PO SCH (09:00)
[2020-11-27] MEDS ORDERED: NON FORMULARY DRUG (Repaglinide [Prandin] 2 MG Tablet) PO SCH (09:00)
[2020-11-27] MEDS ORDERED: GABAPENTIN 300 MG CAP PO SCH (09:00)
[2020-11-27] MEDS ORDERED: predniSONE 10 MG TAB PO SCH (09:00)
--- NOTE | 2020-11-27 09:50 | CC ---
CARDIAC CATHETERIZATION REPORT Mrs. Vizcarra is a 65-year-old female with known history of diabetes and hyperlipidemia who has severe arthritic pain scheduled to undergo cervical surgery and underwent a myocardial perfusion imaging revealed and evidence of anterior wall ischemia. In view of that, recommendation was made regarding cardiac catheterization. The procedure as well as the risks and the complications were discussed with the patient who is in full understanding and agreement. PROCEDURE: Patient was brought to photo lab technician in fasting semi-sedated state after receiving fentanyl and Benadryl and achieving moderate conscious sedated state. Using Xylocaine anesthesia and Seldinger technique a 6-Frisian sheath was introduced in the right radial artery. Selective right and left coronary angiography were performed using 5-Frisian 3.5 bend right and left Felicity catheter. Multiple views of the coronary artery including hemiaxial views were obtained. Following that, a left Felicity was used to cross the aortic valve and left ventricular end diastolic pressure was calculated. Following that, catheter and sheath were removed. Hemostasis was obtained with deployment of TR band. There was no immediate complication. Patient was returned to his room in stable condition. Of note, the patient received 4000 units of intravenous heparin as well as intra-arterial verapamil. FINDINGS: LEFT MAIN: This is a short size vessel, bifurcating into left circumflex, left anterior descending artery, left main coronary artery has no evidence of high-grade stenosis. LEFT ANTERIOR DESCENDING CORONARY ARTERY: This is a large-sized vessel reaching towards the apex with a wraparound the apex segment giving rise to a diagonal branch. The left anterior descending coronary artery has no evidence of high-grade stenosis. LEFT CIRCUMFLEX: This is a nondominant vessel giving rise to a large obtuse marginal branch. The left circumflex as well as branches have no evidence of obstructive disease. RIGHT CORONARY ARTERY: This is a dominant vessel moderate in caliber bifurcating distally PDA and posterolateral segment branches. The RCA has mild plaque in the distal segment of 10%. The rest of the vessel has no high-grade stenosis. HEMODYNAMICS: There was no gradient across the aortic valve the left ventricle end-diastolic pressure was 20-22 mmHg. CONCLUSION: 1. Minimal plaque in the RCA. 2. Right dominance. RECOMMENDATION: In view of findings and anatomy, I recommend continued medical therapy with aggressive coronary risk factor modifications that have been initiated. Those findings and recommendations were discussed with the patient and her family and they are in full understanding and agreement. Duration of sedation is 22 minutes. MMODL / IJN: [id number] /
--- NOTE | 2020-11-27 09:54 | LTR ---
DATE OF SERVICE: 11/27/[address] Pinzon: I had the pleasure of performing cardiac catheterization on Mrs. Vizcarra at [facility] on November 27 and a full copy of procedure note will be forwarded to you. In brief, she was found to have minimal plaque in the RCA with no evidence of high- grade stenosis and based on this finding, I see no contraindication to upcoming orthopedic surgery. I will keep you updated on her progress. Thank you again for allowing me to participate in her care. Please call for any questions. Sincerely yours, MMODL / IJN: [id number] /
[2020-11-27 12:46] VITALS: BP 116/58; PULSE 58
[2020-11-27] MEDS ORDERED: MELATONIN 10 MG PO SCH (21:00)
[2020-11-27] MEDS ORDERED: traZODone HCL 50 MG TAB PO SCH (21:00)
== END 2020-11-27 11:45 | disposition home or self-care (01) ==
LOC: CATHCVL 06:07
PROVIDERS: ATTEND Internal Medicine Interventional Cardiology
DX: I25.10 Atherosclerotic heart disease of native coronary artery without angina pectoris (principal); R94.39 Abnormal result of other cardiovascular function study; E11.9 Type 2 diabetes mellitus without complications; E78.2 Mixed hyperlipidemia; Z20.822 Contact with and (suspected) exposure to COVID-19; M19.90 Unspecified osteoarthritis, unspecified site; Z87.891 Personal history of nicotine dependence; Z90.49 Acquired absence of other specified parts of digestive tract; Z98.1 Arthrodesis status; Z86.718 Personal history of other venous thrombosis and embolism; Z86.711 Personal history of pulmonary embolism; Z98.890 Other specified postprocedural states; Z88.0 Allergy status to penicillin; Z88.8 Allergy status to other drugs, medicaments and biological substances; Z91.09 Other allergy status, other than to drugs and biological substances
CPT/HCPCS: 93458; 85610; 87635; C1894; C1769; J2250; J2001; J3010; J1644; Q9967

== ENCOUNTER → 2020-12-27 | Outpatient (CLI) | payer MEDICARE, OTHER ==
--- NOTE | 2020-12-27 11:32 | XR ---
EXAMINATION TYPE: XR chest 2V DATE OF EXAM: 12/27/2020 COMPARISON: 12/15/18 HISTORY: Shortness of breath TECHNIQUE: Frontal and lateral views of the chest are obtained. FINDINGS: Scattered senescent parenchymal changes noted. Hyperinflation compatible with COPD. No evidence for infiltrate. No evidence for atelectasis. Heart size is stable. Mediastinal structures are stable and grossly unremarkable. No evidence for hilar prominence. Degenerative changes dorsal spine. IMPRESSION: 1. No evidence for acute pulmonary disease.
[2020-12-27 12:26] LABS: Basophils # (A) 0.1 k/uL (0-0.2); Basophils % (A) 1 %; Eosinophils # (A) 0.3 k/uL (0-0.7); Eosinophils % (A) 3 %; HCT 42.7 % (34.0-46.0); HGB 12.3 gm/dL (11.4-16.0); Hypochromasia Marked; Lymphocytes # (A) 3.1 k/uL (1.0-4.8); Lymphocytes % (A) 30 %; MCH 24.3 pg (25.0-35.0); MCHC 28.8 g/dL (31.0-37.0); MCV 84.6 fL (80.0-100.0); Mean Platelet Volume 7.7; Monocytes # (A) 0.5 k/uL (0-1.0); Monocytes % (A) 5 %; Neutrophils # (A) 6.3 k/uL (1.3-7.7); Neutrophils % (A) 61 %; Platelet Count 269 k/uL (150-450); RBC 5.05 m/uL (3.80-5.40); RDW 15.8 % (11.5-15.5); WBC 10.2 k/uL (3.8-10.6)
[2020-12-27 12:50] LABS: Potassium 4.4 mmol/L (3.5-5.1)
[2020-12-27 12:58] LABS: Prothrombin Time 56.3 sec (9.0-12.0)
[2020-12-27 13:32] LABS: INR 5.8 (<1.2)
== END | disposition home or self-care (01) ==
LOC: LABPAT 10:23
PROVIDERS: ATTEND Orthopaedic Surgery
DX: Z01.818 Encounter for other preprocedural examination (principal); M48.02 Spinal stenosis, cervical region; R06.02 Shortness of breath; Z22.322 Carrier or suspected carrier of Methicillin resistant Staphylococcus aureus
CPT/HCPCS: 36415; 71046; 80051; 85025; 85610; 87070

== ENCOUNTER → 2020-12-31 | Outpatient (CLI) | payer MEDICARE, OTHER ==
[2020-12-31 12:22] LABS: INR 1.2 (<1.2); Prothrombin Time 12.4 sec (9.0-12.0)
== END | disposition home or self-care (01) ==
LOC: PAT 10:52
PROVIDERS: ATTEND Orthopaedic Surgery
DX: Z79.01 Long term (current) use of anticoagulants (principal)
CPT/HCPCS: 85610

== ENCOUNTER 2021-01-01 10:08 | Observation (INO) | payer MEDICARE, OTHER ==
[2020-12-28 11:21] VITALS: BMI 34.9
[~2021-01-01 10:08] MED LIST changes: +ACETAMINOPHEN TAB 500 MG TAB PO PRN; -ALPRAZolam 0.25 MG TAB PO PRN; -ALPRAZolam 0.5 MG TAB PO PRN; +GABAPENTIN 300 MG CAP PO PRN; -NITROGLYCERIN SL TABS 0.4 MG TAB SUBLINGUAL PRN; +ONDANSETRON 4 MG/2 ML VIAL IVP PRN; -SODIUM CHLORIDE 0.9% 1,000 ML in EMPTY BAG 1 BAG IV ONE
[2021-01-01 10:53] LABS: Glucose,Whole Blood 157 mg/dL (75-99)
[2021-01-01] MEDS: LACTATED RINGERS 1,000 ML IV SCH (11:00)
[2021-01-01] MEDS: DEXAMETHASONE SOD PHOSPHATE 4 MG/ML 1 ML VIAL IV ONE ×2 (11:02→20:43)
[2021-01-01] MEDS: ONDANSETRON 4 MG/2 ML VIAL IVP ONE ×2 (11:02→20:43)
[2021-01-01 11:18] LABS: Basophils # (A) 0.1 k/uL (0-0.2); Basophils % (A) 1 %; Eosinophils # (A) 0.3 k/uL (0-0.7); Eosinophils % (A) 3 %; HCT 41.5 % (34.0-46.0); HGB 13.1 gm/dL (11.4-16.0); Hypochromasia Slight; Lymphocytes # (A) 3.7 k/uL (1.0-4.8); Lymphocytes % (A) 36 %; MCHC 31.5 g/dL (31.0-37.0); MCV 82.7 fL (80.0-100.0); Mean Platelet Volume 7.6; Monocytes # (A) 0.4 k/uL (0-1.0); Monocytes % (A) 4 %; Neutrophils # (A) 5.6 k/uL (1.3-7.7); Neutrophils % (A) 55 %; Platelet Count 261 k/uL (150-450); RBC 5.02 m/uL (3.80-5.40); RDW 15.9 % (11.5-15.5); WBC 10.2 k/uL (3.8-10.6)
[2021-01-01 11:26] LABS: INR 1.1 (<1.2); Prothrombin Time 11.2 sec (9.0-12.0)
--- NOTE | 2021-01-01 12:30 | P.HPOR ---
History of Present Illness H&P Date: 01/01/21 Chief Complaint: RUE weakness, neck pain, RUE pain 65 yo female presents today for surgery on her neck. She has had progressive symptoms of her RUE over the past year and has had several set backs precluding her from having surgery sooner. 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 She has progressive RUE symptoms still with pain in her RUE that radiates to her hand and arm. She has progressive weakness of the RUE that has not improved since her last visit and her pain seems to have gotten worse. She went through extensive work up and conservative measures all of which have failed to alleviate her sx and so she has opted for surgical treatment for this issue. HISTORY: To review, at the patient's last appointment on 09/10/2020 she was given an order for a CT Arthrogram of her brain along with a referral for a neurology consult to rule out any neurological issues. Additionally, a doppler of her RUE was ordered to rule out any vascular issues as well. [place] presents to the office to review the results of these tests. She notes that her pain and symptoms have worsened since her last appointment. The patient reports that due to the severity of her arm pain she is unable to complete many of her daily activities. She would like to proceed with discussing surgical options. Pt was last evaluated on 09/10/2020 for her RUE weakness, neck, shoulder and arm pain as well as gait instability. She had been doing home exercises, but she was not able to perform most of her exercises because of her debility. She has a long hx of lumbar issues as well that affects her. She stated she recently had to send her down to be with her son as she is unable to care for him at this time as she is having extreme difficulty caring for herself. She stated she has continued pain and weakness in her RUE as well as her LLE. She stated difficulty with ambulation. She stated no bowel or bladder issues. No perineal numbness tingling. She stated difficulty with fine motor skills as well still. She stated her pain was a 4/10 at the last appointment. Denied any LUNDBERG, vision changes, hearing changes at this time . No F/c/sob/cp. Patient denied any specific injury. She stated that she has had neck pain for 1 year. She noted right shoulder pain and right hand numbness she is having extreme weakness in her RUE for the past 6 months. 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 She has been seen frequently at the spine interventional clinic for injections, ablations and other modalities but these are not helping her and her arm seems to have gotten weaker. Patient is taking Zanaflex 4mg-6mg four time day. Patient was ambulating independently. She denied any difficulty with gait or fine motor skills at this time. Denied any f/c/sob/cp. The patients' past social, medical, family, surgical history, as well as review of systems, have been reviewed. Please refer to the Neurosurgery History and Physical form that has been scanned in to our electronic medical record system. Review of Systems 14 points review of systems completed and as stated in HPI, all other systems reviewed are negative. 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 HIATAL HERNIA. COLITIS. CHRONIC BACK PAIN, numbness/tingling LEFT LEG, HX OF FALLS. DDD IN NECK. History of Any Multi-Drug Resistant Organisms: None Reported Past Surgical History: Adenoidectomy, Bowel Resection, Breast Surgery, Cholecystectomy, Heart Catheterization, Hysterectomy, Joint Replacement, Orthopedic Surgery, Tonsillectomy Additional Past Surgical History / Comment(s): 05/31/20 lithotripsy, stent placement for kidney stones. 01/24/14 OPEN HEART PROCEDURE-RT. VENTRICULOTOMY TO REMOVE BLOOD CLOT. BACK SURGERY- FUSION X3. INTRATHECAL PAIN PUMP - replaced on August 02, 2014. TESHA FILTER. HEART CATH X2. ORIF left forearm(for fx), bilateral Carpal tunnel, bilateral breast reduction, SPINAL CORD STIMULATOR INSERTED & REMOVED 05/2016. Lt knee replacement, PAIN CLINIC PROCEDURES. Past Anesthesia/Blood Transfusion Reactions: No Reported Reaction Additional Past Anesthesia/Blood Transfusion Reaction / Comment(s): . Past Psychological History: Anxiety, Depression Smoking Status: Former smoker Past Alcohol Use History: None Reported Additional Past Alcohol Use History / Comment(s): Quit smoking 1992, SMOKED ON/OFF, STARTED SMOKING AT AGE 17, < 1ppd. Past Drug Use History: None Reported - Past Family History Daughter(s) Family Medical History: Blood Disorder, Pulmonary Embolus Father Family Medical History: Myocardial Infarction ([place]) Additional Family Medical History / Comment(s): at age 70. Mother Family Medical History: Blood Disorder Additional Family Medical History / Comment(s): Blood clot in heart. Medications and Allergies Home Medications Medication Instructions Recorded Confirmed Type Omeprazole [PriLOSEC] 20 mg PO QAM 10/06/13 01/01/21 History Sertraline [Zoloft] 50 mg PO QAM 10/06/13 01/01/21 History Metoprolol Tartrate [Lopressor] 25 mg PO BID 02/27/17 01/01/21 History tiZANidine [Zanaflex] 4 - 6 mg PO QID PRN 04/02/18 01/01/21 History ALPRAZolam [Xanax] 0.5 mg PO TID PRN 07/06/18 01/01/21 History Gabapentin [Neurontin] 300 mg PO BID #60 cap 09/13/18 01/01/21 Rx Repaglinide [Prandin] 2 mg PO BID 04/15/19 01/01/21 History Rosuvastatin [Crestor] 10 mg PO DAILY 04/24/20 01/01/21 History metFORMIN HCL [Glucophage] 1,000 mg PO BID 04/24/20 01/01/21 History Insulin Glargine,Hum.rec.anlog 15 unit SQ QAM 05/28/20 01/01/21 History [Lantus Solostar Pen] predniSONE 10 mg PO QAM 07/24/20 01/01/21 History Morphine Pump 1 dose INTRATHECA CONTINUOUS 08/14/20 01/01/21 History Melatonin 10 mg PO HS 10/02/20 01/01/21 History Warfarin [Coumadin] 3 mg PO SUTUTHFRSA 11/20/20 01/01/21 History Warfarin [Coumadin] 4.5 mg PO MOWE 11/20/20 01/01/21 History traZODone HCL 50 mg PO HS 11/20/20 01/01/21 History Morphine Sulfate Ir [MSIR] 30 mg PO Q6HR PRN 30 Days #120 tab 12/27/20 01/01/21 Rx Enoxaparin [Lovenox] 80 mg SQ BID 12/28/20 01/01/21 History Gabapentin 600 mg PO HS 12/28/20 01/01/21 History Allergies Allergy/AdvReac Type Severity Reaction Status Date / Time adhesive Allergy BANDAIDES Verified 01/01/21 10:46 INCLUDED.SKIN BLISTERS. PAPER TAPE IS OK. Penicillins Allergy HIVES Verified 01/01/21 10:46 ziprasidone HCl [From Geodon] Allergy ARRHYTHMIA Verified 01/01/21 10:46 ,HYPOTENSION ziprasidone mesylate Allergy ARRYTHMIA,H Verified 01/01/21 10:46 [From Geodon] YPOTENSION enoxaparin [From Lovenox] AdvReac thrombocyto Verified 01/01/21 10:47 penia heparin AdvReac thrombocyto Verified 01/01/21 10:46 penia silver AdvReac Itching Verified 01/01/21 10:46 [From Tegaderm AG Mesh] derma-shelton Allergy Rash/Hives Uncoded 01/01/21 10:46 Physical Examination Osteopathic Statement: *. No significant issues noted on an osteopathic structural exam other than those noted in the History and Physical/Consult. PHYSICAL EXAMINATION: General: Awake, alert, appropriate for age, in no acute distress. HEENT: No unusual neck masses around region of lateral neck triangle, thyroid, supraclavicular groove Heart: Regular rate and rhythm, normal S1, S2 and no murmur/gallop. Lungs: Clear to auscultation bilaterally with no use of accessory muscles. Extremities: Skin warm and dry without acute lesions, coloration, temperature, skin intact, no tenderness or erythema Integument: Hairy patches: Absent Dorsal skin dimples: Absent Cafe au lait spots: Absent Surgical incisions: None present. Palpation: Please see Pain drawing on Intake sheet for further detail. no new ttp POSTURAL and MUSCULO-SKELETAL EVALUATION: Coronal Balance: NEUTRAL Recumbent testing: Patient is able to lay flat on back Sagittal Balance: NEUTRAL Shoulder Profile: LEVEL Pelvic Girdle: LEVEL Neck ROM: UNRESTRICTED Lumbar ROM: UNRESTRICTED Shoulder ROM: Symmetrical Hip ROM: Symmetrical Knee ROM: Symmetrical Hands: Normal appearance, symmetrical Feet: Normal appearance, Symmetrical VASCULAR STATUS : LEFT RIGHT Wrist Pulses INTACT INTACT Pedal Pulses (Dors. pedis & post.tibialis) INTACT INTACT Color NORMAL NORMAL Edema Absent Absent NEUROLOGIC EXAMINATION: Mental Status:Awake and alert, fully oriented, with normal attention, concentration and memory, and fluent, appropriate speech. Cranial Nerves: I: Olfactory not tested. II: Visual acuity normal, no visual field deficit noted with confrontation. III,IV: Normal pupillary reflexes & intact extraocular movements without nystagmus. V,: Intact symmetrical facial sensation. VII: Intact symmetrical facial motor movement VIII: Hearing intact. IX,X: Intact gag, swallow, & normal voice. XI: Sternocleidomastoid, trapezius function intact. XII: Tongue midline with normal movements. L'hermitte's Sign: Negative / absent Spurling'Sign: Absent bilaterally. Cubital percussion test: Absent bilaterally. La-Tinel sign - Carpal region: Absent bilaterally. Straight Leg Raising: Absent bilaterally. Crossed straight leg raise: negative O8 MOTOR EXAM (0-5/5, N/T) STRENGTH RIGHT LEFT Shoulder Abd (not part of the NILA score) 3 4+ Elbow Flexors 3 4+ Elbow Extensor 3 4+ Wrist Dorsiflexors 3 4+ Finger Abductor 3 4+ Document Coordinator 3 4+ Hip Flexor (Not part of NILA Motor score) 4+ 4+ Knee Flexor 4+ 4+ Knee Extensor 4+ 4+ Ankle dorsiflexor 4+ 3 Ankle plantarflexion 4+ 4+ Extensor hallucis 4+ 4+ REFLEXES(0-4/2, NT) RIGHT LEFT Upper Extremities 3 3 Lower Extremities 2 2 Pathological Reflexes RIGHT LEFT De Santiago's Present Present Clonus Absent Absent Babinski Absent Absent # Indicates mechanical impairment Muscle appearance: Symmetrical, without signs of atrophy or dystrophy. Rectal Tone:Deferred Normal, strong with volition control Sensory system (0-4, N/T) Test type RU MIHIR RL LL Joint-Position 2 2 2 2 Vibration 2 2 2 2 Pain & LT sense 2 2 2 2 Dermatomal Deficit: None None None None Gait and Functional Evaluation: Ambulatory aids: Independent Romberg's test: Intact bilaterally Toe heel walk / heel-toe walk intact while maintaining satisfactory balance? yes Squatting/straightening w/o assistance to a min of 60 degree knee flexion? yes Single leg stance: intact Trendelenburg sign negative bilaterally Hand and finger dexterity intact bilaterally? yes Disdiadochokinesis examination negative bilaterally? yes Results RADIOGRAPHIC STUDIES: XRay taken on 10/17/20 of Cervical was reviewed by Dr. Riojas and indicates: Spondylosis of the cervical spine from C3-7 with the worst from C4-7. There is accentuated lordosis at the level of C7-T1 with slight fishmouthing. There is no fracture evident and C0-1 and C1-2 appear stable through flexion and extension. There is no subaxial instability noted at this time. CT scan of Cervical was reviewed today by Dr. Barrow and indicates: CT of the c spine from 06/22/20 is reviewed. This demonstrates multiple levels of spondylosis and stenosis related to facet hypertrophy, disc oteophyte complexes and a degree of congenital stenosis. There is no fracture or dislocation and C01 and C12 joints are stable. There is spondylosis from C3-7, the worst from C4-7. There is overall fairly well maintained alignment. CT myelogram 08/02/20 was reviewed today by Dr. Barrow and indicates: severe stenosis C4-5 Right foralminal as well as C5-6 secondary to disc dessication, osteophytosis and facet hypertrophy. There is stenosis of the exiting root at these levels. C1-2 appear stable. OC appear stable. No fracture or lesions noted. - Labs Result Diagrams: 01/01/21 11:00 Assessment and Plan Assessment: 1. Cervical spondylosis severe C4-7 2. Cervical stenosis C4-6 3. RUE weakness, progressive 4. Possible Post CVA type symptoms 5. Hx DVT on coumadin, supratherapeudic INR, recheck has been w/in range Plan: Surgical Procedure Risk Review [place] Chapa is a 65 year old female presenting for evaluation of Severe C4-C6 cervical spondylosis . It was my pleasure to have seen and examined Ms. Joelle Chapa. In our visit today we have had a chance to go over subjective complaints, physical examination findings and treatments, including the natural course history without intervention and various interventional options. The imaging demonstrates cervical stenosis and spondylosis . On physical exam, Ms. Joelle Chapa demonstrates right upper extremity weakness. I explained to the patient that as her condition progresses it could cause . At this time, based on the patients imaging and physical exam, I recommend surgery in the form or a: . I discussed the risk and benefits of this procedure at length with . Joelle Chapa. The patient agreed to consider pursuing the procedure mentioned above. Plan: 1. Surgical plan- we will plan on a C4-C6 ACDF, Neurology consult reviewed as well as EMG which supports more of a cervical spinal pathology with radiculopathy as well as compressive symptoms. 2. Follow up with PCP for surgical clearance 3. Review of surgical risks and benefits as well as an educational packet on the proposed surgical procedure. 4. Follow up 1 week pre op. Risks: All surgical procedures come with inherent risks, including those related to positioning, anesthesia, intraoperative findings, and postoperative compli cations. It is important to understand that surgery does not come with any guarantee of a successful outcome as complications and adverse events are always possible. The patient was given a handout in office today discussing the surgical procedure and risks associated with the intervention, both of which were discussed with the patient. These risks include but are not limited to the following: ? Experiencing same, different or even worse symptoms in back, neck, arms, or legs compared to before surgery. ? Requiring further surgery or other forms of treatment presently or at some time in the future at same or other levels of the intended spine surgery. ? On an extreme but fortunately relatively rare basis severe complication such as blindness, stroke, heart attack, temporary and/or permanent nerve injury, paralysis, coma, or may occur, sometimes without known explanation. ? Surgical complications may include but are not limited to risk of infection, fluid accumulation in the surgical dissection site, including a seroma or hematoma, that requires additional surgery, wound drainage, bleeding, new numbness or weakness, vision changes/loss, spinal fluid leakage, non-healing and/or infected incision, headaches, difficulty or inability to swallow, hoarseness, hemopneumothorax, pneumothorax, impotence, retrograde ejaculation, vaginal dryness; injury to nerves, spinal cord, blood vessels, lymphatics or other vital organs (i.e., bowel injury, injury to the great vessels); heterotopic bone formation; complications related to the hardware such as screws, rods, cages including misplaced hardware, device failure, instrumentation at the wrong spine level, hardware fracture/breakage, or hardware loosening; vertebral failure of the spinal column above or below the newly placed hardware; retained surgical instrumentations or devices and the need for further surgery. ? Medical risks of the planned spine surgery include but are not limited to generalized Infections to the whole body or local areas outside of the surgical site (sepsis), heart attack, bleeding, anaphylaxis, meningitis, seizure, epilepsy, hearing loss, burn ivory, laceration of the head or other areas of the body, bruising, hypersensitivity of the skin, bladder over distension; allergic reaction; shoulder injury related to positioning; fat, blood and air clots to other areas of the body like heart, lungs, brain; failure of internal organs such as lungs, kidneys, liver and excessive bleeding. If blood transfusions are necessary, note that transfusions may cause intolerance reactions such as anaphylaxis or other complex reactions. Despite best efforts, the results of spine surgery might not heal in terms of bone, soft tissues such as skin, fascia, ligaments, and joints. Additionally, in order to achieve best possible results, spine surgery may be carried out beyond the initially planned levels and involve decompression, fusion including insertion of hardware at levels other than the original intended area of surgical interest change some portions of the procedure in order to ensure the best possible outcomes. With spine surgery and spinal fusion, there are different off label uses of instrumentation (devices, implants and hardware) as well as biological substances (bone morphogenic proteins, demineralized bone matrix) as well as using extra bone from allograft sources (i.e. cadaver bone) or autograft (iliac crest bone, ribs, or the spine itself). The patient has been given information about these practices and their inherent risks and benefits. [facility] Physician Assistants are medically trained surgical providers who function in the outpatient, inpatient, and operating room setting under the direct supervision of the attending surgeon.They assist in the operating room with direct supervision of the attending surgeons. The patient has had a chance to review all the listed information, has been given print outs detailing this information, and has had all his/her questions answered to their satisfaction. It was my pleasure to have seen and examined Ms. Joelle Chapa. In our visit today we have had a chance to go over my understanding of our patient's current condition, the natural course history without intervention and various interventional options. Questions were invited and answered, and the patient wishes to proceed as outlined above. I have seen and examined the patient for 25 minutes and we have spent more than 50% of the time in repeat and detailed counseling about the patient's condition, its natural course history with out and as much as can be predicted with surgery and re-review of various surgical treatment options. In conclusion,Ms. Joelle Chapa and her spouse/partner requested we proceed with the above suggested surgery and are willing to accept risks and limitations of the suggested surgery as nature of the disease process and our best attempts at treatment for the condition. Thank you again for allowing us to be part of your patient's care. Please don't hesitate to contact me if you have any further questions. Signed and authenticated by: Tay [facility]son [facility] [id number] [id number] In our visit today Ms. Joelle Chapa and I have had a chance to go over my understanding of the patient's current condition, the natural course history without intervention and various interventional options. Questions were invited and answered, and the patient wishes to proceed as outlined above.
[2021-01-01] MEDS ORDERED: GLYCOPYRROLATE 0.2 MG/ML 2 ML VIAL ONE (13:15)
[2021-01-01] MEDS ORDERED: PROPOFOL 10 MG/ML 20 ML VIAL IV ONE (13:15)
[2021-01-01] MEDS ORDERED: MIDAZOLAM 2 MG/2 ML VIAL ONE (13:15)
[2021-01-01] MEDS ORDERED: SUCCINYLCHOLINE CHLORIDE 100 MG/5 ML SYR IV ONE (13:15)
[2021-01-01] MEDS ORDERED: fentaNYL (PF) 50 MCG/ML 2 ML AMP ONE (13:15)
[2021-01-01] MEDS ORDERED: PHENYLEPHRINE-0.9% NACL SYG 1,000 MCG/10 ML SYRINGE ONE (13:15)
[2021-01-01] MEDS ORDERED: KETAMINE 10 MG/ML 20 ML VIAL ONE (13:15)
[2021-01-01] MEDS ORDERED: LIDOCAINE 1% INJ 10MG/ML (20 ML MDV) ONE (13:15)
[2021-01-01] MEDS ORDERED: BUPIVACAINE (PF) 0.25% 30 ML VIAL SQ ONE ×2 (14:44)
[2021-01-01] MEDS ORDERED: THROMBIN (BOVINE) 5,000 UNIT VIAL TOPICAL ONE (14:45)
[2021-01-01] MEDS ORDERED: GELATIN SPONGE,ABSORB (SMALL) 1 EACH SPONGE TOPICAL ONE (14:45)
--- NOTE | 2021-01-01 16:06 | FL ---
EXAMINATION TYPE: FL guidance operating room, XR cervical spine limited DATE OF EXAM: 01/01/2021 CLINICAL HISTORY: Cervicalgia. TECHNIQUE: Fluoroscopy. Limited view cervical spine. COMPARISON: CT cervical spine August 02, 2020. FINDINGS: Fluoroscopic guidance was provided during anterior cervical fusion procedure performed by Dr. Barrow. A total of 44 seconds of fluoroscopic time was utilized during the procedure and 6 s pot images was acquired. Intraoperative images acquired show placement of anterior fusion plate and metallic disc material C4- C6 levels. IMPRESSION: As Above.
[2021-01-01] MEDS ORDERED: SENNOSIDES-DOCUSATE SODIUM 1 EACH TAB PO PRN (16:28)
[2021-01-01] MEDS ORDERED: HYDROmorphone 0.5 MG/0.5 ML SYRINGE IVP PRN (16:28)
[2021-01-01] MEDS ORDERED: ONDANSETRON 4 MG/2 ML VIAL IVP PRN (16:28)
[2021-01-01] MEDS ORDERED: HYDROcodone/APAP 10-325MG 1 EACH TAB PO PRN (16:28)
[2021-01-01] MEDS ORDERED: MORPHINE SULFATE 4 MG/ML SYRINGE IVP PRN (16:28)
[2021-01-01] MEDS ORDERED: MAGNESIUM HYDROXIDE 2,400 MG/10 ML CUP PO PRN (16:28)
[2021-01-01] MEDS ORDERED: HYDROcodone/APAP 7.5-325MG 1 EACH TAB PO PRN (16:31)
[2021-01-01] MEDS: HYDROmorphone 0.5 MG/0.5 ML SYRINGE IVP PRN ×2 (16:54→17:11)
[2021-01-01 17:12] LABS: Glucose,Whole Blood 228 mg/dL (75-99)
[2021-01-01] MEDS ORDERED: INSULIN ASPART (NovoLOG) 100 UNIT/ML VIAL SQ ONE (17:22)
[2021-01-01] MEDS ORDERED: LACTATED RINGERS 1,000 ML IV ONE ×2 (17:28)
[2021-01-01] MEDS ORDERED: fentaNYL (PF) 50 MCG/ML 2 ML AMP IVP ONE ×2 (17:41→17:50)
[2021-01-01] MEDS ORDERED: WARFARIN 3 MG TAB PO ONE (18:00)
[2021-01-01 20:35] LABS: Glucose,Whole Blood 181 mg/dL (75-99)
[2021-01-01] MEDS: ACETAMINOPHEN TAB 325 MG TAB PO SCH ×2 (21:36→23:40)
[2021-01-01] MEDS: HYDROmorphone 1 MG/ML 1 ML SYRINGE IVP PRN (23:41)
[2021-01-02] MEDS ORDERED: tiZANidine 4 MG TAB PO PRN (00:13)
[2021-01-02] MEDS ORDERED: ALPRAZolam 0.5 MG TAB PO PRN (00:13)
[2021-01-02] MEDS: METOPROLOL TARTRATE 25 MG TAB PO SCH ×3 (00:42→21:20)
[2021-01-02] MEDS: ACETAMINOPHEN TAB 325 MG TAB PO SCH ×3 (05:35→18:32)
[2021-01-02 06:48] LABS: INR 1.1 (<1.2); Prothrombin Time 11.7 sec (9.0-12.0)
[2021-01-02 06:58] LABS: Glucose,Whole Blood 169 mg/dL (75-99)
[2021-01-02] MEDS: CYCLOBENZAPRINE 5 MG TAB PO PRN ×2 (07:55→17:56)
[2021-01-02] MEDS: HYDROmorphone 1 MG/ML 1 ML SYRINGE IVP PRN ×4 (07:58→19:30)
--- NOTE | 2021-01-02 08:16 | CT ---
EXAMINATION TYPE: CT cervical spine wo con DATE OF EXAM: 01/02/2021 COMPARISON: 08/02/2020 HISTORY: s/p cervical fusion CT DLP: 409.1 mGycm CONTRAST: None CT of the cervical spine is performed in the axial plane at 2 mm thick sections. Reconstructed image s in the coronal, and sagittal plane are reviewed on the computer. No acute fractures are evident. Vertebral body alignment is normal. There is an anterior cervical fusion with disc spacers at C4-C6. Disc heights are preserved. Vertebral body heights are preserved. No spinal canal stenosis is evident Uncovertebral joint hypertrophy on the right C3-4 has moderate foraminal stenosis. Uncovertebral join t hypertrophy greater on the right at C 4 5 is moderate to severe foraminal stenosis. Foraminal narro wing from uncovertebral joint hypertrophy is present C5-6 IMPRESSIONS: 1. Postsurgical changes cervical spine
[2021-01-02] MEDS: PANTOPRAZOLE 40 MG TABLET PO SCH (08:26)
--- NOTE | 2021-01-02 08:38 | P.PN ---
Subjective Progress Note Date: 01/01/21 (Pt s/e in PACU 1700) She is waking up and doing well. Still sleepy. Collar in place. Stable per nursing for floor. Objective - Vital Signs Vital signs: Vital Signs Temp 98.3 F 01/02/21 07:56 Pulse 68 01/02/21 07:56 Resp 16 01/02/21 07:56 BP 124/78 01/02/21 07:56 Pulse Ox 97 01/02/21 07:56 Intake & Output 01/01/21 01/02/21 01/02/21 18:59 06:59 18:59 Intake Total 2049 Output Total 1255 2049 Balance 795 -2049 Weight 84.1 kg Intake: IV 2049 Output: Urine 1200 2049 Estimated Blood Loss 55 Other: Voiding Method Indwelling Catheter - Exam Moving all 4 ext well. No focal deficits. Not cooperating fully yet due to anesthesia. NV intact distally. - Labs CBC & Chem 7: 01/01/21 11:00 Labs: Abnormal Lab Results - Last 24 Hours (Table) 01/01/21 01/01/21 01/01/21 Range/Units 10:52 11:00 17:09 RDW 15.9 H (11.5-15.5) % POC Glucose (mg/dL) 157 H 228 H (75-99) mg/dL 01/01/21 01/02/21 Range/Units 20:33 06:58 RDW (11.5-15.5) % POC Glucose (mg/dL) 181 H 169 H (75-99) mg/dL Assessment and Plan Assessment: POD0 C4-6 ACDF Plan: Stable for floor CT when able Collar at all times Pain control as needed Bridge coumadin to start 01/02/21 1700 PT/OT GI ppx
--- NOTE | 2021-01-02 08:41 | P.PN ---
Subjective Progress Note Date: 01/02/21 Is not seen and examined this morning she is doing very well she states that her pain is minimal. She can move her right arm much better and states that he has good strength. The pain in her shoulder is all but gone. She denies any other numbness or tingling she denies any perineal issues. She has not been out of bed yet however she is ready to get up and move with nursing at this time. She denies any fevers chills or some breath or chest pain at this time. Objective - Vital Signs Vital signs: Vital Signs Temp 98.3 F 01/02/21 07:56 Pulse 68 01/02/21 07:56 Resp 16 01/02/21 07:56 BP 124/78 01/02/21 07:56 Pulse Ox 97 01/02/21 07:56 Intake & Output 01/01/21 01/02/21 01/02/21 18:59 06:59 18:59 Intake Total 2049 Output Total 1255 2049 Balance 795 -2049 Weight 84.1 kg Intake: IV 2049 Output: Urine 1200 2049 Estimated Blood Loss 55 Other: Voiding Method Indwelling Catheter - Exam Patient is alert and oriented 3 appears well-nourished well-hydrated is in no acute distress. They does not appear septic. On exam the patient has no tenderness to palpation of her thoracic or lumbar spine. There is no edema or ballottement sign. Lower extremities with 4+ out of 5 strength in all major muscle groups is baseline for her Upper extremities show 4+/5 strength in all major muscle groups. Her right upper extremity shows great improvement in shoulder abduction forward flexion and external/internal rotation strength. There is FROM that is painless of the b/l UE and LE in all major joints. They are intact to light touch sensation in L2 to S1 nerve distribution. Patient has palpable dorsalis pedis was posterior tibial pulses. Compartments are soft and compressible. Patient shows a negative Homans, She is showing a slight positive Pedro Pablo's at this time this is baseline for her negative Babinski's negative clonus bilaterally. negative straight leg raise bilaterally. No tensioning signs. Cranial nerves II through XII are grossly intact. Overall alignment is well-maintained in the sagittal coronal planes. [] - Labs CBC & Chem 7: 01/01/21 11:00 Labs: Abnormal Lab Results - Last 24 Hours (Table) 01/01/21 01/01/21 01/01/21 Range/Units 10:52 11:00 17:09 RDW 15.9 H (11.5-15.5) % POC Glucose (mg/dL) 157 H 228 H (75-99) mg/dL 01/01/21 01/02/21 Range/Units 20:33 06:58 RDW (11.5-15.5) % POC Glucose (mg/dL) 181 H 169 H (75-99) mg/dL Assessment and Plan Assessment: Postop day 1 C4 to C6 ACDF Right upper extremity weakness History DVT on Coumadin [facility] medical patient Plan: -Appreciate automotive consultant and team management. -Activity: Ambulate QID, OOB all meals, up and about, limit lifting bending twisting to less than 5 lbs. Use walker or cane if needed for stability. -Daily PT/OT, increase ambulation strength and balance. -Hard cervical collar at all times -Pain control: [Adequate at this time] -Meds: Reviewed -GI ppx: senna, Miralax -DC alarcon when up and about, bedside commode if needed -DVT PPX: Lovenox to start today, bridge to coumadin -Hygiene: Shower today. Maintain dressing clean and dry. Meticulous cleaning after BMs away from incision site -Drains: [Maintain for now. Record output] -Encourage IS 10x/hr -Dispo: [Pending]
[2021-01-02 09:40] LABS: Basophils # (A) 0.03 X 10*3/uL (0.00-0.10); Basophils % (A) 0.3 %; Eosinophils # (A) 0.04 X 10*3/uL (0.04-0.35); Eosinophils % (A) 0.4 %; HCT 38.5 % (37.2-46.3); HGB 11.5 g/dL (12.0-15.0); Lymphocytes # (A) 1.64 X 10*3/uL (0.90-5.00); Lymphocytes % (A) 16.6 %; MCH 25.1 pg (27.0-32.0); MCHC 29.9 g/dL (32.0-37.0); MCV 83.9 fL (80.0-97.0); Mean Platelet Volume 10.2 fL (9.5-12.2); Monocytes # (A) 0.75 X 10*3/uL (0.20-1.00); Monocytes % (A) 7.6 %; Neutrophils % (A) 74.8 %; Platelet Count 245 X 10*3/uL (140-440); RBC 4.59 X 10*6/uL (4.10-5.20); WBC 9.89 X 10*3/uL (4.50-10.00)
--- NOTE | 2021-01-02 10:25 | P.OP ---
Date of Procedure: 01/01/21 Preoperative Diagnosis: - C4-C6 stenosis - Cervical spondylotic myelopathy - Cervical radiculopathy - Right upper extremity - Right upper extremity weakness, progressive - Cervical degenerative disc disease - Mechanical neck pain. Postoperative Diagnosis: - C4-C6 stenosis - Cervical spondylotic myelopathy - Cervical radiculopathy - Right upper extremity - Right upper extremity weakness, progressive - Cervical degenerative disc disease - Mechanical neck pain. Procedure(s) Performed: - Right sided Guerin-Kaplan exposure - C4-C5 anterior interbody arthrodesis. - C5-6 Anterior interbody arthrodesis - C4-C5 application of intervertebral biomechanical device. - C5-C6 application of intervertebral biomechanical device. - C4, C5 and C6 separate nonintegrated anterior cervical spinal plate instrumentation, three segments. - Allograft bone for spinal surgery. - Autograft local bone for spinal surgery. - Use of intraoperative microscope. - Use of neurophysiologic somatosensory and motor evoked potential monitoring, upper and lower extremities. Implants: Oto [place] cages 7 mm x2 Yesenia Pyrenese Plate anterior Bio4 Autograft Allograft Anesthesia: GETA Surgeon: Tay Barrow Health Information Managers #1: Hilario Shah (Was present and necessary for the entire case) Estimated Blood Loss (ml): 75 IV fluids (ml): 400 Urine output (ml): 100 Pathology: none sent Condition: stable Disposition: PACU Indications for Procedure: 65 yo female presents today for surgery on her neck. She has had progressive symptoms of her RUE over the past year and has had several set backs precluding her from having surgery sooner. She presented today having been cleared by her PCP, director stage, neurologist for surgery. She has progressive RUE symptoms still with pain in her RUE that radiates to her hand and arm. She has progressive weakness of the RUE that has not improved since her last visit and her pain seems to have gotten worse. She went through extensive work up and conservative measures all of which have failed to alleviate her sx and so she has opted for surgical treatment for this issue. CONSENT: Lengthy detailed discussions were held with the patient regarding the indications and alternatives to surgery, various surgical approaches to the problem at hand, the risk and complications of surgery as well as anticipated surgical procedure and postoperative course. The risks discussed included but were not limited to bleeding, possible need for transfusion, infection, blood vessel injury, blood vessel and lung clots, lymphatic injury, epidural hematoma, nerve injury, paralysis, dural spinal fluid leakage, urologic dysfunction, sexual dysfunction, surgical instrument failure, spinal pseudoarthrosis, adjacent segment degeneration, hardware failure, spinal instability, spinal vertebral fracture, need for further surgery, esophageal injury, difficulty swallowing, hoarseness or loss of vocalization, syncope, dizziness, headache, blindness, renal failure, pneumonia, respiratory or cardiac arrest, stroke, coma, and even . It is well understood by the patient the outcome of the complex spinal surgery such as this cannot be guaranteed. All questions were answered to the patient's satisfaction. The patient expressed excellent understanding of the above concepts. Based on our discussion, the patient elected to proceed with surgery as outlined above and signed informed consent. Description of Procedure: The patient was brought to the holding area on the day of surgery. In the holding area, the patient was seen and examined by myself. The surgical site was marked with my initials using an indelible pen. The patient was taken to the operating room today and after being positively identified, received general endotracheal anesthesia by our anesthesia colleagues and bilateral sequential compression devices were placed on the lower extremities by the nursing staff as well as alarcon catheter. SSEP, EMG and motor-evoked potential baselines were obtained after the neuromonitoring leads were applied by the neurophysiology computer aided design technician. Baseline MEPs and SSEPs were run showing good symmetric response in all extremities. SSEPs were also symmetric and stable. The patient was positioned on an interscapular pad on a Treos table with cervic al lordosis roll and GW tongs with 10 pounds of traction were applied. Arms were circumferentially padded. All pressure points were well padded as well. Shoulder pull-down with 3-inch tape was carried out. Preoperatively within 1 hour of incision, the patient received IV antibiotic prophylaxis and steroids. C-arm was used for bio-mapping in 2 planes. Sterile prepping and draping was completed and a safety timeout was carried out. The timeout was performed in order to confirm patient's identity, procedure, laterality, site, patient allergies, and preoperative administration of antibiotics and DVT prophylaxis. I then performed, as discussed with the patient, a Right sided anterior exposure along the anterior margin of the sternocleidomastoid muscle. This was about a 4 fingerbreadth-long incision. We identified the platysma and split it longitudinally. The superficial layer of the middle cervical fascia was identified and carefully dissected and then the deep layer of it. The omohyoid was mobilized and could be retracted. The deep cervical fascia was then released over the palpable osteophytes at C4-5 and C5-6 and reflected left and right with hahn elevators off the uncovertebral joints. Nice exposure left and right with release of the anterior soft tissues of the longus colli was achieved. A radiopaque marker was placed to confirm the appropriate surgical level. Under C-arm guidance, we verified levels. At this point, a self-retaining cervical retractor was placed, the endotracheal cuff pressure was lowered to reduce compression on the RLN and the intraoperative microscope was brought in for anterior decompression. I then removed the anterior osteophytes at C4-5 and C5-6. I also used a smaller ENT rongeur to open the disc spaces, including the uncovertebral joints left and right. Bone from the anterior decompression was saved for use as autograft bone fusion material. Under lateral C-arm guidance, I then placed 12 mm traction pins of the Boswell type into C4 and C5. Gentle distraction of the vertebrae was carried out until we had restored lordosis. I then spread out the C4-5 disc after releasing the disc further with straight small curets. With the soft tissue retractors having been replaced and without any undue tension, I performed an anterior discectomy completion to the posterior inferior vertebral body wall using a combination of the high-speed bur, Kerrison punches, spinal curettes, and the microscopic instruments. The discectomy was performed to the level of the posterior longitudinal ligament. Bilateral foraminotomies and resection of the PLL was performed with the Kerrison punches to decompress the spinal cord and the exiting nerve roots. I also performed rom dissection of the C4 endplate and the posterior superior endplate of C5, as well as the medial edge of the superior uncovertebral joints left and right of C5. I released the posterior longitudinal ligament and had full [place] dural sac as a reference for dorsal decompression of left through right. I then turned my attention toward the application of the intervertebral biomechanical device at C4-C5. The trial cages were inserted to identify the best fit. The appropriate-sized intervertebral cage was then selected, in this case a 7 mm lordotic interbody implant, packed with autograft and allograft and then inserted into the interspace using gentle impaction. A set of motor evoked potentials was run showing no change from baseline. Excess bone graft was then gently impacted into the anterior exposed gutters at C4-C5 to complete the anterior interbody arthrodesis at this level. Next, I performed the anterior discectomy at C5-C6. Under lateral C-arm guidance, I removed self-retaining Boswell distractor followed by the Boswell pin from the C4 body, sealed the pin site with bone wax and then placed 12 mm traction pin of the Boswell type into the C6 body. Gentle distraction of the vertebrae was carried out until we had restored lordosis. Then using a combination of the high-speed bur, Kerrison punches, spinal curettes, and the microscopic instruments, an anterior discectomy was performed to the level of the posterior longitudinal ligament. Bilateral foraminotomies and resection of the PLL was performed with the Kerrison punches to decompress the spinal cord and the exiting nerve roots. I then turned my attention toward the application of the intervertebral biomechanical device at C5-C6. The trial cages were inserted to identify the best fit. The appropriate-sized intervertebral cage was then selected, in this case a 7 mm lordotic interbody implant, packed with autograft and allograft and then inserted into the interspace using gentle impaction. A set of motor evoked potentials was run showing no change from baseline. Excess bone graft was then gently impacted into the anterior exposed gutters at C5-C6 to complete the anterior interbody arthrodesis at this level. Nice purchase was obtained. All traction was removed, including pin traction of Boswell and external traction weight. I then performed the application of the non-integrated anterior spinal instrumentation from C4, C5, and C6. A non-integrated anterior cervical plate was selected for length and then contoured as needed for lordosis with the Danish johnson. I templated a 42 mm Oto plate, lordosed it, and secured it with temporary holding screws and then checked with AP and lateral imaging for adequate alignment and implant placement. With that having been accomplished, I drilled first the patient's left-hand side C6 then 4 then 5. Then repeated on the right With this having been accomplished, all screw holes were filled with 12 or 14 mm 4.0 screws, depending upon intraoperative drill finding and probing. A very nice stable fixation was obtained. Biplanar imaging revealed satisfactory alignment and implant placement. There were no electrodiagnostic changes. The wound was then copiously irrigated and final hemostasis was achieved using FloSeal hemostatic agent and the bipolar device. At this point, the anterior cervical retractor was removed and the wound was found to have good hemostasis present. I then performed final thorough irrigation and review of the surgical site and found no internal organ injuries. I then closed the incision in layers with a deep drain. I used 3-0 Vicryl for platysma, 3-0 Vicryl for subcutaneous, and 4-0 Monocryl stratafix for skin. The skin was then dressed with Exofin and a sterile bandage. Suction canister was applied to the drain. The drain was sewn in to avoid accidental translocation. Drain dressing was applied. GW tongs removed and hemostatis at pin sites was achieved. A hard cervical collar was then applied. A final set of motor evoked potentials were run and no change from baseline was noted. At the conclusion of the operation, all sponge, needle, and instrument counts were deemed to be correct. The patient was awakened from their anesthetic, extubated in the operating room, transferred onto their hospital bed, and transferred to the post-anesthesia care unit in a stable condition, extubated condition. POSTOPERATIVE PLAN: Mobilization with collar to be worn for 3 months. Head of bed should be above 30 degrees. Swallowing trial with ice chips first and then advance from there.
[2021-01-02 10:55] LABS: African American GFR (CKD) 89.7 (60.0-200.0); Anion Gap 11.7 mmol/L (4.00-12.00); BUN/Creat Ratio 16.38 Ratio (12.00-20.00); Blood Urea Nitrogen 13.1 mg/dL (9.0-27.0); Calcium 8.9 mg/dL (8.7-10.3); Carbon Dioxide 28.3 mmol/L (21.6-31.8); Non-African American GFR(CKD) 77.4 (60.0-200.0)
[2021-01-02] MEDS: metFORMIN 500 MG TAB PO SCH ×2 (11:03→21:20)
[2021-01-02] MEDS: ATORVASTATIN 20 MG TAB PO SCH (11:04)
[2021-01-02] MEDS: SERTRALINE 50 MG TAB PO SCH (11:05)
[2021-01-02] MEDS: GABAPENTIN 300 MG CAP PO SCH ×2 (11:05→21:19)
[2021-01-02] MEDS: REPAGLINIDE 1 MG TAB PO SCH ×2 (11:06→21:20)
[2021-01-02 11:38] LABS: Glucose,Whole Blood 247 mg/dL (75-99)
[2021-01-02] MEDS: INSULIN DETEMIR (LEVEMIR) 100 UNIT/ML SYR SQ SCH (11:46)
[2021-01-02] MEDS: INSULIN ASPART (NovoLOG) 100 UNIT/ML VIAL SQ SCH ×3 (11:52→21:20)
--- NOTE | 2021-01-02 12:43 | P.CONS ---
History of Present Illness - Reason for Consult Consult date: 01/02/21 Medical management - History of Present Illness HISTORY OF PRESENT ILLNESS This is a 65-year-old female patient of Dr. Pinzon with past medical history of chronic pain syndrome status post multiple back and pain management procedures, hyperlipidemia, overactive bladder, coronary artery disease, paroxysmal atrial fibrillation on anticoagulation, with Coumadin, history of DVT and PE, generalized anxiety disorder and recurrent depression. Remote history of tobacco use and dependence. Patient brought into the hospital under the care of Dr. Barrow s/p C4 to C6 ACDF, post op day #1. Patient has been afebrile, HR 68, BP 124/78, PO 97% on RA. Vega catheter has been discontinued. Patient has had no postsurgical, occasions. She is planning to go home with homecare. REVIEW OF SYSTEMS Constitutional: No fever, no chills, no night sweats. No weight change. No weakness, no fatigue. No daytime sleepiness. EENT: No headache. No blurred vision or double vision, no loss of vision. No loss of Hearing, no ringing in the ears, no dizziness. No nasal drainage or congestion. No epistaxis. No sore throat. Lungs: No shortness of breath, cough, no sputum production. No wheezing. Cardiovascular: No chest pain, no lower extremity edema. No palpitations. No paroxysmal nocturnal dyspnea. No orthopnea. No lightheadedness or dizziness. No syncopal episodes. Abdominal: No abdominal pain. No nausea, no vomiting. No diarrhea. No constipation. No bloody or tarry stools.. No loss of appetite. Genitourinary: No dysuria, increased frequency, urgency. No urinary retention. Reports hematuria. Warts right flank pain Musculoskeletal: No myalgias. No muscle weakness, no gait dysfunction, no frequent falls. No back pain. Reported neck discomfort, right arm weakness. Integumentary: No wounds, no lesions. No rash or pruritus. No unusual brui sing. Neurologic: No aphasia. No facial droop. No change in mentation. No head injury. No headache. No paralysis. No paresthesia. Psychiatric: No depression. No anxiety. Endocrine: No abnormal blood sugars. No weight change. SOCIAL HISTORY Patient was a smoker of one pack per day on and off starting at age 17 and quit in 1992. No illicit drug use, no alcohol use. Patient lives at home with her and grandson. FAMILY HISTORY Mother at age 79 from COPD. Father at age 69 from myocardial infarction. Patient has one sister alive with history of lung cancer with metastatic disease to the brain and spine with history of smoking. Patient does not have any brothers. Patient's 3 children with no major medical problems. PHYSICAL EXAMINATION Gen: This is a 65-year-old female patient resting in recliner and appears to be in no acute distress. HEENT: Head is atraumatic, normocephalic. Pupils equal, round. Sclerae is anicteric. NECK: Hard c-collar in place. LUNGS: Clear to auscultation. No wheezes or rhonchi. No intercostal retractions. HEART: Regular rate and rhythm. Systolic murmur. ABDOMEN: Soft. Bowel sounds are present. No masses. No tenderness. EXTREMITIES: No pedal edema. No calf tenderness. NEUROLOGICAL: Patient is awake, alert and oriented x3. Cranial nerves 2 through 12 are grossly intact. ASSESSMENT AND PLAN 1. Cervical disc disease with right upper extremity weakness status post C4 to C6 ACDF, 01/01. 2. Chronic pain syndrome status post multiple back procedures and pain management procedures. Continue Zanaflex 4-6 mg 4 times daily as needed, morphine pump, morphine sulfate IR 30 mg 4 times daily as needed, gabapentin 300 mg twice daily and 600 mg at bedtime. 4. Paroxysmal atrial fibrillation on long-term anticoagulation. Resume coumadin, monitor INR. 5. History of DVT and PE. 6. Diabetes mellitus type 2. Continue Lantus 15 units daily, metformin 1000 mg twice daily, Prandin 2 mg twice daily and NovoLog scale before meals and at bedtime 7. Remote history of tobacco use and dependence. 8. Hyperlipidemia. Continue atorvastatin 20 mg daily. 9. Generalized anxiety disorder and recurrent depression. 10. GI prophylaxis. Protonix 40 mg daily. 11. DVT prophylaxis. SCDs and DEBBY hose. Coumadin. DISCHARGE PLAN Home with Home Care. Impression and plan of care have been directed as dictated by the signing physician. Deidre Starr nurse practitioner acting as scribe for signing physician. 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 HIATAL HERNIA. COLITIS. CHRONIC BACK PAIN, numbness/tingling LEFT LEG, HX OF FALLS. DDD IN NECK. History of Any Multi-Drug Resistant Organisms: None Reported Past Surgical History: Adenoidectomy, Bowel Resection, Breast Surgery, Cholecystectomy, Heart Catheterization, Hysterectomy, Joint Replacement, Orthopedic Surgery, Tonsillectomy Additional Past Surgical History / Comment(s): 05/31/20 lithotripsy, stent placement for kidney stones. 01/24/14 OPEN HEART PROCEDURE-RT. VENTRICULOTOMY TO REMOVE BLOOD CLOT. BACK SURGERY- FUSION X3. INTRATHECAL PAIN PUMP - replaced on August 02, 2014. TESHA FILTER. HEART CATH X2. ORIF left forearm(for fx), bilateral Carpal tunnel, bilateral breast reduction, SPINAL CORD STIMULATOR INSERTED & REMOVED 05/2016. Lt knee replacement, PAIN CLINIC PROCEDURES. Past Anesthesia/Blood Transfusion Reactions: No Reported Reaction Additional Past Anesthesia/Blood Transfusion Reaction / Comm: . Past Psychological History: Anxiety, Depression Smoking Status: Former smoker Past Alcohol Use History: None Reported Additional Past Alcohol Use History / Comment(s): Quit smoking 1992, SMOKED ON/OFF, STARTED SMOKING AT AGE 17, < 1ppd. Past Drug Use History: None Reported - Past Family History Daughter(s) Family Medical History: Blood Disorder, Pulmonary Embolus Father Family Medical History: Myocardial Infarction ([place]) Additional Family Medical History / Comment(s): at age 70. Mother Family Medical History: Blood Disorder Additional Family Medical History / Comment(s): Blood clot in heart. Medications and Allergies Home Medications Medication Instructions Recorded Confirmed Type Omeprazole [PriLOSEC] 20 mg PO QAM 10/06/13 01/01/21 History Sertraline [Zoloft] 50 mg PO QAM 10/06/13 01/01/21 History Metoprolol Tartrate [Lopressor] 25 mg PO BID 02/27/17 01/01/21 History tiZANidine [Zanaflex] 4 - 6 mg PO QID PRN 04/02/18 01/01/21 History ALPRAZolam [Xanax] 0.5 mg PO TID PRN 07/06/18 01/01/21 History Gabapentin [Neurontin] 300 mg PO BID #60 cap 09/13/18 01/01/21 Rx Repaglinide [Prandin] 2 mg PO BID 04/15/19 01/01/21 History Rosuvastatin [Crestor] 10 mg PO DAILY 04/24/20 01/01/21 History metFORMIN HCL [Glucophage] 1,000 mg PO BID 04/24/20 01/01/21 History Insulin Glargine,Hum.rec.anlog 15 unit SQ QAM 05/28/20 01/01/21 History [Lantus Solostar Pen] predniSONE 10 mg PO QAM 07/24/20 01/01/21 History Morphine Pump 1 dose INTRATHECA CONTINUOUS 08/14/20 01/01/21 History Melatonin 10 mg PO HS 10/02/20 01/01/21 History Warfarin [Coumadin] 3 mg PO SUTUTHFRSA 11/20/20 01/01/21 History Warfarin [Coumadin] 4.5 mg PO MOWE 11/20/20 01/01/21 History traZODone HCL 50 mg PO HS 11/20/20 01/01/21 History Morphine Sulfate Ir [MSIR] 30 mg PO Q6HR PRN 30 Days #120 tab 12/27/20 01/01/21 Rx Enoxaparin [Lovenox] 80 mg SQ BID 12/28/20 01/01/21 History Gabapentin 600 mg PO HS 12/28/20 01/01/21 History Allergies Allergy/AdvReac Type Severity Reaction Status Date / Time adhesive Allergy BANDAIDES Verified 01/01/21 10:46 INCLUDED.SKIN BLISTERS. PAPER TAPE IS OK. Penicillins Allergy HIVES Verified 01/01/21 10:46 ziprasidone HCl [From Geodon] Allergy ARRHYTHMIA Verified 01/01/21 10:46 ,HYPOTENSION ziprasidone mesylate Allergy ARRYTHMIA,H Verified 01/01/21 10:46 [From Geodon] YPOTENSION enoxaparin [From Lovenox] AdvReac thrombocyto Verified 01/01/21 10:47 penia heparin AdvReac thrombocyto Verified 01/01/21 10:46 penia silver AdvReac Itching Verified 01/01/21 10:46 [From Tegaderm AG Mesh] derma-shelton Allergy Rash/Hives Uncoded 01/01/21 10:46 Physical Exam Vitals: Vital Signs Temp Pulse Resp BP Pulse Ox 01/02/21 07:56 98.3 F 68 16 124/78 97 01/02/21 02:28 98.3 F 71 17 99/63 96 01/01/21 20:50 90 143/83 95 01/01/21 20:35 87 124/76 96 01/01/21 20:20 88 146/83 94 L 01/01/21 20:05 83 135/83 94 L 01/01/21 19:50 88 139/82 94 L 01/01/21 19:35 77 134/82 95 01/01/21 19:20 81 144/84 94 L 01/01/21 19:05 84 150/84 93 L 01/01/21 18:50 97.7 F 78 18 159/82 94 L 01/01/21 18:25 83 16 158/70 99 01/01/21 18:10 80 16 162/73 99 01/01/21 17:55 77 18 172/73 99 01/01/21 17:40 67 18 190/85 100 01/01/21 17:25 72 16 180/78 100 01/01/21 17:10 66 18 176/78 100 01/01/21 16:54 75 16 170/76 100 01/01/21 16:39 87 16 144/66 100 01/01/21 16:24 97.0 F L 90 16 132/64 99 Intake and Output 01/01/21 01/02/21 01/02/21 22:59 06:59 14:59 Intake Total 400 Output Total 2655 650 Balance -2255 -650 Intake: IV 400 Output: Urine 2600 650 Estimated Blood Loss 55 Other: Voiding Method Indwelling Catheter Weight 84.1 kg Results CBC & Chem 7: 01/02/21 06:12 01/02/21 06:12 Labs: Abnormal Lab Results - Last 24 Hours (Table) 01/01/21 01/01/21 01/02/21 Range/Units 17:09 20:33 06:12 Hgb 11.5 L (12.0-15.0) g/dL MCH 25.1 L (27.0-32.0) pg MCHC 29.9 L (32.0-37.0) g/dL RDW 16.0 H (11.5-14.5) % Glucose (70-110) mg/dL POC Glucose (mg/dL) 228 H 181 H (75-99) mg/dL 01/02/21 01/02/21 01/02/21 Range/Units 06:12 06:58 11:37 Hgb (12.0-15.0) g/dL MCH (27.0-32.0) pg MCHC (32.0-37.0) g/dL RDW (11.5-14.5) % Glucose 168 H (70-110) mg/dL POC Glucose (mg/dL) 169 H 247 H (75-99) mg/dL
[2021-01-02] MEDS: ENOXAPARIN 40 MG/0.4 ML SYRINGE SQ SCH (15:12)
[2021-01-02 16:46] LABS: Glucose,Whole Blood 221 mg/dL (75-99)
[2021-01-02] MEDS: HYDROmorphone 2 MG TAB PO PRN (16:52)
[2021-01-02] MEDS: LACTATED RINGERS 1,000 ML IV SCH (17:56)
[2021-01-02] MEDS ORDERED: WARFARIN 5 MG TAB PO ONE (18:00)
[2021-01-02] MEDS ORDERED: MELATONIN 5 MG TABLET PO SCH (21:00)
[2021-01-02] MEDS ORDERED: GABAPENTIN 300 MG CAP PO SCH (21:00)
[2021-01-02] MEDS ORDERED: traZODone HCL 50 MG TAB PO SCH (21:00)
[2021-01-02 21:16] LABS: Glucose,Whole Blood 180 mg/dL (75-99)
[2021-01-03] MEDS: ACETAMINOPHEN TAB 325 MG TAB PO SCH ×3 (01:04→11:04)
[2021-01-03] MEDS: HYDROmorphone 1 MG/ML 1 ML SYRINGE IVP PRN ×2 (02:12→08:36)
[2021-01-03 07:17] LABS: Glucose,Whole Blood 208 mg/dL (75-99)
[2021-01-03 08:20] VITALS: RESP 18
[2021-01-03] MEDS: INSULIN ASPART (NovoLOG) 100 UNIT/ML VIAL SQ SCH ×2 (08:34→11:44)
[2021-01-03] MEDS: INSULIN DETEMIR (LEVEMIR) 100 UNIT/ML SYR SQ SCH (08:35)
[2021-01-03] MEDS: ENOXAPARIN 40 MG/0.4 ML SYRINGE SQ SCH (08:36)
[2021-01-03] MEDS: PANTOPRAZOLE 40 MG TABLET PO SCH (08:38)
[2021-01-03] MEDS: metFORMIN 500 MG TAB PO SCH (08:38)
[2021-01-03] MEDS: METOPROLOL TARTRATE 25 MG TAB PO SCH (08:38)
[2021-01-03] MEDS: GABAPENTIN 300 MG CAP PO SCH (08:38)
[2021-01-03] MEDS: ATORVASTATIN 20 MG TAB PO SCH (08:38)
[2021-01-03] MEDS: SERTRALINE 50 MG TAB PO SCH (08:39)
[2021-01-03] MEDS: REPAGLINIDE 1 MG TAB PO SCH (08:39)
[2021-01-03 09:43] LABS: INR 1.77 (0.90-1.11); Prothrombin Time 18.6 sec (9.9-11.9)
[2021-01-03] MEDS: LACTATED RINGERS 1,000 ML IV SCH (09:43)
[2021-01-03] MEDS ORDERED: APIXABAN 5 MG TAB PO SCH (11:00)
[2021-01-03 11:43] LABS: Glucose,Whole Blood 152 mg/dL (75-99)
[2021-01-03] MEDS: HYDROmorphone 2 MG TAB PO PRN (13:20)
[2021-01-03] MEDS: CYCLOBENZAPRINE 5 MG TAB PO PRN (13:21)
--- NOTE | 2021-01-03 13:42 | P.DS ---
Providers Date of admission: 01/02/21 11:25 Expected date of discharge: 01/03/21 Attending physician: Tay Barrow DO Consults: 01/01/21 16:30 Consult Physician Routine Consulting Provider: Cabrera Pinzon Reason/Comments: medical management Do you want consulting provider notified?: Yes Primary care physician: Cabrera Pinzon Hospital Course: Date of admission: 01/01/2021 Date of discharge: 01/03/2021 Admission diagnosis: Status post C4-C6 ACDF Discharge diagnosis: Same Attending physician: Dr. Barrow Surgical procedures: C4-C6 anterior cervical decompression and fusion Brief history: Patient is a 65-year-old female a history of progressive C4-C6 cervical spondylosis with myelopathy, cervical radiculopathy, cervical degenerative disc disease and right upper extremity weakness.. At this point patient has failed conservative treatment measures and has opted to proceed with a elective C4-C6 ACDF. Hospital course: Details of patient's surgery can be found in operative report. Patient tolerated the procedure well and was subsequently transported to orthopedic floor. Patient's orthopeidc and medical care was provided daily. Patient had daily laboratory tests performed for evaluation of overall blood counts. Patient had daily physical therapy to include strengthening range of motion as well as education with walker ambulation. Patient was treated with Lovenox and Coumadin for their postoperative DVT prophylaxis during their inpatient stay. Discussion with internal medicine, patient was placed on Eliquis for DVT prophylaxis from previous pulmonary embolism, this will be utilized in the outpatient setting. Patient was noted to have a relatively uneventful postoperative course. Patient reported satisfactory pain control with oral pain medications by postoperative day 1. Patient showed satisfactory progress with physical therapy. Patient moved steadily through the program and had no difficulty meeting the goals by postoperative day 2. Given patient's otherwise satisfactory course and having met physical therapy goals, plan is to discharge patient [home] on postoperative day 2. Discharge condition/disposition: Patient will be discharged [home] in stable condition. Discharge medications: Instructions are given on resumption of patient's normal daily medications per primary care recommendation, in addition patient will be prescribed Eliquis. 5 mg, Senna S. Spine Discharge and Recovery Instructions Medications: See medication list All medication refills should be obtained through your primary care doctor or your clinic spine surgeon. Please discuss prescription refills at your follow up appointment. Do not call the hospital for medication refills. Dressing: Leave your dressing in place for a total of 5 days post operatively. Then you may remove your dressing and leave open to air. Keep the area clean and if not able to keep area clean, then cover with sterile gauze and tape. Showering: You may shower 3 days after your procedure allowing soap and water to run over incision. Do not scrub. Do not soak. Blot dry. Follow up: Please confirm a follow up appointment with your surgeon 3 weeks post operatively. Please make an appointment to follow up with your PCP in 1-2 weeks after surgery for evaluation 3 phase, 3-week plan POST OP WEEKS 1-3 1. Lifting/carrying/pushing/pulling limited to less than 5 pounds. 2. Do not sit for longer than 15 minutes at one time. Get up and walk around. Prolonged sitting is NOT advised. If you lay down, see if you can tolerate laying down on you front (belly side) 3. Walk for periods of 15 minutes = 1 mile but no longer; do it multiple times times each day. 4. Ice your low back after activity. POST OP WEEKS 3-6 1. Lifting limited to less than 20 pounds. 2. Do not sit for longer than 30 minutes at a time. Frequently change positions. Use a sit-to stand workstation or take frequent breaks from sitting if you have returned to work. 3. Walk for 30 minutes each day. If possible, do these three or more times a day POST OP WEEKS 6+ At your 6-week appointment we will give you a physical therapy referral to focus on a core stabilization and strengthening program. You should also work on leg & buttock strengthening, hamstring & quadriceps stretching, and continue a low impact aerobic activity program such as swimming, walking, or riding a stationary bicycle. During the initial 6 weeks after your surgery, you are at the highest risk of re-injuring your spine. You should generally avoid BLTs (bending, lifting and twisting combination motions) and follow the above guidelines to reduce the chance of reinjury. You can anticipate post op appointments in our office at approximately 3 weeks and 6 weeks after your surgery. INCISION CARE: If your incision is not draining you do NOT need to cover it with a dressing. Keep your incision clean, dry and intact. In most cases, we apply skin glue, valente or sutures to the incision at the time of surgery. This will be like a crust or have the appearance of a scab and will fall off in time on its own. The stitches or valente need to be removed at 3 weeks post op appointment. You may begin to shower 3 days after surgery (this allows the glue to shelton well). However, please avoid scrubbing the incision site or peeling off any of the skin glue. This will ensure optimal healing of your incision. Also, during this time avoid soaking the incision area in water - this includes swimming pools, hot tubs or baths. No ointments, lotions or oils on the incision until your surgeon allows. Leave valente, sutures or glue in place. Neurological dysfunction that comes on suddenly can also be a sign of a stroke. Below some common symptoms of a stroke are listed: B - balance difficulty such as sudden onset walking or leaning to one side - NEW E - eye problem such as sudden double vision or trouble seeing on one side - NEW F - Facial weakness or numbness on one side - NEW A - Arm or leg weakness or numbness on one side - NEW S - Slurred speech or difficulty with word finding - NEW T - Time is BRAIN! Call 911 as soon as you recognize these symptoms Diet: Consume a regular diet rich in vegetables and lean protein such as chicken or fish. You should consume in a ratio of approximately 20% fats|40% carbohydrates|40%protein. Vegetables, sweet potatoes, brown rice or quinoa are examples of good carbohydrates. Chips, white bread, cookies and sweets/sugar are examples of bad carbohydrates. Limit your bad carbs, go wild with good carbs. "Life's Simple 7" Guidelines as per [place] [employer] These will help you reclaim your life after surgery and car repairer helper in your recovery, keeping in mind your restrictions. (1) Get Active. Physical activity can help people lose weight, control high blood pressure and cholesterol, feel emotionally better, and sleep better. (2) Control Cholesterol. Avoid a diet high in saturated fat, trans fat, & cholesterol. Limit whole milk & cream, ice cream, butter, egg yolks, processed meats (like sausage and hot dogs), and fatty meats. Choose healthy foods that are low in saturated fat, trans fat and cholesterol which include: Fruits and vegetables, fiber rich grain products (like whole grain pasta and brown rice), lean meat such as chicken, fish, nuts, seeds, and legumes. (3) Eat Better. Eat small portions. Shop at the grocery with a list and do not stray from it. Tips for a healthy diet include: Limit sodium intake to less than 1500mg daily, avoid prepackaged, processed, and fast foods, choose a diet rich in fruits, vegetables, and whole grain, high fiber foods, and limit saturated & cholesterol in your diet. (4) Manage Blood Pressure. If you have high blood pressure, you should have a cuff at home so that you can check your blood pressure regularly. Be sure you have a good cuff. An arm one is generally better than a wrist one. Bring the cuff to a doctor's appointment to validate that the measurements that your cuff are taking are accurate. Take your blood pressure twice daily when you are sitting down and relaxing. Record the numbers in a log and bring this log with you to your doctors' appointments. (5) Lose Weight if your BMI is above 25. A healthy BMI is between 19-25. To calculate Your BMI, you may use a Standard BMI Calculator on the NIH BMI website: <www.nhlbi.nih.gov/guidelines/obesity/BMI/bmicalc.htm>. Weigh oneself daily. If you are overweight, set a goal to lose weight. A pound a week loss if needed is a good target. (6) Reduce Blood Sugar. Limit foods and liquids with "added sugars." (Added sugars include sucrose, fructose, glucose, maltose, dextrose, high fructose corn syrup, corn syrup, concentrated fruit juice and honey). (7) Stop Smoking. If you smoke, quitting smoking is one of the best things that you can do for your health. Smoking increases your risk of heart attack, stroke, and peripheral vascular disease, which is a build-up of plaque in your arteries. Please discard all the cigarettes and lighters in your house. Have a plan for what you will do when you have the urge to smoke. Direct and second- hand smoke shortens your life as well as the lives of your family, friends and others around you. For your health and the health of those around you, please consider quitting! Proper Bending Body Mechanics: Maintain a wide stance with one foot slightly in front of the other. Keep your back straight. Bend utilizing the strength in your hips and knees. Do not bend at the waist. Maintain the lifted object at your waist-level close to your body. Avoid lifting weight that causes immediately pain or pain anywhere in the body afterwards. Smoking/Nicotine If there was ever one thing that you could do to increase your overall health, decrease your risk of cardiovascular problems by about 39% the second you make the choice, it is to STOP SMOKING. Your body's most instant gratification is the second you stop smoking. We have all heard the studies, read the articles but it is true, smoking is extremely bad for your overall health, and moreover it is detrimental to your bone health. Nicotine, IN ANY FORM, kills bone cells, prevents your body from healing fractures, and significantly prolongs healing after surgery. In spine surgery specifically, it increases your risk of not healing your bones to create a fusion and increases your risk of having a revision surgery due to this up to 60%. I know it is hard. I know it feels impossible. But there are ways. Take control of your life. We are here to help you through it. And when you are ready, ask us and we can direct you to help if you desire. Use the START Plan to Quit Smoking (please visit the Helpguide.org website listed below for more information): S = Set a quit date. Choose a date within the next 2 weeks, so you have enough time to prepare without losing your motivation to quit. If you mainly smoke at work, quit on the weekend, so you have a few days to adjust to the change. T = Tell family, friends, and co-workers that you plan to quit. Let your friends and family in on your plan to quit smoking and tell them you need their support and encouragement to stop. Look for a quit fina who wants to stop smoking as well. You can help each other get through the rough times. A = Anticipate and plan for the challenges you'll face while quitting. Most people who begin smoking again do so within the first 3 months. You can help yourself make it through by preparing ahead for common challenges, such as nicotine withdrawal and cigarette cravings. R = Remove cigarettes and other tobacco products from your home, car, and work. Throw away all your cigarettes (no emergency pack!), lighters, ashtrays, and matches. Wash your clothes and freshen up anything that smells like smoke. Shampoo your car, clean your drapes and carpet, and steam your furniture. T = Talk to your doctor about getting help to quit. Your doctor can prescribe medication to help with withdrawal and suggest other alternatives. If you can't see a doctor, you can get many products over the counter at your local pharmacy or grocery store, including the nicotine patch, nicotine lozenges, and nicotine gum. Resources for Quitting Smoking: <https://www.[place].gov/documents/[facility]/Quit_Tobacco_Resources_for_patients_313 480_7.pdf> Supplementation: Take recommended dosages of Vitamin D and Calcium to help fortify your bones and help them to heal. See your health maintenance packet for dosages and recommended levels. DVT/VTE prophylaxis: You will be given compression stockings from the hospital. Wear these daily for the first two weeks after surgery. You may take them off at night. You may be prescribed a medication to help thin your blood. Take this as directed. If you are not prescribed this medication, early and frequent ambulation has been shown to be the best prophylaxis to deep vein thrombosis and sequelae related to this event. Procedures: C4-C6 anterior cervical decompression with fusion Patient Condition at Discharge: Good Plan - Discharge Summary Discharge Rx Participant: No New Discharge Prescriptions: New Apixaban [Eliquis] 5 mg PO BID tab Sennosides-Docusate Sodium [Senokot-S] 2 each PO DAILY PRN tab PRN Reason: Constipation Continue Sertraline [Zoloft] 50 mg PO QAM Omeprazole [PriLOSEC] 20 mg PO QAM Metoprolol Tartrate [Lopressor] 25 mg PO BID tiZANidine [Zanaflex] 4 - 6 mg PO QID PRN PRN Reason: Pain ALPRAZolam [Xanax] 0.5 mg PO TID PRN PRN Reason: Anxiety Gabapentin [Neurontin] 300 mg PO BID #60 cap Repaglinide [Prandin] 2 mg PO BID metFORMIN HCL [Glucophage] 1,000 mg PO BID Rosuvastatin [Crestor] 10 mg PO DAILY Insulin Glargine,Hum.rec.anlog [Lantus Solostar Pen] 15 unit SQ QAM Melatonin 10 mg PO HS traZODone HCL 50 mg PO HS Gabapentin 600 mg PO HS predniSONE 10 mg PO QAM Morphine Pump 1 dose INTRATHECA CONTINUOUS Morphine Sulfate Ir [MSIR] 30 mg PO Q6HR PRN 30 Days #120 tab PRN Reason: Pain Discontinued Warfarin [Coumadin] 3 mg PO SUTUTHFRSA Enoxaparin [Lovenox] 80 mg SQ BID Warfarin [Coumadin] 4.5 mg PO MOWE Discharge Medication List Omeprazole [PriLOSEC] 20 mg PO QAM 10/06/13 [History] Sertraline [Zoloft] 50 mg PO QAM 10/06/13 [History] Metoprolol Tartrate [Lopressor] 25 mg PO BID 02/27/17 [History] tiZANidine [Zanaflex] 4 - 6 mg PO QID PRN 04/02/18 [History] ALPRAZolam [Xanax] 0.5 mg PO TID PRN 07/06/18 [History] Gabapentin [Neurontin] 300 mg PO BID #60 cap 09/13/18 [Rx] Repaglinide [Prandin] 2 mg PO BID 04/15/19 [History] Rosuvastatin [Crestor] 10 mg PO DAILY 04/24/20 [History] metFORMIN HCL [Glucophage] 1,000 mg PO BID 04/24/20 [History] Insulin Glargine,Hum.rec.anlog [Lantus Solostar Pen] 15 unit SQ QAM 05/28/20 [History] predniSONE 10 mg PO QAM 07/24/20 [History] Morphine Pump 1 dose INTRATHECA CONTINUOUS 08/14/20 [History] Melatonin 10 mg PO HS 10/02/20 [History] traZODone HCL 50 mg PO HS 11/20/20 [History] Morphine Sulfate Ir [MSIR] 30 mg PO Q6HR PRN 30 Days #120 tab 12/27/20 [Rx] Gabapentin 600 mg PO HS 12/28/20 [History] Apixaban [Eliquis] 5 mg PO BID tab 01/03/21 [Rx] Sennosides-Docusate Sodium [Senokot-S] 2 each PO DAILY PRN tab 01/03/21 [Rx] Follow up Appointment(s)/Referral(s): Cabrera Pinzon MD [Primary Care Provider] - 1 Week Care,Gavin Jimenez [NON-STAFF] - ([facility] will call you to schedule your home care and home physical therapy.) Tay Barrow, [Doctor of Osteopathic Medicine] - 01/16/21 9:20 am Activity/Diet/Wound Care/Special Instructions: Spine Discharge and Recovery Instructions Medications: See medication list All medication refills should be obtained through your primary care doctor or your clinic spine surgeon. Please discuss prescription refills at your follow up appointment. Do not call the hospital for medication refills. Dressing: Leave your dressing in place for a total of 5 days post operatively. Then you may remove your dressing and leave open to air. Keep the area clean and if not able to keep area clean, then cover with sterile gauze and tape. Showering: You may shower 3 days after your procedure allowing soap and water to run over incision. Do not scrub. Do not soak. Blot dry. Follow up: Please confirm a follow up appointment with your surgeon 3 weeks post operatively. Please make an appointment to follow up with your PCP in 1-2 weeks after surgery for evaluation 3 phase, 3-week plan POST OP WEEKS 1-3 1. Lifting/carrying/pushing/pulling limited to less than 5 pounds. 2. Do not sit for longer than 15 minutes at one time. Get up and walk around. Prolonged sitting is NOT advised. If you lay down, see if you can tolerate laying down on you front (belly side) 3. Walk for periods of 15 minutes = 1 mile but no longer; do it multiple times times each day. 4. Ice your low back after activity. POST OP WEEKS 3-6 1. Lifting limited to less than 20 pounds. 2. Do not sit for longer than 30 minutes at a time. Frequently change positions. Use a sit-to stand workstation or take frequent breaks from sitting if you have returned to work. 3. Walk for 30 minutes each day. If possible, do these three or more times a day POST OP WEEKS 6+ At your 6-week appointment we will give you a physical therapy referral to focus on a core stabilization and strengthening program. You should also work on leg & buttock strengthening, hamstring & quadriceps stretching, and continue a low impact aerobic activity program such as swimming, walking, or riding a stationary bicycle. During the initial 6 weeks after your surgery, you are at the highest risk of re-injuring your spine. You should generally avoid BLTs (bending, lifting and twisting combination motions) and follow the above guidelines to reduce the chance of reinjury. You can anticipate post op appointments in our office at approximately 3 weeks and 6 weeks after your surgery. INCISION CARE: If your incision is not draining you do NOT need to cover it with a dressing. Keep your incision clean, dry and intact. In most cases, we apply skin glue, valente or sutures to the incision at the time of surgery. This will be like a crust or have the appearance of a scab and will fall off in time on its own. The stitches or valente need to be removed at 3 weeks post op appointment. You may begin to shower 3 days after surgery (this allows the glue to shelton well). However, please avoid scrubbing the incision site or peeling off any of the skin glue. This will ensure optimal healing of your incision. Also, during this time avoid soaking the incision area in water - this includes swimming pools, hot tubs or baths. No ointments, lotions or oils on the incision until your surgeon allows. Leave valente, sutures or glue in place. Neurological dysfunction that comes on suddenly can also be a sign of a stroke. Below some common symptoms of a stroke are listed: B - balance difficulty such as sudden onset walking or leaning to one side - NEW E - eye problem such as sudden double vision or trouble seeing on one side - NEW F - Facial weakness or numbness on one side - NEW A - Arm or leg weakness or numbness on one side - NEW S - Slurred speech or difficulty with word finding - NEW T - Time is BRAIN! Call 911 as soon as you recognize these symptoms Diet: Consume a regular diet rich in vegetables and lean protein such as chicken or fish. You should consume in a ratio of approximately 20% fats|40% carbohydrates|40%protein. Vegetables, sweet potatoes, brown rice or quinoa are examples of good carbohydrates. Chips, white bread, cookies and sweets/sugar are examples of bad carbohydrates. Limit your bad carbs, go wild with good carbs. "Life's Simple 7" Guidelines as per [place] [employer] These will help you reclaim your life after surgery and car repairer helper in your recovery, keeping in mind your restrictions. (1) Get Active. Physical activity can help people lose weight, control high blood pressure and cholesterol, feel emotionally better, and sleep better. (2) Control Cholesterol. Avoid a diet high in saturated fat, trans fat, & cholesterol. Limit whole milk & cream, ice cream, butter, egg yolks, processed meats (like sausage and hot dogs), and fatty meats. Choose healthy foods that are low in saturated fat, trans fat and cholesterol which include: Fruits and vegetables, fiber rich grain products (like whole grain pasta and brown rice), lean meat such as chicken, fish, nuts, seeds, and legumes. (3) Eat Better. Eat small portions. Shop at the grocery with a list and do not stray from it. Tips for a healthy diet include: Limit sodium intake to less than 1500mg daily, avoid prepackaged, processed, and fast foods, choose a diet rich in fruits, vegetables, and whole grain, high fiber foods, and limit saturated & cholesterol in your diet. (4) Manage Blood Pressure. If you have high blood pressure, you should have a cuff at home so that you can check your blood pressure regularly. Be sure you have a good cuff. An arm one is generally better than a wrist one. Bring the cuff to a doctor's appointment to validate that the measurements that your cuff are taking are accurate. Take your blood pressure twice daily when you are sitting down and relaxing. Record the numbers in a log and bring this log with you to your doctors' appointments. (5) Lose Weight if your BMI is above 25. A healthy BMI is between 19-25. To calculate Your BMI, you may use a Standard BMI Calculator on the NIH BMI website: <www.nhlbi.nih.gov/guidelines/obesity/BMI/bmicalc.htm>. Weigh oneself daily. If you are overweight, set a goal to lose weight. A pound a week loss if needed is a good target. (6) Reduce Blood Sugar. Limit foods and liquids with "added sugars." (Added sugars include sucrose, fructose, glucose, maltose, dextrose, high fructose corn syrup, corn syrup, concentrated fruit juice and honey). (7) Stop Smoking. If you smoke, quitting smoking is one of the best things that you can do for your health. Smoking increases your risk of heart attack, stroke, and peripheral vascular disease, which is a build-up of plaque in your arteries. Please discard all the cigarettes and lighters in your house. Have a plan for what you will do when you have the urge to smoke. Direct and second- hand smoke shortens your life as well as the lives of your family, friends and others around you. For your health and the health of those around you, please consider quitting! Proper Bending Body Mechanics: Maintain a wide stance with one foot slightly in front of the other. Keep your back straight. Bend utilizing the strength in your hips and knees. Do not bend at the waist. Maintain the lifted object at your waist-level close to your body. Avoid lifting weight that causes immediately pain or pain anywhere in the body afterwards. Smoking/Nicotine If there was ever one thing that you could do to increase your overall health, decrease your risk of cardiovascular problems by about 39% the second you make the choice, it is to STOP SMOKING. Your body's most instant gratification is the second you stop smoking. We have all heard the studies, read the articles but it is true, smoking is extremely bad for your overall health, and moreover it is detrimental to your bone health. Nicotine, IN ANY FORM, kills bone cells, prevents your body from healing fractures, and significantly prolongs healing after surgery. In spine surgery specifically, it increases your risk of not healing your bones to create a fusion and increases your risk of having a revision surgery due to this up to 60%. I know it is hard. I know it feels impossible. But there are ways. Take control of your life. We are here to help you through it. And when you are ready, ask us and we can direct you to help if you desire. Use the START Plan to Quit Smoking (please visit the Helpguide.org website list ed below for more information): S = Set a quit date. Choose a date within the next 2 weeks, so you have enough time to prepare without losing your motivation to quit. If you mainly smoke at work, quit on the weekend, so you have a few days to adjust to the change. T = Tell family, friends, and co-workers that you plan to quit. Let your friends and family in on your plan to quit smoking and tell them you need their support and encouragement to stop. Look for a quit fina who wants to stop smoking as well. You can help each other get through the rough times. A = Anticipate and plan for the challenges you'll face while quitting. Most people who begin smoking again do so within the first 3 months. You can help yourself make it through by preparing ahead for common challenges, such as nicotine withdrawal and cigarette cravings. R = Remove cigarettes and other tobacco products from your home, car, and work. Throw away all your cigarettes (no emergency pack!), lighters, ashtrays, and matches. Wash your clothes and freshen up anything that smells like smoke. Shampoo your car, clean your drapes and carpet, and steam your furniture. T = Talk to your doctor about getting help to quit. Your doctor can prescribe medication to help with withdrawal and suggest other alternatives. If you can't see a doctor, you can get many products over the counter at your local pharmacy or grocery store, including the nicotine patch, nicotine lozenges, and nicotine gum. Resources for Quitting Smoking: <https://www.[place].gov/documents/[facility]/Quit_Tobacco_Resources _for_patients_313480_7.pdf> Supplementation: Take recommended dosages of Vitamin D and Calcium to help fortify your bones and help them to heal. See your health maintenance packet for dosages and recommended levels. DVT/VTE prophylaxis: You will be given compression stockings from the hospital. Wear these daily for the first two weeks after surgery. You may take them off at night. You may be prescribed a medication to help thin your blood. Take this as directed. If you are not prescribed this medication, early and frequent ambulation has been shown to be the best prophylaxis to deep vein thrombosis and sequelae related to this event. Discharge Disposition: HOME WITH HOME HEALTH SERVICES
--- NOTE | 2021-01-03 13:43 | P.PN ---
Progress Note - Text Progress Note Date: 01/03/21 Patient seen and examined she is doing well she states her pain is much controlled will drain was pulled today minimal outage. Her right upper extremity continues to improve and she is very pleased with the lack of pain she has in it. She is wearing her hard cervical collar. She is good strength upper and lower extremities with no focal deficits or changes from exam yesterday. Her incision is clean dry and intact. She is ready to go home and wants to go today. She did undergo with home health care as well as instructions and follow-up in 2 weeks.
--- NOTE | 2021-01-03 13:47 | P.PN ---
Subjective Progress Note Date: 01/03/21 HISTORY OF PRESENT ILLNESS This is a 65-year-old female patient of Dr. Pinzon with past medical history of chronic pain syndrome status post multiple back and pain management procedures, hyperlipidemia, overactive bladder, coronary artery disease, paroxysmal atrial fibrillation on anticoagulation, with Coumadin, history of DVT and PE, generalized anxiety disorder and recurrent depression. Remote history of tobacco use and dependence. Patient brought into the hospital under the care of Dr. Barrow s/p C4 to C6 ACDF, post op day #1. Patient has been afebrile, HR 68, BP 124/78, PO 97% on RA. Evga catheter has been discontinued. Patient has had no postsurgical, occasions. She is planning to go home with homecare. 01/03: Patient states that she is feeling better today, she can move her right shoulder and arm. She remains with a hard cervical collar in place. Her INR today is at 1.7 and we will clear patient for discharge with plan to transition her to [facility]. She does have samples in the office and a prescription sent to her pharmacy. Patient has been afebrile, heart rate 74, blood pressure 101/68, pulse ox 93% on 3 L nasal cannula. Blood sugars are running between 152 and 221. Medication reconciliation will be reviewed anticipate discharge home later today. REVIEW OF SYSTEMS Constitutional: No fever, no chills, no night sweats. No weight change. No weakness, no fatigue. No daytime sleepiness. EENT: No headache. No blurred vision or double vision, no loss of vision. No loss of Hearing, no ringing in the ears, no dizziness. No nasal drainage or congestion. No epistaxis. No sore throat. Lungs: No shortness of breath, cough, no sputum production. No wheezing. Cardiovascular: No chest pain, no lower extremity edema. No palpitations. No paroxysmal nocturnal dyspnea. No orthopnea. No lightheadedness or dizziness. No syncopal episodes. Abdominal: No abdominal pain. No nausea, no vomiting. No diarrhea. No constipation. No bloody or tarry stools.. No loss of appetite. Genitourinary: No dysuria, increased frequency, urgency. No urinary retention. Reports hematuria. Warts right flank pain Musculoskeletal: No myalgias. No muscle weakness, no gait dysfunction, no frequent falls. No back pain. Reported neck discomfort, right arm weakness-. Integumentary: No wounds, no lesions. No rash or pruritus. No unusual bruising. Neurologic: No aphasia. No facial droop. No change in mentation. No head injury. No headache. No paralysis. No paresthesia. Psychiatric: No depression. No anxiety. Endocrine: Notedimprovement with improved range of motion abnormal blood sugars. No weight change. PHYSICAL EXAMINATION Gen: This is a 65-year-old female patient resting in recliner. HEENT: Head is atraumatic, normocephalic. Pupils equal, round. Sclerae is anic teric. NECK: Hard c-collar in place. LUNGS: Clear to auscultation. No wheezes or rhonchi. No intercostal retractions. HEART: Regular rate and rhythm. Systolic murmur. ABDOMEN: Soft. Bowel sounds are present. No masses. No tenderness. EXTREMITIES: No pedal edema. No calf tenderness. NEUROLOGICAL: Patient is awake, alert and oriented x3. Cranial nerves 2 through 12 are grossly intact. ASSESSMENT AND PLAN 1. Cervical disc disease with right upper extremity weakness status post C4 to C6 ACDF, 01/01. Patient's had no postop complications. 2. Chronic pain syndrome status post multiple back procedures and pain management procedures. Continue Zanaflex 4-6 mg 4 times daily as needed, morphine pump, morphine sulfate IR 30 mg 4 times daily as needed, gabapentin 300 mg twice daily and 600 mg at bedtime. 4. Paroxysmal atrial fibrillation on long-term anticoagulation. Patient will be transitioned to [facility] and will be cleared for discharge from medicine. 5. History of DVT and PE. 6. Diabetes mellitus type 2. Continue Lantus 15 units daily, metformin 1000 mg twice daily, Prandin 2 mg twice daily and NovoLog scale before meals and at bedtime 7. Remote history of tobacco use and dependence. 8. Hyperlipidemia. Continue atorvastatin 20 mg daily. 9. Generalized anxiety disorder and recurrent depression. 10. GI prophylaxis. Protonix 40 mg daily. 11. DVT prophylaxis. SCDs and DEBBY hose. Coumadin Transition to eliquis. DISCHARGE PLAN Home with [facility]. Impression and plan of care have been directed as dictated by the signing physician. Deidre Starr nurse practitioner acting as scribe for signing syl de jesus. Objective - Vital Signs Vital signs: Vital Signs Temp 98.3 F 01/03/21 08:19 Pulse 74 01/03/21 08:19 Resp 18 01/03/21 08:19 BP 101/68 01/03/21 08:19 Pulse Ox 93 L 01/03/21 08:19 Intake & Output 01/02/21 01/03/21 01/03/21 18:59 06:59 18:59 Other: # Voids 2 - Labs CBC & Chem 7: 01/02/21 06:12 01/02/21 06:12 Labs: Abnormal Lab Results - Last 24 Hours (Table) 01/02/21 01/02/21 01/02/21 Range/Units 06:12 11:37 16:45 PT (9.9-11.9) sec INR (0.90-1.11) Glucose 168 H (70-110) mg/dL POC Glucose (mg/dL) 247 H 221 H (75-99) mg/dL 01/02/21 01/03/21 01/03/21 Range/Units 21:14 05:54 07:16 PT 18.6 H (9.9-11.9) sec INR 1.77 H (0.90-1.11) Glucose (70-110) mg/dL POC Glucose (mg/dL) 180 H 208 H (75-99) mg/dL
--- NOTE | 2021-01-03 14:19 | P.PN ---
Subjective Progress Note Date: 01/03/21 Principal diagnosis: C4-C6 spondylosis Patient seen at bedside this morning resting comfortably sitting up in chair with c-collar in place. Patient says she is doing better today and would like to go home. Patient says she has been able to get up and use the bathroom. Patient says her symptoms in her right arm are resolving and she is able to use it lifted more. Patient denies chest pain, fever, shortness of breath, nausea, vomiting, change in vision, loss of bowel/bladder control. Objective - Vital Signs Vital signs: Vital Signs Temp 98.3 F 01/03/21 08:19 Pulse 74 01/03/21 08:19 Resp 18 01/03/21 08:19 BP 101/68 01/03/21 08:19 Pulse Ox 93 L 01/03/21 08:19 Intake & Output 01/02/21 01/03/21 01/03/21 18:59 06:59 18:59 Other: Voiding Method Toilet # Voids 2 - Exam Focused: Drain was removed from C-spine with minimal serous output. Dressing was changed. Incision was clean, dry, intact. New dressing was placed with Tegaderm over 4 x 4. Patient has been able to get up and walk around the room and use the restroom. Patient has a c-collar in place at all times. Patient is able to raise right arm higher than before surgery. Sensation is equal, symmetric, bilaterally intact throughout. Patient has good motor control in all major motor groups. Capillary refill is below 3 seconds bilaterally in digits of the upper extremities. Radial pulses intact, bilaterally, 2+.. - Labs CBC & Chem 7: 01/02/21 06:12 01/02/21 06:12 Labs: Abnormal Lab Results - Last 24 Hours (Table) 01/02/21 01/02/21 01/03/21 Range/Units 16:45 21:14 05:54 PT 18.6 H (9.9-11.9) sec INR 1.77 H (0.90-1.11) POC Glucose (mg/dL) 221 H 180 H (75-99) mg/dL 01/03/21 01/03/21 Range/Units 07:16 11:41 PT (9.9-11.9) sec INR (0.90-1.11) POC Glucose (mg/dL) 208 H 152 H (75-99) mg/dL Assessment and Plan Assessment: Postop day 3 C4 to C6 ACDF Right upper extremity weakness History DVT on Coumadin complex medical patient Plan: 1. C4-C6 spondylosis - surgery performed 01/01/2021 C4-C6 ACDF. Patient stable at bedside this morning. Patient is wearing c-collar at all times. Drain has been removed. INR is at 1.77 this morning. Medicine has moved blood thinner from Coumadin to Eliquis. Patient stable for discharge home with health services 2. Appreciate medical management 3. Pain management - [place], Flexeril, Tylenol, gabapentin 4. DVT prophylaxis - Patient INR 1.77 this morning. Moving from Coumadin to Eliquis 5. GI prophylaxis - magnesium hydroxide, Senokot, Protonix 6. Pt/OT - weightbearing as tolerated. Wear c-collar at all times. 7. Discharge planning discharge home today with health services Time with Patient: Less than 30
[2021-01-03 14:57] VITALS: BP 121/71; PULSE 70; TEMP 98.9
== END 2021-01-03 16:55 | disposition home health service (06) ==
LOC: OR 10:08 → 4SSUR 16:08 → OR 01-02 11:25 → 4SSUR 01-02 11:25
PROVIDERS: ADMIT Orthopaedic Surgery; ATTEND Orthopaedic Surgery
DX: M48.02 Spinal stenosis, cervical region (principal); M47.12 Other spondylosis with myelopathy, cervical region; M50.121 Cervical disc disorder at C4-C5 level with radiculopathy; I48.0 Paroxysmal atrial fibrillation; E11.9 Type 2 diabetes mellitus without complications; I08.1 Rheumatic disorders of both mitral and tricuspid valves; I27.20 Pulmonary hypertension, unspecified; J44.9 Chronic obstructive pulmonary disease, unspecified; I25.10 Atherosclerotic heart disease of native coronary artery without angina pectoris; K21.9 Gastro-esophageal reflux disease without esophagitis; M19.90 Unspecified osteoarthritis, unspecified site; E78.5 Hyperlipidemia, unspecified; G89.4 Chronic pain syndrome; M54.5 Low back pain; N32.81 Overactive bladder; F41.1 Generalized anxiety disorder; F33.9 Major depressive disorder, recurrent, unspecified; D68.9 Coagulation defect, unspecified; K44.9 Diaphragmatic hernia without obstruction or gangrene; R26.89 Other abnormalities of gait and mobility; F17.210 Nicotine dependence, cigarettes, uncomplicated; Z20.822 Contact with and (suspected) exposure to COVID-19; Z79.84 Long term (current) use of oral hypoglycemic drugs; Z79.899 Other long term (current) drug therapy; Z79.01 Long term (current) use of anticoagulants; Z79.4 Long term (current) use of insulin; Z79.891 Long term (current) use of opiate analgesic; Z79.52 Long term (current) use of systemic steroids; Z88.0 Allergy status to penicillin; Z88.8 Allergy status to other drugs, medicaments and biological substances; Z91.048 Other nonmedicinal substance allergy status; Z86.718 Personal history of other venous thrombosis and embolism; Z86.711 Personal history of pulmonary embolism; Z87.442 Personal history of urinary calculi; Z91.81 History of falling; Z90.49 Acquired absence of other specified parts of digestive tract; Z87.19 Personal history of other diseases of the digestive system; Z90.710 Acquired absence of both cervix and uterus; Z98.1 Arthrodesis status; Z97.8 Presence of other specified devices; Z95.828 Presence of other vascular implants and grafts; Z96.652 Presence of left artificial knee joint; Z96.82 Presence of neurostimulator; Z87.81 Personal history of (healed) traumatic fracture; Z86.69 Personal history of other diseases of the nervous system and sense organs; Z82.5 Family history of asthma and other chronic lower respiratory diseases; Z81.2 Family history of tobacco abuse and dependence; Z82.49 Family history of ischemic heart disease and other diseases of the circulatory system; Z80.1 Family history of malignant neoplasm of trachea, bronchus and lung; Z83.2 Family history of diseases of the blood and blood-forming organs and certain disorders involving the immune mechanism
CPT/HCPCS: 22551; 22552; 22845; 22853; 20930; 20936; 97116; 97162; 80048; 85025 ×2; 85610 ×3; 87635; 72040; 72125; G0378 ×2; C1713; C1762 ×2; J2250; J1100; J0690 ×3; J2405; J2001; J1650 ×2; J3010; J1170 ×4; J2370; J0330; J2704; 86850; 86900; 86901

== ENCOUNTER 2021-01-15 12:12 | Day surgery (SDC) | payer MEDICARE, OTHER ==
[2021-01-14 09:41] VITALS: BMI 34.9
[2021-01-15] MEDS ORDERED: MORPHINE FOR ANAZAO - PER 10 MG MISCELLANE ONE (12:13)
[2021-01-15] MEDS ORDERED: BUPIVACAINE UP TO 8 MG/ML, 31-60 ML SYRINGE MC ONE (12:13)
[2021-01-15 12:35] VITALS: BP 124/63; PULSE 89; RESP 16; TEMP 97
--- NOTE | 2021-01-15 13:05 | P.PCN ---
Date of Procedure: 01/15/21 Procedure(s) Performed: OPERATION: Intrathecal pain pump analysis, programming and reprogramming. And intrathecal pain pump refill PREOPERATIVE DIAGNOSES: 1. Chronic pain syndrome. 2. 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 ANESTHESIA: None. CONDITION: Stable. Description of the procedure; this is 65 years old female with a history of severe and chronic low back pain she has intrathecal pain pump, the intrathecal pain pump on the last showed patient currently had intrathecal morphine sulfate concentration 15 mg per mL, and bupivacaine concentration 5 mg per mL , and receiving a daily dose of morphine sulfate 6.6 mg/ day, and bupivacaine 2.2 mg/day , she had residual volume of 3.2 mL and under sterile technique and after the right buttock area prepped with chlorhexidine 3 and was able to access the pump port using [employer] kit, a 20-gauge needle advanced through the port and I was able to remove residual volume which is 6 mL, and then the pump refilled with the new medications total volume of 40 ML and patient will continue to receive morphine sulfate concentration 15 mg per mL and bupivacaine concentration 5 mg per mL and patient will continue to to get a daily dose of morphine 6.6 mg per day and daily dose of bupivacaine 2.2 mg per day and patient will use oral morphine MSIR 30 mg every 6 hours when necessary for breakthrough pain, she denies any side effects of the medication patient denies any excessive drowsiness or sleepiness, Physical Examinations : -Constitutiona : Cooperative , not in acute distress . -HEENT : nech : supple , no Lymphadenopathy , normal thyroid size . : eyes : no ptosis , no icterus, no photophobia . - neurologic : Cranial nerve II to XII intact , no focal neurological deffecit . -psychatric : alert , oriented X 3 , appropriate affect , intact judgment and insight . -Lymphatic : no Lymphadenopathy . - musculoskeltal : Lumber spine moter stegnth lower extremities ,thigh and legs 5/5 Right side , 5/5 Left side
== END 2021-01-15 12:52 | disposition home or self-care (01) ==
LOC: ORPAIN 12:12
PROVIDERS: ATTEND Specialist
DX: Z45.1 Encounter for adjustment and management of infusion pump (principal); G89.4 Chronic pain syndrome; Z79.891 Long term (current) use of opiate analgesic; M96.1 Postlaminectomy syndrome, not elsewhere classified; Z88.0 Allergy status to penicillin; Z91.09 Other allergy status, other than to drugs and biological substances
CPT/HCPCS: 62370; J2274

== ENCOUNTER → 2021-01-16 | Outpatient (CLI) | payer MEDICARE, OTHER ==
--- NOTE | 2021-01-16 12:38 | XR ---
EXAMINATION TYPE: XR cervical spine limited DATE OF EXAM: 01/16/2021 Comparison: 3 views Clinical History: 65-year-old female status post CERVICAL FUSION, follow-up exam Findings: Dental implants are noted. Median sternotomy wires. There seemed to be some patchy densities in the v isualized mid lungs. No predental space widening. Some degenerative changes present at the 1 dens articulation. There is r esidual prevertebral soft tissue swelling at the surgerized levels status post C4-C6 ACDF. Alignment is maintained. Impression: 1. Some prevertebral soft tissue swelling persists along the surgical levels, status post C4-C6 ACDF. No malalignment. 2. Possible patchy densities in the visualized mid lungs. Correlate for any respiratory symptoms that would warrant further assessment with chest radiograph.
== END | disposition home or self-care (01) ==
LOC: RADXRMAIN 09:20
PROVIDERS: ATTEND Orthopaedic Surgery
DX: Z98.1 Arthrodesis status (principal)
CPT/HCPCS: 72040

== ENCOUNTER 2021-03-22 12:19 | Day surgery (SDC) | payer MEDICARE, OTHER ==
[2021-03-19 11:50] VITALS: BMI 34.9
[~2021-03-22 12:19] MED LIST changes: -ACETAMINOPHEN TAB 500 MG TAB PO PRN; +DEXAMETHASONE SOD PHOSPHATE 4 MG/ML 1 ML VIAL IV ONE; -GABAPENTIN 300 MG CAP PO PRN; +LACTATED RINGERS 1,000 ML IV SCH; +MIDAZOLAM 2 MG/2 ML VIAL IV PRN; +ONDANSETRON 4 MG/2 ML VIAL IVP ONE; -ONDANSETRON 4 MG/2 ML VIAL IVP PRN
[2021-03-22] MEDS ORDERED: MORPHINE FOR ANAZAO - PER 10 MG MISCELLANE ONE (12:20)
[2021-03-22] MEDS ORDERED: BUPIVACAINE UP TO 8 MG/ML, 31-60 ML SYRINGE MC ONE (12:20)
[2021-03-22 13:18] LABS: Glucose,Whole Blood 306 mg/dL (75-99)
[2021-03-22] MEDS ORDERED: INSULIN ASPART (NovoLOG) 100 UNIT/ML VIAL SQ ONE (13:20)
[2021-03-22] MEDS ORDERED: ONDANSETRON 4 MG/2 ML VIAL IVP ONE (13:20)
[2021-03-22] MEDS ORDERED: HYDROmorphone (PF) 1 MG/ML ONE (13:20)
[2021-03-22] MEDS ORDERED: LIDOCAINE 1% (10MG/ML) FOR IV START INTRADERMA ONE (13:20)
[2021-03-22] MEDS ORDERED: MIDAZOLAM 2 MG/2 ML VIAL ONE (13:20)
[2021-03-22] MEDS ORDERED: ePHEDrine 50 MG/ML 1 ML AMP ONE (13:20)
[2021-03-22] MEDS ORDERED: fentaNYL (PF) 50 MCG/ML 2 ML AMP ONE (13:20)
[2021-03-22] MEDS ORDERED: LIDOCAINE 1% INJ 10MG/ML (20 ML MDV) ONE (13:20)
[2021-03-22] MEDS ORDERED: SUCCINYLCHOLINE CHLORIDE 100 MG/5 ML SYR IV ONE (13:20)
[2021-03-22] MEDS ORDERED: PROPOFOL 10 MG/ML 20 ML VIAL IV ONE (13:20)
[2021-03-22] MEDS ORDERED: HYDROCORTISONE SUCCINATE 100 MG/2 ML VIAL IV ONE (13:21)
[2021-03-22] MEDS ORDERED: BUPIVACAIN-EPI 0.25%-1:200,000 30 ML VIAL SQ ONE ×3 (13:55)
[2021-03-22] MEDS ORDERED: CLINDAMYCIN 600 MG in SODIUM CHLORIDE 0.9% 1,000 ML IRRIGATION ONE (14:05)
[2021-03-22] MEDS ORDERED: BACITRACIN ZINC 500 UNIT/GM OINT 28.4 GM TUBE TOPICAL ONE (14:58)
[2021-03-22 15:24] VITALS: TEMP 97.8
[2021-03-22 15:36] VITALS: RESP 16
[2021-03-22] MEDS: HYDROmorphone 0.5 MG/0.5 ML SYRINGE IVP PRN ×2 (15:39→15:55)
[2021-03-22 15:44] LABS: Glucose,Whole Blood 248 mg/dL (75-99)
[2021-03-22 16:16] VITALS: BP 127/60; PULSE 80
--- NOTE | 2021-03-22 16:21 | P.PCN ---
Date of Procedure: 03/22/21 Procedure(s) Performed: Procedure= 1-Replacement of permanent intrathecal infusion pump. 2-itrathecal pain pump refill 3-electronic analysis of intrathecal pain pump. 4-replacement of intrathecal pain pump catheter connector connector Preoperative diagnosis=1-postlaminectomy pain syndrome lumbar area. 2-chronic pain syndrome 3-end of life of intrathecal pain pump,(time for replacement ). Postoperative diagnosis= 1-end of life of intrathecal pain pump, 2-broken intrathecal pain pump catheter connector 3-postlaminectomy pain syndrome Conditions= stable. Complications= none. Estimated blood loss= 5 ml Anesthesia= general endotracheal intubation . Indication for the procedure= patient with a history of chronic pain and history of postlaminectomy pain syndrome , patient failed conservative treatment, patien t failed interventional pain management, patiens and intrathecal pain pump placed several years ago and she is here today to have replacement of the intrathecal pain pump off intrathecal pain pump of permanent intrathecal pain pump. Description of the procedure= patient was identified in the preop holding area risks and benefits and alternatives of the procedure discussed with the patient , including but not limited to risk of infection and bleeding or ALLERGIC reaction to the medication ,and consent signed . Patient placed in supine position after induction of anesthesia, by anesthesia department, the patient was given 2 g of prophylactic antibiotics , then in the right buttock area(location of the intrathecal pain pump) at the location of the pump, prepped and draped ,then incisions ,then I did dissection to free the old pump, then I was able to remove the old pump, and I I found that there is eroson in the connector of the old Pump ,then I have to replaced connector withe new connector for the new Pump, ,and befoe I connected I assured that there is free flow of CSF from the catheter , the I did the irrigations with antibiotic solution,and hemostasis obtained , and then the pump placed in the pocket and adequete hemostasis assured again , then after that the pocket was closed using 0 Vicryl, and then because patient had very weak tissue , then have to put all night long sutures interrupted, and then stables , then the dressing applied ,, The intrathecal pain pump programmed and showing the patient currently on medication concentration of PF morphine sulfate 15 mg per mL, and bupivacaine 15 mg per mL, and patient was receiving a daily dose of morphine sulfate PF 6.6 mg per day, bupivacaine 2.2mg per day, , and patient had reserve volume of 34 ML, she'll continue to use breakthrough medication patient will use Levaquin 500 mg by mouth daily. Patient will follow up in the pain clinic in 1 week
== END 2021-03-22 17:05 | disposition home or self-care (01) ==
LOC: ORPAIN 12:19
PROVIDERS: ATTEND Specialist
DX: T85.615A Breakdown (mechanical) of other nervous system device, implant or graft, initial encounter (principal); G89.29 Other chronic pain; M96.1 Postlaminectomy syndrome, not elsewhere classified; I48.91 Unspecified atrial fibrillation; J44.9 Chronic obstructive pulmonary disease, unspecified; K21.9 Gastro-esophageal reflux disease without esophagitis; M19.90 Unspecified osteoarthritis, unspecified site; Z98.1 Arthrodesis status; Z90.710 Acquired absence of both cervix and uterus; Z86.711 Personal history of pulmonary embolism; Z86.718 Personal history of other venous thrombosis and embolism; E78.5 Hyperlipidemia, unspecified; E11.9 Type 2 diabetes mellitus without complications; Z87.442 Personal history of urinary calculi; Z97.2 Presence of dental prosthetic device (complete) (partial); Z79.84 Long term (current) use of oral hypoglycemic drugs; Z79.891 Long term (current) use of opiate analgesic; Z79.52 Long term (current) use of systemic steroids; Z79.01 Long term (current) use of anticoagulants; Z79.4 Long term (current) use of insulin; Z88.0 Allergy status to penicillin; Z88.8 Allergy status to other drugs, medicaments and biological substances; Z91.09 Other allergy status, other than to drugs and biological substances
CPT/HCPCS: 62362; 62370; C1713; C1772; J2250; J1720; J0690; J2405; J2001; J3010; J1170 ×2; J0330; J2704

== ENCOUNTER → 2021-03-29 | Day surgery (SDC) | payer MEDICARE, OTHER ==
--- NOTE | 2021-03-29 13:29 | P.PN ---
Progress Note - Text Progress Note Date: 03/29/21 At this is follow-up visit for this 65 years old female, who had intrathecal pain pump replaced last week and she is admitted today for removal of the stable/sutures, patient denies any fever or night sweats and the incision looks healing appropriately, is no sign of erythema or discharge, no swelling, then after I removed the dressing and prepped the area( right Buttuck ) with a chlorhexidine x3 , sutures and the valente removed, after I removed the valente , the medial edge of the incision was not was completely and there was some oozing of serosanguineous fluid, for this reason after he cleaned the area, I placed 3 valente again, and then I placed steri stripes , dressing, blood and p atient will follow up in the pain clinic next week for removal of the valente.
== END ==
LOC: PNWHC3 11:10 → EDSTATUS 11:15
PROVIDERS: ATTEND Anesthesiology
DX: M54.50 Low back pain, unspecified (principal); M54.16 Radiculopathy, lumbar region
CPT/HCPCS: 99211

== ENCOUNTER → 2021-04-10 | Outpatient (CLI) | payer MEDICARE, OTHER ==
[2021-04-10 12:08] VITALS: BP 128/69; PULSE 76; RESP 16; TEMP 97.9
--- NOTE | 2021-04-10 12:31 | P.PN ---
Subjective Progress Note Date: 04/10/21 Principal diagnosis: A 65 yr old wheelchair assisted female with a history of severe and chronic low back pain secondary to lumbar degenerative disc diseases and lumbar spondylosis with facet arthropathy presents today for staple removal status post pain pump placement. Interventional pain procedures completed include pain pump placement within the left lumbar region Patient denies any side effects of the medication(s), denies excessive drowsiness or sleepiness, denies suicidal ideation and reports that the current pain medication is helping to control the pain and improve activities of daily living. Patient denies any motor or sensory deficits. Patient denies any fever or night sweats, denies any change in the bowel movements or urination. Physical Examination: -Constitutional: Cooperative. Not in acute distress . -HEENT: Neck is supple. No lymphadenopathy. No thyromegaly. Normal thyroid size. Eyes: No ptosis , no icterus, no photophobia. ENT: No auditory deficits. Normal oropharynx. No Thrush. - Respiratory: Chest clear to auscultations bilaterally. No wheezing. No rhonchi. - Cardiovascular: Regular rate and rhythm. S1 / S2 , no S3 , no S4. - Gastrointestinal: Abdomen soft no tenderness. Bowel sounds positive in all four quadrants. No organomegaly. - Genitourinary: Deferred. - Integumentary : 3 inch horizontal incisional scar with surrounding erythema and 3 staple placement at the sacral level left of midline . no weeping, oozing or pus. Mild tenderness to palpation - Neurologic: Cranial nerve II to XII intact. No focal neurological deficits. - Psychatric: Alert & oriented x 3. Matching mood & appropriate affect. Judgment and insight intact. - Lymphatic: No Lymphadenopathy. - Musculoskeletal: Cervical spine: Muscle bulk/ tone/ strength in the bilateral upper extremities normal. Facet loading test cervical area positive. Lumbar spine: Motor bulk/ tone/ strength lower extremities , thigh and legs : 5/5 Deep tendon reflexes : Normal Knee Jerk. Normal Ankle Jerk . Lumbar Facet Loading Test positive Straight Leg Raise: positive at 30 degree right side/ left side Ac test: positive right side / left side Range of motion: Range of motion in flexion of the lumbar spine <60 degrees Range of motion: Extension of the lumbar spine <20 degrees Severe tenderness over the Sacroiliac joint: right side / left side Assessment and plan: Chronic low back pain secondary to lumbar degenerative disc disease , lumbar spondylosis with facet arthropathy without myelopathy Larry and prop of affected area, removal of 3 valente and placement of Steri-Strips over incision Patient tolerated procedure well To return to our office for medication refills and collection of urine for UDS All patient questions answered MAPS reviewed and it was appropriate. I have spent 31 minutes on patient care today. Dr Clarke was available by phone for the evaluation of this patient. The time was used to review the medical records including relevant urine studies and Prescription history (MAPs), review of the available imaging, evaluation and examination of the patient, coordination of care with the medical staff and if applicable referring physicians, as well as creation of the medical record Objective - Vital Signs Vital signs: Vital Signs Temp 97.9 F 04/10/21 11:57 Pulse 76 04/10/21 11:57 Resp 16 04/10/21 11:57 BP 128/69 04/10/21 11:57 Pulse Ox 92 L 04/10/21 11:57 PQRS Measure Charge Sheet Mode of Arrival: Wheelchair - Pain Location Back Non-Pharmacological Interventions: Heat, Inactivity, Physical Therapy Pharmacological Interventions: Medication, Pain Pump, Scheduled Medication PQRS Narrative: Smoking Status Former smoker Narcotic Agreement Date Signed 04/10/21 Blood Pressure 128/69 Pain Intensity [Back] 6 Scale Used Numeric (1 - 10) Hx Alcohol Use (MH) No Home Medications: Ambulatory Orders Omeprazole [PriLOSEC] 20 mg PO QAM 10/06/13 Sertraline [Zoloft] 50 mg PO QAM 10/06/13 Metoprolol Tartrate [Lopressor] 25 mg PO BID 02/27/17 tiZANidine [Zanaflex] 4 - 6 mg PO QID PRN 04/02/18 ALPRAZolam [Xanax] 0.5 mg PO TID PRN 07/06/18 Gabapentin [Neurontin] 300 mg PO BID #60 cap 09/13/18 Repaglinide [Prandin] 2 mg PO BID 04/15/19 Rosuvastatin [Crestor] 10 mg PO DAILY 04/24/20 metFORMIN HCL [Glucophage] 1,000 mg PO BID 04/24/20 Insulin Glargine,Hum.rec.anlog [Lantus Solostar Pen] 15 unit SQ QAM 05/28/20 predniSONE 10 mg PO QAM 07/24/20 Morphine Pump 1 dose INTRATHECA CONTINUOUS 08/14/20 Melatonin 10 mg PO HS PRN 10/02/20 traZODone HCL 50 mg PO HS 11/20/20 Morphine Sulfate Ir [MSIR] 30 mg PO Q6HR PRN 30 Days #120 tab 12/27/20 Gabapentin 600 mg PO HS 12/28/20 Apixaban [Eliquis] 5 mg PO BID tab 01/03/21 diphenhydrAMINE [Benadryl] 50 mg PO QID PRN 01/14/21 Miralax Powder 1 applicate PO DAILY PRN 04/01/21 Aspirin EC [Ecotrin Low Dose] 81 mg PO DAILY 04/08/21
== END ==
LOC: PNWHC3 04-09 08:31
PROVIDERS: ATTEND Specialist
DX: M51.36 Other intervertebral disc degeneration, lumbar region (principal); M47.816 Spondylosis without myelopathy or radiculopathy, lumbar region; G89.29 Other chronic pain; Z87.891 Personal history of nicotine dependence; Z88.0 Allergy status to penicillin; Z88.8 Allergy status to other drugs, medicaments and biological substances; Z88.9 Allergy status to unspecified drugs, medicaments and biological substances; Z88.1 Allergy status to other antibiotic agents; Z91.048 Other nonmedicinal substance allergy status
CPT/HCPCS: 99211

== ENCOUNTER → 2021-06-06 | Day surgery (SDC) | payer MEDICARE, OTHER ==
[2021-06-05 10:47] VITALS: BMI 34.9
[2021-06-06 14:42] VITALS: BP 150/78; PULSE 78; RESP 18; TEMP 97.5
--- NOTE | 2021-06-06 15:33 | P.PCN ---
Date of Procedure: 06/06/21 Procedure(s) Performed: OPERATION: Intrathecal pain pump analysis, programming and reprogramming, and intrathecal pain pump refill. PREOPERATIVE DIAGNOSES: 1. near empty intrathecal pain pump time for refill. 2. 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 near empty intrathecal pain pump time for refill. 2. 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 CONDITION: Stable. Description of the procedure; Intrathecal pain pump analysed ,it showed patient currently had reservoir volume of [0.4 ] mL. The patient is receiving medication PF morphine sulfate 15 mg/ ml, and bupivacaine concentration [ 5] mg/ml. Patient receiving daily dose of morphine sulfate 6.5 mg/day and bupivacaine 2.1 mg per day Pain is controlled , patient using medication for breakthrough pain [ MSIR 30 mg every 6 hours] orally . The location of the pump ( Right Buttock ) Prepped with chlorhexidine x2 , then using 22-gauge needle [id number] kit advanced through the pump port, Total of [ 2 ] ml removed from the pump,( expected volume 0.4 mL ) the pump was refilled with the new medication total volume [ 40] ml . The concentration of morphine sulfate PF 15 mg /ml , and the bupivacaine concentration [ 5 ] mg/ml. Patient will continue on her own same dose which is morphine sulfate 6.5 mg per day and bupivacaine 2.1 mg per day Prescription for MSIR 30 mg every 6 hours dispense 120 with 1 refills given, MAPS reviewed and it was appropriate Patient already had a prescription for when necessary Physical Examinations : -Constitutiona : Cooperative , not in acute distress . -HEENT : nech : supple , no Lymphadenopathy , normal thyroid size . : eyes : no ptosis , no icterus, no photophobia . - neurologic : Cranial nerve II to XII intact , no focal neurological deffecit . -psychatric : alert , oriented X 3 , appropriate affect , intact judgment and insight . -Lymphatic : no Lymphadenopathy . - musculoskeltal : Lumber spine moter stegnth lower extremities ,thigh and legs 4/5 Right side , 4/5 Left side deep tendon reflexes : normal Knee Jerk , normal ankle Jerk lumber facet Loading Test =positive Right , positive Left Range of motion of the lumbar spine Flexion 30 degrees, extension 10 degrees strait leg raising test = positive at degree Fabere test= positive Right , and positive LT . Sever tenderness over the Sacroiliac joint on the Right , and Left sides Gaenslen test= positive right ,and positive left . Seated flexion test= positive right ,and positive Left . Distraction test= positive bilaterally Sacroiliac compression test= positive bilaterally Assessment and plan=1-failed back surgery syndrome lumbar area. 2-opioid tolerance. 3-bilateral sacroiliitis, 4-lumbar spondylosis with lumbar facet arthropathy. Plan is to continue current medication management, intrathecal therapy and opioids orally as prescribed. Patient could benefit from bilateral sacroiliac joint steroid injection under fluoroscopy guidance
== END ==
LOC: ORPAIN 14:27
PROVIDERS: ATTEND Specialist
DX: Z45.1 Encounter for adjustment and management of infusion pump (principal); M96.1 Postlaminectomy syndrome, not elsewhere classified; Z79.891 Long term (current) use of opiate analgesic
CPT/HCPCS: 62370